=== PATIENT | female | born 1940 | race Caucasian/White ===

== ENCOUNTER 2019-12-14 09:53 | Inpatient (IN) | payer MEDICARE, BC, OTHER ==
[~2019-12-14] VITALS: Ht 162.6 cm; Wt 47.2 kg
[~2019-12-14 09:53] MED LIST: Diovan PO; PANT20TA58 PO; cholesterol med; paxil PO
--- NOTE | 2019-12-14 10:09 | PHYS DOC ---
Past History Past Medical History: Anxiety, Dementia, GERD, High Cholesterol, Hypertension, IBS Past Surgical History: Hysterectomy Smoking: Non-smoker Alcohol Use: None Drug Use: None General Adult EDM: Chief Complaint: MEDICAL CLEARANCE HPI: HPI: Patient is an 79-year-old female with a history of advanced dementia. The patient's states that for the past 2 weeks she has had a decline in her mental status with increasing confusion, she is not responding verbally, in her normal manner, spelling her words, and with limited communications. She has not been violent or aggressive. She did have a CT scan done 2 days ago at [facility] according to the patient's , due to her mental status change. She also recently had an increase of her Paxil to 40 mg, which was discontinued by her PCP. Because of the continued difficulties of the patient's behavior, she was sent by her PCP to the emergency department for medical evaluation and admission to the [facility]. The patient herself has no other complaints at this time. I will request the records of the CT scan from [facility]. The patient's states she recently had a Puentes catheter placed secondary to inability to Fully empty her bladder. Review of Systems: Review of Systems: Unable to obtain review of systems secondary to altered mental status/dementia Heart Score: Risk Factors: Risk Factors: DM, Current or recent (<one month) smoker, HTN, HLP, family history of CAD, obesity. Risk Scores: Score 0 - 3: 2.5% MACE over next 6 weeks - Discharge Home Score 4 - 6: 20.3% MACE over next 6 weeks - Admit for Clinical Observation Score 7 - 10: 72.7% MACE over next 6 weeks - Early Invasive Strategies Allergies: Allergies: Allergies Coded Allergies Type Severity Reaction Last Updated Verified sulfamethoxazole Allergy Unknown 07/18/13 Yes prochlorperazine maleate Adverse Reaction Unknown Makes her twitch 07/18/13 Yes Physical Exam: PE: PHYSICAL EXAM: CONSTITUTIONAL: Well developed, well nourished HEAD: normocephalic, atraumatic EENT: PERRL, EOMI. Conjunctivae normal color, sclerae non-icteric; moist mucous membranes. NECK: Supple, non-tender; no meningismus. LUNGS: Lungs CTA, breathing even and unlabored. Normal air movement. HEART: Regular rate and rhythm, no murmur CHEST: No deformity; non-tender ABDOMEN: The abdomen is soft, and non-tender, no masses or bruits. EXTREM: Normal ROM; no deformity, no calf tenderness. Normal pulses palpable in all extremities. There is no pedal edema. SKIN: No rash; no diaphoresis NEURO: Alert; patient is not speaking, she does exhibit erratic responses to questions and interactions consistent with underlying dementia. CN's grossly intact; strength grossly intact without focal deficit. Patient does exhibit some behavioral agitation but is not combative. BACK: No CVA TTP. EKG: EKG: Sinus tachycardia rate of 118 bpm, normal axis, right bundle branch block with otherwise normal intervals, without acute ischemic ST/T changes. [] Radiology/Procedures: Radiology/Procedures: PROCEDURE: CHEST AP ONLY EXAM: CHEST AP ONLY INDICATION: Reason: AMs, leukocytosis / Spl. Instructions: / History: . TECHNIQUE: Single view COMPARISON: None FINDINGS: The heart size is normal. The great vessels appear unremarkable. There is no hilar or mediastinal mass. The lungs are clear. There is no pleural effusion or pneumothorax. There are no significant osseous abnormalities. IMPRESSION: No active cardiopulmonary disease. [] Course & Med Decision Making: Course & Med Decision Making Pertinent Labs and Imaging studies reviewed. (See chart for details) [] 1:20 PM: The patient's condition remained stable. The patient's apparently called the [facility] unit, and was told to come to the emergency department for the [facility] does not have any beds at this time. The patient has had a worsening of her mental status, particularly with regards to her speech recently, and would benefit from a hospital stay on the medical unit for neurology consult. I spoke with Dr. Soliman, who will admit the patient for further evaluation and treatment. Neurology consultation would be reasonable. the patient did begin having more expressive verbal communication after she was informed she will be admitted to the hospital, however the content of her speech and her behavior still abnormal consistent with her history of dementia. Sherrion Disclaimer: Cristobal Disclaimer: This electronic medical record was generated, in whole or in part, using a voice recognition dictation system. Departure Departure: Impression: Primary Impression: Altered mental status Disposition: ADMITTED INPATIENT Admitting Physician: Silver Soliman Condition: STABLE Referrals: NUNO SMITH MD (PCP) Justification of Admission: Justification of Admission: Justification of Admission Dx: Yes Altered Mental Status: Altered Mental Status TYLER PORRAS MD Dec 14, 2019 10:09
--- NOTE | 2019-12-14 10:35 | EKG ---
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
[2019-12-14 10:53] LABS: BASO # 0.1 x10^3/uL (0.0-0.2); BASO % 1 % (0-3); EOS % 0 % (0-3); HEMATOCRIT 35.7 % (36.0-47.0); LYMPH # 1.2 x10^3/uL (1.0-4.8); LYMPH % 7 % (24-48); MEAN CORPUSCULAR HEMOGLOBIN 31 pg (25-35); MEAN CORPUSCULAR HGB CONC 34 g/dL (31-37); MEAN CORPUSCULAR VOLUME 93 fL (79-100); MONO # 1.3 x10^3/uL (0.0-1.1); MONO % 8 % (0-9); NEUT # 13.9 x10^3uL (1.8-7.7); NEUT % 84 % (31-73); PLATELET COUNT 447 x10^3/uL (140-400); RED BLOOD COUNT 3.84 x10^6/uL (3.50-5.40); WHITE BLOOD COUNT 16.5 x10^3/uL (4.0-11.0)
[2019-12-14 11:01] LABS: CALCIUM 9.4 mg/dL (8.5-10.1); CREATININE 0.9 mg/dL (0.6-1.0); GFR 60.2
[2019-12-14 11:06] LABS: ALBUMIN 3.3 g/dL (3.4-5.0); ALBUMIN/GLOBULIN RATIO 1.1 (1.0-1.7); MAGNESIUM 1.8 mg/dL (1.8-2.4); TOTAL BILIRUBIN 0.7 mg/dL (0.2-1.0); TOTAL PROTEIN 6.4 g/dL (6.4-8.2)
--- NOTE | 2019-12-14 12:03 | RAD ---
EXAM: CHEST AP ONLY INDICATION: Reason: AMs, leukocytosis / Spl. Instructions: / History: . TECHNIQUE: Single view COMPARISON: None FINDINGS: The heart size is normal. The great vessels appear unremarkable. There is no hilar or mediastinal mass. The lungs are clear. There is no pleural effusion or pneumothorax. There are no significant osseous abnormalities. IMPRESSION: No active cardiopulmonary disease. Electronically signed by: John Fish MD (12/14/2019 12:00 PM) [id number]
[2019-12-14 12:36] LABS: BILIRUBIN,URINE NEG (NEG); CLARITY,URINE CLEAR; COLOR,URINE YELLOW; GLUCOSE,URINE NEG (NEG)
[2019-12-14 12:40] LABS: NITRITE,URINE NEG (NEG); RBC,URINE RARE /HPF (0-2)
[2019-12-14 12:41] LABS: BACTERIA,URINE FEW /HPF (0-FEW)
[2019-12-14 13:11] LABS: % LYMPHS 4 % (24-48); % MONOS 9 % (0-10); % SEGS 87 % (35-66); PLT ESTIMATE INCREASED (ADEQUATE)
[2019-12-14 13:13] LABS: BURR CELLS FEW
--- NOTE | 2019-12-14 14:35 | HP ---
ADMIT DATE: 12/14/2019 ATTENDING PHYSICIAN: Dr. Gutierrez. CHIEF COMPLAINT: Confusion. HISTORY OF PRESENT ILLNESS: The patient is an 79-year-old female with profound advanced dementia. She has been cared for diligently by her . For the last 2 weeks, she has been in decline in her mental status with increasing confusion. She has not responded in the usual manner spelling her words, limited communication with expressive aphasia. She had a recent CT scan just 2 days ago at [facility], which is interpreted as nondiagnostic. She has underlying depression. She also had a cystoscopy done [facility] for urinary retention and Puentes catheter has been placed. Her white count is slightly elevated. She does not appear septic at this time, but certainly systemic inflammatory response syndrome is a possibility. Empiric antibiotics will be started. I was asked to admit the patient for Neurology consultation, stabilization and put in a consult for the senior diagnostic unit. Her 's goal is to eventually get her stabilized and get her back home to manage her. He does not have any plans for [place] [facility] placement at this time. PAST MEDICAL HISTORY: Significant for advanced dementia, generalized anxiety, hypertension, irritable bowel syndrome, gastroesophageal reflux disease and hyperlipidemia. ALLERGIES: SHE HAS MULTIPLE ALLERGIES INCLUDING PROCHLORPERAZINE, AND SULFAMETHOXAZOLE. Exact causes and reaction is unclear. SOCIAL HISTORY: She is a nonsmoker and nondrinker. SURGICAL HISTORY: Hysterectomy for what diagnosis is unclear to the hospital. CURRENT MEDICINES: Reviewed. They are limited. She was restarted on her Paxil 40 mg daily along with aspirin 1 daily, Protonix 20 mg daily, Diovan 80 mg daily and a lipid drug. FAMILY HISTORY: Her mom of complications of colon cancer at age of 78. Father of natural causes in his mid 90s. They have 2 children that are grown. One son lives in [place]. A daughter lives in [place]. REVIEW OF SYSTEMS: Significant for her decline over the last 2 weeks. Recent manipulation for placement of indwelling Puentes catheter. She has had poor appetite. She has had some weight loss. All other systems reviewed. Unfortunately, unobtainable due to the patient's confusion. PHYSICAL EXAMINATION: GENERAL: When I saw her, this is a pleasant, but cachectic elderly female. INITIAL VITAL SIGNS: Showed a blood pressure 148/67, pulse was 100 and regular, temperature 98.8 and her room air saturation was 95%. HEENT: Head is without trauma. Pupils are reactive. Sclerae nonicteric. The oropharynx is clear. NECK: Supple, no bruits identified. LUNGS: Shallow respirations. CARDIOVASCULAR: Showed regular heart tones. No gallops. Peripheral pulses are palpable and full. ABDOMEN: Soft, scaphoid, nontender, no organomegaly. Bowel sounds are hypoactive. EXTREMITIES: Show no cyanosis or edema. Indwelling Puentes catheter was in place. SKIN: Warm and dry. PERTINENT LABORATORY STUDIES: The CT of the head was reported as nondiagnostic from [facility] 2 days ago. Hemoglobin is 12.0 g/dL with white count of 16,500. Chemistry panel is fairly unremarkable. Creatinine 0.9, nonfasting blood sugar 96. Liver panel unremarkable. Urinalysis showed rare red blood cells, few bacteria and some leukocyte esterase. The urinary pH is 8.5 suggestive of a Proteus species infection. ASSESSMENT: 1. An 79-year-old female with profound dementia with agitation. 2. Recent bladder manipulation and placement of catheter. I suspect she has a systemic inflammatory response syndrome. 3. Probable Proteus species infection. 4. Mild dehydration. 5. Altered mentation with agitation. PLAN: 1. Admit to the medical floor. 2. Empiric antibiotics. 3. Urine culture. 4. Diet as tolerated. 5. Empiric Rocephin. 6. Urology consult. 7. Psychiatry consult for placement at the senior diagnostic unit. I shall also discuss with to ascertain her code status. She is a FULL CODE at this time. NADJA GUTIERREZ MD DR: JOY/joan JOB#: [id number] / [id number]
[2019-12-14 16:22] VITALS: BP 160/81
[2019-12-14] MEDS ORDERED: PARO40TA61 PO (18:28)
[2019-12-14] MEDS ORDERED: ACET325T21 PO (18:28)
[2019-12-14] MEDS ORDERED: ALPR0.254 PO (18:28)
[2019-12-14] MEDS ORDERED: ATOR10TA60 PO (18:28)
[2019-12-14] MEDS ORDERED: TAMS0.4C97 PO (18:28)
[2019-12-14] MEDS ORDERED: POLY17PO5 PO (18:28)
[2019-12-14] MEDS ORDERED: MECO10005 PO (18:28)
[2019-12-14] MEDS ORDERED: PANT40TA3 PO (18:28)
[2019-12-14] MEDS ORDERED: IBUP400T18 PO (18:28)
[2019-12-14] MEDS ORDERED: LINA290C PO (18:28)
[2019-12-14] MEDS ORDERED: VALS1TAB8 PO (18:28)
[2019-12-14] MEDS ORDERED: PHEN95TA PO (18:28)
[2019-12-14] MEDS ORDERED: SENN8.8S5 PO (18:28)
[2019-12-14] MEDS: QUEtiapine 25 MG TABLET. PO SCH ×2 (19:38→21:00)
[2019-12-14 19:59] VITALS: BP 131/78
--- NOTE | 2019-12-14 21:39 | RAD ---
STUDY: CT head without contrast INDICATION: Altered mental status. COMPARISON: None. TECHNIQUE: Axial CT imaging through the head without the use of intravenous contrast. Sagittal and coronal reformats were obtained. One or more of the following individualized dose reduction techniques were utilized for this examination: 1. Automated exposure control 2. Adjustment of the mA and/or kV according to patient size 3. Use of iterative reconstruction technique. FINDINGS: No acute intracranial hemorrhage. No localized mass effect. No midline shift. The lateral and third ventricles are prominent in size but symmetric. Parenchymal volume loss. Patchy and more confluent bihemispheric subcortical and periventricular white matter low-attenuation. Mild carotid siphon atherosclerotic calcifications. Intact calvarium. Unremarkable mastoid air cells, middle ears and paranasal sinuses. IMPRESSION: 1. No acute intracranial abnormality by CT. 2. Nonspecific white matter findings but most frequently seen in the setting of chronic microvascular ischemic change. 3. Symmetric prominence of the ventricular system on a background of parenchymal volume loss. Electronically signed by: ALYSSA CAMPUZANO MD (12/14/2019 9:36 PM) [id number]
[2019-12-14 23:40] VITALS: BP 152/79
--- NOTE | 2019-12-15 05:41 | NUR ---
Pt spent most of shift confused, agitated, persistent on not wanting to stay and needing to get home to see her and she was so worried about him and their dog. She was alert to self. Pt would talk on her phone which was and be having a conversation with someone but was not there. She kept saying she just wanted to go to the door to let her in and I would reorient her that we were at the hospital and she was getting abx and treatment to get better and that her was worried about her and that is why he had her come here. I probably repeated myself with the same question and answers 100 times. She was trying to get up out and just extremely anxious not getting any sleep but finally after some ativan, she has been sleeping sound ever since. VSS. Pt CT head completed last night. Puentes draining well with good output.
[2019-12-15 10:01] VITALS: BP 105/63
--- NOTE | 2019-12-15 10:48 | PN ---
DATE: 12/15/2019 ATTENDING PHYSICIAN: Dr. Gutierrez. CHIEF COMPLAINT: Confusion. SUBJECTIVE: The patient is calm today. She remains fairly disoriented from her dementia. She is not agitated. We had to give her a couple of doses of Ativan to calm her down. is at the bedside. There is no obvious respiratory distress or discomfort. OBJECTIVE FINDINGS: VITAL SIGNS: Her blood pressure today is 131/78, pulse is 88 and regular, temperature 98.1 degrees Fahrenheit, and her oxygen saturation is 97% on room air. HEENT: Head is without trauma. Pupils are reactive. Sclerae is nonicteric. Oropharynx is clear. NECK: Supple. No bruits identified. CHEST: Good breath sounds. CARDIOVASCULAR: Showed distant heart tones. No gallops. ABDOMEN: Soft, scaphoid, nontender. EXTREMITIES showed no edema. Puentes catheter was in place. NEUROLOGICAL FUNCTION: The patient is confused and disoriented and not aware of anything that is going on. LABORATORY STUDIES: CBC and chemistry panel are pending. Urine cultures and blood cultures have been drawn and pending. ASSESSMENT: 1. An 79-year-old female with altered mentation. 2. Systemic inflammatory response syndrome related to recent cystoscopy 4 days ago. 3. Urinary retention with placement of Puentes catheter. 4. Probable Proteus species infection if cultures are positive. 5. Mild dehydration. 6. Altered mentation with agitation. PLAN: 1. Continue IV antibiotics. 2. Continue IV hydration. 3. Diet as tolerated. 4. Await urine culture. 5. Psychiatric consult for Senior diagnostic unit. 6. Neurology consultation. NADJA GUTIERREZ MD DR: JOY/joan JOB#: [id number] / [id number]
[2019-12-15] MEDS: PARoxetine 20 MG TABLET PO SCH (11:55)
[2019-12-15] MEDS: PANTOPRAZOLE 40 MG TABLET. PO SCH (11:55)
[2019-12-15] MEDS: LOSARTAN 50 MG TABLET. PO SCH (11:56)
[2019-12-15] MEDS: hydroCHLOROthiazide 12.5 MG CAPSULE PO SCH (11:56)
[2019-12-15] MEDS: TAMSULOSIN 0.4 MG CAP.ER.24H. PO SCH (11:56)
[2019-12-15] MEDS: LACTOBACILLUS RHAMNOSUS GG 1 CAPSULE. PO SCH ×2 (11:56→20:17)
[2019-12-15 19:30] VITALS: BP 98/59
[2019-12-15] MEDS: ATORVASTATIN CALCIUM 10 MG TABLET. PO SCH (20:17)
[2019-12-15] MEDS: ALPRAZolam 0.25 MG TABLET PO SCH (20:17)
[2019-12-15 22:35] VITALS: BP 122/69
--- NOTE | 2019-12-16 03:34 | NUR ---
Pt more oriented this evening. Aware she is in the hospital and she has been more confused recently. However pt is fixated on moving her bowels. Pt had a moderate, formed stool at change of shift but continued to request assistance to bathroom to attempt BM. Pt assisted to bathroom hourly until around 2300 when pt settled to sleep. Pt has been resting comfortably since.
[2019-12-16 06:29] VITALS: BP 110/66
[2019-12-16 06:36] LABS: BASO # 0.1 x10^3/uL (0.0-0.2); BASO % 1 % (0-3); EOS # 0.2 x10^3/uL (0.0-0.7); EOS % 2 % (0-3); HEMATOCRIT 31.4 % (36.0-47.0); HEMOGLOBIN 10.6 g/dL (12.0-15.5); LYMPH # 1.4 x10^3/uL (1.0-4.8); LYMPH % 13 % (24-48); MEAN CORPUSCULAR HEMOGLOBIN 32 pg (25-35); MEAN CORPUSCULAR HGB CONC 34 g/dL (31-37); MEAN CORPUSCULAR VOLUME 94 fL (79-100); MONO # 1.2 x10^3/uL (0.0-1.1); MONO % 11 % (0-9); NEUT # 7.6 x10^3uL (1.8-7.7); NEUT % 72 % (31-73); PLATELET COUNT 382 x10^3/uL (140-400); RED BLOOD COUNT 3.36 x10^6/uL (3.50-5.40); RED CELL DISTRIBUTION WIDTH 13.7 % (11.5-14.5); WHITE BLOOD COUNT 10.5 x10^3/uL (4.0-11.0)
[2019-12-16 07:08] LABS: CALCIUM 8.5 mg/dL (8.5-10.1); GFR 53.3
[2019-12-16] MEDS ORDERED: NON FORMULARY ITEM (Valsartan/Hydrochlorothiazide (Diovan Hct 160-12.5 Mg Tab) 1 TAB) PO SCH (09:00)
[2019-12-16] MEDS: PARoxetine 20 MG TABLET PO SCH (09:02)
[2019-12-16] MEDS: TAMSULOSIN 0.4 MG CAP.ER.24H. PO SCH (09:02)
[2019-12-16] MEDS: LACTOBACILLUS RHAMNOSUS GG 1 CAPSULE. PO SCH ×2 (09:02→21:10)
[2019-12-16] MEDS: ALPRAZolam 0.25 MG TABLET PO SCH ×2 (09:03→21:10)
[2019-12-16] MEDS: LOSARTAN 50 MG TABLET. PO SCH (09:03)
[2019-12-16] MEDS: PANTOPRAZOLE 40 MG TABLET. PO SCH (09:03)
[2019-12-16] MEDS: hydroCHLOROthiazide 12.5 MG CAPSULE PO SCH (09:03)
[2019-12-16] MEDS: ACETAMINOPHEN 325 MG TABLET PO PRN ×2 (09:04→21:10)
--- NOTE | 2019-12-16 10:32 | PN ---
DATE: 12/16/2019 ATTENDING PHYSICIAN: Dr. Gutierrez. SUBJECTIVE: The patient is calm. She is still disoriented, but her speech is back to baseline. She is not agitated. She has some minor lower abdominal discomfort from the indwelling Puentes catheter, as needed Pyridium has been ordered. OBJECTIVE FINDINGS: Her urine cultures grew out greater than only 50,000 colonies of sharan. This is not significant. Nevertheless, she is continued on her antibiotics. PHYSICAL EXAMINATION: VITAL SIGNS: Her blood pressure is 110/66 mmHg, pulse rate is 84 and regular, temperature 98.6 degrees Fahrenheit and her room air saturation 94% on room air. HEENT: Head is without trauma. Pupils are reactive. Sclerae nonicteric. Oropharynx is clear. NECK: Supple, no bruits identified. LUNGS: Clear. CARDIOVASCULAR: Showed regular heart tones. No gallops, no murmurs. Peripheral pulses are palpable full. ABDOMEN: Soft. Minimal guarding, lower abdomen. No rebound tenderness. EXTREMITIES: Showed no cyanosis or edema. Puentes catheter is in place and functioning. LABORATORY DATA: Hemoglobin today is 10.6 g/dL with a white count of 10,500. Urine cultures grew 50,000 colonies. Blood cultures are negative growth at 24 hours. ASSESSMENT: 1. An 79-year-old female with transient global amnesia improved, back to baseline. 2. Altered mentation, resolved. 3. Systemic inflammatory response syndrome related to recent cystoscopy. 4. Urinary retention with placement of a Puentes catheter for drainage. 5. Dehydration, rehydrated. 6. Underlying dementia, profound. PLAN: 1. Continue IV antibiotics as ordered. 2. Diet as tolerated. 3. Urology consultation. 4. Tentative plans for discharge home. Family will decide whether she would benefit going to the Senior Diagnostic Unit. NADJA GUTIERREZ MD DR: JOY/joan JOB#: [id number] / [id number]
[2019-12-16 10:35] VITALS: BP 97/61
[2019-12-16 15:39] VITALS: BP 105/59
[2019-12-16 19:30] VITALS: BP 122/70
--- NOTE | 2019-12-16 19:53 | CONS ---
DATE OF CONSULTATION: 12/14/2019 PSYCHIATRIC CONSULTATION This late entry date of service 12/14/2019 covers elements not covered in my initial note. SUBJECTIVE: I met with the patient evening of 12/14/2019 in room 107, [facility], for a psychiatric consult requested by Dr. Soliman on account of the patient's worsening anxiety, altered mental status following a recent procedure of Cystoscopy and anesthesia as part of this. Additionally, the patient has a history of recurrent UTIs and had been on Paxil, which was also stopped a few days back. A consult has been requested for recommendations from a psychiatric standpoint and workup of her altered mental status. The patient was seen individually evening of 12/14/2019. Discussed with nursing staff, reviewed the chart. IDENTIFYING DATA: The patient is an 79-year-old female with progressive shortness short-term memory deficits. She has been cared for at home quite diligently by her . CHIEF COMPLAINT: "Do you know what is happening here. They are doing all these things. I don't know what is happening. There is something wrong." The patient was lying in bed as I met with her evening of 12/14/2019. She had a cell phone in her hand, was pointing to the screen, stating she was getting messages from people and she was suspicious what was going on. She did appear somewhat confused, but was able to tell me the year is 2019 that she was in [place], but felt the president was Jeancarlos Agarwal as noted below. HISTORY OF PRESENT ILLNESS: As noted above, the patient had been living at home with her who had been caring for her within the context of her progressive memory deficits. Recently, she appeared somewhat different spelling her words with limited communication with expressive aphasia. CT head [facility] at [facility] reportedly showed no acute changes. She has been treated for depression for an extended period of time on Paxil and Dr. Ornelas, her primary care physician had recently stopped it following her worsening confusion after the cystoscopy done at [facility] for urinary retention. A Puentes catheter was placed after this. At admission, she had a slight elevation of her white cell count, but was not septic per Dr. Soliman, who felt she had a systemic inflammatory response syndrome as a possibility and treated her on empiric antibiotics. Her plans to have her back home when she is medically and psychiatrically stable and if that includes her stay on the [facility] that will have to be determined post-medical stabilization. PAST PSYCHIATRIC HISTORY: As noted above. PAST MEDICAL HISTORY: In addition to above, she does have a history of hypertension, irritable bowel syndrome, GERD and hyperlipidemia. ALLERGIES: Multiple allergies, PROCHLORPERAZINE, SULFAMETHOXAZOLE. SOCIAL HISTORY: She is a nonsmoker, does not use alcohol. 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 PAST SURGICAL HISTORY: Hysterectomy. CURRENT PSYCHOTROPICS: She was restarted on Paxil [address] Soliman and is on Protonix 20 mg a day, aspirin 1 daily, Diovan 80 mg a day and a drug for her hyperlipidemia. FAMILY HISTORY: Mother of complication of colon cancer at the age of 78. Father of natural causes in his mid 90s. They have two adult children, 1 son lives in [place], daughter lives in [place]. REVIEW OF SYSTEMS: No CV, , pulmonary, eye, ENT system symptoms on review. She is somewhat confused, anxious, distractible, restless, paranoid. MENTAL STATUS EXAM: The patient is noted, knew she was in [place], knew she was at the hospital and knew the year was 2019, but felt the president was Jeancarlos Agarwal. Speech coherent, rapid at times. Abstraction fair, computation impaired, language function intact, attention span short. Mood and affect; anxious, labile. She is quite paranoid as noted. No suicidal or homicidal ideation. LABORATORY DATA: Reviewed. Reportedly, UA has reflux to culture, result is awaited. 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 RECOMMENDATION: From a psychiatric standpoint, she is quite paranoid, anxious with worsening mood lability. We will administer 25 mg Seroquel, the night of 12/14/2019 and see how she does. A CT head has been repeated, it is not clinically significant. If she does have a UTI, this might explain some of her confusion and we should improve post-treatment of the UTI. When she is medically stabilized and if the confusion, agitation persists, we may consider transition to [facility] Unit. Dr. Soliman, thank you for the opportunity to participate in your patient's care. We will follow with you. She also remains on Gabriel martinez. LUCAS CODY MD DR: Kathie JOB#: [id number] / [id number]
--- NOTE | 2019-12-16 20:00 | PN ---
DATE: 12/15/2019 PSYCHIATRIC PROGRESS NOTE This late entry date of service 12/15/2019 covers elements not covered in my initial note. SUBJECTIVE: I met with the patient evening of 12/15/2019. Discussed with RUSLAN Tipton. The patient did receive Seroquel 25 mg at bedtime last night, but still did not sleep despite this and Zyprexa p.r.n. Then, she received Ativan p.r.n. after midnight and then did better and slept rest of the night. She has done better during the day on 12/15/2019, but she remains somewhat obsessed about her bowels, but the paranoia is improved. Her UA has reflux to culture and may explain some of her above confusion. REVIEW OF SYSTEMS: Positive for complaints of constipation. No CV, , pulmonary, eye system symptoms on review. MENTAL STATUS EXAMINATION: The patient is oriented to herself and situation. Speech is coherent, abstraction fair, computation impaired, language function intact, attention span is short. No suicidal or homicidal ideation. Seems less paranoid. LABORATORY DATA: Reviewed. IMPRESSION: Major neurocognitive disorder, Alzheimer, vascular with delusion, depression; behavioral disturbance; anxiety disorder, unspecified; impulse control disorder, unspecified. PLAN: Discontinue the Seroquel if she does not seem paranoid any longer. Continue rest of the psychotropics unchanged. When she is medically stable, we will reassess whether she meets criteria for [facility] Unit. LUCAS CODY MD DR: BARON/joan JOB#: [id number] / [id number]
[2019-12-16] MEDS: PHENAZOPYRIDINE 100 MG TABLET. PO PRN (21:10)
[2019-12-16] MEDS: ATORVASTATIN CALCIUM 10 MG TABLET. PO SCH (21:10)
--- NOTE | 2019-12-16 21:56 | NUR ---
Pt repeatedly asking for fiber to help her have BMs. Pt had 1 small so far this evening and reported by last nurse 2 during the day. Pt reports she has trouble in public places with BM and also due to anxiety she always struggles with. She reports all her problems are "in her head and due to anxiety." Pt states,"I need to go home. My kids are there. I miss my he is so kind. When are you taking out my catheter? I feel like I need to pee all the time." Pyridium administered this evening. Pt also stated,"I'm afraid to go home because I might have to come back. I don't want to be the crazy lady. I need to be normal when I go home for my kids." Pt tearful and crying often because she "forgets things all the time." As requested per pt, urination mL written on whiteboard to remind pt of langford and progressive urination. Pt came out to nurses' station carrying langford bag and asking where she should put it and when she will get her fiber that she normally takes at home every evening. Guided pt back to bed, set bed alarm and discussed use of fiber. Also assured pt we would notify physician of her request and she could have prune juice in the meantime if she desired. Also discussed pt routine at night to help her relax. Pt reported she watched tv with her , he massaged her feet and slept in a dark room. Per request, pulled down shades and rubbed bottom of pt's feet while she cried and watched tv. Pt concerned about "being a bother" and nurses "being mad at her." Assured pt we are available and glad to help and reminded her how to use the call light. Also retrieved some "celebrity trash magazines" per pt request. Will continue to monitor.
--- NOTE | 2019-12-16 22:24 | PDOC ---
Exam Note: Deon Note: This is a late entry for DOS 12/14/2019. Please also refer to the separate dictated note~for this date of service dictated separately.~Patient seen individually. Discussed the patient with Nursing staff reviewed the chart.~Reviewed interim history and current functioning. Reviewed vital signs,~Labs/ Radiology~and current medications noted below. Continue current treatment with the changes noted in the dictated addendum note Assessment: Vital Signs/I&O: Vital Signs Date Time Temp Pulse Resp B/P (MAP) Pulse Ox O2 Delivery O2 Flow Rate FiO2 12/16/19 20:30 Room Air 12/16/19 19:30 97.9 57 22 122/70 (87) 99 I & O 12/15/19 12/15/19 12/16/19 15:00 23:00 07:00 Intake Total 600 ml 410 ml 120 ml Output Total 1 ml 225 ml 350 ml Balance 599 ml 185 ml -230 ml Labs: Laboratory Tests Test 12/16/19 06:18 White Blood Count 10.5 x10^3/uL (4.0-11.0) Red Blood Count 3.36 x10^6/uL (3.50-5.40) L Hemoglobin 10.6 g/dL (12.0-15.5) L Hematocrit 31.4 % (36.0-47.0) L Mean Corpuscular Volume 94 fL (79-100) Mean Corpuscular Hemoglobin 32 pg (25-35) Mean Corpuscular Hemoglobin Concent 34 g/dL (31-37) Red Cell Distribution Width 13.7 % (11.5-14.5) Platelet Count 382 x10^3/uL (140-400) Neutrophils (%) (Auto) 72 % (31-73) Lymphocytes (%) (Auto) 13 % (24-48) L Monocytes (%) (Auto) 11 % (0-9) H Eosinophils (%) (Auto) 2 % (0-3) Basophils (%) (Auto) 1 % (0-3) Neutrophils # (Auto) 7.6 x10^3uL (1.8-7.7) Lymphocytes # (Auto) 1.4 x10^3/uL (1.0-4.8) Monocytes # (Auto) 1.2 x10^3/uL (0.0-1.1) H Eosinophils # (Auto) 0.2 x10^3/uL (0.0-0.7) Basophils # (Auto) 0.1 x10^3/uL (0.0-0.2) Sodium Level 141 mmol/L (136-145) Potassium Level 4.0 mmol/L (3.5-5.1) Chloride Level 105 mmol/L (98-107) Carbon Dioxide Level 30 mmol/L (21-32) Anion Gap 6 (6-14) Blood Urea Nitrogen 29 mg/dL (7-20) H Creatinine 1.0 mg/dL (0.6-1.0) Estimated GFR (Cockcroft-Gault) 53.3 Glucose Level 96 mg/dL (70-99) Calcium Level 8.5 mg/dL (8.5-10.1) Current Medications: Meds: Current Medications Medications (Trade) Dose Ordered Sig/Hector Route PRN Reason Start Time Stop Time Status Last Admin Dose Admin Phenazopyridine HCl (Pyridium) 100 mg PRN TID PRN PO URINARY PAIN 12/16/19 08:45 12/16/19 21:10 I have reviewed the current psychotropics carefully including drug interactions. Risk benefit ratio favors no change other than as noted in my dictated progress note. Diagnosis: Problems: (1) Major neurocognitive disorder (2) Dementia, vascular, with delusions (3) Dementia, vascular, with depression (4) Dementia in Alzheimer's disease with delusions (5) Dementia in Alzheimer's disease with depression (6) Dementia in Alzheimer's disease with early onset with behavioral disturbance (7) Major depressive disorder (8) Anxiety disorder, unspecified (9) Impulse control disorder, unspecified LUCAS CODY MD Dec 16, 2019 22:24
--- NOTE | 2019-12-16 22:25 | PDOC ---
Exam Note: Deon Note: This is late entry for DOS 12/15/2019. Please also refer to the separate dictated note~for this date of service dictated separately.~Patient seen individually. Discussed the patient with Nursing staff reviewed the chart.~Reviewed interim history and current functioning. Reviewed vital signs,~Labs/ Radiology~and current medications noted below. Continue current treatment with the changes noted in the dictated addendum note Assessment: Vital Signs/I&O: Vital Signs Date Time Temp Pulse Resp B/P (MAP) Pulse Ox O2 Delivery O2 Flow Rate FiO2 12/16/19 20:30 Room Air 12/16/19 19:30 97.9 57 22 122/70 (87) 99 I & O 12/15/19 12/15/19 12/16/19 15:00 23:00 07:00 Intake Total 600 ml 410 ml 120 ml Output Total 1 ml 225 ml 350 ml Balance 599 ml 185 ml -230 ml Labs: Laboratory Tests Test 12/16/19 06:18 White Blood Count 10.5 x10^3/uL (4.0-11.0) Red Blood Count 3.36 x10^6/uL (3.50-5.40) L Hemoglobin 10.6 g/dL (12.0-15.5) L Hematocrit 31.4 % (36.0-47.0) L Mean Corpuscular Volume 94 fL (79-100) Mean Corpuscular Hemoglobin 32 pg (25-35) Mean Corpuscular Hemoglobin Concent 34 g/dL (31-37) Red Cell Distribution Width 13.7 % (11.5-14.5) Platelet Count 382 x10^3/uL (140-400) Neutrophils (%) (Auto) 72 % (31-73) Lymphocytes (%) (Auto) 13 % (24-48) L Monocytes (%) (Auto) 11 % (0-9) H Eosinophils (%) (Auto) 2 % (0-3) Basophils (%) (Auto) 1 % (0-3) Neutrophils # (Auto) 7.6 x10^3uL (1.8-7.7) Lymphocytes # (Auto) 1.4 x10^3/uL (1.0-4.8) Monocytes # (Auto) 1.2 x10^3/uL (0.0-1.1) H Eosinophils # (Auto) 0.2 x10^3/uL (0.0-0.7) Basophils # (Auto) 0.1 x10^3/uL (0.0-0.2) Sodium Level 141 mmol/L (136-145) Potassium Level 4.0 mmol/L (3.5-5.1) Chloride Level 105 mmol/L (98-107) Carbon Dioxide Level 30 mmol/L (21-32) Anion Gap 6 (6-14) Blood Urea Nitrogen 29 mg/dL (7-20) H Creatinine 1.0 mg/dL (0.6-1.0) Estimated GFR (Cockcroft-Gault) 53.3 Glucose Level 96 mg/dL (70-99) Calcium Level 8.5 mg/dL (8.5-10.1) Current Medications: Meds: Current Medications Medications (Trade) Dose Ordered Sig/Hector Route PRN Reason Start Time Stop Time Status Last Admin Dose Admin Phenazopyridine HCl (Pyridium) 100 mg PRN TID PRN PO URINARY PAIN 12/16/19 08:45 12/16/19 21:10 I have reviewed the current psychotropics carefully including drug interactions. Risk benefit ratio favors no change other than as noted in my dictated progress note. Diagnosis: Problems: (1) Major depressive disorder (2) Impulse control disorder, unspecified (3) Anxiety disorder, unspecified (4) Dementia, vascular, with depression (5) Dementia, vascular, with delusions (6) Dementia in Alzheimer's disease with depression (7) Dementia in Alzheimer's disease with delusions (8) Major neurocognitive disorder (9) Dementia in Alzheimer's disease with early onset with behavioral disturbance LUCAS CODY MD Dec 16, 2019 22:25
[2019-12-16 23:16] VITALS: BP 97/58
[2019-12-17] MEDS: ACETAMINOPHEN 325 MG TABLET PO PRN (06:22)
[2019-12-17] MEDS: PHENAZOPYRIDINE 100 MG TABLET. PO PRN ×3 (06:22→20:43)
[2019-12-17 06:47] VITALS: BP 114/71
--- NOTE | 2019-12-17 07:00 | NUR ---
Pt requested to go to the toilet for urination and bowel movements through the night. She is worried that people will "not believe" her and think she "is crazy." Pt requested this nurse write,"You are not crazy" on the whiteboard as a reminder. This nurse wrote it for her with a smiley face and hearts along with urination amounts counted in langford catheter. Pt continues to forget about the catheter and pulls on it requesting help in understanding it and to go to the toilet. Pt insisted while sitting on the toilet to have a BM that she needed a suppository and this nurse should "do an act of mercy" by pulling a suppository or laxative for her even though it is not ordered by the physician. Despite efforts to explain the process of medication orders and administration, pt repeatedly insisted that this nurse is "not helping her and does not believe her." Also that if we "won't help her, Dr. Soliman probably won't either." Pt varies back and forth about positive and negative ideas about staff and physicians contradicting herself. After continued encouragement, pt allowed this nurse to help her back to bed. Ativan administered for anxiety and agitation per orders. Will continue to monitor.
[2019-12-17] MEDS: PARoxetine 20 MG TABLET PO SCH (08:13)
[2019-12-17] MEDS: LACTOBACILLUS RHAMNOSUS GG 1 CAPSULE. PO SCH ×2 (08:13→20:43)
[2019-12-17] MEDS: ALPRAZolam 0.25 MG TABLET PO SCH ×2 (08:13→20:43)
[2019-12-17] MEDS: hydroCHLOROthiazide 12.5 MG CAPSULE PO SCH (08:13)
[2019-12-17] MEDS: LOSARTAN 50 MG TABLET. PO SCH (08:14)
[2019-12-17] MEDS: TAMSULOSIN 0.4 MG CAP.ER.24H. PO SCH (08:14)
[2019-12-17] MEDS: PANTOPRAZOLE 40 MG TABLET. PO SCH (08:14)
[2019-12-17 10:24] VITALS: BP 141/83
[2019-12-17 10:25] VITALS: BP 105/64
--- NOTE | 2019-12-17 12:10 | PN ---
DATE: 12/17/2019 ATTENDING PHYSICIAN: Dr. Gutierrez. SUBJECTIVE: The patient is comfortable. She is still forgetful. at the bedside. She says "I don't feel good all over." She cannot be any more specific. The Pyridium is helping. Puentes catheter remains intact. OBJECTIVE: VITAL SIGNS: Her blood pressure today is 114/71, temperature 97.3 degrees Fahrenheit, oxygen saturation 97% on room air, her pulse is 87 per minute and regular. HEENT: Head is without trauma. Pupils are reactive. Sclerae are nonicteric. The oropharynx is clear. NECK: Supple. There are no bruits. LUNGS: Good breath sounds. CARDIOVASCULAR: Showed distant heart tones. No gallops. Peripheral pulses are palpable and full. ABDOMEN: Soft, scaphoid, nontender. Hypoactive bowel sounds. There is no guarding or rebound tenderness. EXTREMITIES: Show no cyanosis or edema. NEUROLOGIC: Pleasantly confused. She is disoriented to time. A Puentes catheter remains in place. LABORATORY DATA: Chemistry panel is unremarkable. Creatinine 1.0 mg percent. CBC showed a normal hemoglobin. White count is down to 10,500. ASSESSMENT: 1. An 79-year-old female with systemic inflammatory response syndrome following a urologic procedure 4 days prior. 2. Altered mentation, resolved. 3. Transient global amnesia, back to baseline. 4. Urinary retention with chronic Puentes catheter for drainage. 5. Dehydration, rehydrated. 6. Profound underlying dementia with multiple issues including delusions and behavioral issues. Please refer to Dr. Buenrostro note. PLAN: 1. Continue IV antibiotics as ordered. 2. Diet as tolerated. 3. Tentative plans for followup tomorrow with oral antibiotics. 4. Family will decide whether they want her on the [facility]. NADJA GUTIERREZ MD DR: JOY/joan JOB#: [id number] / [id number]
--- NOTE | 2019-12-17 14:03 | PN ---
DATE: 12/16/2019 PSYCHIATRIC PROGRESS NOTE This late entry 12/16/2019 covers elements not covered in my initial note. SUBJECTIVE: I met with the patient evening of 12/16/2019. Per nursing report, the patient is doing better. She slept well despite stopping the Seroquel, is less anxious. She does get confused, more so in the evening, but less paranoid as compared to the day before. I met with her in her room. REVIEW OF SYSTEMS: No CV, , pulmonary, eye system symptoms on review. MENTAL STATUS EXAM: Oriented to herself and situation. Speech is coherent, abstraction fair, computation impaired, language function intact, attention span short. Mood and affect somewhat anxious, labile, but improved. LABORATORY DATA: Reviewed. IMPRESSION: Major neurocognitive disorder, Alzheimer, vascular with delusion, depression, behavioral disturbance; history of major depressive disorder. Rest unchanged. UA is negative. PLAN: Continue current psychotropics from initial note including Paxil, which was reinitiated 40 mg a day. The family prefers to have her back home for in-home care for now. We will see how she stabilizes post-medical stabilization. If her psychiatric symptoms persist, we will screen her for [facility]. LUCAS CODY MD DR: BARON/joan JOB#: [id number] / [id number]
[2019-12-17 15:15] VITALS: BP 93/56
--- NOTE | 2019-12-17 18:41 | CONS ---
DATE OF CONSULTATION: ENDOCRINOLOGY CONSULTATION REFERRING PHYSICIAN: Dr. Soliman. REASON FOR CONSULTATION: Acute mental status changes. HISTORY OF PRESENT ILLNESS: This is an 79-year-old right-handed female who was admitted through Emergency Room on 12/14/2019 on account of progressive mental status changes and increased confusion for past 2 weeks after she had a cystoscopy and found to have a neurogenic bladder. According to the patient, she has had intermittent confusion and progressive memory loss and sometimes difficulty finding words. She has had a longstanding history of depressions and she had been on Paxil for anxiety disorder, which was recently discontinued by her primary care physician. According to the patient, she went to [facility] 2 weeks ago and had a cystoscopy because of bladder retention and difficulty to urinate. A Puentes catheter was placed; however, the patient would have intermittent confusion and disorientation. She was seen 2 days prior to the admission in the Emergency Room at [facility] where a head CT scan was performed and revealed no significant abnormalities. The patient denies any recent head injuries or fall. However, she has been using a walker for ambulation. PAST MEDICAL HISTORY: Significant for dementia, generalized anxiety, irritable bowel syndrome, hypertension, gastroesophageal reflux disease and hyperlipidemia. SOCIAL HISTORY: The patient lives with her at home. She denies smoking, alcohol drinking, or illicit drug use. PAST SURGICAL HISTORY: Positive for hysterectomy. CURRENT MEDICATIONS: Include Rocephin antibiotic for systemic infections, lorazepam, Tylenol, pantoprazole, tamsulosin, Paxil, hydrochlorothiazide, losartan, Lipitor and phenazopyridine. ALLERGIES: PROCHLORPERAZINE MALEATE AND SULFAMETHOXAZOLE. FAMILY HISTORY: Mom at age of 75 from colon cancer. Father in late 90s. She has 2 children. REVIEW OF SYSTEMS: A 12-point review of system was performed as mentioned above in history of present illness, otherwise, unremarkable. She described intermittent confusion and memory loss and sometimes difficulty finding words. PHYSICAL EXAMINATION: GENERAL: Well-developed, well-nourished female, not in acute distress. She weighs 47.2 kilos. VITAL SIGNS: Blood pressure is 93/56, respiratory rate 20, pulse is 96, oxygen saturation 99% on room air, and temperature is 97.9. HEENT: Normocephalic, atraumatic, otherwise unremarkable. NECK: Supple. Negative for carotid bruit, lymphadenopathy or thyromegaly. LUNGS: Clear to A and P. CARDIOVASCULAR: Regular rate and rhythm, normal S1, S2. There is no S3, S4 or murmur. ABDOMEN: Soft. Bowel sounds positive. EXTREMITIES: Negative for cyanosis, clubbing or edema. NEUROLOGICAL: Mental Status: The patient is alert and oriented x 3. The speech is fluent. There is no language dysfunction. The patient recalls 2/3 immediately and 1/3 after 1 and 3 minutes. Judgment and abstract thinking are normal. The patient denies hallucination or delusion. Cranial Nerves: Visual bellamy are full. The pupils are reactive to light and accommodation. The extraocular movements are intact. There is no nystagmus. There is no facial motor or sensory deficit. Hearing is intact bilaterally. The palate is elevated symmetrically. Sternocleidomastoid muscles are powerful bilaterally. The patient shrugs her shoulders symmetrically, protrudes her tongue in the midline without fasciculation or atrophy. MOTOR: No focal muscle bulk was seen. The tone is normal. The strength is 4/5 throughout. SENSORY: Revealed normal pinprick, light touch, vibratory and position senses. Deep tendon reflexes were symmetric and active without pathology responses. GAIT: The stance is steady. The patient uses a walker for ambulation as well. LABORATORY DATA: CBC from 12/16/2019 revealed white blood cells of 10.5, hemoglobin 10.6, hematocrit 31.4, platelet count 382,000. Chemistry revealed sodium of 141, potassium 4, chloride 105, CO2 of 30. BUN 29, creatinine 1, glucose 96, calcium 8.5. Urinalysis revealed white blood cells of 5-10 with small urinary leukocyte esterase and few bacteria and negative nitrite. DIAGNOSTIC DATA: Nonenhanced head CT scan revealed no acute intracranial process, but it showed ventriculomegaly along with chronic small vessel ischemic changes. IMPRESSION: 1. Two-week history of intermittent confusion and disorientation resulted from recent cystoscopy and placing an indwelling urinary catheter. 2. History of slowly progressive memory loss and intermittent confusion, rule out dementia. 3. Multiple medical problems include urinary tract infections, dehydration, history of hypertension, hyperlipidemia and dementia. RECOMMENDATIONS: 1. Continue current management initiated by Dr. Soliman to treat the underlying urinary tract infections. 2. Hydration. 3. Treat the underlying anxiety and depressions. 4. The patient may benefit from an inpatient psychiatric care at our [facility]. M Sergey LAM MD DR: GISELLE/joan JOB#: [id number] / [id number]
[2019-12-17 19:34] VITALS: BP 91/56
[2019-12-17] MEDS: ATORVASTATIN CALCIUM 10 MG TABLET. PO SCH (20:43)
--- NOTE | 2019-12-17 22:04 | PDOC ---
Exam Note: Deon Note: Please also refer to the separate dictated note~for this date of service dictated separately.~Patient seen individually. Discussed the patient with Nursing staff reviewed the chart.~Reviewed interim history and current functioning. Reviewed vital signs,~Labs/ Radiology~and current medications noted below. Continue current treatment with the changes noted in the dictated addendum note Assessment: Vital Signs/I&O: Vital Signs Date Time Temp Pulse Resp B/P (MAP) Pulse Ox O2 Delivery O2 Flow Rate FiO2 12/17/19 19:36 Room Air 12/17/19 19:34 98.1 98 18 91/56 (68) 97 I & O 12/16/19 12/16/19 12/17/19 15:00 23:00 07:00 Intake Total 320 ml 250 ml 200 ml Output Total 350 ml 800 ml Balance 320 ml -100 ml -600 ml Current Medications: I have reviewed the current psychotropics carefully including drug interactions. Risk benefit ratio favors no change other than as noted in my dictated progress note. 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
[2019-12-17 23:52] VITALS: BP 111/66
[2019-12-18 07:00] VITALS: BP 116/65
[2019-12-18] MEDS: LACTOBACILLUS RHAMNOSUS GG 1 CAPSULE. PO SCH (08:19)
[2019-12-18] MEDS: ALPRAZolam 0.25 MG TABLET PO SCH (08:19)
[2019-12-18] MEDS: PARoxetine 20 MG TABLET PO SCH (08:19)
[2019-12-18] MEDS: hydroCHLOROthiazide 12.5 MG CAPSULE PO SCH (08:19)
[2019-12-18] MEDS: PANTOPRAZOLE 40 MG TABLET. PO SCH (08:19)
[2019-12-18] MEDS: TAMSULOSIN 0.4 MG CAP.ER.24H. PO SCH (08:19)
[2019-12-18 08:20] VITALS: BP 116/65
[2019-12-18] MEDS: LOSARTAN 50 MG TABLET. PO SCH (08:20)
--- NOTE | 2019-12-18 09:48 | NUR ---
NURSING NOTE DISCHARGE PT DISCHARGED HOME VIA WHEELCHAIR ACCOMPANIED BY . WRITTEN AND VERBAL DISCHARGE INSTRUCTIONS GIVEN TO PT, SCRIPTS GIVEN TO PT . CASE MANAGEMENT SPOKE WITH FAMILY, GOING HOME WITH HOME HEALTH. AN EMPLOYEE SPONSOR OR ADVOCATE AND GOAL IS AN EMPLOYEE SPONSOR OR ADVOCATE AND LIVING PLACEMENT. FAMILY HAS BEEN DISCUSSING. NO COMPLICATIONS RUSLAN HEARD.
--- NOTE | 2019-12-18 09:49 | PN ---
DATE: SUBJECTIVE: The patient denies any new medical or neurological complaints. She continues to have intermittent confusion; however, she denies headaches, visual disturbances, nausea, vomiting, chest pain, shortness of breath or palpitations. OBJECTIVE: GENERAL: Well-developed, well-nourished female, not in acute distress. VITAL SIGNS: Blood pressure 116/65, respiratory rate 18, pulse is 91 and regular, oxygen saturation is 94%, and temperature is 98.1. HEENT: Normocephalic, atraumatic, otherwise unremarkable. NECK: Supple. Negative for carotid bruit, lymphadenopathy or thyromegaly. LUNGS: Clear to A and P. CARDIOVASCULAR: Regular rate and rhythm, normal S1, S2. There is no S3, S4 or murmur. ABDOMEN: Soft. Bowel sounds positive. EXTREMITIES: Negative for cyanosis, clubbing or pitting edema. NEUROLOGICAL EXAM: Mental Status: The patient is alert and oriented x 2. The speech is fluent. There is no language dysfunction. Memory, judgment, and abstracting thinking are fair. The patient denies hallucination or delusion. Cranial nerves are intact. Motor examination: No focal muscle bulk was seen. The tone is normal. The strength is 4/5 throughout. Sensory examination revealed normal pinprick, light touch senses throughout. Deep tendon reflexes were symmetric and active without pathologic responses. Gait: The patient uses a walker for ambulation. The stance is steady. IMPRESSION: 1. Intermittent confusion and disorientation of 2 weeks' duration -- improved followed cystoscopy and anesthesia. 2. Multiple medical problems include dementia, hyperlipidemia, urinary tract infection, hypertension. 3. Depression and anxiety. RECOMMENDATIONS: 1. Continue with current management, initiated by Dr. Soliman. 2. Continue with current recommendation with Dr. Buenrostro, our psychiatrist. 3. The patient is neurologically stable. M Segrey LAM MD DR: GISELLE/joan JOB#: [id number] / [id number]
--- NOTE | 2019-12-18 09:55 | DS ---
DATE OF DISCHARGE: 12/18/2019 ATTENDING PHYSICIAN: Nadja Gutierrez MD FINAL DISCHARGE DIAGNOSES: 1. Systemic inflammatory response syndrome following urologic procedure 4 days prior to admission. 2. Altered mentation, resolved. 3. Transient global amnesia, resolved and back to baseline. 4. Urinary retention with chronic Puentes catheter placement for drainage. 5. Dehydration, rehydrated. 6. Profound underlying dementia associated with delusions and behavioral issues. 7. Protein-calorie malnutrition, moderate. HISTORY AND PHYSICAL: This is an 79-year-old female with underlying dementia, cared for very nicely by her of 59 years. She has urinary retention. Her Urology regulatory affairs consultant placed a permanent Puentes catheter following a cystoscopy 4 days prior to admission. She had issues with troubled speech, slurred speech, stroke symptoms. She was admitted from the Emergency Department. PAST MEDICAL HISTORY: Significant for underlying dementia, chronic indwelling Puentes catheter, urinary retention and generalized debilitation. PERTINENT LABORATORY AND X-RAY STUDIES: The obligatory CT of the head showed no acute intracranial abnormalities, nonspecific white matter changes consistent with microvascular ischemic changes. Chest x-ray showed no active cardiopulmonary disease process. Cultures of blood showed no growth after 72 hours. Urine culture grew out 50,000 genitourinary sharan that was not clinically relevant. Initial hemoglobin was maintained at 12 g/dL with a white count of 16,500. Repeat CBC 2 days later showed white count improved to 10,500. Her electrolytes within normal range. Creatinine was 0.9 mg/dL with a BUN of 18. Lactic acid was normal. Liver function was unremarkable. Albumin was 3.3 with a total protein of 6.4 g/dL. COURSE IN THE HOSPITAL: The patient was admitted with a diagnosis of systemic inflammatory response syndrome and transient global amnesia. Her neurological symptoms improved and she was back to her baseline within 24 hours. We started her empirically on antibiotics. She received 4 full days of intravenous Rocephin. Blood cultures were negative at 72 hours and urine cultures did not grow any significant pathogens. Nevertheless, we continued the antibiotics empirically and she did well clinically. On the fifth hospital day, her vital signs were quite stable. She was afebrile. Blood pressure was 130 mmHg systolic. She still had confusion. and son were at the bedside. She is discharged home with 7 more days of cephalexin. Regarding whether she would benefit going to the [facility], they will take her home first and decide later this week. Other home meds are basically unchanged. She will continue her Xanax as ordered, Lipitor as scheduled, Protonix 40 mg daily, Paxil 40 mg daily, Pyridium 100 mg b.i.d. as needed, MiraLax 17 g daily, Flomax 0.4 mg daily, and valsartan/hydrochlorothiazide 1 daily, 7 more days of cephalexin. She is a DNR status per advanced directives. Her prognosis is guarded. Home health care will also be initiated. The patient was then discharged from our hospital in stable condition with explicit instructions and followup care and instructions given her who is very attentive. She will follow up with their physician on a regular basis in 2 weeks' time. The Puentes catheter remains in place. We had a long discussion regarding long-term antibiotics and she understands that long-term antibiotics will only select out resistant bacteria and was not recommended at this time. TOTAL DISCHARGE TIME SPENT: 41 minutes. NADJA GUTIERREZ MD DR: JOY/joan JOB#: [id number] / [id number] NUNO Richardson MD
--- NOTE | 2019-12-19 15:06 | PN ---
DATE: 12/17/2019 PSYCHIATRIC PROGRESS NOTE This late entry 12/17/2019 covers elements not covered in my initial note. SUBJECTIVE: I met with the patient evening of 12/17/2019. Per nursing report, the patient is doing well. She slept reasonably previous night. Does have short term memory deficits, but less delusional. She is tolerating the restarting of Paxil. REVIEW OF SYSTEMS: Ambulation impaired. No CV, , pulmonary, eye system symptoms on review. MENTAL STATUS EXAM: Oriented to herself and situation. Speech is coherent, abstraction fair, computation impaired, language function intact. Short term memory is impaired, remote is better. No suicidal or homicidal ideation. 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 Again remote memory is better than the more recent one. LABORATORY DATA: Reviewed. IMPRESSION: Unchanged from initial note. PLAN: No change from initial note. When she is medically stable, if she is unable to be managed at home we may consider transitioning her to the [facility]. LUCAS CODY MD DR: BARON/joan JOB#: [id number] / [id number]
== END 2019-12-18 09:50 | disposition home health service (06) | DRG 70 ==
LOC: ER 09:53 → 1 SOUTH 15:19
PROVIDERS: ADMIT Hospitalist; ATTEND Hospitalist
DX: G45.4 Transient global amnesia (principal); G93.41 Metabolic encephalopathy; E44.0 Moderate protein-calorie malnutrition; R65.10 Systemic inflammatory response syndrome (SIRS) of non-infectious origin without acute organ dysfunction; F01.51 Vascular dementia, unspecified severity, with behavioral disturbance; F02.81 Dementia in other diseases classified elsewhere, unspecified severity, with behavioral disturbance; R47.01 Aphasia; Z68.1 Body mass index [BMI] 19.9 or less, adult; E86.0 Dehydration; E78.00 Pure hypercholesterolemia, unspecified; K21.9 Gastro-esophageal reflux disease without esophagitis; E78.5 Hyperlipidemia, unspecified; F32.9 Major depressive disorder, single episode, unspecified; F41.1 Generalized anxiety disorder; F63.9 Impulse disorder, unspecified; G30.9 Alzheimer's disease, unspecified; I10 Essential (primary) hypertension; N31.9 Neuromuscular dysfunction of bladder, unspecified; Z66 Do not resuscitate; Z79.899 Other long term (current) drug therapy; Z80.0 Family history of malignant neoplasm of digestive organs; Z87.440 Personal history of urinary (tract) infections; Z90.710 Acquired absence of both cervix and uterus; Z88.8 Allergy status to other drugs, medicaments and biological substances
CPT/HCPCS: 36415; 70450; 71045; 80048; 80053; 81001; 83605; 83735; 85007; 85025; 87040; 87086; 93005; J0696; J2060; 97116; 99285-25

== ENCOUNTER → 2020-09-09 | Outpatient (CLI) | payer MEDICARE, BC, OTHER ==
[~2020-09-09] MED LIST changes: +ACET325T21 PO; +ALPR0.254 PO; +ATOR10TA60 PO; +IBUP400T18 PO; +LINA290C PO; +MECO10005 PO; +PANT40TA3 PO; +PARO40TA61 PO; +PHEN95TA PO; +POLY17PO5 PO; +SENN8.8S5 PO; +TAMS0.4C97 PO; +VALS1TAB8 PO
--- NOTE | 2020-09-09 10:08 | RAD ---
EXAM: Lumbar spine, 3 views. HISTORY: Pain. COMPARISON: None. FINDINGS: 3 views of the lumbar spine are obtained. There is levoscoliosis centered at L3-L4. There i s grade 1 anterolisthesis of L4 and L5, measuring 7 mm. There is grade 1 anterolisthesis of L5 on S1, measuring 5 mm. There is a severe compression fracture of L2 with a partially two thirds decrease in anterior vertebral body height and 3 unremarkable. The posterior superior cortex into the central ca nal. There is endplate remodeling and disc space narrowing at L4-L5 and L5-S1. There is facet arthrop athy predominantly at the lumbosacral junction. IMPRESSION: 1. Severe compression fracture of L2. This is chronic in appearance. 2. Multilevel degenerative change involving the lumbar spine, primarily at L4-L5 and L5-S1. 3. Scoliosis and grade 1 anterolisthesis at the lower lumbar levels. Electronically signed by: Mehgna Crook MD (09/09/2020 10:05 AM) [id number]
== END ==
LOC: RAD 09:22
PROVIDERS: ATTEND Family Medicine
DX: S32.020A Wedge compression fracture of second lumbar vertebra, initial encounter for closed fracture (principal); M47.816 Spondylosis without myelopathy or radiculopathy, lumbar region; X58.XXXA Exposure to other specified factors, initial encounter; M41.86 Other forms of scoliosis, lumbar region; Y93.89 Activity, other specified; Y92.89 Other specified places as the place of occurrence of the external cause; Y99.8 Other external cause status
CPT/HCPCS: 72100

== ENCOUNTER → 2020-09-16 | Outpatient (CLI) | payer MEDICARE, BC, OTHER ==
--- NOTE | 2020-09-16 17:27 | RAD ---
EXAM: CT Lumbar Spine without IV contrast INDICATION: Reason: BACK PAIN / Spl. Instructions: / History: TECHNIQUE: Multi-detector row CT images were obtained through the lumbar spine without the use of IV contrast. Post-processing sagittal and coronal reconstructed images were obtained for interpretation . All CT scans performed at this facility utilize dose optimization techniques as appropriate to the exam, including the following: Automated exposure control and adjustment of the mA and/or KV accordin g to patient size (this includes techniques or standardized protocols for targeted exams where dose i s indication/reason for exam). COMPARISON: None FINDINGS: The lowest fully formed disc is referred to as the L5-S1 level. ALIGNMENT: There is leftward convexity scoliotic curvature of the lumbar spine apex at L3-L4 with a C obb angle of 31 degrees as measured from the superior endplate of L1 to the superior endplate of L5. Grade 1 anterolisthesis of L4 on L5 of approximately 4 mm is present and there is mild kyphotic defor mity at L1-L2 due to a chronic compression fracture. OSSEOUS: Chronic burst fracture at L2 with 50 percent loss of height and posterior cortical buckling is present. No acute fracture and no aggressive appearing bony lesions. A large Schmorl's node of th e superior endplate of L2 is also evident. A healing fracture in the left sacrum is also apparent. DISC SPACES: Multilevel disc degenerative change with varying degrees of narrowing is present throug hout the lumbar spine. FACET JOINTS: Facet hypertrophic changes are present most conspicuously at L3-L4, L4-L5 and L5-S1. N o perched or jumped facets are apparent. SPINAL CANAL: Mild central canal stenosis at L1-L2 is present due to posterior cortical buckling fro m a chronic L2 burst fracture. At least moderate central canal narrowing is also apparent at L3-L4 an d L4-L5 due to disc and facet degenerative changes. NEUROFORAMINA: Varying degrees of foraminal stenosis and likely moderate to severe right foraminal s tenosis at L3-L4 and severe left L5-S1 foraminal stenosis due to marked disc loss of height, endplate osteophytic spurring and facet hypertrophy. L4-L5 due to combination of levoscoliosis and disc and f acet degenerative changes. SOFT TISSUES: Moderate sized hiatal hernia. Scattered colonic diverticula. Dense arterial calcificat ions in abdominal aorta. IMPRESSION: 1. Healing left sacral fracture. 2. Marked levoscoliosis and lower lumbar spinal anterolisthesis, resulting in varying degrees of fora letitia and central canal stenosis as described. 3. Old burst fracture at L2 with mild residual central canal narrowing due to cortical bulging at thi s level.. Electronically signed by: John Fish MD (09/16/2020 5:24 PM) [id number]
== END ==
LOC: CT 10:50
PROVIDERS: ATTEND Family Medicine
DX: S32.020G Wedge compression fracture of second lumbar vertebra, subsequent encounter for fracture with delayed healing (principal); K44.9 Diaphragmatic hernia without obstruction or gangrene; M43.16 Spondylolisthesis, lumbar region; M41.86 Other forms of scoliosis, lumbar region; M47.816 Spondylosis without myelopathy or radiculopathy, lumbar region; X58.XXXD Exposure to other specified factors, subsequent encounter
CPT/HCPCS: 72131

== ENCOUNTER 2020-10-04 16:40 | Emergency (ER) | payer MEDICARE, BC, OTHER ==
[~2020-10-04] VITALS: Ht 162.6 cm; Wt 47.2 kg
[2020-10-04] MEDS ORDERED: IV NORMAL SALINE 1,000ML 1,000 ML IV SCH (17:30)
--- NOTE | 2020-10-04 17:41 | EKG ---
[address] [address] Test Date: 2020-10-04 Test Time: 17:32:01 Pat Name: PERRY WOLF Department: Room: Gender: F [employer]: SHREYAS : 1940 Requested By: SELVIN ST Order Number: [id number] Reading MD: Measurements Intervals [place] Rate: 82 P: 64 VA: 120 QRS: 51 QRSD: 120 T: 31 QT: 400 QTc: 471 Interpretive Statements SINUS RHYTHM LOW LIMB LEAD VOLTAGE INCOMPLETE RIGHT BUNDLE BRANCH BLOCK NO SPECIFIC ECG ABNORMALITIES RI6.02 No previous ECG available for comparison
--- NOTE | 2020-10-04 17:45 | RAD ---
Single view chest dated 10/04/2020: Comparison made to 12/14/2019. Clinical Indication: Shortness of breath. Findings: Single upright portable exam of the chest was performed. Heart size and mediastinal contours are with in normal limits given technique. The lungs are clear without evidence of focal consolidation. Vascul ar interstitium is within normal limits. Impression:: No acute radiographic abnormality. Electronically signed by: Antony Galeana MD (10/04/2020 5:43 PM) JOSUÉ
--- NOTE | 2020-10-04 17:48 | PHYS DOC ---
Past History Past Medical History: Anxiety, Dementia, GERD, High Cholesterol, Hypertension, IBS (SELVIN ST DO) Past Medical History: Anemia, Anxiety, Arthritis, Constipation, Dementia, Depression, UTI Past Medical History Compression Fx L2 (KIRILL JIMENEZ MD) Past Surgical History: Hysterectomy (SELVIN ST DO) Past Surgical History: Other (KIRILL JIMENEZ MD) Smoking: Non-smoker Alcohol Use: None Drug Use: None (SELVIN ST DO) General Adult EDM: Chief Complaint: SHORTNESS OF BREATH HPI: HPI: 80-year-old female past medical history of Alzheimer's dementia, hypertension, hyperlipidemia and arthritis, presents the ED with , with complaints of lower abdominal pain that started last night, that patient up last night, talking (no hallucinations or bizarre behavior/statements)with no response to Xanax as needed by - History obtained from due to pts' significant dementia. reports he was concerned of her lower abdominal pain when it didn't respond to pain medication and worried it could be related to her suprapubic catheter or UTI. Catheter was changed 1 week ago. Prenotification from pmd ("Dr. Prasad"?) office was concerning for severe epigastric abdominal pain, was given Toradol 30 mg IM. reports no recent fall or head trauma with patient. Last fall was in May 2020 patient sustained a compression fracture and has had chronic back pain. PCP Dr. Guzman sent pt to pain management. Pt states pt reported being short of breath earlier today. reports patient's blood pressure is high, systolic usually 130. reports no known fever, nausea, vomiting or diarrhea. (SELVIN ST DO) Review of Systems: Review of Systems: ROS: Unobtainable from patient due to dementia (SELVIN ST DO) Current Medications: Current Meds: Current Medications Medications (Trade) Dose Ordered Sig/Hector Start Time Stop Time Status Last Admin Dose Admin Sodium Chloride 1,000 ml @ 1,000 mls/hr Q1H 10/04/20 17:30 10/04/20 18:29 (SE[address] DO) Allergies: Allergies: Allergies Coded Allergies Type Severity Reaction Last Updated Verified sulfamethoxazole Allergy Unknown 12/14/19 Yes prochlorperazine maleate Adverse Reaction Unknown Makes her twitch 12/14/19 Yes (SELVIN ST DO) Physical Exam: PE: Constitutional: Well developed, well nourished, no acute distress-no pain out of proportion or appreciable distress, non-toxic appearance. HENT: Normocephalic, atraumatic, no hematoma, Eyes: EOMI, conjunctiva normal, no discharge. Neck: Normal range of motion, supple, no midline ttp, no nuchal rigidity or meningismus Cardiovascular: S1/2 present, regular rhythm Lungs & Thorax: Speaking in full sentences, bilateral equal chest rise, no tachypnea or increased work of breathing Abdomen: soft, no tenderness, grimace with right lower quadrant and left lower quadrant palpation, no rigidity or guarding, yellow urine in left leg bag, when asked to point where abdominal pain pt moves from llq to rlq to suprapubic dorina on Skin: Warm, dry, no erythema, no rash. [] Extremities: No tenderness, no cyanosis, no pedal edema Neurologic: E 3 M 6 V 4 = GCS 13 alert to speech, normal motor function, normal sensory function, no focal deficits noted. [] Psychologic: Affect normal, no agitation, calm mood (SELVIN ST DO) EKG: EKG: Sinus rhythm 82 bpm, no axis deviation, QRS 120, QTc 471, right bundle branch block present with T wave inversions V1 V2 which could indicate strain, no ST lesions or ST depressions, no active chest pain in the ED- patient's chest pain is not typical for cardiac etiology (SELVIN ST DO) EKG: My interpretation EKG shows a sinus rhythm at 82 bpm. Does have an incomplete right bundle branch block. No findings of acute STEMI or contralateral changes. (KIRILL JIMENEZ MD) Radiology/Procedures: Radiology/Procedures: [] (SELVIN ST DO) Radiology/Procedures: [address] [address] IMAGING REPORT Signed PATIENT: PERRY WOLF AACCOUNT: [id number] : 1940 LOCATION: ER AGE: 80 SEX: F EXAM STATUS: REG ER ORD. PHYSICIAN: SELVIN ST DO REASON: SHORTNESS OF BREATH PROCEDURE: PORTABLE CHEST 1V Single view chest dated 10/04/2020: Comparison made to 12/14/2019. Clinical Indication: Shortness of breath. Findings: Single upright portable exam of the chest was performed. Heart size and mediastinal contours are within normal limits given technique. The lungs are clear without evidence of focal consolidation. Vascular interstitium is within normal limits. Impression:: No acute radiographic abnormality. Electronically signed by: Antony Galeana MD (10/04/2020 5:43 PM) [facility] DICTATED AND SIGNED BY: ANTONY GALEANA MD DATE: 10/04/20 1742 CC: NUNO ORNELAS MD; SELVIN ST DO ~MTH0 0 [facility] [address] [place] [id number] IMAGING REPORT Signed PATIENT: PERRY WOLF AACCOUNT: [id number] : 1940 LOCATION: ER AGE: 80 SEX: F EXAM STATUS: REG ER ORD. PHYSICIAN: SELVIN ST DO REASON: OMNI 350,100ML IV.SOA,lower abd pain, back pain, r/o DISSECTION PROCEDURE: CT ANGIO CHEST ABD PELVIS CT angiogram of the chest, abdomen and pelvis with contrast: Reason for examination: Short of breath with low abdominal pain and back pain. Evaluate for dissection. Comparison is made to previous exam of the lumbar spine dated 09/16/2020. Helical images were obtained through the chest, abdomen and pelvis with intra venous administration of 100 cc Omnipaque 350 using angiographic protocol. 3-D MIPS reconstruction was performed in sagittal and coronal planes. Exposure: One or more of the following individualized dose reduction techniques were utilized for this examination: 1. Automated exposure control 2. Adjustment of the mA and/or kV according to patient size 3. Use of iterative reconstruction technique. There appears to be a small hypodense lesion in the left lobe of the thyroid gland measuring approximately 7 mm in size. The trachea and mainstem bronchi show no intraluminal lesions. No abnormality seen at the esophagus. The thoracic aorta shows no aneurysmal dilatation or dissection. The heart size is normal with no pericardial effusion. There is no evidence of pulmonary embolus. The lung bellamy show a focal 1.7 cm bleb in the right lower lobe just lateral to the hilum. No other infiltrates or pleural effusions are seen. No abnormality seen at the liver, spleen, adrenal glands or pancreas. The gallbladder is not distended and no choleliths are identified but there is suggestion of some pericholecystic fluid. Further evaluation with ultrasound should be considered. The kidneys show no renal masses, renal calculi, hydronephrosis or evidence of obstructive uropathy. The abdominal aorta shows arteriosclerotic vascular calcification but no aneurysmal dilatation or dissection. No abnormality seen at the inferior vena cava. There is a large hiatal hernia. Stomach shows no other focal abnormalities. No abnormality seen at the duodenum. The small intestinal tract shows no abnormal dilatation, wall thickening or apparent obstruction. There does appear to be a moderate amount of fecal material in the colon without evidence of diverticulosis or diverticulitis or colitis. The appendix is not definitely identified. Suprapubic catheter is present in the bladder is empty. No abnormality seen at the vaginal cuff. No free fluid or free air is seen in the abdomen or pelvis. There is a thoracolumbar scoliosis with degenerative changes. There also appears to be a moderate anterior wedge compression deformity at the L2 vertebral body which is unchanged when compared to previous examination of the lumbar spine. IMPRESSION: Small 7 mm hypodense lesion in the left lobe of thyroid gland. No evidence of pulmonary embolus. No aneurysm or dissection seen in the thoracic or abdominal aorta. 1.7 cm bleb in the right lower lobe just lateral to the hilum. No other infiltrates or pleural effusions. Large hiatal hernia. Gallbladder is not distended but there is suggestion of some pericholecystic fluid. Further evaluation with ultrasound should be considered. Moderate anterior wedge compression deformity at the L2 vertebral body which is stable. Electronically signed by: Teri Hawkins MD (10/04/2020 8:05 PM) [facility] DI[facility]ATED AND SIGNED BY: TERI HAWKINS MD DATE: 10/04/201947 CC: NUNO ORNELAS MD; KIRILL JIMENEZ MD; SELVIN ST DO ~MTH0 [address] [id number] IMAGING REPORT Signed PATIENT: PERRY WOLF AACCOUNT: [id number] : 1940 LOCATION: ER AGE: 80 SEX: F EXAM STATUS: REG ER ORD. PHYSICIAN: SELVIN ST DO REASON: soa, lower abd pain, back pain, PROCEDURE: CT HEAD WO CONTRAST CT head without contrast: Reason for examination: Short of breath. Comparison is made to previous study dated 12/14/2019. Axial images were obtained through the brain. No contrast was administered. Exposure: One or more of the following individualized dose reduction techniques were utilized for this examination: 1. Automated exposure control 2. Adjustment of the mA and/or kV according to patient size 3. Use of iterative reconstruction technique. Ventricular systems are prominent but symmetric consistent with some central atrophy. No midline shift is seen. There is no evidence of intracranial hemorrhage, acute infarct, mass or edema. There are patchy deep white matter changes in the frontal and parietal lobes consistent with microvascular ischemia which are similar to previous exam. The paranasal sinuses and mastoid air cells visualized show no abnormalities. No acute skull abnormality is seen. IMPRESSION: Cerebral atrophy with microvascular ischemic changes in the frontal and parietal lobes. No acute intracranial abnormality evident. Electronically signed by: Teri Hawkins MD (10/04/2020 7:48 PM) [facility] DICTATED AND SIGNED BY: TERI HAWKINS MD DATE: 10/04/201944 CC: NUNO ORNELAS MD; SELVIN ST DO ~MTH0 0 (KIRILL JIMENEZ MD) Heart Score: C/O Chest Pain: N/A Risk Factors: Risk Factors: DM, Current or recent (<one month) smoker, HTN, HLP, family history of CAD, obesity. Risk Scores: Score 0 - 3: 2.5% MACE over next 6 weeks - Discharge Home Score 4 - 6: 20.3% MACE over next 6 weeks - Admit for Clinical Observation Score 7 - 10: 72.7% MACE over next 6 weeks - Early Invasive Strategies (SELVIN ST DO) HEART Score for Chest Pain: HEART Score for Chest Pain Response (Comments) Value History Moderately Suspicious 1 ECG Nonspecific Repolarizatio 1 Age > 65 2 Risk Factors 1 or 2 Risk Factors 1 Troponin < Normal Limit 0 Total 5 Course & Med Decision Making: Course & Med Decision Making Pertinent Labs and Imaging studies reviewed. (See chart for details) Prenotification call concerning for severe epigastric abdominal pain. reports lower abdominal pain while patient reports to the lower abdomen and shortness of breath. Given elevated blood pressure in the setting of chronic back pain and poor history, CTA ordered to evaluate for dissection. Labs and imaging are pending and due to shift change patient was signed out to Dr. Jimenez for further evaluation and disposition. (SELVIN ST DO) Course & Med Decision Making See chart for details. Patient reexamined at 1830 hrs. No longer has complaints of dyspnea. Patient denies any abdomen pain. Currently patient states she feels much better and wants to be discharged home. Discussed presentation testing and treatment plan with family members... Will be discharged home on Keflex 500 mg 3 times a day for urinary tract infection. Must follow-up with primary care. Review ED record with primary care. Patient to complete follow-up with pain management and GI. Patient return if any concerns. If return of abdomen pain have reevaluation. No acute surgical findings found on CT today exception of some gallbladder fluid, and L2 compression fracture and hiatal hernia, and right lung bleb. Pain completely resolved shortly after shift change. The patient discharged home on a clear fluid diet reexam with return of pain. Keep follow- ups with her pain clinic as well as GI. Review ED work-up with Dr. Ornelas on follow-up. Return if any concerns. Impression:. 1. Complaints of dyspnea 2. Complaints of constipation and abdomen pain-has a pending GI consult 3. Urinary tract infection 4. Mild leukocytosis 14.1 5. Mild anemia hemoglobin 11.6 6. Dementia-Alzheimer's 7. History of anxiety 8. History of compression fracture L2-has pending epidural for pain management (KIRILL JIMENEZ MD) Dragon Disclaimer: Dragon Disclaimer: This electronic medical record was generated, in whole or in part, using a voice recognition dictation system. (SELVIN ST DO) Departure Departure: Impression: Primary Impression: Abdominal pain Referrals: NUNO ORNELAS MD (PCP) Scripts Cephalexin (KEFLEX) 750 Mg Capsule 500 MG PO TID for uti for 10 Days, #30 CAP Prov: KIRILL JIMENEZ MD 10/04/20 Dragon Disclaimer This chart was dictated in whole or in part using Voice Recognition software in a busy, high-work load, and often noisy Emergency Department environment. It may contain unintended and wholly unrecognized errors or omissions. (KIRILL JIMENEZ MD) SELVIN CASTELLON DO Oct 04, 2020 17:48 KIRILL JIMENEZ MD Oct 04, 2020 20:17
[2020-10-04] MEDS ORDERED: IOHEXOL 350 MG/ML 100 ML VIAL. IV ONE (18:30)
[2020-10-04 18:52] LABS: BASO # 0.1 x10^3/uL (0.0-0.2); BASO % 1 % (0-3); EOS # 0.3 x10^3/uL (0.0-0.7); EOS % 2 % (0-3); HEMOGLOBIN 11.6 g/dL (12.0-15.5); LYMPH # 1.5 x10^3/uL (1.0-4.8); LYMPH % 11 % (24-48); MEAN CORPUSCULAR HEMOGLOBIN 30 pg (25-35); MEAN CORPUSCULAR HGB CONC 32 g/dL (31-37); MEAN CORPUSCULAR VOLUME 93 fL (79-100); MONO % 7 % (0-9); NEUT # 11.2 x10^3uL (1.8-7.7); NEUT % 80 % (31-73); PLATELET COUNT 477 x10^3/uL (140-400); RED BLOOD COUNT 3.86 x10^6/uL (3.50-5.40); RED CELL DISTRIBUTION WIDTH 13.7 % (11.5-14.5); WHITE BLOOD COUNT 14.1 x10^3/uL (4.0-11.0)
[2020-10-04 19:02] LABS: CALCIUM 8.6 mg/dL (8.5-10.1); CREATININE 0.9 mg/dL (0.6-1.0); GFR 60.1; POTASSIUM 4.5 mmol/L (3.5-5.1)
[2020-10-04 19:15] LABS: ALBUMIN 3.1 g/dL (3.4-5.0); TOTAL BILIRUBIN 0.3 mg/dL (0.2-1.0); TOTAL PROTEIN 6.3 g/dL (6.4-8.2)
--- NOTE | 2020-10-04 19:50 | RAD ---
CT head without contrast: Reason for examination: Short of breath. Comparison is made to previous study dated 12/14/2019. Axial images were obtained through the brain. No contrast was administered. Exposure: One or more of the following individualized dose reduction techniques were utilized for thi s examination: 1. Automated exposure control 2. Adjustment of the mA and/or kV according to patient size 3. Use of iterative reconstruction technique. Ventricular systems are prominent but symmetric consistent with some central atrophy. No midline shif t is seen. There is no evidence of intracranial hemorrhage, acute infarct, mass or edema. There are p atchy deep white matter changes in the frontal and parietal lobes consistent with microvascular ische denisha which are similar to previous exam. The paranasal sinuses and mastoid air cells visualized show n o abnormalities. No acute skull abnormality is seen. IMPRESSION: Cerebral atrophy with microvascular ischemic changes in the frontal and parietal lobes. No acute intracranial abnormality evident. Electronically signed by: Laura Byrd MD (10/04/2020 7:48 PM) [facility]
[2020-10-04 20:00] VITALS: BP 170/83
--- NOTE | 2020-10-04 20:08 | RAD ---
CT angiogram of the chest, abdomen and pelvis with contrast: Reason for examination: Short of breath with low abdominal pain and back pain. Evaluate for dissectio n. Comparison is made to previous exam of the lumbar spine dated 09/16/2020. Helical images were obtained through the chest, abdomen and pelvis with intravenous administration of 100 cc Omnipaque 350 using angiographic protocol. 3-D MIPS reconstruction was performed in sagittal and coronal planes. Exposure: One or more of the following individualized dose reduction techniques were utilized for thi s examination: 1. Automated exposure control 2. Adjustment of the mA and/or kV according to patient size 3. Use of iterative reconstruction technique. There appears to be a small hypodense lesion in the left lobe of the thyroid gland measuring approxim ately 7 mm in size. The trachea and mainstem bronchi show no intraluminal lesions. No abnormality see n at the esophagus. The thoracic aorta shows no aneurysmal dilatation or dissection. The heart size i s normal with no pericardial effusion. There is no evidence of pulmonary embolus. The lung [place] w a focal 1.7 cm bleb in the right lower lobe just lateral to the hilum. No other infiltrates or pleu ral effusions are seen. No abnormality seen at the liver, spleen, adrenal glands or pancreas. The gallbladder is not distende d and no choleliths are identified but there is suggestion of some pericholecystic fluid. Further enio luation with ultrasound should be considered. The kidneys show no renal masses, renal calculi, hydron ephrosis or evidence of obstructive uropathy. The abdominal aorta shows arteriosclerotic vascular philip cification but no aneurysmal dilatation or dissection. No abnormality seen at the inferior vena cava. There is a large hiatal hernia. Stomach shows no other focal abnormalities. No abnormality seen at t he duodenum. The small intestinal tract shows no abnormal dilatation, wall thickening or apparent obs truction. There does appear to be a moderate amount of fecal material in the colon without evidence o f diverticulosis or diverticulitis or colitis. The appendix is not definitely identified. Suprapubic catheter is present in the bladder is empty. No abnormality seen at the vaginal cuff. No f ree fluid or free air is seen in the abdomen or pelvis. There is a thoracolumbar scoliosis with degen erative changes. There also appears to be a moderate anterior wedge compression deformity at the L2 v ertebral body which is unchanged when compared to previous examination of the lumbar spine. IMPRESSION: Small 7 mm hypodense lesion in the left lobe of thyroid gland. No evidence of pulmonary embolus. No aneurysm or dissection seen in the thoracic or abdominal aorta. 1.7 cm bleb in the right lower lobe just lateral to the hilum. No other infiltrates or pleural effusi ons. Large hiatal hernia. Gallbladder is not distended but there is suggestion of some pericholecystic fluid. Further evaluatio n with ultrasound should be considered. Moderate anterior wedge compression deformity at the L2 vertebral body which is stable. Electronically signed by: Laura Byrd MD (10/04/2020 8:05 PM) [facility]
[2020-10-04 21:31] LABS: BACTERIA,URINE 0 /HPF (0-FEW); BILIRUBIN,URINE NEG (NEG); CLARITY,URINE HAZY; COLOR,URINE STRAW; GLUCOSE,URINE NEG (NEG); NITRITE,URINE POS (NEG); RBC,URINE OCC /HPF (0-2); SQUAMOUS EPITHELIAL CELL,UR OCC /LPF; UROBILINOGEN,URINE 0.2 mg/dL (0.2 mg/dL); WBC,URINE OCC /HPF (0-4)
[2020-10-04] MEDS ORDERED: cefTRIAXone SODIUM 1 GM VIAL ONE (21:46)
[2020-10-04] MEDS ORDERED: IV NORMAL SALINE 50ML 50 ML ONE (21:46)
[2020-10-04] MEDS ORDERED: CEPH750C9 PO (22:16)
== END 2020-10-04 22:25 | disposition home or self-care (01) ==
LOC: ER 16:40
DX: N39.0 Urinary tract infection, site not specified (principal); K59.00 Constipation, unspecified; G30.9 Alzheimer's disease, unspecified; F02.80 Dementia in other diseases classified elsewhere, unspecified severity, without behavioral disturbance, psychotic disturbance, mood disturbance, and anxiety; D72.829 Elevated white blood cell count, unspecified; D64.9 Anemia, unspecified; F41.9 Anxiety disorder, unspecified; Z87.81 Personal history of (healed) traumatic fracture; K21.9 Gastro-esophageal reflux disease without esophagitis; E78.00 Pure hypercholesterolemia, unspecified; I10 Essential (primary) hypertension; K58.9 Irritable bowel syndrome, unspecified; Z87.440 Personal history of urinary (tract) infections; Z88.2 Allergy status to sulfonamides; Z88.8 Allergy status to other drugs, medicaments and biological substances
CPT/HCPCS: 36415; 70450; 71045; 71275; 74174; 80053; 81001; 82550; 83880; 84484; 85025; 85379; 93005; 96361; 96374; 99285; J0696; J7030; Q9967

== ENCOUNTER → 2020-10-23 | Day surgery (SDC) | payer MEDICARE, BC, OTHER ==
[~2020-10-23] MED LIST changes: +0.9 % SODIUM CHLORIDE 50 ML VIAL. IJ ONE; +BUPIVACAINE MPF 0.25% 30 ML VIAL. ONE; +CEPH750C9 PO; +DEXAMETHASONE SOD PHOS 10 MG/ML VIAL. ONE; +IOHEXOL 300 MG/ML 50 ML VIAL. ONE; +LIDOCAINE 1% PF 30 ML VIAL. ONE; +SENN8.8S13 PO; -SENN8.8S5 PO
[2020-10-23 14:57] VITALS: BP 139/68
== END | disposition home or self-care (01) ==
LOC: SURG 14:20
PROVIDERS: ATTEND Anesthesiology
DX: M54.16 Radiculopathy, lumbar region (principal); M48.062 Spinal stenosis, lumbar region with neurogenic claudication; G89.4 Chronic pain syndrome; F03.90 Unspecified dementia, unspecified severity, without behavioral disturbance, psychotic disturbance, mood disturbance, and anxiety; E78.00 Pure hypercholesterolemia, unspecified; K21.9 Gastro-esophageal reflux disease without esophagitis; F32.9 Major depressive disorder, single episode, unspecified; F41.9 Anxiety disorder, unspecified; G93.41 Metabolic encephalopathy; S32.000A Wedge compression fracture of unspecified lumbar vertebra, initial encounter for closed fracture; Z87.440 Personal history of urinary (tract) infections; Z79.899 Other long term (current) drug therapy; Z80.0 Family history of malignant neoplasm of digestive organs; Z87.81 Personal history of (healed) traumatic fracture; Z90.710 Acquired absence of both cervix and uterus; Z88.8 Allergy status to other drugs, medicaments and biological substances; X58.XXXA Exposure to other specified factors, initial encounter; Y93.89 Activity, other specified; Y92.89 Other specified places as the place of occurrence of the external cause; Y99.8 Other external cause status
CPT/HCPCS: 62323; J1100; J3490; Q9967; 72275

== ENCOUNTER → 2020-11-20 | Day surgery (SDC) | payer MEDICARE, BC, OTHER ==
[~2020-11-20] MED LIST changes: -0.9 % SODIUM CHLORIDE 50 ML VIAL. IJ ONE; +ACET-1874 PO; +ACET500T68 PO; +BUDE3CAP15 PO; -BUPIVACAINE MPF 0.25% 30 ML VIAL. ONE; +CALC625T PO; -DEXAMETHASONE SOD PHOS 10 MG/ML VIAL. ONE; +DONE10TA7 PO; +DONE5TAB56 PO; +HYDR25TA PO; -IOHEXOL 300 MG/ML 50 ML VIAL. ONE; +LACT1CAP21 PO; +LACT1CAP37 PO; +LIDO4SOL3 TP; -LIDOCAINE 1% PF 30 ML VIAL. ONE; +LINA72CA PO; +LORA0.5T21 PO; +LOSA100T14 PO; +MELA3TAB4 PO; +MELO15TA23 PO; +MIRA25TA PO; +PHEN-443 PO; +VALS160T3 PO
[2020-11-20 14:00] VITALS: BP 146/68
== END | disposition home or self-care (01) ==
LOC: SURG 13:59
PROVIDERS: ATTEND Anesthesiology
DX: M54.5 Low back pain (principal); K21.9 Gastro-esophageal reflux disease without esophagitis; F03.90 Unspecified dementia, unspecified severity, without behavioral disturbance, psychotic disturbance, mood disturbance, and anxiety; M48.062 Spinal stenosis, lumbar region with neurogenic claudication; M54.16 Radiculopathy, lumbar region; G89.4 Chronic pain syndrome; Z79.899 Other long term (current) drug therapy
CPT/HCPCS: 20600; 20605; 99213

== ENCOUNTER 2020-11-26 13:35 | Inpatient (IN) | payer MEDICARE, BC, OTHER ==
[~2020-11-26] VITALS: Ht 162.6 cm; Wt 51.0 kg
[~2020-11-26 13:35] MED LIST changes: -ACET-1874 PO; -ACET500T68 PO; -BUDE3CAP15 PO; -CALC625T PO; -DONE10TA7 PO; -DONE5TAB56 PO; -HYDR25TA PO; -LACT1CAP21 PO; -LACT1CAP37 PO; -LIDO4SOL3 TP; -LINA72CA PO; -LORA0.5T21 PO; -LOSA100T14 PO; -MELA3TAB4 PO; -MELO15TA23 PO; -MIRA25TA PO; -PHEN-443 PO; -VALS160T3 PO
[2020-11-26 14:11] LABS: BASO # 0.1 x10^3/uL (0.0-0.2); BASO % 1 % (0-3); EOS # 0.2 x10^3/uL (0.0-0.7); EOS % 1 % (0-3); HEMATOCRIT 35.1 % (36.0-47.0); HEMOGLOBIN 11.4 g/dL (12.0-15.5); LYMPH # 1.3 x10^3/uL (1.0-4.8); LYMPH % 7 % (24-48); MEAN CORPUSCULAR HEMOGLOBIN 31 pg (25-35); MEAN CORPUSCULAR HGB CONC 33 g/dL (31-37); MEAN CORPUSCULAR VOLUME 94 fL (79-100); MONO # 0.6 x10^3/uL (0.0-1.1); MONO % 3 % (0-9); NEUT % 88 % (31-73); PLATELET COUNT 469 x10^3/uL (140-400); RED BLOOD COUNT 3.72 x10^6/uL (3.50-5.40); WHITE BLOOD COUNT 17.1 x10^3/uL (4.0-11.0)
[2020-11-26 14:15] LABS: CALCIUM 8.7 mg/dL (8.5-10.1); CREATININE 1.1 mg/dL (0.6-1.0); GFR 47.7; POTASSIUM 4.2 mmol/L (3.5-5.1)
[2020-11-26 14:21] LABS: ACETAMIN < 2 mcg/mL (10-30); ALBUMIN 3.2 g/dL (3.4-5.0); SALIC < 2.8 mg/dL (2.8-20.0); TOTAL PROTEIN 6.8 g/dL (6.4-8.2)
[2020-11-26 14:22] LABS: ALBUMIN/GLOBULIN RATIO 0.9 (1.0-1.7); ETHANOL < 10 mg/dL (0-10); TOTAL BILIRUBIN 0.3 mg/dL (0.2-1.0)
[2020-11-26 14:25] LABS: AMPHETAMINE/METHAMPHETAMINE NEG (NEG); BARBITURATES NEG (NEG); BENZODIAZEPINES NEG (NEG); CANNABINOIDS NEG (NEG); COCAINE NEG (NEG); METHADONE NEG (NEG); OPIATES NEG (NEG); PHENCYCLIDINE NEG (NEG)
--- NOTE | 2020-11-26 14:28 | RAD ---
XR CHEST 1V History: Reason: BENZODIAZIPINE OVERDOSE / Spl. Instructions: / History: Comparison: October 04, 2020 Findings: Low lung volumes. Patchy bibasilar opacities. No pleural effusion. No pneumothorax. Unchanged heart s ize. Glenohumeral DJD with calcified intra-articular loose body in the left. Reverse S-shaped curvatu re of the thoracolumbar spine, unchanged. Impression: 1. Low lung volumes with patchy bibasilar opacities, likely atelectasis. Electronically signed by: Rafat Tolentino DO (11/26/2020 2:26 PM) [facility]
[2020-11-26 14:45] LABS: % BANDS 3 % (0-9); % EOS 3 % (0-5); % LYMPHS 15 % (24-48); % MONOS 3 % (0-10); % SEGS 76 % (35-66)
[2020-11-26 14:47] LABS: PLT ESTIMATE ADEQUATE (ADEQUATE)
--- NOTE | 2020-11-26 15:31 | EKG ---
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
--- NOTE | 2020-11-26 15:36 | PHYS DOC ---
Past History Past Medical History: Anemia, Anxiety, Arthritis, Constipation, Dementia, Depression, UTI (NARINDER LUTZ APRN) Past Surgical History: Other Additional Past Surgical Histo: suprapubic cath palced (NARINDER LUTZ APRN) Smoking: Non-smoker Alcohol Use: Occasionally Drug Use: None (NARINDER LUTZ APRN) Adult General Chief Complaint Chief Complaint: OVERDOSE HPI HPI Patient is a 80-year-old female presents to the emergency department brought by her with chief complaint that she took 120 tablets of 0.5 mg lorazepam just prior to arrival. Patient denies taking these medications, patient has a history of severe dementia, HPI is limited from patient. HPI given by patient's , patient's states that they returned home today from the pharmacy with a new prescription for lorazepam tablets at approximately 1220, states he went outside to mow the lawn at approximately 1250, returning to the home at 1315 and noticed the pill bottle was open and all the pills were gone. Asked the patient if she had taken the pills, she denied this, patient states with her history of dementia he had no other alternative but to assume she had ingested them and brought her straight to the emergency department for evaluation. Patient reports the patient takes lorazepam 0.5 mg 1 to 2 tablets each day and 2 tablets each night for "quite some time now "takes Tylenol 650 mg 4 times a day for chronic arthritis, takes FiberCon medication, 40 mg of Paxil, 72 mcg Linzess, 40 mg pantoprazole, probiotic supplement, 15 mg meloxicam, 3 mg budesonide, 25 mg Myrbetriq, 160 mg valsartan, 10 mg atorvastatin, 10 mg donepezil, 2 melatonin tablets each night, 100 mg Pyridium as needed, hydrocodone tablets as needed for pain. Patient's reports the patient's primary care physician is Dr. Ornelas. Sees a Dr. Moy for urology at [facility], sees Dr. Fierro for neurology. Patient's states the patient is acting normally for her dementia mentation at this time. Patient's states the patient has not made any suicidal or homicidal ideations or attempts and does not believe she ingested these medications for a homicidal or suicidal attempt today, states she has severe confusion with dementia and believes this is the primary reason that she may have taken these medications, however there was no witnessed of medication overdose ingestion. (NARINDER LUTZ APRN) Review of Systems Review of Systems 14 body systems of review of systems have been reviewed. See HPI for pertinent positives and negative responses, otherwise all other systems are negative, nonpertinent or noncontributory. (NARINDER LUTZ APRN) Allergies Allergies Allergies Coded Allergies Type Severity Reaction Last Updated Verified sulfamethoxazole Allergy Unknown 12/14/19 Yes prochlorperazine maleate Adverse Reaction Unknown Makes her twitch 12/14/19 Yes (NARINDER LUTZ APRN) Physical Exam Physical Exam Constitutional: Well developed, well nourished, no acute distress, non-toxic appearance. 80-year-old female, no apparent distress, in no respiratory distress. HENT: Normocephalic, atraumatic, bilateral external ears normal, oropharynx m oist, no oral exudates, nose normal. Eyes: PERRLA, EOMI, conjunctiva normal, no discharge. Pupils 4 mm. Neck: Normal range of motion, no tenderness, supple, no stridor. Cardiovascular:Heart rate regular rhythm, no murmur, heart sounds S1-S2 auscultation. There is no cyanosis appreciated of the body. Lungs & Thorax: Bilateral breath sounds clear to auscultation all lung bellamy. Abdomen: Bowel sounds normal, soft, no tenderness, no masses, no pulsatile masses. Skin: Warm, dry, no erythema, no rash. Back: No tenderness, no CVA tenderness. Extremities: No tenderness, no cyanosis, no clubbing, ROM intact, no edema. Neurologic: Alert and oriented to self only, normal motor function, normal sensory function, no focal deficits noted. Psychologic: Affect normal, judgement abnormal, mood normal. (NARINDER LUTZ APRN) Current Patient Data Vital Signs Vital Signs Date Time Temp Pulse Resp B/P (MAP) Pulse Ox O2 Delivery O2 Flow Rate FiO2 11/26/20 13:35 98.5 103 18 165/86 (112) 96 Room Air Lab Results Laboratory Tests Test 11/26/20 13:49 11/26/20 14:04 White Blood Count 17.1 x10^3/uL (4.0-11.0) H Red Blood Count 3.72 x10^6/uL (3.50-5.40) Hemoglobin 11.4 g/dL (12.0-15.5) L Hematocrit 35.1 % (36.0-47.0) L Mean Corpuscular Volume 94 fL (79-100) Mean Corpuscular Hemoglobin 31 pg (25-35) Mean Corpuscular Hemoglobin Concent 33 g/dL (31-37) Red Cell Distribution Width 15.0 % (11.5-14.5) H Platelet Count 469 x10^3/uL (140-400) H Neutrophils (%) (Auto) 88 % (31-73) H Lymphocytes (%) (Auto) 7 % (24-48) L Monocytes (%) (Auto) 3 % (0-9) Eosinophils (%) (Auto) 1 % (0-3) Basophils (%) (Auto) 1 % (0-3) Neutrophils # (Auto) 15.0 x10^3uL (1.8-7.7) H Lymphocytes # (Auto) 1.3 x10^3/uL (1.0-4.8) Monocytes # (Auto) 0.6 x10^3/uL (0.0-1.1) Eosinophils # (Auto) 0.2 x10^3/uL (0.0-0.7) Basophils # (Auto) 0.1 x10^3/uL (0.0-0.2) Segmented Neutrophils % 76 % (35-66) H Band Neutrophils % 3 % (0-9) Lymphocytes % 15 % (24-48) L Monocytes % 3 % (0-10) Eosinophils % 3 % (0-5) Platelet Estimate Adequate (ADEQUATE) Sodium Level 141 mmol/L (136-145) Potassium Level 4.2 mmol/L (3.5-5.1) Chloride Level 105 mmol/L (98-107) Carbon Dioxide Level 22 mmol/L (21-32) Anion Gap 14 (6-14) Blood Urea Nitrogen 31 mg/dL (7-20) H Creatinine 1.1 mg/dL (0.6-1.0) H Estimated GFR (Cockcroft-Gault) 47.7 BUN/Creatinine Ratio 28 (6-20) H Glucose Level 115 mg/dL (70-99) H Calcium Level 8.7 mg/dL (8.5-10.1) Total Bilirubin 0.3 mg/dL (0.2-1.0) Aspartate Amino Transferase (AST) 20 U/L (15-37) Alanine Aminotransferase (ALT) 30 U/L (14-59) Alkaline Phosphatase 96 U/L (46-116) Total Protein 6.8 g/dL (6.4-8.2) Albumin 3.2 g/dL (3.4-5.0) L Albumin/Globulin Ratio 0.9 (1.0-1.7) L Salicylates Level < 2.8 mg/dL (2.8-20.0) L Salicylate Last Dose Date Unknown Salicylate Last Dose Time Unknown Acetaminophen Level < 2 mcg/mL (10-30) L Acetaminophen Last Dose Date Unknown Acetaminophen Last Dose Time Unknown Ethyl Alcohol Level < 10 mg/dL (0-10) Urine Opiates Screen Neg (NEG) Urine Methadone Screen Neg (NEG) Urine Barbiturates Neg (NEG) Urine Phencyclidine Screen Neg (NEG) Urine Amphetamine/Methamphetamine Neg (NEG) Urine Benzodiazepines Screen Neg (NEG) Urine Cocaine Screen Neg (NEG) Urine Cannabinoids Screen Neg (NEG) Urine Ethyl Alcohol Neg (NEG) (NARINDER LUTZ APRN) EKG EKG EKG performed at 1339 by house respiratory therapy staff shows a sinus tachycardia without other ectopy, heart rate 103, UT interval 0.102, QTc interval 0.487, no acute STEMI, no ACS, no acute ischemia appreciated. EKG interpreted by ED attending physician Dr. Chavez. (NARINDER LUTZ APRN) Radiology/Procedures Radiology/Procedures PATIENT: PERRY WOLF AACCOUNT: [id number] : 1940 LOCATION: ER AGE: 80 SEX: F EXAM STATUS: REG ER ORD. PHYSICIAN: NARINDER LUTZ APRN REASON: BENZODIAZIPINE OVERDOSE PROCEDURE: CHEST AP ONLY XR CHEST 1V History: Reason: BENZODIAZIPINE OVERDOSE / Spl. Instructions: / History: Comparison: October 04, 2020 Findings: Low lung volumes. Patchy bibasilar opacities. No pleural effusion. No pneumothorax. Unchanged heart size. Glenohumeral DJD with calcified intra- articular loose body in the left. Reverse S-shaped curvature of the thoracolumbar spine, unchanged. Impression: 1. Low lung volumes with patchy bibasilar opacities, likely atelectasis. Electronically signed by: Rafat Tolentino DO (11/26/2020 2:26 PM) [facility] DICTATED AND SIGNED BY: RAFAT TOLENTINO DO DATE: 11/26/20 1424 CC: NARINDER LUTZ APRN; NUNO ORNELAS MD ~MTH0 0 (NARINDER LUTZ APRN) Heart Score C/O Chest Pain: No Risk Factors: Risk Factors: DM, Current or recent (<one month) smoker, HTN, HLP, family history of CAD, obesity. Risk Scores: Risk Factors: DM, Current or recent (<one month) smoker, HTN, HLP, family history of CAD, obesity. (NARINDER LUTZ APRN) Course & Med Decision Making Course & Med Decision Making Pertinent Labs and Imaging studies reviewed. (See chart for details) 80-year-old female, vital signs reviewed, presents to the emergency department brought by her who states she took 120 tablets of 0.5 mg lorazepam just prior to arrival. This was an unwitnessed ingestion estimated sometime between 1250 and 1315 today. Patient has a history of severe dementia, patient's husba nd states her mentation is normal for her at this time and is not concerned of any acute mental status changes. ED planning IV saline lock, CBC, BMP, urinalysis assay, urine drug toxicity screen, acetaminophen level, salicylate level, property assessment monitor, noninvasive blood pressure monitoring, continuous pulse ox monitoring, temperature monitoring, will call poison control immediately for recommendation. Spoke to Blank at [facility] poison control to review case, poison control artist representative stated low order of toxicity, let her sleep it off, watch for signs of respiratory depression, treat hypotension with IV fluids only if s evere hypotension recommends norepinephrine infusion, does not recommend activated charcoal, recommends half dosing of Romazicon only if necessary to intubate related to long-term benzodiazepine use. Recommends monitoring for 4 to 6 hours observation, states most likely patient will become somnolent and difficult to arouse which will be normal for this type of ingestion, does not recommend hospitalization however recommended to age states overnight observation to hospital is reasonable. Upon reevaluation of the patient, patient remains hemodynamically stable, patient is somnolent, difficult to arouse with verbal and light touch stimuli, will continue to monitor in ED. Discussed with patient's will monitor in ED for 6 hours and most likely call hospitalist for observation admission overnight, patient's is amenable to this plan. Patient's urine is infected, patient's white blood cell count elevated, will order blood cultures x2, start on Rocephin 1 g IV tonight. Monitored patient for 6 hours, patient remained hemodynamically stable however difficult to arouse, discussed with admission for overnight observation and treatment of urinary tract infection, patient's is amenable to this plan. Patient states she does have a advanced directive however he does not know the exact wording to give a order of DO NOT RESUSCITATE for partial resuscitation versus full resuscitation at this time. Patient will remain a full code. Called and discussed patient case with Dr. Ambriz who was agreeable to accept patient for observation to the [facility] telemetry unit at [facility] for the diagnosis of incidental benzodiazepine overdose, urinary tract infection. Dr. Perales has assumed patient care at this time. (NARINDER LUTZ APRN) Dragon Disclaimer Dragon Disclaimer This electronic medical record was generated, in whole or in part, using a voice recognition dictation system. (NARINDER LUTZ APRN) Departure Departure: Impression: Primary Impression: Benzodiazepine overdose Additional Impressions: Urinary tract infection Elevated white blood cell count Disposition: ADMITTED INPATIENT (Admit to Dr. Ambriz to [facility] telemetry unit) Admitting Physician: Ema Ambriz (NARINDER LUTZ APRN) Condition: GUARDED Referrals: NUNO ORNELAS MD (PCP) Attending Signature Attending Signature I have reviewed the PA/ROAD SUPERVISOR OF ENGINES's note and plan of care. I was available for consultation as needed during the patient's visit in the emergency department. I agree with the clinical impression, plan, and disposition. (NARINDER CHAVEZ DO) Problem Qualifiers Primary Impression: Benzodiazepine overdose Encounter type: initial encounter Injury intent: accidental or unintentional Qualified Codes: T42.4X1A - Poisoning by benzodiazepines, accidental (unintentional), initial encounter Additional Impressions: Urinary tract infection Urinary tract infection type: site unspecified Hematuria presence: with hematuria Qualified Codes: N39.0 - Urinary tract infection, site not specified; R31.9 - Hematuria, unspecified Elevated white blood cell count Leukocytosis type: unspecified Qualified Codes: D72.829 - Elevated white blood cell count, unspecified NARINDER LUTZ APRN November 26, 2020 15:36 NARINDER CHAVEZ DO November 26, 2020 20:10
[2020-11-26 18:45] LABS: BILIRUBIN,URINE NEG (NEG); CLARITY,URINE CLOUDY; COLOR,URINE YELLOW; GLUCOSE,URINE NEG (NEG)
[2020-11-26 18:46] LABS: BACTERIA,URINE MANY /HPF (0-FEW); NITRITE,URINE POS (NEG); UROBILINOGEN,URINE 0.2 mg/dL (0.2 mg/dL)
[2020-11-26] MEDS ORDERED: cefTRIAXone SODIUM 1 GM VIAL ONE (19:07)
[2020-11-26] MEDS ORDERED: IV NORMAL SALINE 50ML 50 ML ONE (19:07)
--- NOTE | 2020-11-26 20:45 | NUR ---
Admission: The patient, PERRY WOLF, 80 y/o, F admitted by OUMOU HANKS MD, was given written information regarding hospital policies, unit procedures and contact persons. Pt arrived to room 109 via gurney, accompanied by [facility] and nursing sup. Pt's Praneeth followed shortly after. Praneeth reports pt has dementia and he normally administers all of her meds. Pt had her Ativan 0.5mg tabs refilled recently and while her was outdoors mowing this afternoon, pt got a hold of the pill bottle and only 6 out of 120 tabs were left on the floor when he found it. Pt not able to say whether she took them all. Pt's took her directly to the ED for treatment. Pt is somnolent. VSS. Pt on 2L via NC with SpO2 in the upper-90's. IVF's started per order. PMH and home meds reviewed with . Pt has suprapubic catheter, leg bag changed to langford bag while in the hospital. POC discussed with , V/U. He went home for the night and will return during visiting hours tomorrow. Bed in lowest position, alarmed for safety; with call light in reach. Valuables were checked and logged.
[2020-11-26 20:51] VITALS: BP 153/79
[2020-11-26] MEDS: IV NORMAL SALINE 1,000ML 1,000 ML IV SCH (21:00)
[2020-11-26 23:18] VITALS: BP 159/88
[2020-11-27] MEDS ORDERED: MELA3TAB4 PO (00:06)
[2020-11-27] MEDS ORDERED: CALC625T PO (00:06)
[2020-11-27] MEDS ORDERED: MIRA25TA PO (00:06)
[2020-11-27] MEDS ORDERED: MELO15TA23 PO (00:06)
[2020-11-27] MEDS ORDERED: VALS160T3 PO (00:06)
[2020-11-27] MEDS ORDERED: BUDE3CAP15 PO (00:06)
[2020-11-27] MEDS ORDERED: LINA72CA PO (00:06)
[2020-11-27] MEDS ORDERED: DONE10TA7 PO (00:06)
[2020-11-27] MEDS ORDERED: LACT1CAP21 PO (00:06)
[2020-11-27] MEDS ORDERED: ACET-1874 PO (00:06)
[2020-11-27] MEDS ORDERED: LORA0.5T21 PO (00:06)
--- NOTE | 2020-11-27 02:43 | NUR ---
Poison control called to check on pt status, update given.
--- NOTE | 2020-11-27 05:55 | NUR ---
Pt awoke this morning at baseline mentation. Pt asking for her and looking for her dogs. Unable to reorient to hospital or situation. Pt had 400ml output from suprapubic catheter. Able to turn self in bed with direction from staff. Pt took several sips of water, tolerated well. Currently sitting up in bed, watching TV. Call light in reach.
[2020-11-27] MEDS: IV NORMAL SALINE 1,000ML 1,000 ML IV SCH (06:32)
[2020-11-27 07:53] VITALS: BP 180/89
[2020-11-27] MEDS ORDERED: FLUMAZENIL 0.5 MG/5 ML VIAL. IV ONE (09:30)
--- NOTE | 2020-11-27 09:32 | HP ---
ADMIT DATE: 11/26/2020 ATTENDING PHYSICIAN: Dr. Terence Wade. CHIEF COMPLAINT: Obtundation. HISTORY OF PRESENT ILLNESS: The patient is an 80-year-old female with profound dementia. brought her in for supposed to be taking an overdose of lorazepam. She just got a new prescription for lorazepam tablet 0.5 mg. He went out to mow the lawn, noticed the pill bottles were open and all the pills were gone. Asked the patient if she had taken the pills and she denied it. With her history of dementia, no other alternative than to assumed that she ingested these medication. She was admitted for further evaluation. She has been on lorazepam 4 times a day for some time now. She has chronic pain syndrome. She is a poor historian. I am in the process of calling her . PAST MEDICAL HISTORY: Significant for profound dementia, depression, UTI, constipation, arthritis, anxiety and anemia. SURGICAL HISTORY: Suprapubic catheter placement. CURRENT MEDICATIONS: Reviewed. Obviously, she was on the lorazepam. In addition, she was taking benazepril, Flomax, Lipitor, valsartan, Meloxicam, Paxil, calcium, Protonix, lactobacillus, Linzess, budesonide, Myrbetriq and melatonin. FAMILY HISTORY: Unobtainable. REVIEW OF SYSTEMS: Unobtainable due to patient's condition. PHYSICAL EXAMINATION: GENERAL: When I saw her, this is a sleepy, elderly female who is poorly arousable. INITIAL VITAL SIGNS: Showed blood pressure 153/79, pulse is 90 and regular, oxygen saturation 98% on 2 liters nasal cannula. She was afebrile. HEENT: Head is without trauma. Pupils are reactive. Sclerae nonicteric. Oropharynx clear. NECK: Supple. No bruits. LUNGS: Shallow respirations. CARDIOVASCULAR: Showed regular heart tones. No gallops. ABDOMEN: Soft. EXTREMITIES: Without edema. NEUROLOGIC: Confused and lethargic. SKIN: Warm and dry. PERTINENT LABORATORY STUDIES: Chest x-ray is clear. Hemoglobin is 11.4 g/dL, white count 17,000. Electrolytes within normal range. Creatinine 1.1. Toxicology fairly unremarkable. Surprisingly, her urine for benzodiazepine was negative. Urinalysis showed a specific gravity of 1.025. ASSESSMENT: 1. An 80-year-old female with obtundation, most likely due to benzodiazepine overdose. 2. Underlying dementia that is profound. 3. Essential hypertension. 4. Frequent urinary tract infections. 5. Generalized debilitation. PLAN: 1. Admit to the inpatient unit. 2. ___ has been ordered. 3. Home medications were held. 4. Neurology consultation. 5. I will discuss with , his expectations in terms of discharge either home or to a higher level of care. ANTHONY DR: Yun TID: [id number]
[2020-11-27 10:36] VITALS: BP 138/69
[2020-11-27 15:25] VITALS: BP 148/73
--- NOTE | 2020-11-27 18:17 | NUR ---
SHIFT SUMMARY. PATIENT SPENT ENTIRE SHIFT IN A BED, MOST OF THE TIME ASLEEP, AROUSABLE TO NAME. PATIENT APPEARS LETHARGIC, CONFUSED, ASKING FOR HER DOG, PATIENT IS ON Q2 TURNS TO PREVENT PRESSURE SORES. PATIENT WAS ASSISTED WITH MEALS, PATIENT IS CURRENTLY IN A BED RESTING COMFORTABLY.
[2020-11-27 18:44] VITALS: BP 151/76
[2020-11-27] MEDS: ATORVASTATIN CALCIUM 10 MG TABLET. PO SCH (20:22)
[2020-11-27] MEDS: LOSARTAN 50 MG TABLET. PO SCH (20:22)
[2020-11-28 00:01] VITALS: BP 145/82
[2020-11-28 06:05] VITALS: BP 162/82
[2020-11-28] MEDS: PARoxetine 20 MG TABLET PO SCH (08:20)
[2020-11-28] MEDS: PANTOPRAZOLE 40 MG TABLET. PO SCH (08:20)
[2020-11-28] MEDS: BUDESONIDE 3 MG CAP.ER.24H. PO SCH (08:20)
[2020-11-28 10:19] VITALS: BP 169/90
--- NOTE | 2020-11-28 10:56 | NUR ---
PATIENT HAS BP ELEVATED 169/90, REPORTED TO DR. GUTIERREZ, NO ORDERS RECEIVED AT THIS TIME. TM.
[2020-11-28 15:50] VITALS: BP 163/91
--- NOTE | 2020-11-28 17:54 | NUR ---
NURSING NOTE THIS NURSE TOOK OVER PT CARE, REPORT FROM MARISSA MERCER. RUSLAN HEARD.
[2020-11-28 19:26] VITALS: BP 159/78
[2020-11-28] MEDS ORDERED: LORazepam 1 MG TABLET PO ONE (21:00)
[2020-11-28] MEDS: LOSARTAN 50 MG TABLET. PO SCH (21:18)
[2020-11-28] MEDS: ATORVASTATIN CALCIUM 10 MG TABLET. PO SCH (21:18)
--- NOTE | 2020-11-28 21:48 | PN ---
DATE: 11/28/2020 ATTENDING PHYSICIAN: Dr. Soliman. SUBJECTIVE: The patient remains quite confused. She is using a peeled banana as a ChapStick rubbing it against her lips. She is not aware of person, place or time. OBJECTIVE FINDINGS: VITAL SIGNS: Blood pressure is 169/90, pulse is 93 and regular. She is afebrile. Oxygen saturation 95% on room air. HEENT: Head is without trauma. Pupils are reactive. Sclerae nonicteric. Oropharynx clear. NECK: Supple. LUNGS: Shallow respirations. HEART: Regular heart tones. No gallops. ABDOMEN: Soft. NEUROLOGIC: Profound confusion. LABORATORY DATA: Urine culture shows mixed sharan. Meds were reviewed. ASSESSMENT: 1. This 80-year-old female has obtundation due to benzodiazepine overdose. 2. Underlying dementia, profound. 3. Essential hypertension. 4. Frequent urinary tract infections. 5. Generalized debilitation. PLAN: 1. Obviously benzodiazepines have been held. 2. Home medications reviewed. 3. We are awaiting placement at a subacute rehabilitation. JANNETH DR: Yun TID: [id number]
--- NOTE | 2020-11-28 21:48 | PN ---
DATE: 11/28/2020 ATTENDING PHYSICIAN: Dr. Soliman. SUBJECTIVE: The patient remains quite confused. She requires total care. OBJECTIVE: VITAL SIGNS: Blood pressure today is 160/82. She is afebrile. Oxygen saturation 95% on room air. HEENT: Pupils are reactive. She has bilateral orbital ecchymosis that is healing. NECK: Supple, no bruits. LUNGS: Shallow respirations. CARDIOVASCULAR: Showed regular heart tones. ABDOMEN: Soft. EXTREMITIES: Without edema. NEUROLOGIC: Profound confusion, bedridden. Suprapubic catheter is in place. ASSESSMENT: 1. An 80-year-old female with obtundation due to benzodiazepine overdose. 2. Dementia, profound. 3. Chronic indwelling suprapubic catheter. 4. Essential hypertension. PLAN: 1. Meds reviewed, benzodiazepine held. 2. Await placement at [facility]. 3. 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 JANNETH DR: Yun TID: [id number]
[2020-11-28] MEDS ORDERED: LORazepam 1 MG TABLET PO PRN (22:15)
--- NOTE | 2020-11-28 23:50 | NUR ---
Accidental removal of IV prior to shift. telephoned and no IV needed to be replaced at this time due to no need and planned discharge in morning. PT restless at start of shift, trying to climb out of bed, pushing water cup, juice and other items off side table at different times. Lorazepam one-time dose given. PT calmed considerably shortly later and then fell asleep. Lorazepam not used to this point.
[2020-11-29 06:41] VITALS: BP 170/84
--- NOTE | 2020-11-29 07:11 | NUR ---
NURSING NOTE FALL DURING REPORT THIS AM, AT 0645 AM PT BED ALARM WENT OFF, RUSLAN FLYNN WENT TO PT ROOM AND UPON ENTERING PT FOUND ON FLOOR WITH SUPRAPUBIC CATHETER STRETCHED ACROSS THE BED. THIS NURSE ALONG WITH ANOTHER NURSE CALLED TO BEDSIDE TO ASSIST. PT VITALS ARE STABLE. PT FOUND TO HAVE BRUISING AND SWELLING ON HER LEFT SIDE OF HER HEAD, ABRASIONS ON BILATERAL KNEES. PT'S SUPRAPUBIC CATHETER FOUND RIPPED AND LEAKING AT INFLATION SITE. LOVELL REMOVED BY GEE MERCER AND LAKISHA MERCER. LAKISHA RN WORKING TO REPLACE SUPRAPUBIC CATHETER AT THIS TIME. DR GUTIERREZ CALLED AND NOTIFIED OF PT FALL, NOTIFIED THAT PT HAS BRUISE AND SWELLING ON HER HEAD, ABRASIONS ON HER KNEES. THIS NURSE ASKED DR GUTIERREZ IF HE WOULD LIKE CT OF HEAD OR ANY ADDITIONAL XRAYS, PER DR GUTIERREZ NO IMAGING NEEDED AT THIS TIME, THIS NURSE EXPLAINED TO DR GUTIERREZ THAT PT HAD AN UNWITNESSED FALL AND HAS SIGNIFICANT BRUISING ON HER HEAD, DR GUTIERREZ STATES SHE DOES NOT NEED ANY ADDITIONAL IMAGING AT THIS TIME. HE WILL BE HERE THIS MORNING TO EVALUATE FURTHER. NURSING TIRE MOUNTER OPAL SHELDON NOTIFIED OF PT FALL AND NOTIFIED THAT NO ORDERS WERE OBTAINED IN REGARD TO PT FALL/INJURY. NECK COLLAR PLACED, ICE PACK PLACED ON HEAD. WILL CONTINUE TO MONITOR. RUSLAN HEARD.
[2020-11-29 07:15] VITALS: BP 166/80
[2020-11-29] MEDS: PANTOPRAZOLE 40 MG TABLET. PO SCH (08:28)
[2020-11-29] MEDS: PARoxetine 20 MG TABLET PO SCH (08:28)
[2020-11-29] MEDS: BUDESONIDE 3 MG CAP.ER.24H. PO SCH (08:29)
[2020-11-29] MEDS ORDERED: IOHEXOL 240 MG/ML 50ML VIAL. PO ONE (08:30)
--- NOTE | 2020-11-29 10:00 | NUR ---
NURSING NOTE PER DR GUTIERREZ, REMOVE PT SUPRAPUBIC CATHETER, ALLOW PT TO VOID NATURALLY, BLADDER SCAN PRN. THIS NURSE REMOVED PT SUPRAPUBIC CATHETER, BLADDER SCAN SHOWS APPROX 70 MLS. PT HAS HAD 3 WE BRIEFS TO DAY. BLADDER SCAN AT SHIFT CHANGE SAYS APPROX 100 MLS. RUSLAN HEARD.
--- NOTE | 2020-11-29 10:46 | RAD ---
EXAM: Pelvis, single view. HISTORY: Suprapubic catheter placement. COMPARISON: None. FINDINGS: A frontal view of the pelvis is obtained. The exam is limited due to radiodense material ov erlying the inferior aspect of the pelvis. There is a catheter overlying the left proximal thigh and left hemipelvis and there are metallic clips within the left hemipelvis. No convincing contrast is se en within the bladder lumen. There is lumbar scoliosis and degenerative change involving the lower haylee mbar spine. IMPRESSION: Limited exam due to rather dense material overlying the inferior pelvis. There is a toñito ter overlying the left hemipelvis which may be the reported suprapubic catheter. However, there is no contrast within the bladder lumen to confirm catheter positioning. Electronically signed by: Meghna Crook MD (11/29/2020 10:44 AM) [id number]
[2020-11-29 11:33] VITALS: BP 157/83
[2020-11-29 15:27] VITALS: BP 142/86
[2020-11-29 19:26] VITALS: BP 133/77
[2020-11-29] MEDS: LOSARTAN 50 MG TABLET. PO SCH (20:01)
[2020-11-29] MEDS: ATORVASTATIN CALCIUM 10 MG TABLET. PO SCH (20:01)
--- NOTE | 2020-11-29 21:52 | PN ---
DATE: 11/29/2020 ATTENDING PHYSICIAN: Dr. Soliman. SUBJECTIVE: Remains very confused. The patient tried to get out of bed this morning. She had a slight bump, no acute head injuries; however, she did pull out her suprapubic catheter. OBJECTIVE FINDINGS: VITAL SIGNS: Blood pressure today is 159/78, pulse is 96 and regular. She is afebrile. Oxygen saturation 96% on room air. HEENT: Head is without open trauma. There is slight ecchymosis over the left orbit. NECK: Supple, no bruits. CHEST: Lungs are clear. CARDIOVASCULAR: Shows regular heart tones. ABDOMEN: Soft. EXTREMITIES: Without edema. Suprapubic catheter has been displaced. She is nonambulatory. She is profoundly confused. ASSESSMENT: 1. An 80-year-old female with profound dementia. 2. Benzodiazepine overdose. 3. Chronic indwelling suprapubic catheter, which has been dislodged. 4. Essential hypertension. PLAN: 1. Placement at [facility] has been turned down. We are looking at [facility]. 2. I have placed a call in for her urologist, Dr. Jiménez at [facility] as to guidance what to do regarding the suprapubic catheter. 3. We have tried replacing the catheter a couple times without success. 4. Discharge has been postponed. 5. We will use adult diapers for now and see if she can manage her urine through the regular orifice. 6. I had a long discussion with Mr. Lema. The patient does have advanced directives and will be made a DNR per her advanced directives. KAILASH DR: Yun TID: [id number]
[2020-11-30 00:57] VITALS: BP 147/90
[2020-11-30 06:39] VITALS: BP 135/81
[2020-11-30] MEDS: PARoxetine 20 MG TABLET PO SCH (08:48)
[2020-11-30] MEDS: PANTOPRAZOLE 40 MG TABLET. PO SCH (08:48)
[2020-11-30] MEDS: BUDESONIDE 3 MG CAP.ER.24H. PO SCH (08:48)
[2020-11-30 10:36] VITALS: BP 143/74
[2020-11-30 14:46] VITALS: BP 132/72
[2020-11-30 19:30] VITALS: BP 146/78
--- NOTE | 2020-11-30 21:25 | PN ---
DATE: 11/30/2020 ATTENDING PHYSICIAN: Dr. Ambriz. SUBJECTIVE: The patient remains profoundly confused, some low dose Ativan was started. This will be administered in a controlled environment. I reassured the family. She was able to get up in a Inez chair to go to the shower. She has also been able to urinate. Bladder scan showed no evidence of urinary retention. Her diapers are wet. OBJECTIVE FINDINGS: VITAL SIGNS: Blood pressure this morning is 143/74. She was afebrile, oxygen saturation 96% on room air. HEENT: Head is without trauma. Pupils are reactive. Sclerae nonicteric. Oropharynx clear. NECK: Supple, no bruits. CHEST: Lungs are clear. HEART: Regular heart tones. ABDOMEN: Soft. EXTREMITIES: Without edema. NEUROLOGIC: Profoundly confused. ASSESSMENT: 1. An 80-year-old female with profound dementia. 2. Benzodiazepine overdose, resolved. 3. Chronic indwelling Puentes catheter, which has been dislodged. This was placed due to urinary retention. Currently, she is making urine ____ through her urethra. 4. Essential hypertension. 5. Urinary incontinence. PLAN: 1. I tried to get a hold of Dr. Marin, I was unsuccessful. I will keep trying to contact him during this holiday weekend. 2. Bladder scanning as scheduled. 3. Adult diapers. 4. Meds reviewed. 5. I discussed the case with her , Mr. Lema. We will try to get her to [facility] this weekend. If not, it will be after the weekend. No new changes on her meds. KAHLIL DR: Yun TID: [id number]
[2020-11-30] MEDS: ATORVASTATIN CALCIUM 10 MG TABLET. PO SCH (21:54)
[2020-11-30] MEDS: LOSARTAN 50 MG TABLET. PO SCH (21:54)
[2020-11-30 23:29] VITALS: BP 144/76
[2020-12-01 06:29] VITALS: BP 163/83
[2020-12-01] MEDS: PARoxetine 20 MG TABLET PO SCH (08:43)
[2020-12-01] MEDS: BUDESONIDE 3 MG CAP.ER.24H. PO SCH (08:43)
[2020-12-01] MEDS: PANTOPRAZOLE 40 MG TABLET. PO SCH (08:43)
--- NOTE | 2020-12-01 11:02 | DS ---
DATE OF DISCHARGE: 12/01/2020 ATTENDING PHYSICIAN: Dr. Soliman. FINAL DISCHARGE DIAGNOSES: 1. Benzodiazepine overdose, accidental, resolved. 2. Underlying agitation with associated profound dementia. 3. Urinary incontinence. 4. History of suprapubic catheter, dislodged by patient. 5. Frequent urinary tract infections. 6. Generalized debilitation. 7. Protein calorie malnutrition. HISTORY OF PRESENT ILLNESS: The patient is an 80-year-old female well cared for by her in the last year. She has reached the point where she cannot manage. He got a prescription for Ativan. He went outside to mow the lawn. When he came back, the entire bottle was gone whether the patient ingested all of it or part of it, we could not find the rest of it. She was treated in the ER, given Romazicon, admitted for further treatment and evaluation. PHYSICAL EXAMINATION: Please see the dictated note. PERTINENT LABORATORY AND X-RAY STUDIES: Admission hemoglobin was 11.4 g/dL, white count 17,000. Sodium 141, potassium 4.2 mEq, creatinine 1.1 mg/dL. Nonfasting blood sugar adequate. Urinalysis showed trace bacteria, which is consistent with a suprapubic catheter. COURSE IN THE HOSPITAL: The patient was admitted. She was given Romazicon several doses with going back to baseline, afterwards because of agitation, she required some intermittent doses of Ativan to calm her down. Prior to discharge, the patient pulled out her suprapubic catheter, we were unable to place a catheter back. We did not want to create any more problems. Therefore, we bladder scanned her and found that the bladder was empty adequately and she was making urine through the vagina or urethra the old fashion way. Adult diapers administered and we weighed her diapers and she had good urine output. The is realizing that he cannot care for her. The family is in agreement. She is a DNR per advanced directives. Arrangements were then made for patient to go to [facility] for continued rehabilitation. Her discharge meds have been simplified. We will order Ativan 0.5 mg p.o. q. 6 h. p.r.n., Tylenol, Lipitor, budesonide, calcium, Aricept, Linzess, Protonix, Paxil, Flomax and valsartan. For now, we held lactobacillus, melatonin, meloxicam, and Myrbetriq. Her prognosis is poor. I do believe she has been declining with a limited lifespan. The patient was then discharged from our hospital in stable condition with explicit written and followup care. Total discharge time spent 43 minutes. JOY/JORGE DR: Yun TID: [id number] CC: NUNO SMITH MD
[2020-12-01 11:44] VITALS: BP 146/84
== END 2020-12-01 13:45 | DRG 918 ==
LOC: ER 13:35 → 1 SOUTH 20:04 → OBSVTOIN 11-27 11:34
PROVIDERS: ADMIT Internal Medicine; ATTEND Internal Medicine
DX: T42.4X1A Poisoning by benzodiazepines, accidental (unintentional), initial encounter (principal); J98.11 Atelectasis; N39.0 Urinary tract infection, site not specified; Z68.1 Body mass index [BMI] 19.9 or less, adult; E44.1 Mild protein-calorie malnutrition; F03.90 Unspecified dementia, unspecified severity, without behavioral disturbance, psychotic disturbance, mood disturbance, and anxiety; G89.4 Chronic pain syndrome; I10 Essential (primary) hypertension; R32 Unspecified urinary incontinence; Z66 Do not resuscitate; Z87.440 Personal history of urinary (tract) infections; Z93.59 Other cystostomy status; F32.9 Major depressive disorder, single episode, unspecified; F41.9 Anxiety disorder, unspecified; M19.90 Unspecified osteoarthritis, unspecified site; Z88.8 Allergy status to other drugs, medicaments and biological substances; Z79.899 Other long term (current) drug therapy; Y92.89 Other specified places as the place of occurrence of the external cause
CPT/HCPCS: 36415; 71045; 72170; 80053; 80307; 80329; 81001; 85007; 85025; 87086; 93005; 96365; G0378; G0379; G0480; J0696; J3490; P9612; 99285-25; J7030

== ENCOUNTER 2021-01-14 18:04 | Inpatient (IN) | payer MEDICARE, BC, OTHER ==
[~2021-01-14] VITALS: Ht 152.4 cm; Wt 55.8 kg
[~2021-01-14 18:04] MED LIST changes: +ACET-1874 PO; +BUDE3CAP15 PO; +CALC625T PO; +DONE10TA7 PO; +LACT1CAP21 PO; +LINA72CA PO; +LORA0.5T21 PO; +MELA3TAB4 PO; +MELO15TA23 PO; +MIRA25TA PO; +VALS160T3 PO
[2021-01-14] MEDS ORDERED: IV NORMAL SALINE 1,000ML 1,000 ML IV ONE (19:00)
--- NOTE | 2021-01-14 19:30 | PHYS DOC ---
Past History Past Medical History: Anemia, Anxiety, Arthritis, Constipation, Dementia, Depression, UTI Additional Past Medical Histor: Bladder problems, chronic pain Past Medical History Limited secondary to dementia. Past Surgical History: No Surgical History Additional Past Surgical Histo: suprapubic cath palced Past Surgical History Limited secondary to dementia. Smoking: Non-smoker Alcohol Use: None Drug Use: None Social History Limited secondary to dementia. General Adult EDM: Chief Complaint: PSYCH EVALUATION HPI: HPI: Patient is a 80 year old female who [facility] for [facility] and medical clearance for admission to [facility]. Patient's states she has had dementia for a year and half but has been more agitated and combative the past few weeks. She also has a urinary bladder catheter, which was changed from a suprapubic to Puentes catheter over 30 days ago. states she also has back problems for which she uses a lidocaine patch. She complains of abdominal pain regularly so she recently had a cystoscopy and a CT scan of her abdomen, which was clear according to the . She has possibly had some falls at the [facility] as well. History of present illness limited secondary to dementia. Review of Systems: Review of Systems: Review of systems limited secondary to dementia. Current Medications: Current Meds: Current Medications Medications (Trade) Dose Ordered Sig/Hector Start Time Stop Time Status Last Admin Dose Admin Sodium Chloride 1,000 ml @ 1,000 mls/hr 1X ONCE 01/14/21 19:00 01/14/21 19:59 Allergies: Allergies: Allergies Coded Allergies Type Severity Reaction Last Updated Verified sulfamethoxazole Allergy Unknown 12/14/19 Yes prochlorperazine maleate Adverse Reaction Unknown Makes her twitch 12/14/19 Yes Physical Exam: PE: Constitutional: Well developed, elderly, no acute distress, non-toxic appearance HENT: Normocephalic, atraumatic Eyes: EOMI, conjunctiva normal, no discharge Neck: Normal range of motion, no tenderness, supple Lungs & Thorax: No respiratory distress, equal chest rise and fall Abdomen: Soft, no tenderness Skin: Warm, dry, no erythema, no rash Back: No CVA tenderness, has back pain Extremities: No tenderness, ROM intact, no edema Neurologic: Alert and awake, confused, normal motor function Psychologic: Affect normal, not agitated or combative Current Patient Data: Vital Signs: Vital Signs Date Time Temp Pulse Resp B/P (MAP) Pulse Ox O2 Delivery O2 Flow Rate FiO2 01/14/21 19:11 98 16 146/81 (102) 97 Room Air EKG: EKG: @2159 NSR at 88bpm, NO ST elevation, QRS 112ms, QT/QTc 408/498ms, incomplete RBBB, t wave inversion III, V2-V3 Radiology/Procedures: Radiology/Procedures: PROCEDURE: CT HEAD AND CERVICAL SPINE WO Examination: CT head and cervical spine without contrast CT HEAD INDICATION: Altered mental status, history of falls COMPARISON: 10/04/2020 Exposure: One or more of the following individualized dose reduction techniques were utilized for this examination: 1. Automated exposure control 2. Adjustment of the mA and/or kV according to patient size 3. Use of iterative reconstruction technique TECHNIQUE: 5 mm contiguous axial images were obtained from the skull base to the vertex in both bone and soft tissue algorithm. FINDINGS: Moderate bilateral periventricular white matter hypodensities likely chronic small vessel ischemic disease. No evidence of acute intracranial hemorrhage. No extra-axial fluid collections. No mass effect or midline shift. Ventricular size is appropriate. Basal cisterns are patent. No fractures identified.Way-white differentiation is preserved.Globes and orbits are within normal limits. Paranasal sinuses and mastoid air cells are clear. CT CERVICAL SPINE INDICATION: Reason: altered mental status, hx of falls / Spl. Instructions: / History: COMPARISON: None Available. Technique: 2.5 mm contiguous axial images were obtained from the skull base through the cervicothoracic junction in both bone and soft tissue algorithm. Additional sagittal and coronal reconstructions were also performed. FINDINGS: Vertebral body height are maintained. Cervical lordosis is preserved. The lateral masses of C1 are aligned upon C2. No fractures identified. 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 Severe intervertebral disc height loss identified in cervical spine most at C6- C7 vertebral level likely degenerative changes. 4 mm anterolisthesis of C7 on T1. The paraspinous soft tissues are unremarkable. Visualized intracranial contents are unremarkable. Lung apices are clear. IMPRESSION: 1. No acute intracranial findings. Moderate bilateral periventricular white matter hypodensities likely chronic small vessel ischemic disease. 2. No acute fracture cervical spine. 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 3. Severe intervertebral disc height loss identified in cervical spine most at C6-C7 vertebral level likely degenerative changes. Electronically signed by: Guzman Salinas MD (01/14/2021 8:20 PM) [id number] PROCEDURE: CHEST AP ONLY XR CHEST 1V 01/14/2021 7:22 PM INDICATION: Altered mental status COMPARISON: 11/26/2020 TECHNIQUE: Portable frontal view of the chest is provided. FINDINGS: The cardiomediastinal silhouette is within normal limits. Lungs are clear. Radiopaque foreign density projects over the right hilar region, likely external to the patient. There are no significant pleural effusions. There is no pulmonary vascular congestion. No pneumothorax. No suspicious osseous abnormality. IMPRESSION: There is no acute cardiopulmonary process. Electronically signed by: Kayla Grullon MD (01/14/2021 9:01 PM) UIC-ALAP Heart Score: C/O Chest Pain: N/A Course & Med Decision Making: Course & Med Decision Making Patient is an 80 year old female with dementia presenting to the ED with [facility] from the [facility]. Patient has recently been more combative and agitated. She currently a Puentes catheter. CT head and cervical spine obtained due to history of "frequent falls" and showed no acute changes, no signs of hemorrhage or herniation, no signs of fractures. Chest X-Ray showed no acute cardiopulmonary process. Labs obtained and posted to chart. Patient is stable and medically cleared for admission to [facility]. Discussed findings and plan with patient and her , who acknowledges understanding and agreement. Cristobal Disclaimer: Cristobal Disclaimer: This electronic medical record was generated, in whole or in part, using a voice recognition dictation system. Departure Departure: Impression: Primary Impression: Medical clearance for psychiatric admission Disposition: ADMITTED INPATIENT (to [facility]) Condition: STABLE Referrals: NUNO SMITH MD (PCP) NARINDER CHAVEZ DO Jan 14, 2021 19:30
[2021-01-14 19:39] LABS: BACTERIA,URINE MANY /HPF (0-FEW); BILIRUBIN,URINE NEG (NEG); CLARITY,URINE TURBID; COLOR,URINE YELLOW; GLUCOSE,URINE NEG (NEG); NITRITE,URINE NEG (NEG); UROBILINOGEN,URINE 0.2 mg/dL (0.2 mg/dL)
[2021-01-14 19:40] LABS: SQUAMOUS EPITHELIAL CELL,UR OCC /LPF
[2021-01-14 20:12] LABS: BASO # 0.1 x10^3/uL (0.0-0.2); BASO % 1 % (0-3); EOS # 0.4 x10^3/uL (0.0-0.7); EOS % 2 % (0-3); HEMOGLOBIN 11.3 g/dL (12.0-15.5); LYMPH # 1.7 x10^3/uL (1.0-4.8); LYMPH % 11 % (24-48); MEAN CORPUSCULAR HEMOGLOBIN 28 pg (25-35); MEAN CORPUSCULAR HGB CONC 32 g/dL (31-37); MEAN CORPUSCULAR VOLUME 88 fL (79-100); MONO # 1.5 x10^3/uL (0.0-1.1); MONO % 10 % (0-9); NEUT % 77 % (31-73); PLATELET COUNT 555 x10^3/uL (140-400); RED BLOOD COUNT 3.99 x10^6/uL (3.50-5.40); RED CELL DISTRIBUTION WIDTH 14.2 % (11.5-14.5); WHITE BLOOD COUNT 15.6 x10^3/uL (4.0-11.0)
--- NOTE | 2021-01-14 20:22 | RAD ---
Examination: CT head and cervical spine without contrast CT HEAD INDICATION: Altered mental status, history of falls COMPARISON: 10/04/2020 Exposure: One or more of the following individualized dose reduction techniques were utilized for thi s examination: 1. Automated exposure control 2. Adjustment of the mA and/or kV according to patient size 3. Use of iterative reconstruction technique TECHNIQUE: 5 mm contiguous axial images were obtained from the skull base to the vertex in both bone and soft tissue algorithm. FINDINGS: Moderate bilateral periventricular white matter hypodensities likely chronic small vessel ischemic di sease. No evidence of acute intracranial hemorrhage. No extra-axial fluid collections. No mass effect or midline shift. Ventricular size is appropriate. Basal cisterns are patent. No fractures identified.Way-white differentiation is preserved.Globes and orbits are within normal l imits. Paranasal sinuses and mastoid air cells are clear. CT CERVICAL SPINE INDICATION: Reason: altered mental status, hx of falls / Spl. Instructions: / History: COMPARISON: None Available. Technique: 2.5 mm contiguous axial images were obtained from the skull base through the cervicothorac ic junction in both bone and soft tissue algorithm. Additional sagittal and coronal reconstructions were also performed. FINDINGS: Vertebral body height are maintained. Cervical lordosis is preserved. The lateral masses of C1 are aligned upon C2. No fractures identified. 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 Severe intervertebral disc height loss identified in cervical spine most at C6-C7 vertebral level lik kaden degenerative changes. 4 mm anterolisthesis of C7 on T1. The paraspinous soft tissues are unremarkable. Visualized intracranial contents are unremarkable. L kristina apices are clear. IMPRESSION: 1. No acute intracranial findings. Moderate bilateral periventricular white matter hypodensities lik kaden chronic small vessel ischemic disease. 2. No acute fracture cervical spine. 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 3. Severe intervertebral disc height loss identified in cervical spine most at C6-C7 vertebral level likely degenerative changes. Electronically signed by: Guzman Salinas MD (01/14/2021 8:20 PM) [id number]
[2021-01-14 20:24] LABS: CALCIUM 8.8 mg/dL (8.5-10.1); CREATININE 0.9 mg/dL (0.6-1.0); GFR 60.1; POTASSIUM 4.8 mmol/L (3.5-5.1)
[2021-01-14 20:29] LABS: ALBUMIN 3.2 g/dL (3.4-5.0); ALBUMIN/GLOBULIN RATIO 1.2 (1.0-1.7); MAGNESIUM 1.9 mg/dL (1.8-2.4); TOTAL BILIRUBIN 0.2 mg/dL (0.2-1.0); TOTAL PROTEIN 5.9 g/dL (6.4-8.2)
--- NOTE | 2021-01-14 21:04 | RAD ---
XR CHEST 1V 01/14/2021 7:22 PM INDICATION: Altered mental status COMPARISON: 11/26/2020 TECHNIQUE: Portable frontal view of the chest is provided. FINDINGS: The cardiomediastinal silhouette is within normal limits. Lungs are clear. Radiopaque foreign density projects over the right hilar region, likely external to the patient. There are no significant pleural effusions. There is no pulmonary vascular congestion. No pneumothora x. No suspicious osseous abnormality. IMPRESSION: There is no acute cardiopulmonary process. Electronically signed by: Kayla Grullon MD (01/14/2021 9:01 PM) [facility]
[2021-01-14 21:10] LABS: % ATYL 2 % (0-0); % BANDS 3 % (0-9); % EOS 4 % (0-5); % LYMPHS 10 % (24-48); % MONOS 6 % (0-10); % SEGS 75 % (35-66); PLT ESTIMATE INCREASED (ADEQUATE)
[2021-01-14 21:11] LABS: TOXIC GRANULATION MOD
--- NOTE | 2021-01-14 22:08 | EKG ---
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
[2021-01-14] MEDS ORDERED: MAG HYDROX/AL HYDROX/SIMETH 30 ML ORAL.SUSP PO PRN (23:15)
[2021-01-14] MEDS ORDERED: METHYL SALICYLATE/MENTHOL TOPICAL OINTMENT 57GM TUBE. TP PRN (23:15)
[2021-01-14] MEDS ORDERED: MAGNESIUM HYDROXIDE 2,400 MG/30 ML ORAL.SUSP. PO PRN (23:15)
[2021-01-14 23:35] VITALS: BP 167/94
[2021-01-14] MEDS ORDERED: ACET325T21 PO (23:47)
[2021-01-14] MEDS ORDERED: LACT1CAP37 PO (23:47)
[2021-01-14] MEDS ORDERED: LOSA100T14 PO (23:47)
[2021-01-14] MEDS ORDERED: DONE5TAB56 PO (23:47)
[2021-01-14] MEDS ORDERED: MIRA25TA PO (23:47)
[2021-01-14] MEDS ORDERED: HYDR25TA PO (23:47)
[2021-01-14] MEDS ORDERED: MELA3TAB4 PO (23:47)
[2021-01-14] MEDS ORDERED: LIDO4SOL3 TP (23:47)
[2021-01-14] MEDS ORDERED: ACET500T68 PO (23:47)
[2021-01-14] MEDS ORDERED: LORA0.5T21 PO (23:47)
[2021-01-14] MEDS ORDERED: PHEN-443 PO (23:47)
[2021-01-15 06:25] VITALS: BP 172/94
[2021-01-15] MEDS: LORazepam 0.5 MG TABLET PO SCH ×3 (09:00→21:14)
[2021-01-15] MEDS: PARoxetine 20 MG TABLET PO SCH (09:00)
[2021-01-15] MEDS: ACETAMINOPHEN 325 MG TABLET PO PRN (15:29)
[2021-01-15 16:03] VITALS: BP 161/89
[2021-01-15] MEDS ORDERED: ACETAMINOPHEN 325 MG TABLET PO PRN (19:00)
[2021-01-15 20:25] LABS: THYROID STIM HORMONE (TSH) 1.297 uIU/mL (0.358-3.740)
[2021-01-15] MEDS: PATCH REMOVAL. MC SCH (21:00)
[2021-01-15] MEDS: LACTOBACILLUS RHAMNOSUS GG 1 CAPSULE. PO SCH (21:13)
[2021-01-15] MEDS: CALCIUM POLYCARBOPHIL 625 MG TABLET PO SCH (21:13)
[2021-01-15] MEDS: ACETAMINOPHEN 500 MG TABLET PO SCH (21:14)
[2021-01-15] MEDS: MELATONIN 3 MG TABLET PO SCH (21:14)
[2021-01-15] MEDS: ATORVASTATIN CALCIUM 10 MG TABLET. PO SCH (21:14)
[2021-01-15] MEDS: LOSARTAN 50 MG TABLET. PO SCH (21:14)
[2021-01-15] MEDS: DONEPEZIL HCL 10 MG TABLET PO SCH (21:14)
--- NOTE | 2021-01-15 22:16 | PDOC ---
Exam Note: Deon Note: Please also refer to the separate dictated note~for this date of service dictated separately.~Patient seen individually. Discussed the patient with Nursing staff reviewed the chart.~Reviewed interim history and current functioning. Reviewed vital signs,~Labs/ Radiology~and current medications noted below. Continue current treatment with the changes noted in the dictated addendum note Assessment: Vital Signs/I&O: Vital Signs Date Time Temp Pulse Resp B/P (MAP) Pulse Ox O2 Delivery O2 Flow Rate FiO2 01/15/21 21:14 98 161/89 01/15/21 16:03 98.1 20 97 01/14/21 19:11 Room Air I & O 01/14/21 01/14/21 01/15/21 15:00 23:00 07:00 Intake Total 1000 ml Balance 1000 ml Labs: Laboratory Tests Test 01/15/21 06:25 D-Dimer (Mirtha) 0.62 mg/L (0.00-0.50) H Iron Level 29 ug/dL (50-170) L Total Iron Binding Capacity 395 ug/dL (250-450) Iron Saturation 7 % (15-34) L Triglycerides Level 52 mg/dL (0-150) Cholesterol Level 170 mg/dL (0-200) LDL Cholesterol, Calculated 60 mg/dL (0-100) VLDL Cholesterol, Calculated 10 mg/dL (0-40) Non-HDL Cholesterol Calculated 70 mg/dL (0-129) HDL Cholesterol 100 mg/dL (40-60) H Cholesterol/HDL Ratio 1.0 Vitamin B12 Level 265 pg/mL (247-911) 25-Hydroxy Vitamin D Total 14.2 ng/mL (30-100) L Thyroid Stimulating Hormone (TSH) 1.297 uIU/mL (0.358-3.740) Thyroxine (T4) 7.0 ug/dL (4.5-12.0) Total Triiodothyronine (TT3) 76 ng/dL (71-180) Treponema pallidum Antibody Nonreactive (Nonreactive) Current Medications: Meds: Current Medications Medications (Trade) Dose Ordered Sig/Hector Route PRN Reason Start Time Stop Time Status Last Admin Dose Admin Acetaminophen (Tylenol) 650 mg PRN Q6HRS PRN PO MILD PAIN / TEMP > 100.3'F 01/14/21 23:15 01/15/21 15:29 Donepezil HCl (Aricept) 10 mg HS PO 01/15/21 21:00 01/15/21 21:14 Lorazepam (Ativan) 0.5 mg TID PO 01/15/21 09:00 01/15/21 21:14 Melatonin (Melatonin) 3 mg HS PO 01/15/21 21:00 01/15/21 21:14 Paroxetine HCl (Paxil) 40 mg DAILY PO 01/15/21 09:00 01/15/21 09:00 Acetaminophen (Tylenol) 500 mg TID PO 01/15/21 21:00 01/15/21 21:14 Atorvastatin Calcium (Lipitor) 10 mg QHS PO 01/15/21 21:00 01/15/21 21:14 Calcium Polycarbophil (Fibercon) 1,250 mg BID PO 01/15/21 21:00 01/15/21 21:13 Lactobacillus Rhamnosus (Culturelle) 1 cap BID PO 01/15/21 09:00 01/15/21 21:13 Losartan Potassium (Cozaar) 100 mg HS PO 01/15/21 21:00 01/15/21 21:14 I have reviewed the current psychotropics carefully including drug interactions. Risk benefit ratio favors no change other than as noted in my dictated progress note. Diagnosis: Problems: (1) Major neurocognitive disorder due to Alzheimer's disease (2) Dementia in Alzheimer's disease with depression (3) Dementia in Alzheimer's disease with delusions (4) Dementia, vascular, with delusions (5) Dementia, vascular, with depression (6) Impulse control disorder, unspecified (7) Anxiety disorder, unspecified LUCAS CODY MD Jan 15, 2021 22:16
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
[2021-01-16 00:07] LABS: HEMOGLOBIN A1C 5.6 % (4.8-5.6)
[2021-01-16] MEDS: ACETAMINOPHEN 325 MG TABLET PO PRN (05:33)
[2021-01-16 06:30] VITALS: BP 159/80
[2021-01-16] MEDS: ACETAMINOPHEN 500 MG TABLET PO SCH ×4 (08:48→21:04)
[2021-01-16] MEDS: CALCIUM POLYCARBOPHIL 625 MG TABLET PO SCH ×2 (08:48→21:04)
[2021-01-16] MEDS: PARoxetine 20 MG TABLET PO SCH (08:48)
[2021-01-16] MEDS: LACTOBACILLUS RHAMNOSUS GG 1 CAPSULE. PO SCH ×2 (08:48→21:04)
[2021-01-16] MEDS: BUDESONIDE 3 MG CAP.ER.24H. PO SCH (08:49)
[2021-01-16] MEDS: PANTOPRAZOLE 40 MG TABLET. PO SCH ×2 (08:49→09:00)
[2021-01-16] MEDS: MIRABEGRON 25 MG TAB.ER.24H PO SCH (08:49)
[2021-01-16] MEDS: LORazepam 0.5 MG TABLET PO SCH ×3 (08:49→21:04)
[2021-01-16] MEDS: LIDOCAINE (700MG/PATCH) PATCH. TD SCH (08:50)
[2021-01-16] MEDS: LORazepam 0.5 MG TABLET PO PRN (10:50)
--- NOTE | 2021-01-16 11:52 | RAD ---
EXAMINATION: CT HEAD/BRAIN WO (CT HEAD WITHOUT IV CONTRAST) CLINICAL HISTORY: Altered mental status, Establish baseline TECHNIQUE: Serial axial images without IV contrast were obtained from the vertex to the foramen magnu m. CT Dose Reduction Employed: One or more of the following individualized dose reduction techniques wer e utilized for this examination: 1. Automated exposure control 2. Adjustment of the mA and/or kV ac cording to patient size 3. Use of iterative reconstruction technique. COMPARISON: 01/14/2021 FINDINGS: Acute Change: No evidence of an acute infarct or other acute parenchymal process. Hemorrhage: No evidence of acute intracranial hemorrhage. Mass Lesion/Mass Effect: No evidence of intracranial mass or extraaxial fluid collection. No signific ant mass effect. Chronic Change: Patchy and confluent areas of hypoattenuation in the supratentorial white matter, non specific but likely represents moderate to severe microvascular ischemia. Atherosclerotic calcificati on of the bilateral carotid siphons. Parenchyma: Mild to moderate generalized volume loss. Ventricles: Ventricular enlargement concordant with degree of parenchymal volume loss. Paranasal Sinuses and Skull Base: Visualized paranasal sinuses clear. Visualized skull base and soft tissues unremarkable. IMPRESSION: No evidence of acute intracranial abnormality or significant interval change. Electronically signed by: Titus Perez DO (01/16/2021 11:50 AM) [id number]
[2021-01-16] MEDS: CHOLECALCIFEROL (VITAMIN D3) 50,000 UNIT CAPSULE PO SCH (19:31)
[2021-01-16 21:00] VITALS: BP 144/88
[2021-01-16] MEDS: PATCH REMOVAL. MC SCH (21:00)
[2021-01-16] MEDS: ATORVASTATIN CALCIUM 10 MG TABLET. PO SCH (21:04)
[2021-01-16] MEDS: DONEPEZIL HCL 10 MG TABLET PO SCH (21:04)
[2021-01-16] MEDS: LOSARTAN 50 MG TABLET. PO SCH (21:05)
[2021-01-16] MEDS: MELATONIN 3 MG TABLET PO SCH (21:05)
[2021-01-16] MEDS: MEMANTINE 5 MG TABLET. PO SCH (21:07)
[2021-01-16 21:45] LABS: BACTERIA,URINE FEW /HPF (0-FEW); BILIRUBIN,URINE NEG (NEG); CLARITY,URINE HAZY; COLOR,URINE YELLOW; GLUCOSE,URINE NEG (NEG); NITRITE,URINE NEG (NEG); SQUAMOUS EPITHELIAL CELL,UR OCC /LPF; UROBILINOGEN,URINE 0.2 mg/dL (0.2 mg/dL)
--- NOTE | 2021-01-16 22:13 | PDOC ---
Exam Note: Deon Note: Please also refer to the separate dictated note~for this date of service dictated separately.~Patient seen individually. Discussed the patient with Nursing staff reviewed the chart.~Reviewed interim history and current functioning. Reviewed vital signs,~Labs/ Radiology~and current medications noted below. Continue current treatment with the changes noted in the dictated addendum note Assessment: Vital Signs/I&O: Vital Signs Date Time Temp Pulse Resp B/P (MAP) Pulse Ox O2 Delivery O2 Flow Rate FiO2 01/16/21 21:05 76 159/80 01/16/21 06:30 97.0 20 97 Room Air I & O 01/15/21 01/15/21 01/16/21 15:00 23:00 07:00 Intake Total 0 ml 240 ml Balance 0 ml 240 ml Labs: Laboratory Tests Test 01/16/21 17:20 01/16/21 21:25 Glucose (Fingerstick) 121 mg/dL (70-99) H Urine Collection Type U cath Urine Color Yellow Urine Clarity Hazy Urine pH 6.5 Urine Specific [place] 1.020 Urine Protein Neg (NEG-TRACE) Urine Glucose (UA) Neg mg/dL (NEG) Urine Ketones (Stick) Neg mg/dL (NEG) Urine Blood Small (NEG) Urine Nitrite Neg (NEG) Urine Bilirubin Neg (NEG) Urine Urobilinogen Dipstick 0.2 mg/dL (0.2 mg/dL) Urine Leukocyte Esterase Small (NEG) Urine RBC 1-2 /HPF (0-2) Urine WBC 11-20 /HPF (0-4) Urine Squamous Epithelial Cells Occ /LPF Urine Bacteria Few /HPF (0-FEW) Current Medications: Meds: Laboratory Tests Test 01/16/21 17:20 01/16/21 21:25 Glucose (Fingerstick) 121 mg/dL Urine Collection Type U cath Urine Color Yellow Urine Clarity Hazy Urine pH 6.5 Urine Specific [place] 1.020 Urine Protein Neg Urine Glucose (UA) Neg mg/dL Urine Ketones (Stick) Neg mg/dL Urine Blood Small Urine Nitrite Neg Urine Bilirubin Neg Urine Urobilinogen Dipstick 0.2 mg/dL Urine Leukocyte Esterase Small Urine RBC 1-2 /HPF Urine WBC 11-20 /HPF Urine Squamous Epithelial Cells Occ /LPF Urine Bacteria Few /HPF Current Medications Medications (Trade) Dose Ordered Sig/Hector Route PRN Reason Start Time Stop Time Status Last Admin Dose Admin Sodium Chloride 1,000 ml @ 1,000 mls/hr 1X ONCE IV 01/14/21 19:00 01/14/21 19:59 DC 01/14/21 20:37 Acetaminophen (Tylenol) 650 mg PRN Q6HRS PRN PO MILD PAIN / TEMP > 100.3'F 01/14/21 23:15 01/16/21 05:33 Multi-Ingredient Ointment (Analgesic [place]) 1 wes PRN QID PRN TP MUSCLE PAIN 01/14/21 23:15 Al Hydroxide/Mg Hydroxide (Mylanta Plus Xs) 15 ml PRN AFTMEALHC PRN PO DYSPEPSIA 01/14/21 23:15 01/16/21 05:33 Magnesium Hydroxide (Milk Of Magnesia) 2,400 mg PRN QHS PRN PO CONSTIPATION 01/14/21 23:15 Donepezil HCl (Aricept) 10 mg HS PO 01/15/21 21:00 01/16/21 21:04 Lorazepam (Ativan) 0.5 mg PRN Q24HRS PRN PO ANXIETY, 1ST CHOICE 01/14/21 23:30 01/16/21 10:50 Lorazepam (Ativan) 0.5 mg TID PO 01/15/21 09:00 01/16/21 21:04 Melatonin (Melatonin) 3 mg HS PO 01/15/21 21:00 01/16/21 21:05 Paroxetine HCl (Paxil) 40 mg DAILY PO 01/15/21 09:00 01/16/21 08:48 Hydroxyzine HCl (Atarax) 25 mg PRN Q6HRS PRN PO ANXIETY, 2ND CHOICE 01/15/21 16:45 Acetaminophen (Tylenol) 650 mg PRN Q6HRS PRN PO PAIN 01/15/21 19:00 UNV Acetaminophen (Tylenol) 500 mg TID PO 01/15/21 21:00 01/16/21 21:04 Atorvastatin Calcium (Lipitor) 10 mg QHS PO 01/15/21 21:00 01/16/21 21:04 Budesonide (Entocort) 6 mg DAILY PO 01/16/21 09:00 01/16/21 08:49 Calcium Polycarbophil (Fibercon) 1,250 mg BID PO 01/15/21 21:00 01/16/21 21:04 Lidocaine (Lidoderm) 1 patch DAILY TD 01/16/21 09:00 01/16/21 08:50 Mirabegron (Myrbetriq) 25 mg DAILY PO 01/16/21 09:00 01/16/21 08:49 Pantoprazole Sodium (Protonix) 40 mg DAILY PO 01/16/21 09:00 Phenazopyridine HCl (Pyridium) 100 mg PRN Q24HRS PRN PO URINARY PAIN 01/15/21 19:00 Lactobacillus Rhamnosus (Culturelle) 1 cap BID PO 01/15/21 09:00 01/16/21 21:04 Losartan Potassium (Cozaar) 100 mg HS PO 01/15/21 21:00 01/16/21 21:05 Miscellaneous (Lidoderm Patch Removal) 1 ea QHS MC 01/15/21 21:00 01/16/21 21:00 Memantine (Namenda) 5 mg BID PO 01/16/21 21:00 01/22/21 22:50 01/16/21 21:07 Memantine (Namenda) 10 mg BID PO 01/23/21 09:00 Vitamin D (Vitamin D3) 50,000 unit WEEKLY PO 01/16/21 17:30 01/16/21 19:31 Current Medications Medications (Trade) Dose Ordered Sig/Hector Route PRN Reason Start Time Stop Time Status Last Admin Dose Admin Budesonide (Entocort) 6 mg DAILY PO 01/16/21 09:00 01/16/21 08:49 Lidocaine (Lidoderm) 1 patch DAILY TD 01/16/21 09:00 01/16/21 08:50 Mirabegron (Myrbetriq) 25 mg DAILY PO 01/16/21 09:00 01/16/21 08:49 Memantine (Namenda) 5 mg BID PO 01/16/21 21:00 01/22/21 22:50 01/16/21 21:07 Vitamin D (Vitamin D3) 50,000 unit WEEKLY PO 01/16/21 17:30 01/16/21 19:31 I have reviewed the current psychotropics carefully including drug interactions. Risk benefit ratio favors no change other than as noted in my dictated progress note. Diagnosis: Problems: (1) Major neurocognitive disorder due to Alzheimer's disease (2) Dementia in Alzheimer's disease with delusions (3) Dementia in Alzheimer's disease with depression (4) Dementia, vascular, with delusions (5) Dementia, vascular, with depression (6) Anxiety disorder, unspecified (7) Impulse control disorder, unspecified LUCAS CODY MD Jan 16, 2021 22:13
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
[2021-01-17 06:26] VITALS: BP 144/81
[2021-01-17 07:20] LABS: BASO # 0.1 x10^3/uL (0.0-0.2); BASO % 1 % (0-3); EOS # 0.2 x10^3/uL (0.0-0.7); EOS % 2 % (0-3); HEMATOCRIT 32.3 % (36.0-47.0); HEMOGLOBIN 10.6 g/dL (12.0-15.5); LYMPH # 1.7 x10^3/uL (1.0-4.8); LYMPH % 15 % (24-48); MEAN CORPUSCULAR HEMOGLOBIN 28 pg (25-35); MEAN CORPUSCULAR HGB CONC 33 g/dL (31-37); MEAN CORPUSCULAR VOLUME 86 fL (79-100); MONO % 9 % (0-9); NEUT # 8.6 x10^3uL (1.8-7.7); NEUT % 75 % (31-73); PLATELET COUNT 529 x10^3/uL (140-400); RED BLOOD COUNT 3.75 x10^6/uL (3.50-5.40); WHITE BLOOD COUNT 11.5 x10^3/uL (4.0-11.0)
[2021-01-17 07:32] LABS: ALBUMIN 2.9 g/dL (3.4-5.0); CALCIUM 8.7 mg/dL (8.5-10.1); CREATININE 0.8 mg/dL (0.6-1.0); GFR 68.8; POTASSIUM 4.3 mmol/L (3.5-5.1); TOTAL BILIRUBIN 0.5 mg/dL (0.2-1.0); TOTAL PROTEIN 5.8 g/dL (6.4-8.2)
[2021-01-17] MEDS: CALCIUM POLYCARBOPHIL 625 MG TABLET PO SCH ×2 (09:00→20:10)
[2021-01-17] MEDS: LIDOCAINE (700MG/PATCH) PATCH. TD SCH (09:00)
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
[2021-01-17] MEDS: BUDESONIDE 3 MG CAP.ER.24H. PO SCH (10:24)
[2021-01-17] MEDS: LORazepam 0.5 MG TABLET PO SCH ×3 (10:25→20:11)
[2021-01-17] MEDS: PANTOPRAZOLE 40 MG TABLET. PO SCH (10:25)
[2021-01-17] MEDS: LACTOBACILLUS RHAMNOSUS GG 1 CAPSULE. PO SCH ×2 (10:26→20:10)
[2021-01-17] MEDS: MIRABEGRON 25 MG TAB.ER.24H PO SCH (10:27)
[2021-01-17] MEDS: MEMANTINE 5 MG TABLET. PO SCH ×2 (10:27→20:11)
[2021-01-17] MEDS: PARoxetine 20 MG TABLET PO SCH (10:28)
[2021-01-17] MEDS: ACETAMINOPHEN 500 MG TABLET PO SCH ×3 (10:30→20:11)
[2021-01-17 16:02] VITALS: BP 155/83
[2021-01-17] MEDS: LOSARTAN 50 MG TABLET. PO SCH (20:10)
[2021-01-17] MEDS: MELATONIN 3 MG TABLET PO SCH (20:11)
[2021-01-17] MEDS: DONEPEZIL HCL 10 MG TABLET PO SCH (20:11)
[2021-01-17] MEDS: ATORVASTATIN CALCIUM 10 MG TABLET. PO SCH (20:11)
[2021-01-17] MEDS: PATCH REMOVAL. MC SCH (20:12)
--- NOTE | 2021-01-17 22:07 | PDOC ---
Exam Note: Deon Note: Please also refer to the separate dictated note~for this date of service dictated separately.~Patient seen individually. Discussed the patient with Nursing staff reviewed the chart.~Reviewed interim history and current functioning. Reviewed vital signs,~Labs/ Radiology~and current medications noted below. Continue current treatment with the changes noted in the dictated addendum note Assessment: Vital Signs/I&O: Vital Signs Date Time Temp Pulse Resp B/P (MAP) Pulse Ox O2 Delivery O2 Flow Rate FiO2 01/17/21 20:10 69 155/83 01/17/21 16:02 97.8 20 95 01/16/21 21:00 Room Air I & O 01/16/21 01/16/21 01/17/21 15:00 23:00 07:00 Intake Total 720 ml 320 ml Output Total 350 ml 400 ml Balance 720 ml -30 ml -400 ml Labs: Laboratory Tests Test 01/17/21 07:05 White Blood Count 11.5 x10^3/uL (4.0-11.0) H Red Blood Count 3.75 x10^6/uL (3.50-5.40) Hemoglobin 10.6 g/dL (12.0-15.5) L Hematocrit 32.3 % (36.0-47.0) L Mean Corpuscular Volume 86 fL (79-100) Mean Corpuscular Hemoglobin 28 pg (25-35) Mean Corpuscular Hemoglobin Concent 33 g/dL (31-37) Red Cell Distribution Width 14.0 % (11.5-14.5) Platelet Count 529 x10^3/uL (140-400) H Neutrophils (%) (Auto) 75 % (31-73) H Lymphocytes (%) (Auto) 15 % (24-48) L Monocytes (%) (Auto) 9 % (0-9) Eosinophils (%) (Auto) 2 % (0-3) Basophils (%) (Auto) 1 % (0-3) Neutrophils # (Auto) 8.6 x10^3uL (1.8-7.7) H Lymphocytes # (Auto) 1.7 x10^3/uL (1.0-4.8) Monocytes # (Auto) 1.0 x10^3/uL (0.0-1.1) Eosinophils # (Auto) 0.2 x10^3/uL (0.0-0.7) Basophils # (Auto) 0.1 x10^3/uL (0.0-0.2) Sodium Level 139 mmol/L (136-145) Potassium Level 4.3 mmol/L (3.5-5.1) Chloride Level 103 mmol/L (98-107) Carbon Dioxide Level 27 mmol/L (21-32) Anion Gap 9 (6-14) Blood Urea Nitrogen 18 mg/dL (7-20) Creatinine 0.8 mg/dL (0.6-1.0) Estimated GFR (Cockcroft-Gault) 68.8 BUN/Creatinine Ratio 23 (6-20) H Glucose Level 86 mg/dL (70-99) Calcium Level 8.7 mg/dL (8.5-10.1) Total Bilirubin 0.5 mg/dL (0.2-1.0) Aspartate Amino Transferase (AST) 21 U/L (15-37) Alanine Aminotransferase (ALT) 16 U/L (14-59) Alkaline Phosphatase 80 U/L (46-116) Total Protein 5.8 g/dL (6.4-8.2) L Albumin 2.9 g/dL (3.4-5.0) L Albumin/Globulin Ratio 1.0 (1.0-1.7) Current Medications: Meds: Laboratory Tests Test 01/17/21 07:05 White Blood Count 11.5 x10^3/uL Red Blood Count 3.75 x10^6/uL Hemoglobin 10.6 g/dL Hematocrit 32.3 % Mean Corpuscular Volume 86 fL Mean Corpuscular Hemoglobin 28 pg Mean Corpuscular Hemoglobin Concent 33 g/dL Red Cell Distribution Width 14.0 % Platelet Count 529 x10^3/uL Neutrophils (%) (Auto) 75 % Lymphocytes (%) (Auto) 15 % Monocytes (%) (Auto) 9 % Eosinophils (%) (Auto) 2 % Basophils (%) (Auto) 1 % Neutrophils # (Auto) 8.6 x10^3uL Lymphocytes # (Auto) 1.7 x10^3/uL Monocytes # (Auto) 1.0 x10^3/uL Eosinophils # (Auto) 0.2 x10^3/uL Basophils # (Auto) 0.1 x10^3/uL Sodium Level 139 mmol/L Potassium Level 4.3 mmol/L Chloride Level 103 mmol/L Carbon Dioxide Level 27 mmol/L Anion Gap 9 Blood Urea Nitrogen 18 mg/dL Creatinine 0.8 mg/dL Estimated GFR (Cockcroft-Gault) 68.8 BUN/Creatinine Ratio 23 Glucose Level 86 mg/dL Calcium Level 8.7 mg/dL Total Bilirubin 0.5 mg/dL Aspartate Amino Transf (AST/SGOT) 21 U/L Alanine Aminotransferase (ALT/SGPT) 16 U/L Alkaline Phosphatase 80 U/L Total Protein 5.8 g/dL Albumin 2.9 g/dL Albumin/Globulin Ratio 1.0 Current Medications Medications (Trade) Dose Ordered Sig/Hector Route PRN Reason Start Time Stop Time Status Last Admin Dose Admin Sodium Chloride 1,000 ml @ 1,000 mls/hr 1X ONCE IV 01/14/21 19:00 01/14/21 19:59 DC 01/14/21 20:37 Acetaminophen (Tylenol) 650 mg PRN Q6HRS PRN PO MILD PAIN / TEMP > 100.3'F 01/14/21 23:15 01/16/21 05:33 Multi-Ingredient Ointment (Analgesic [place]) 1 wes PRN QID PRN TP MUSCLE PAIN 01/14/21 23:15 Al Hydroxide/Mg Hydroxide (Mylanta Plus Xs) 15 ml PRN AFTMEALHC PRN PO DYSPEPSIA 01/14/21 23:15 01/16/21 05:33 Magnesium Hydroxide (Milk Of Magnesia) 2,400 mg PRN QHS PRN PO CONSTIPATION 01/14/21 23:15 Donepezil HCl (Aricept) 10 mg HS PO 01/15/21 21:00 01/17/21 20:11 Lorazepam (Ativan) 0.5 mg PRN Q24HRS PRN PO ANXIETY, 1ST CHOICE 01/14/21 23:30 01/16/21 10:50 Lorazepam (Ativan) 0.5 mg TID PO 01/15/21 09:00 01/17/21 17:30 DC 01/17/21 10:25 Melatonin (Melatonin) 3 mg HS PO 01/15/21 21:00 01/17/21 20:11 Paroxetine HCl (Paxil) 40 mg DAILY PO 01/15/21 09:00 01/17/21 10:28 Hydroxyzine HCl (Atarax) 25 mg PRN Q6HRS PRN PO ANXIETY, 2ND CHOICE 01/15/21 16:45 Acetaminophen (Tylenol) 650 mg PRN Q6HRS PRN PO PAIN 01/15/21 19:00 UNV Acetaminophen (Tylenol) 500 mg TID PO 01/15/21 21:00 01/17/21 20:11 Atorvastatin Calcium (Lipitor) 10 mg QHS PO 01/15/21 21:00 01/17/21 20:11 Budesonide (Entocort) 6 mg DAILY PO 01/16/21 09:00 01/17/21 10:24 Calcium Polycarbophil (Fibercon) 1,250 mg BID PO 01/15/21 21:00 01/17/21 20:10 Lidocaine (Lidoderm) 1 patch DAILY TD 01/16/21 09:00 01/17/21 09:00 Mirabegron (Myrbetriq) 25 mg DAILY PO 01/16/21 09:00 01/17/21 10:27 Pantoprazole Sodium (Protonix) 40 mg DAILY PO 01/16/21 09:00 01/17/21 10:25 Phenazopyridine HCl (Pyridium) 100 mg PRN Q24HRS PRN PO URINARY PAIN 01/15/21 19:00 Lactobacillus Rhamnosus (Culturelle) 1 cap BID PO 01/15/21 09:00 01/17/21 20:10 Losartan Potassium (Cozaar) 100 mg HS PO 01/15/21 21:00 01/17/21 20:10 Miscellaneous (Lidoderm Patch Removal) 1 ea QHS MC 01/15/21 21:00 01/17/21 20:12 Memantine (Namenda) 5 mg BID PO 01/16/21 21:00 01/22/21 22:50 01/17/21 20:11 Memantine (Namenda) 10 mg BID PO 01/23/21 09:00 Vitamin D (Vitamin D3) 50,000 unit WEEKLY PO 01/16/21 17:30 01/16/21 19:31 Lorazepam (Ativan) 0.5 mg BID PO 01/17/21 21:00 01/19/21 23:50 01/17/21 20:11 Lorazepam (Ativan) 0.5 mg DAILY PO 01/20/21 09:00 01/22/21 12:00 Current Medications Medications (Trade) Dose Ordered Sig/Hector Route PRN Reason Start Time Stop Time Status Last Admin Dose Admin Lorazepam (Ativan) 0.5 mg BID PO 01/17/21 21:00 01/19/21 23:50 01/17/21 20:11 I have reviewed the current psychotropics carefully including drug interactions. Risk benefit ratio favors no change other than as noted in my dictated progress note. Diagnosis: Problems: (1) Anxiety disorder, unspecified (2) Impulse control disorder, unspecified (3) Dementia in Alzheimer's disease with early onset with behavioral disturbance (4) Dementia, vascular, with depression (5) Dementia in Alzheimer's disease with depression (6) Dementia in Alzheimer's disease with delusions (7) Dementia, vascular, with delusions (8) Major neurocognitive disorder LUCAS CODY MD Jan 17, 2021 22:07
[2021-01-18 05:41] VITALS: BP 162/80
[2021-01-18] MEDS: ACETAMINOPHEN 500 MG TABLET PO SCH ×3 (08:17→19:55)
[2021-01-18] MEDS: MIRABEGRON 25 MG TAB.ER.24H PO SCH (08:18)
[2021-01-18] MEDS: MEMANTINE 5 MG TABLET. PO SCH ×2 (08:18→19:55)
[2021-01-18] MEDS: PARoxetine 20 MG TABLET PO SCH (08:18)
[2021-01-18] MEDS: LACTOBACILLUS RHAMNOSUS GG 1 CAPSULE. PO SCH ×2 (08:18→19:55)
[2021-01-18] MEDS: BUDESONIDE 3 MG CAP.ER.24H. PO SCH (08:18)
[2021-01-18] MEDS: CALCIUM POLYCARBOPHIL 625 MG TABLET PO SCH ×2 (08:18→19:56)
[2021-01-18] MEDS: PANTOPRAZOLE 40 MG TABLET. PO SCH (08:19)
[2021-01-18] MEDS: LORazepam 0.5 MG TABLET PO SCH ×2 (08:19→19:55)
[2021-01-18] MEDS: LIDOCAINE (700MG/PATCH) PATCH. TD SCH (09:00)
--- NOTE | 2021-01-18 09:03 | PDOC ---
Exam Note: Deon Note: This note is a late entry for 01/16/2021 covers elements not covered in my initial note. Subjective: The patient was seen individually in the morning of 01/16/2021 for a treatment team meeting with Luz Tracy, Pat Bocanegra (director of social work), Silva, activity therapy and Donaldo MERCER, discussed and reviewed the chart. Discussed her progress, current psychotropics, reviewed drug interactions, risk-benefit ratio. The patient slept 8 hours previous night. Appetite, she ate quarter of her breakfast, wandering, confused, and at times tearful. CT head done on the patient on 01/16/21 showed no acute changes or significant interval change. However, there were chronic changes with patchy and confluent areas of hypoattenuation in the supratentorial white matter, nonspecific, but likely represents [id number] microvascular ischemia. Atherosclerotic calcification of the bilateral carotid siphons was noted. We have repeated CT head and no acute or chronic microvascular changes. When questioned she knew she was in the hospital, unsure of where she was living before she came here. She has been wandering, confused, crying, looking for her . We reviewed her history at treatment team meeting. She had progressive worsening memory deficits for about 2 years but the took care of her home for the past 6 months. She has been significantly worse. Apparently 6 months back she could count back from 10s all of which has di sappeared. She does have catheter in place. Review of Systems: No CV, , pulmonary, eye, ENT system symptoms on review. Gait unsteady with walker. Reliability poor. Mental Status Exam: The patient is oriented to herself. Insight and judgment, recent and remote memory, attention and concentration, fund of knowledge is poor consistent with her diagnoses. Laboratory Data: Reviewed. Impression: Major neurocognitive disorder Alzheimer, vascular with delusion, depression, behavioral disturbance. Anxiety disorder unspecified. Impulse control disorder unspecified. Plan: Continue current psychotropics, Aricept, Ativan p.r.n., Paxil 40 mg a day. Start Namenda 5 mg twice a day for one week and then 10 mg twice a day after that. This is rapid but given her history significant decline in the past 6 months, and the fact that she is in the hospital, this is well justified and we will monitor her closely. We may consider changing Paxil to Zoloft considering BuSpar as an anti-anxiety agent. Reviewed risk-benefit ratio, drug interactions at some length. Assessment: Vital Signs/I&O: Vital Signs Date Time Temp Pulse Resp B/P (MAP) Pulse Ox O2 Delivery O2 Flow Rate FiO2 01/18/21 05:41 97.7 77 18 162/80 (107) 98 Room Air I & O 01/17/21 01/17/21 01/18/21 15:00 23:00 07:00 Intake Total 200 ml 360 ml 240 ml Output Total 600 ml 450 ml Balance 200 ml -240 ml -210 ml Current Medications: Meds: Current Medications Medications (Trade) Dose Ordered Sig/Hector Route PRN Reason Start Time Stop Time Status Last Admin Dose Admin Sodium Chloride 1,000 ml @ 1,000 mls/hr 1X ONCE IV 01/14/21 19:00 01/14/21 19:59 DC 01/14/21 20:37 Acetaminophen (Tylenol) 650 mg PRN Q6HRS PRN PO MILD PAIN / TEMP > 100.3'F 01/14/21 23:15 01/16/21 05:33 Multi-Ingredient Ointment (Analgesic [place]) 1 wes PRN QID PRN TP MUSCLE PAIN 01/14/21 23:15 Al Hydroxide/Mg Hydroxide (Mylanta Plus Xs) 15 ml PRN AFTMEALHC PRN PO DYSPEPSIA 01/14/21 23:15 01/16/21 05:33 Magnesium Hydroxide (Milk Of Magnesia) 2,400 mg PRN QHS PRN PO CONSTIPATION 01/14/21 23:15 Donepezil HCl (Aricept) 10 mg HS PO 01/15/21 21:00 01/17/21 20:11 Lorazepam (Ativan) 0.5 mg PRN Q24HRS PRN PO ANXIETY, 1ST CHOICE 01/14/21 23:30 01/16/21 10:50 Lorazepam (Ativan) 0.5 mg TID PO 01/15/21 09:00 01/17/21 17:30 DC 01/17/21 10:25 Melatonin (Melatonin) 3 mg HS PO 01/15/21 21:00 01/17/21 20:11 Paroxetine HCl (Paxil) 40 mg DAILY PO 01/15/21 09:00 01/18/21 08:18 Hydroxyzine HCl (Atarax) 25 mg PRN Q6HRS PRN PO ANXIETY, 2ND CHOICE 01/15/21 16:45 Acetaminophen (Tylenol) 650 mg PRN Q6HRS PRN PO PAIN 01/15/21 19:00 UNV Acetaminophen (Tylenol) 500 mg TID PO 01/15/21 21:00 01/18/21 08:17 Atorvastatin Calcium (Lipitor) 10 mg QHS PO 01/15/21 21:00 01/17/21 20:11 Budesonide (Entocort) 6 mg DAILY PO 01/16/21 09:00 01/18/21 08:18 Calcium Polycarbophil (Fibercon) 1,250 mg BID PO 01/15/21 21:00 01/18/21 08:18 Lidocaine (Lidoderm) 1 patch DAILY TD 01/16/21 09:00 01/17/21 09:00 Mirabegron (Myrbetriq) 25 mg DAILY PO 01/16/21 09:00 01/18/21 08:18 Pantoprazole Sodium (Protonix) 40 mg DAILY PO 01/16/21 09:00 01/18/21 08:19 Phenazopyridine HCl (Pyridium) 100 mg PRN Q24HRS PRN PO URINARY PAIN 01/15/21 19:00 Lactobacillus Rhamnosus (Culturelle) 1 cap BID PO 01/15/21 09:00 01/18/21 08:18 Losartan Potassium (Cozaar) 100 mg HS PO 01/15/21 21:00 01/17/21 20:10 Miscellaneous (Lidoderm Patch Removal) 1 ea QHS MC 01/15/21 21:00 01/17/21 20:12 Memantine (Namenda) 5 mg BID PO 01/16/21 21:00 01/22/21 22:50 01/18/21 08:18 Memantine (Namenda) 10 mg BID PO 01/23/21 09:00 Vitamin D (Vitamin D3) 50,000 unit WEEKLY PO 01/16/21 17:30 01/16/21 19:31 Lorazepam (Ativan) 0.5 mg BID PO 01/17/21 21:00 01/19/21 23:50 01/18/21 08:19 Lorazepam (Ativan) 0.5 mg DAILY PO 01/20/21 09:00 01/22/21 12:00 Current Medications Medications (Trade) Dose Ordered Sig/Hector Route PRN Reason Start Time Stop Time Status Last Admin Dose Admin Lorazepam (Ativan) 0.5 mg BID PO 01/17/21 21:00 01/19/21 23:50 01/18/21 08:19 I have reviewed the current psychotropics carefully including drug interactions. Risk benefit ratio favors no change other than as noted in my dictated progress note. Diagnosis: Problems: (1) Anxiety disorder, unspecified (2) Impulse control disorder, unspecified (3) Dementia, vascular, with depression (4) Dementia, vascular, with delusions (5) Dementia in Alzheimer's disease with depression (6) Dementia in Alzheimer's disease with delusions (7) Major neurocognitive disorder (8) Dementia in Alzheimer's disease with early onset with behavioral disturbance LUCAS CODY MD Jan 18, 2021 09:03
[2021-01-18 16:20] VITALS: BP 133/83
[2021-01-18] MEDS: QUEtiapine 25 MG TABLET. PO SCH (17:00)
[2021-01-18] MEDS: ATORVASTATIN CALCIUM 10 MG TABLET. PO SCH (19:55)
[2021-01-18] MEDS: MELATONIN 3 MG TABLET PO SCH (19:55)
[2021-01-18] MEDS: DONEPEZIL HCL 10 MG TABLET PO SCH (19:55)
[2021-01-18] MEDS: LOSARTAN 50 MG TABLET. PO SCH (19:56)
[2021-01-18] MEDS: PATCH REMOVAL. MC SCH (21:00)
--- NOTE | 2021-01-18 22:06 | PDOC ---
Exam Note: Deon Note: Please also refer to the separate dictated note~for this date of service dictated separately.~Patient seen individually. Discussed the patient with Nursing staff reviewed the chart.~Reviewed interim history and current functioning. Reviewed vital signs,~Labs/ Radiology~and current medications noted below. Continue current treatment with the changes noted in the dictated addendum note Assessment: Vital Signs/I&O: Vital Signs Date Time Temp Pulse Resp B/P (MAP) Pulse Ox O2 Delivery O2 Flow Rate FiO2 01/18/21 19:56 94 133/83 01/18/21 16:20 97.6 16 95 01/18/21 05:41 Room Air I & O 01/17/21 01/17/21 01/18/21 14:59 22:59 06:59 Intake Total 200 ml 360 ml 240 ml Output Total 600 ml 450 ml Balance 200 ml -240 ml -210 ml Current Medications: Meds: Current Medications Medications (Trade) Dose Ordered Sig/Hector Route PRN Reason Start Time Stop Time Status Last Admin Dose Admin Sodium Chloride 1,000 ml @ 1,000 mls/hr 1X ONCE IV 01/14/21 19:00 01/14/21 19:59 DC 01/14/21 20:37 Acetaminophen (Tylenol) 650 mg PRN Q6HRS PRN PO MILD PAIN / TEMP > 100.3'F 01/14/21 23:15 01/16/21 05:33 Multi-Ingredient Ointment (Analgesic [place]) 1 wes PRN QID PRN TP MUSCLE PAIN 01/14/21 23:15 Al Hydroxide/Mg Hydroxide (Mylanta Plus Xs) 15 ml PRN AFTMEALHC PRN PO DYSPEPSIA 01/14/21 23:15 01/16/21 05:33 Magnesium Hydroxide (Milk Of Magnesia) 2,400 mg PRN QHS PRN PO CONSTIPATION 01/14/21 23:15 Donepezil HCl (Aricept) 10 mg HS PO 01/15/21 21:00 01/18/21 19:55 Lorazepam (Ativan) 0.5 mg PRN Q24HRS PRN PO ANXIETY, 1ST CHOICE 01/14/21 23:30 01/16/21 10:50 Lorazepam (Ativan) 0.5 mg TID PO 01/15/21 09:00 01/17/21 17:30 DC 01/17/21 10:25 Melatonin (Melatonin) 3 mg HS PO 01/15/21 21:00 01/18/21 19:55 Paroxetine HCl (Paxil) 40 mg DAILY PO 01/15/21 09:00 01/18/21 08:18 Hydroxyzine HCl (Atarax) 25 mg PRN Q6HRS PRN PO ANXIETY, 2ND CHOICE 01/15/21 16:45 Acetaminophen (Tylenol) 650 mg PRN Q6HRS PRN PO PAIN 01/15/21 19:00 UNV Acetaminophen (Tylenol) 500 mg TID PO 01/15/21 21:00 01/18/21 19:55 Atorvastatin Calcium (Lipitor) 10 mg QHS PO 01/15/21 21:00 01/18/21 19:55 Budesonide (Entocort) 6 mg DAILY PO 01/16/21 09:00 01/18/21 08:18 Calcium Polycarbophil (Fibercon) 1,250 mg BID PO 01/15/21 21:00 01/18/21 19:56 Lidocaine (Lidoderm) 1 patch DAILY TD 01/16/21 09:00 01/18/21 09:00 Mirabegron (Myrbetriq) 25 mg DAILY PO 01/16/21 09:00 01/18/21 08:18 Pantoprazole Sodium (Protonix) 40 mg DAILY PO 01/16/21 09:00 01/18/21 08:19 Phenazopyridine HCl (Pyridium) 100 mg PRN Q24HRS PRN PO URINARY PAIN 01/15/21 19:00 Lactobacillus Rhamnosus (Culturelle) 1 cap BID PO 01/15/21 09:00 01/18/21 19:55 Losartan Potassium (Cozaar) 100 mg HS PO 01/15/21 21:00 01/18/21 19:56 Miscellaneous (Lidoderm Patch Removal) 1 ea QHS MC 01/15/21 21:00 01/18/21 21:00 Memantine (Namenda) 5 mg BID PO 01/16/21 21:00 01/22/21 22:50 01/18/21 19:55 Memantine (Namenda) 10 mg BID PO 01/23/21 09:00 Vitamin D (Vitamin D3) 50,000 unit WEEKLY PO 01/16/21 17:30 01/16/21 19:31 Lorazepam (Ativan) 0.5 mg BID PO 01/17/21 21:00 01/19/21 23:50 01/18/21 19:55 Lorazepam (Ativan) 0.5 mg DAILY PO 01/20/21 09:00 01/22/21 12:00 Quetiapine Fumarate (SEROquel) 12.5 mg 0900,1700 PO 01/18/21 17:00 01/18/21 17:00 Current Medications Medications (Trade) Dose Ordered Sig/Hector Route PRN Reason Start Time Stop Time Status Last Admin Dose Admin Quetiapine Fumarate (SEROquel) 12.5 mg 0900,1700 PO 01/18/21 17:00 01/18/21 17:00 I have reviewed the current psychotropics carefully including drug interactions. Risk benefit ratio favors no change other than as noted in my dictated progress note. Diagnosis: Problems: (1) Dementia, vascular, with depression (2) Anxiety disorder, unspecified (3) Impulse control disorder, unspecified (4) Dementia, vascular, with delusions (5) Dementia in Alzheimer's disease with depression (6) Dementia in Alzheimer's disease with delusions (7) Major neurocognitive disorder (8) Dementia in Alzheimer's disease with early onset with behavioral disturbance LUCAS CODY MD Jan 18, 2021 22:06
[2021-01-19 05:34] VITALS: BP 161/80
[2021-01-19] MEDS: ACETAMINOPHEN 325 MG TABLET PO PRN (06:32)
[2021-01-19] MEDS: MEMANTINE 5 MG TABLET. PO SCH ×2 (08:40→19:55)
[2021-01-19] MEDS: PARoxetine 20 MG TABLET PO SCH (08:40)
[2021-01-19] MEDS: MIRABEGRON 25 MG TAB.ER.24H PO SCH (08:40)
[2021-01-19] MEDS: BUDESONIDE 3 MG CAP.ER.24H. PO SCH (08:40)
[2021-01-19] MEDS: LORazepam 0.5 MG TABLET PO SCH ×2 (08:40→19:56)
[2021-01-19] MEDS: LACTOBACILLUS RHAMNOSUS GG 1 CAPSULE. PO SCH ×2 (08:41→19:56)
[2021-01-19] MEDS: PANTOPRAZOLE 40 MG TABLET. PO SCH (08:41)
[2021-01-19] MEDS: LIDOCAINE (700MG/PATCH) PATCH. TD SCH (08:41)
[2021-01-19] MEDS: ACETAMINOPHEN 500 MG TABLET PO SCH ×3 (08:41→19:55)
[2021-01-19] MEDS: QUEtiapine 25 MG TABLET. PO SCH ×2 (08:41→17:40)
[2021-01-19] MEDS: CALCIUM POLYCARBOPHIL 625 MG TABLET PO SCH ×2 (08:41→19:55)
--- NOTE | 2021-01-19 09:10 | PDOC ---
Exam Note: Deon Note: This note is a late entry for 01/17/2021 covers elements not covered in my initial note. Subjective: The patient was seen individually in the evening of 01/17/2021 with Donaldo MERCER, discussed and reviewed the chart. The patient slept 7 hours previous night. She was drowsy all day and therefore 2 p.m. Ativan was held. We will go ahead taper and stop the Ativan. She is currently on 0.5 mg t.i.d. We will reduce to 0.5 mg b.i.d. for 3 days and once a day for 3 days and stop it. UA has again reflex to culture. Results are awaited. WBC is better from 15.6 to 11.5. Platelets increased to 529. We will defer medical management to Dr. Ambriz. She has been obsessive pulling her catheter out. Review of Systems: No CV, , pulmonary, eye, ENT system symptoms on review. Ambulation impaired. Mental Status Exam: The patient is oriented to herself. Insight and judgment, recent and remote memory, attention and concentration, fund of knowledge is poor consistent with her diagnoses. She was extremely anxious, repeatedly asking me about her where he was and I would tell him he is at home and she is in the hospital and she would accept this and a minute later ask same thing again which happened 8 to 10 times. Laboratory Data: Reviewed. Impression: Major neurocognitive disorder Alzheimer, vascular with delusion, depression, behavioral disturbance. Anxiety disorder unspecified. Impulse control disorder unspecified. Plan: We will taper and stop the Ativan. Rest unchanged for now. Assessment: Vital Signs/I&O: Vital Signs Date Time Temp Pulse Resp B/P (MAP) Pulse Ox O2 Delivery O2 Flow Rate FiO2 01/19/21 05:34 96.7 95 16 161/80 (107) 95 01/18/21 05:41 Room Air I & O 01/18/21 01/18/21 01/19/21 15:00 23:00 07:00 Intake Total 840 ml 240 ml Output Total 500 ml Balance 840 ml 240 ml -500 ml Current Medications: Meds: Current Medications Medications (Trade) Dose Ordered Sig/Hector Route PRN Reason Start Time Stop Time Status Last Admin Dose Admin Sodium Chloride 1,000 ml @ 1,000 mls/hr 1X ONCE IV 01/14/21 19:00 01/14/21 19:59 DC 01/14/21 20:37 Acetaminophen (Tylenol) 650 mg PRN Q6HRS PRN PO MILD PAIN / TEMP > 100.3'F 01/14/21 23:15 01/19/21 06:32 Multi-Ingredient Ointment (Analgesic [place]) 1 wes PRN QID PRN TP MUSCLE PAIN 01/14/21 23:15 Al Hydroxide/Mg Hydroxide (Mylanta Plus Xs) 15 ml PRN AFTMEALHC PRN PO DYSPEPSIA 01/14/21 23:15 01/16/21 05:33 Magnesium Hydroxide (Milk Of Magnesia) 2,400 mg PRN QHS PRN PO CONSTIPATION 01/14/21 23:15 Donepezil HCl (Aricept) 10 mg HS PO 01/15/21 21:00 01/18/21 19:55 Lorazepam (Ativan) 0.5 mg PRN Q24HRS PRN PO ANXIETY, 1ST CHOICE 01/14/21 23:30 01/16/21 10:50 Lorazepam (Ativan) 0.5 mg TID PO 01/15/21 09:00 01/17/21 17:30 DC 01/17/21 10:25 Melatonin (Melatonin) 3 mg HS PO 01/15/21 21:00 01/18/21 19:55 Paroxetine HCl (Paxil) 40 mg DAILY PO 01/15/21 09:00 01/19/21 08:40 Hydroxyzine HCl (Atarax) 25 mg PRN Q6HRS PRN PO ANXIETY, 2ND CHOICE 01/15/21 16:45 Acetaminophen (Tylenol) 650 mg PRN Q6HRS PRN PO PAIN 01/15/21 19:00 UNV Acetaminophen (Tylenol) 500 mg TID PO 01/15/21 21:00 01/19/21 08:41 Atorvastatin Calcium (Lipitor) 10 mg QHS PO 01/15/21 21:00 01/18/21 19:55 Budesonide (Entocort) 6 mg DAILY PO 01/16/21 09:00 01/19/21 08:40 Calcium Polycarbophil (Fibercon) 1,250 mg BID PO 01/15/21 21:00 01/19/21 08:41 Lidocaine (Lidoderm) 1 patch DAILY TD 01/16/21 09:00 01/19/21 08:41 Mirabegron (Myrbetriq) 25 mg DAILY PO 01/16/21 09:00 01/19/21 08:40 Pantoprazole Sodium (Protonix) 40 mg DAILY PO 01/16/21 09:00 01/19/21 08:41 Phenazopyridine HCl (Pyridium) 100 mg PRN Q24HRS PRN PO URINARY PAIN 01/15/21 19:00 Lactobacillus Rhamnosus (Culturelle) 1 cap BID PO 01/15/21 09:00 01/19/21 08:41 Losartan Potassium (Cozaar) 100 mg HS PO 01/15/21 21:00 01/18/21 19:56 Miscellaneous (Lidoderm Patch Removal) 1 ea QHS MC 01/15/21 21:00 01/18/21 21:00 Memantine (Namenda) 5 mg BID PO 01/16/21 21:00 01/22/21 22:50 01/19/21 08:40 Memantine (Namenda) 10 mg BID PO 01/23/21 09:00 Vitamin D (Vitamin D3) 50,000 unit WEEKLY PO 01/16/21 17:30 01/16/21 19:31 Lorazepam (Ativan) 0.5 mg BID PO 01/17/21 21:00 01/19/21 23:50 01/19/21 08:40 Lorazepam (Ativan) 0.5 mg DAILY PO 01/20/21 09:00 01/22/21 12:00 Quetiapine Fumarate (SEROquel) 12.5 mg 0900,1700 PO 01/18/21 17:00 01/19/21 08:41 Current Medications Medications (Trade) Dose Ordered Sig/Hector Route PRN Reason Start Time Stop Time Status Last Admin Dose Admin Quetiapine Fumarate (SEROquel) 12.5 mg 0900,1700 PO 01/18/21 17:00 01/19/21 08:41 I have reviewed the current psychotropics carefully including drug interactions. Risk benefit ratio favors no change other than as noted in my dictated progress note. Diagnosis: Problems: (1) Anxiety disorder, unspecified (2) Impulse control disorder, unspecified (3) Dementia, vascular, with depression (4) Dementia, vascular, with delusions (5) Dementia in Alzheimer's disease with depression (6) Major neurocognitive disorder due to Alzheimer's disease (7) Dementia in Alzheimer's disease with delusions (8) Major neurocognitive disorder (9) Dementia in Alzheimer's disease with early onset with behavioral disturbance LUCAS CODY MD Jan 19, 2021 09:10
[2021-01-19 11:59] LABS: CLARITY,URINE CLEAR; COLOR,URINE YELLOW
[2021-01-19 12:00] LABS: BILIRUBIN,URINE NEG (NEG); GLUCOSE,URINE NEG (NEG); NITRITE,URINE NEG (NEG); UROBILINOGEN,URINE 0.2 mg/dL (0.2 mg/dL)
[2021-01-19 12:02] LABS: BACTERIA,URINE FEW /HPF (0-FEW); RBC,URINE RARE /HPF (0-2); SQUAMOUS EPITHELIAL CELL,UR OCC /LPF; YEAST,URINE PRESENT /HPF
[2021-01-19 16:12] VITALS: BP 130/75
[2021-01-19] MEDS: ATORVASTATIN CALCIUM 10 MG TABLET. PO SCH (19:55)
[2021-01-19] MEDS: DONEPEZIL HCL 10 MG TABLET PO SCH (19:55)
[2021-01-19] MEDS: MELATONIN 3 MG TABLET PO SCH (19:55)
[2021-01-19] MEDS: LOSARTAN 50 MG TABLET. PO SCH (19:56)
[2021-01-19] MEDS: PATCH REMOVAL. MC SCH (20:01)
--- NOTE | 2021-01-19 22:02 | PDOC ---
Exam Note: Deon Note: Please also refer to the separate dictated note~for this date of service dictated separately.~Patient seen individually. Discussed the patient with Nursing staff reviewed the chart.~Reviewed interim history and current functioning. Reviewed vital signs,~Labs/ Radiology~and current medications noted below. Continue current treatment with the changes noted in the dictated addendum note Assessment: Vital Signs/I&O: Vital Signs Date Time Temp Pulse Resp B/P (MAP) Pulse Ox O2 Delivery O2 Flow Rate FiO2 01/19/21 19:56 87 130/75 01/19/21 16:12 97.0 20 97 Room Air I & O 01/18/21 01/18/21 01/19/21 15:00 23:00 07:00 Intake Total 840 ml 240 ml Output Total 500 ml Balance 840 ml 240 ml -500 ml Labs: Laboratory Tests Test 01/19/21 11:39 Urine Collection Type U cath Urine Color Yellow Urine Clarity Clear Urine pH 5.5 Urine Specific [place] 1.025 Urine Protein Neg (NEG-TRACE) Urine Glucose (UA) Neg mg/dL (NEG) Urine Ketones (Stick) Trace mg/dL (NEG) Urine Blood Trace (NEG) Urine Nitrite Neg (NEG) Urine Bilirubin Neg (NEG) Urine Urobilinogen Dipstick 0.2 mg/dL (0.2 mg/dL) Urine Leukocyte Esterase Small (NEG) Urine RBC Rare /HPF (0-2) Urine WBC 1-4 /HPF (0-4) Urine Squamous Epithelial Cells Occ /LPF Urine Bacteria Few /HPF (0-FEW) Urine Yeast Present /HPF Current Medications: Meds: Laboratory Tests Test 01/19/21 11:39 Urine Collection Type U cath Urine Color Yellow Urine Clarity Clear Urine pH 5.5 Urine Specific [place] 1.025 Urine Protein Neg Urine Glucose (UA) Neg mg/dL Urine Ketones (Stick) Trace mg/dL Urine Blood Trace Urine Nitrite Neg Urine Bilirubin Neg Urine Urobilinogen Dipstick 0.2 mg/dL Urine Leukocyte Esterase Small Urine RBC Rare /HPF Urine WBC 1-4 /HPF Urine Squamous Epithelial Cells Occ /LPF Urine Bacteria Few /HPF Urine Yeast Present /HPF Current Medications Medications (Trade) Dose Ordered Sig/Hector Route PRN Reason Start Time Stop Time Status Last Admin Dose Admin Sodium Chloride 1,000 ml @ 1,000 mls/hr 1X ONCE IV 01/14/21 19:00 01/14/21 19:59 DC 01/14/21 20:37 Acetaminophen (Tylenol) 650 mg PRN Q6HRS PRN PO MILD PAIN / TEMP > 100.3'F 01/14/21 23:15 01/19/21 06:32 Multi-Ingredient Ointment (Analgesic [place]) 1 wes PRN QID PRN TP MUSCLE PAIN 01/14/21 23:15 Al Hydroxide/Mg Hydroxide (Mylanta Plus Xs) 15 ml PRN AFTMEALHC PRN PO DYSPEPSIA 01/14/21 23:15 01/16/21 05:33 Magnesium Hydroxide (Milk Of Magnesia) 2,400 mg PRN QHS PRN PO CONSTIPATION 01/14/21 23:15 Donepezil HCl (Aricept) 10 mg HS PO 01/15/21 21:00 01/19/21 19:55 Lorazepam (Ativan) 0.5 mg PRN Q24HRS PRN PO ANXIETY, 1ST CHOICE 01/14/21 23:30 01/16/21 10:50 Lorazepam (Ativan) 0.5 mg TID PO 01/15/21 09:00 01/17/21 17:30 DC 01/17/21 10:25 Melatonin (Melatonin) 3 mg HS PO 01/15/21 21:00 01/19/21 19:55 Paroxetine HCl (Paxil) 40 mg DAILY PO 01/15/21 09:00 01/19/21 17:15 DC 01/19/21 08:40 Hydroxyzine HCl (Atarax) 25 mg PRN Q6HRS PRN PO ANXIETY, 2ND CHOICE 01/15/21 16:45 Acetaminophen (Tylenol) 650 mg PRN Q6HRS PRN PO PAIN 01/15/21 19:00 UNV Acetaminophen (Tylenol) 500 mg TID PO 01/15/21 21:00 01/19/21 19:55 Atorvastatin Calcium (Lipitor) 10 mg QHS PO 01/15/21 21:00 01/19/21 19:55 Budesonide (Entocort) 6 mg DAILY PO 01/16/21 09:00 01/19/21 08:40 Calcium Polycarbophil (Fibercon) 1,250 mg BID PO 01/15/21 21:00 01/19/21 19:55 Lidocaine (Lidoderm) 1 patch DAILY TD 01/16/21 09:00 01/19/21 08:41 Mirabegron (Myrbetriq) 25 mg DAILY PO 01/16/21 09:00 01/19/21 08:40 Pantoprazole Sodium (Protonix) 40 mg DAILY PO 01/16/21 09:00 01/19/21 08:41 Phenazopyridine HCl (Pyridium) 100 mg PRN Q24HRS PRN PO URINARY PAIN 01/15/21 19:00 Lactobacillus Rhamnosus (Culturelle) 1 cap BID PO 01/15/21 09:00 01/19/21 19:56 Losartan Potassium (Cozaar) 100 mg HS PO 01/15/21 21:00 01/19/21 19:56 Miscellaneous (Lidoderm Patch Removal) 1 ea QHS MC 01/15/21 21:00 01/19/21 20:01 Memantine (Namenda) 5 mg BID PO 01/16/21 21:00 01/22/21 22:50 01/19/21 19:55 Memantine (Namenda) 10 mg BID PO 01/23/21 09:00 Vitamin D (Vitamin D3) 50,000 unit WEEKLY PO 01/16/21 17:30 01/16/21 19:31 Lorazepam (Ativan) 0.5 mg BID PO 01/17/21 21:00 01/19/21 23:50 01/19/21 19:56 Lorazepam (Ativan) 0.5 mg DAILY PO 01/20/21 09:00 01/22/21 12:00 Quetiapine Fumarate (SEROquel) 12.5 mg 0900,1700 PO 01/18/21 17:00 01/19/21 17:40 Sertraline HCl (Zoloft) 50 mg DAILY PO 01/20/21 09:00 I have reviewed the current psychotropics carefully including drug interactions. Risk benefit ratio favors no change other than as noted in my dictated progress note. Diagnosis: Problems: (1) Anxiety disorder, unspecified (2) Impulse control disorder, unspecified (3) Dementia, vascular, with depression (4) Dementia, vascular, with delusions (5) Dementia in Alzheimer's disease with depression (6) Dementia in Alzheimer's disease with delusions (7) Major neurocognitive disorder LUCAS CODY MD Jan 19, 2021 22:02
[2021-01-20 05:43] VITALS: BP 124/70
[2021-01-20] MEDS: LACTOBACILLUS RHAMNOSUS GG 1 CAPSULE. PO SCH ×2 (07:46→19:41)
[2021-01-20] MEDS: CALCIUM POLYCARBOPHIL 625 MG TABLET PO SCH ×2 (07:46→19:35)
[2021-01-20] MEDS: SERTRALINE 50 MG TABLET. PO SCH (07:46)
[2021-01-20] MEDS: BUDESONIDE 3 MG CAP.ER.24H. PO SCH (07:46)
[2021-01-20] MEDS: LORazepam 0.5 MG TABLET PO SCH (07:47)
[2021-01-20] MEDS: MEMANTINE 5 MG TABLET. PO SCH ×2 (07:47→19:40)
[2021-01-20] MEDS: PANTOPRAZOLE 40 MG TABLET. PO SCH (07:47)
[2021-01-20] MEDS: MIRABEGRON 25 MG TAB.ER.24H PO SCH (07:47)
[2021-01-20] MEDS: ACETAMINOPHEN 500 MG TABLET PO SCH ×3 (07:47→19:41)
[2021-01-20] MEDS: QUEtiapine 25 MG TABLET. PO SCH ×2 (07:51→17:20)
[2021-01-20] MEDS: LIDOCAINE (700MG/PATCH) PATCH. TD SCH (08:25)
--- NOTE | 2021-01-20 09:15 | PDOC ---
Exam Note: Deon Note: This note is a late entry for 01/18/2021 covers elements not covered in my initial note. Subjective: The patient was seen individually in the evening of 01/18/2021 with Stacia MERCER, discussed and reviewed the chart. The patient slept 6-1/4 hours previous night. She was doing better, less anxious, asking for her and her dog. She gets little delusional at times, confused, but less anxious. Review of Systems: No CV, , pulmonary, eye, ENT system symptoms on review. Ambulation impaired in wheelchair. She has a [place] in place. Mental Status Exam: The patient is oriented to herself. She was quite apprehensive, anxious, confused, restless. Insight and judgment, recent and re mote memory, attention and concentration, fund of knowledge is poor consistent with her diagnoses. Laboratory Data: Reviewed. Impression: Major neurocognitive disorder Alzheimer, vascular with delusion, depression, behavioral disturbance. Anxiety disorder unspecified. Impulse control disorder unspecified. Plan: Given her delusions and anxiety, we will go ahead and start Seroquel 12.5 mg 9.a.m. and 5 p.m. Continue rest unchanged. Assessment: Vital Signs/I&O: Vital Signs Date Time Temp Pulse Resp B/P (MAP) Pulse Ox O2 Delivery O2 Flow Rate FiO2 01/20/21 05:43 97.0 79 16 124/70 (88) 97 01/19/21 16:12 Room Air I & O 01/19/21 01/19/21 01/20/21 15:00 23:00 07:00 Intake Total 360 ml 120 ml Output Total 650 ml 200 ml Balance 360 ml -650 ml -80 ml Labs: Laboratory Tests Test 01/19/21 11:39 Urine Collection Type U cath Urine Color Yellow Urine Clarity Clear Urine pH 5.5 Urine Specific [place] 1.025 Urine Protein Neg (NEG-TRACE) Urine Glucose (UA) Neg mg/dL (NEG) Urine Ketones (Stick) Trace mg/dL (NEG) Urine Blood Trace (NEG) Urine Nitrite Neg (NEG) Urine Bilirubin Neg (NEG) Urine Urobilinogen Dipstick 0.2 mg/dL (0.2 mg/dL) Urine Leukocyte Esterase Small (NEG) Urine RBC Rare /HPF (0-2) Urine WBC 1-4 /HPF (0-4) Urine Squamous Epithelial Cells Occ /LPF Urine Bacteria Few /HPF (0-FEW) Urine Yeast Present /HPF Current Medications: Meds: Laboratory Tests Test 01/19/21 11:39 Urine Collection Type U cath Urine Color Yellow Urine Clarity Clear Urine pH 5.5 Urine Specific [place] 1.025 Urine Protein Neg Urine Glucose (UA) Neg mg/dL Urine Ketones (Stick) Trace mg/dL Urine Blood Trace Urine Nitrite Neg Urine Bilirubin Neg Urine Urobilinogen Dipstick 0.2 mg/dL Urine Leukocyte Esterase Small Urine RBC Rare /HPF Urine WBC 1-4 /HPF Urine Squamous Epithelial Cells Occ /LPF Urine Bacteria Few /HPF Urine Yeast Present /HPF Current Medications Medications (Trade) Dose Ordered Sig/Hector Route PRN Reason Start Time Stop Time Status Last Admin Dose Admin Sodium Chloride 1,000 ml @ 1,000 mls/hr 1X ONCE IV 01/14/21 19:00 01/14/21 19:59 DC 01/14/21 20:37 Acetaminophen (Tylenol) 650 mg PRN Q6HRS PRN PO MILD PAIN / TEMP > 100.3'F 01/14/21 23:15 01/19/21 06:32 Multi-Ingredient Ointment (Analgesic [place]) 1 wes PRN QID PRN TP MUSCLE PAIN 01/14/21 23:15 Al Hydroxide/Mg Hydroxide (Mylanta Plus Xs) 15 ml PRN AFTMEALHC PRN PO DYSPEPSIA 01/14/21 23:15 01/16/21 05:33 Magnesium Hydroxide (Milk Of Magnesia) 2,400 mg PRN QHS PRN PO CONSTIPATION 01/14/21 23:15 Donepezil HCl (Aricept) 10 mg HS PO 01/15/21 21:00 01/19/21 19:55 Lorazepam (Ativan) 0.5 mg PRN Q24HRS PRN PO ANXIETY, 1ST CHOICE 01/14/21 23:30 01/16/21 10:50 Lorazepam (Ativan) 0.5 mg TID PO 01/15/21 09:00 01/17/21 17:30 DC 01/17/21 10:25 Melatonin (Melatonin) 3 mg HS PO 01/15/21 21:00 01/19/21 19:55 Paroxetine HCl (Paxil) 40 mg DAILY PO 01/15/21 09:00 01/19/21 17:15 DC 01/19/21 08:40 Hydroxyzine HCl (Atarax) 25 mg PRN Q6HRS PRN PO ANXIETY, 2ND CHOICE 01/15/21 16:45 Acetaminophen (Tylenol) 650 mg PRN Q6HRS PRN PO PAIN 01/15/21 19:00 UNV Acetaminophen (Tylenol) 500 mg TID PO 01/15/21 21:00 01/20/21 07:47 Atorvastatin Calcium (Lipitor) 10 mg QHS PO 01/15/21 21:00 01/19/21 19:55 Budesonide (Entocort) 6 mg DAILY PO 01/16/21 09:00 01/20/21 07:46 Calcium Polycarbophil (Fibercon) 1,250 mg BID PO 01/15/21 21:00 01/20/21 07:46 Lidocaine (Lidoderm) 1 patch DAILY TD 01/16/21 09:00 01/20/21 08:25 Mirabegron (Myrbetriq) 25 mg DAILY PO 01/16/21 09:00 01/20/21 07:47 Pantoprazole Sodium (Protonix) 40 mg DAILY PO 01/16/21 09:00 01/20/21 07:47 Phenazopyridine HCl (Pyridium) 100 mg PRN Q24HRS PRN PO URINARY PAIN 01/15/21 19:00 Lactobacillus Rhamnosus (Culturelle) 1 cap BID PO 01/15/21 09:00 01/20/21 07:46 Losartan Potassium (Cozaar) 100 mg HS PO 01/15/21 21:00 01/19/21 19:56 Miscellaneous (Lidoderm Patch Removal) 1 ea QHS MC 01/15/21 21:00 01/19/21 20:01 Memantine (Namenda) 5 mg BID PO 01/16/21 21:00 01/22/21 22:50 01/20/21 07:47 Memantine (Namenda) 10 mg BID PO 01/23/21 09:00 Vitamin D (Vitamin D3) 50,000 unit WEEKLY PO 01/16/21 17:30 01/16/21 19:31 Lorazepam (Ativan) 0.5 mg BID PO 01/17/21 21:00 01/19/21 23:50 DC 01/19/21 19:56 Lorazepam (Ativan) 0.5 mg DAILY PO 01/20/21 09:00 01/22/21 12:00 01/20/21 07:47 Quetiapine Fumarate (SEROquel) 12.5 mg 0900,1700 PO 01/18/21 17:00 01/20/21 07:51 Sertraline HCl (Zoloft) 50 mg DAILY PO 01/20/21 09:00 01/20/21 07:46 Current Medications Medications (Trade) Dose Ordered Sig/Hector Route PRN Reason Start Time Stop Time Status Last Admin Dose Admin Lorazepam (Ativan) 0.5 mg DAILY PO 01/20/21 09:00 01/22/21 12:00 01/20/21 07:47 Sertraline HCl (Zoloft) 50 mg DAILY PO 01/20/21 09:00 01/20/21 07:46 I have reviewed the current psychotropics carefully including drug interactions. Risk benefit ratio favors no change other than as noted in my dictated progress note. Diagnosis: Problems: (1) Dementia, vascular, with depression (2) Dementia, vascular, with delusions (3) Dementia in Alzheimer's disease with depression (4) Dementia in Alzheimer's disease with delusions (5) Major neurocognitive disorder (6) Dementia in Alzheimer's disease with early onset with behavioral disturbance (7) Anxiety disorder, unspecified (8) Impulse control disorder, unspecified LUCAS CODY MD Jan 20, 2021 09:15
--- NOTE | 2021-01-20 09:42 | PDOC ---
Exam Note: Deon Note: This note is a late entry for 01/19/2021 covers elements not covered in my initial note. Subjective: The patient was seen individually in the evening of 01/19/2021 with Karlene MERCER, discussed and reviewed the chart. The patient slept 7-1/4 hours previous night. She remains in a wheelchair. Oral intake is poor, somewhat sedated at times. UA is awaited. Review of Systems: No CV, , pulmonary, eye, ENT system symptoms on review. Ambulation impaired. Mental Status Exam: The patient is oriented to herself. Insight and judgment, recent and remote memory, attention and concentration, fund of knowledge is poor consistent with her diagnoses. Laboratory Data: Reviewed. Labs on 01/17 is unremarkable. Impression: Major neurocognitive disorder Alzheimer, vascular with delusion, depression, behavioral disturbance. Anxiety disorder unspecified. Impulse control disorder unspecified. Plan: Change the patients Paxil to Zoloft 50 mg a day. Maintain rest of the psychotropics unchanged. Assessment: Vital Signs/I&O: Vital Signs Date Time Temp Pulse Resp B/P (MAP) Pulse Ox O2 Delivery O2 Flow Rate FiO2 01/20/21 05:43 97.0 79 16 124/70 (88) 97 01/19/21 16:12 Room Air I & O 01/19/21 01/19/21 01/20/21 15:00 23:00 07:00 Intake Total 360 ml 120 ml Output Total 650 ml 200 ml Balance 360 ml -650 ml -80 ml Labs: Laboratory Tests Test 01/19/21 11:39 Urine Collection Type U cath Urine Color Yellow Urine Clarity Clear Urine pH 5.5 Urine Specific [place] 1.025 Urine Protein Neg (NEG-TRACE) Urine Glucose (UA) Neg mg/dL (NEG) Urine Ketones (Stick) Trace mg/dL (NEG) Urine Blood Trace (NEG) Urine Nitrite Neg (NEG) Urine Bilirubin Neg (NEG) Urine Urobilinogen Dipstick 0.2 mg/dL (0.2 mg/dL) Urine Leukocyte Esterase Small (NEG) Urine RBC Rare /HPF (0-2) Urine WBC 1-4 /HPF (0-4) Urine Squamous Epithelial Cells Occ /LPF Urine Bacteria Few /HPF (0-FEW) Urine Yeast Present /HPF Current Medications: Meds: Laboratory Tests Test 01/19/21 11:39 Urine Collection Type U cath Urine Color Yellow Urine Clarity Clear Urine pH 5.5 Urine Specific [place] 1.025 Urine Protein Neg Urine Glucose (UA) Neg mg/dL Urine Ketones (Stick) Trace mg/dL Urine Blood Trace Urine Nitrite Neg Urine Bilirubin Neg Urine Urobilinogen Dipstick 0.2 mg/dL Urine Leukocyte Esterase Small Urine RBC Rare /HPF Urine WBC 1-4 /HPF Urine Squamous Epithelial Cells Occ /LPF Urine Bacteria Few /HPF Urine Yeast Present /HPF Current Medications Medications (Trade) Dose Ordered Sig/Hector Route PRN Reason Start Time Stop Time Status Last Admin Dose Admin Sodium Chloride 1,000 ml @ 1,000 mls/hr 1X ONCE IV 01/14/21 19:00 01/14/21 19:59 DC 01/14/21 20:37 Acetaminophen (Tylenol) 650 mg PRN Q6HRS PRN PO MILD PAIN / TEMP > 100.3'F 01/14/21 23:15 01/19/21 06:32 Multi-Ingredient Ointment (Analgesic [place]) 1 wes PRN QID PRN TP MUSCLE PAIN 01/14/21 23:15 Al Hydroxide/Mg Hydroxide (Mylanta Plus Xs) 15 ml PRN AFTMEALHC PRN PO DYSPEPSIA 01/14/21 23:15 01/16/21 05:33 Magnesium Hydroxide (Milk Of Magnesia) 2,400 mg PRN QHS PRN PO CONSTIPATION 01/14/21 23:15 Donepezil HCl (Aricept) 10 mg HS PO 01/15/21 21:00 01/19/21 19:55 Lorazepam (Ativan) 0.5 mg PRN Q24HRS PRN PO ANXIETY, 1ST CHOICE 01/14/21 23:30 01/16/21 10:50 Lorazepam (Ativan) 0.5 mg TID PO 01/15/21 09:00 01/17/21 17:30 DC 01/17/21 10:25 Melatonin (Melatonin) 3 mg HS PO 01/15/21 21:00 01/19/21 19:55 Paroxetine HCl (Paxil) 40 mg DAILY PO 01/15/21 09:00 01/19/21 17:15 DC 01/19/21 08:40 Hydroxyzine HCl (Atarax) 25 mg PRN Q6HRS PRN PO ANXIETY, 2ND CHOICE 01/15/21 16:45 Acetaminophen (Tylenol) 650 mg PRN Q6HRS PRN PO PAIN 01/15/21 19:00 UNV Acetaminophen (Tylenol) 500 mg TID PO 01/15/21 21:00 01/20/21 07:47 Atorvastatin Calcium (Lipitor) 10 mg QHS PO 01/15/21 21:00 01/19/21 19:55 Budesonide (Entocort) 6 mg DAILY PO 01/16/21 09:00 01/20/21 07:46 Calcium Polycarbophil (Fibercon) 1,250 mg BID PO 01/15/21 21:00 01/20/21 07:46 Lidocaine (Lidoderm) 1 patch DAILY TD 01/16/21 09:00 01/20/21 08:25 Mirabegron (Myrbetriq) 25 mg DAILY PO 01/16/21 09:00 01/20/21 07:47 Pantoprazole Sodium (Protonix) 40 mg DAILY PO 01/16/21 09:00 01/20/21 07:47 Phenazopyridine HCl (Pyridium) 100 mg PRN Q24HRS PRN PO URINARY PAIN 01/15/21 19:00 Lactobacillus Rhamnosus (Culturelle) 1 cap BID PO 01/15/21 09:00 01/20/21 07:46 Losartan Potassium (Cozaar) 100 mg HS PO 01/15/21 21:00 01/19/21 19:56 Miscellaneous (Lidoderm Patch Removal) 1 ea QHS MC 01/15/21 21:00 01/19/21 20:01 Memantine (Namenda) 5 mg BID PO 01/16/21 21:00 01/22/21 22:50 01/20/21 07:47 Memantine (Namenda) 10 mg BID PO 01/23/21 09:00 Vitamin D (Vitamin D3) 50,000 unit WEEKLY PO 01/16/21 17:30 01/16/21 19:31 Lorazepam (Ativan) 0.5 mg BID PO 01/17/21 21:00 01/19/21 23:50 DC 01/19/21 19:56 Lorazepam (Ativan) 0.5 mg DAILY PO 01/20/21 09:00 01/22/21 12:00 01/20/21 07:47 Quetiapine Fumarate (SEROquel) 12.5 mg 0900,1700 PO 01/18/21 17:00 01/20/21 07:51 Sertraline HCl (Zoloft) 50 mg DAILY PO 01/20/21 09:00 01/20/21 07:46 Current Medications Medications (Trade) Dose Ordered Sig/Hector Route PRN Reason Start Time Stop Time Status Last Admin Dose Admin Lorazepam (Ativan) 0.5 mg DAILY PO 01/20/21 09:00 01/22/21 12:00 01/20/21 07:47 Sertraline HCl (Zoloft) 50 mg DAILY PO 01/20/21 09:00 01/20/21 07:46 I have reviewed the current psychotropics carefully including drug interactions. Risk benefit ratio favors no change other than as noted in my dictated progress note. Diagnosis: Problems: (1) Dementia, vascular, with depression (2) Anxiety disorder, unspecified (3) Impulse control disorder, unspecified (4) Dementia, vascular, with delusions (5) Dementia in Alzheimer's disease with depression (6) Dementia in Alzheimer's disease with delusions (7) Major neurocognitive disorder due to Alzheimer's disease (8) Dementia in Alzheimer's disease with early onset with behavioral disturbance LUCAS CODY MD Jan 20, 2021 09:42
[2021-01-20 16:15] VITALS: BP 160/89
[2021-01-20] MEDS: MIRTAZAPINE 7.5 MG TABLET. PO SCH (19:40)
[2021-01-20] MEDS: DONEPEZIL HCL 10 MG TABLET PO SCH (19:41)
[2021-01-20] MEDS: LORazepam 0.5 MG TABLET PO PRN (19:41)
[2021-01-20] MEDS: MELATONIN 3 MG TABLET PO SCH (19:41)
[2021-01-20] MEDS: ATORVASTATIN CALCIUM 10 MG TABLET. PO SCH (19:41)
[2021-01-20] MEDS: LOSARTAN 50 MG TABLET. PO SCH (19:42)
[2021-01-20] MEDS: PATCH REMOVAL. MC SCH (19:44)
--- NOTE | 2021-01-20 22:15 | PDOC ---
Exam Note: Deon Note: Please also refer to the separate dictated note~for this date of service dictated separately.~Patient seen individually. Discussed the patient with Nursing staff reviewed the chart.~Reviewed interim history and current functioning. Reviewed vital signs,~Labs/ Radiology~and current medications noted below. Continue current treatment with the changes noted in the dictated addendum note Assessment: Vital Signs/I&O: Vital Signs Date Time Temp Pulse Resp B/P (MAP) Pulse Ox O2 Delivery O2 Flow Rate FiO2 01/20/21 19:42 67 160/89 01/20/21 16:15 97.7 16 97 01/19/21 16:12 Room Air I & O 01/19/21 01/19/21 01/20/21 14:59 22:59 06:59 Intake Total 360 ml 120 ml Output Total 650 ml 200 ml Balance 360 ml -650 ml -80 ml Current Medications: Meds: Current Medications Medications (Trade) Dose Ordered Sig/Hector Route PRN Reason Start Time Stop Time Status Last Admin Dose Admin Sodium Chloride 1,000 ml @ 1,000 mls/hr 1X ONCE IV 01/14/21 19:00 01/14/21 19:59 DC 01/14/21 20:37 Acetaminophen (Tylenol) 650 mg PRN Q6HRS PRN PO MILD PAIN / TEMP > 100.3'F 01/14/21 23:15 01/19/21 06:32 Multi-Ingredient Ointment (Analgesic [place]) 1 wes PRN QID PRN TP MUSCLE PAIN 01/14/21 23:15 Al Hydroxide/Mg Hydroxide (Mylanta Plus Xs) 15 ml PRN AFTMEALHC PRN PO DYSPEPSIA 01/14/21 23:15 01/16/21 05:33 Magnesium Hydroxide (Milk Of Magnesia) 2,400 mg PRN QHS PRN PO CONSTIPATION 01/14/21 23:15 Donepezil HCl (Aricept) 10 mg HS PO 01/15/21 21:00 01/20/21 19:41 Lorazepam (Ativan) 0.5 mg PRN Q24HRS PRN PO ANXIETY, 1ST CHOICE 01/14/21 23:30 01/20/21 19:41 Lorazepam (Ativan) 0.5 mg TID PO 01/15/21 09:00 01/17/21 17:30 DC 01/17/21 10:25 Melatonin (Melatonin) 3 mg HS PO 01/15/21 21:00 01/20/21 19:41 Paroxetine HCl (Paxil) 40 mg DAILY PO 01/15/21 09:00 01/19/21 17:15 DC 01/19/21 08:40 Hydroxyzine HCl (Atarax) 25 mg PRN Q6HRS PRN PO ANXIETY, 2ND CHOICE 01/15/21 16:45 Acetaminophen (Tylenol) 650 mg PRN Q6HRS PRN PO PAIN 01/15/21 19:00 UNV Acetaminophen (Tylenol) 500 mg TID PO 01/15/21 21:00 01/20/21 19:41 Atorvastatin Calcium (Lipitor) 10 mg QHS PO 01/15/21 21:00 01/20/21 19:41 Budesonide (Entocort) 6 mg DAILY PO 01/16/21 09:00 01/20/21 07:46 Calcium Polycarbophil (Fibercon) 1,250 mg BID PO 01/15/21 21:00 01/20/21 07:46 Lidocaine (Lidoderm) 1 patch DAILY TD 01/16/21 09:00 01/20/21 08:25 Mirabegron (Myrbetriq) 25 mg DAILY PO 01/16/21 09:00 01/20/21 07:47 Pantoprazole Sodium (Protonix) 40 mg DAILY PO 01/16/21 09:00 01/20/21 07:47 Phenazopyridine HCl (Pyridium) 100 mg PRN Q24HRS PRN PO URINARY PAIN 01/15/21 19:00 Lactobacillus Rhamnosus (Culturelle) 1 cap BID PO 01/15/21 09:00 01/20/21 19:41 Losartan Potassium (Cozaar) 100 mg HS PO 01/15/21 21:00 01/20/21 19:42 Miscellaneous (Lidoderm Patch Removal) 1 ea QHS MC 01/15/21 21:00 01/19/21 20:01 Memantine (Namenda) 5 mg BID PO 01/16/21 21:00 01/22/21 22:50 01/20/21 19:40 Memantine (Namenda) 10 mg BID PO 01/23/21 09:00 Vitamin D (Vitamin D3) 50,000 unit WEEKLY PO 01/16/21 17:30 01/16/21 19:31 Lorazepam (Ativan) 0.5 mg BID PO 01/17/21 21:00 01/19/21 23:50 DC 01/19/21 19:56 Lorazepam (Ativan) 0.5 mg DAILY PO 01/20/21 09:00 01/22/21 12:00 01/20/21 07:47 Quetiapine Fumarate (SEROquel) 12.5 mg 0900,1700 PO 01/18/21 17:00 01/20/21 17:20 Sertraline HCl (Zoloft) 50 mg DAILY PO 01/20/21 09:00 01/22/21 13:00 01/20/21 07:46 Sertraline HCl (Zoloft) 75 mg DAILY PO 01/23/21 09:00 Mirtazapine (Remeron) 7.5 mg QHS PO 01/20/21 21:00 01/20/21 19:40 Current Medications Medications (Trade) Dose Ordered Sig/Hector Route PRN Reason Start Time Stop Time Status Last Admin Dose Admin Lorazepam (Ativan) 0.5 mg DAILY PO 01/20/21 09:00 01/22/21 12:00 01/20/21 07:47 Sertraline HCl (Zoloft) 50 mg DAILY PO 01/20/21 09:00 01/22/21 13:00 01/20/21 07:46 Mirtazapine (Remeron) 7.5 mg QHS PO 01/20/21 21:00 01/20/21 19:40 I have reviewed the current psychotropics carefully including drug interactions. Risk benefit ratio favors no change other than as noted in my dictated progress note. Diagnosis: Problems: (1) Impulse control disorder, unspecified (2) Anxiety disorder, unspecified (3) Dementia, vascular, with depression (4) Dementia, vascular, with delusions (5) Dementia in Alzheimer's disease with depression (6) Dementia in Alzheimer's disease with delusions (7) Major neurocognitive disorder (8) Dementia in Alzheimer's disease with early onset with behavioral disturbance LUCAS CODY MD Jan 20, 2021 22:15
[2021-01-21 05:11] VITALS: BP 120/70
[2021-01-21] MEDS: ACETAMINOPHEN 500 MG TABLET PO SCH ×3 (08:36→20:30)
[2021-01-21] MEDS: PANTOPRAZOLE 40 MG TABLET. PO SCH (08:36)
[2021-01-21] MEDS: BUDESONIDE 3 MG CAP.ER.24H. PO SCH (08:36)
[2021-01-21] MEDS: MEMANTINE 5 MG TABLET. PO SCH ×2 (08:36→20:30)
[2021-01-21] MEDS: MIRABEGRON 25 MG TAB.ER.24H PO SCH (08:36)
[2021-01-21] MEDS: LACTOBACILLUS RHAMNOSUS GG 1 CAPSULE. PO SCH ×2 (08:36→20:29)
[2021-01-21] MEDS: QUEtiapine 25 MG TABLET. PO SCH ×2 (08:36→17:33)
[2021-01-21] MEDS: LORazepam 0.5 MG TABLET PO SCH (08:36)
[2021-01-21] MEDS: CALCIUM POLYCARBOPHIL 625 MG TABLET PO SCH ×2 (08:37→20:30)
[2021-01-21] MEDS: LIDOCAINE (700MG/PATCH) PATCH. TD SCH (08:37)
[2021-01-21] MEDS: SERTRALINE 50 MG TABLET. PO SCH (08:37)
[2021-01-21 15:51] VITALS: BP 102/66
[2021-01-21] MEDS: ATORVASTATIN CALCIUM 10 MG TABLET. PO SCH (20:29)
[2021-01-21] MEDS: LORazepam 0.5 MG TABLET PO PRN (20:29)
[2021-01-21] MEDS: DONEPEZIL HCL 10 MG TABLET PO SCH (20:29)
[2021-01-21] MEDS: MELATONIN 3 MG TABLET PO SCH (20:30)
[2021-01-21] MEDS: LOSARTAN 50 MG TABLET. PO SCH (20:30)
[2021-01-21] MEDS: MIRTAZAPINE 7.5 MG TABLET. PO SCH (20:30)
[2021-01-21] MEDS: PATCH REMOVAL. MC SCH (20:31)
--- NOTE | 2021-01-21 21:59 | PDOC ---
Exam Note: Deon Note: Please also refer to the separate dictated note~for this date of service dictated separately.~Patient seen individually. Discussed the patient with Nursing staff reviewed the chart.~Reviewed interim history and current functioning. Reviewed vital signs,~Labs/ Radiology~and current medications noted below. Continue current treatment with the changes noted in the dictated addendum note Assessment: Vital Signs/I&O: Vital Signs Date Time Temp Pulse Resp B/P (MAP) Pulse Ox O2 Delivery O2 Flow Rate FiO2 01/21/21 20:30 92 102/66 01/21/21 15:51 98.2 16 96 01/19/21 16:12 Room Air I & O 01/20/21 01/20/21 01/21/21 15:00 23:00 07:00 Intake Total 600 ml 300 ml Output Total 950 ml Balance 600 ml -650 ml Current Medications: Meds: Current Medications Medications (Trade) Dose Ordered Sig/Hector Route PRN Reason Start Time Stop Time Status Last Admin Dose Admin Sodium Chloride 1,000 ml @ 1,000 mls/hr 1X ONCE IV 01/14/21 19:00 01/14/21 19:59 DC 01/14/21 20:37 Acetaminophen (Tylenol) 650 mg PRN Q6HRS PRN PO MILD PAIN / TEMP > 100.3'F 01/14/21 23:15 01/19/21 06:32 Multi-Ingredient Ointment (Analgesic [place]) 1 wes PRN QID PRN TP MUSCLE PAIN 01/14/21 23:15 Al Hydroxide/Mg Hydroxide (Mylanta Plus Xs) 15 ml PRN AFTMEALHC PRN PO DYSPEPSIA 01/14/21 23:15 01/16/21 05:33 Magnesium Hydroxide (Milk Of Magnesia) 2,400 mg PRN QHS PRN PO CONSTIPATION 01/14/21 23:15 Donepezil HCl (Aricept) 10 mg HS PO 01/15/21 21:00 01/21/21 20:29 Lorazepam (Ativan) 0.5 mg PRN Q24HRS PRN PO ANXIETY, 1ST CHOICE 01/14/21 23:30 01/21/21 20:29 Lorazepam (Ativan) 0.5 mg TID PO 01/15/21 09:00 01/17/21 17:30 DC 01/17/21 10:25 Melatonin (Melatonin) 3 mg HS PO 01/15/21 21:00 01/21/21 20:30 Paroxetine HCl (Paxil) 40 mg DAILY PO 01/15/21 09:00 01/19/21 17:15 DC 01/19/21 08:40 Hydroxyzine HCl (Atarax) 25 mg PRN Q6HRS PRN PO ANXIETY, 2ND CHOICE 01/15/21 16:45 Acetaminophen (Tylenol) 650 mg PRN Q6HRS PRN PO PAIN 01/15/21 19:00 UNV Acetaminophen (Tylenol) 500 mg TID PO 01/15/21 21:00 01/21/21 20:30 Atorvastatin Calcium (Lipitor) 10 mg QHS PO 01/15/21 21:00 01/21/21 20:29 Budesonide (Entocort) 6 mg DAILY PO 01/16/21 09:00 01/21/21 08:36 Calcium Polycarbophil (Fibercon) 1,250 mg BID PO 01/15/21 21:00 01/21/21 08:37 Lidocaine (Lidoderm) 1 patch DAILY TD 01/16/21 09:00 01/21/21 08:37 Mirabegron (Myrbetriq) 25 mg DAILY PO 01/16/21 09:00 01/21/21 08:36 Pantoprazole Sodium (Protonix) 40 mg DAILY PO 01/16/21 09:00 01/21/21 08:36 Phenazopyridine HCl (Pyridium) 100 mg PRN Q24HRS PRN PO URINARY PAIN 01/15/21 19:00 Lactobacillus Rhamnosus (Culturelle) 1 cap BID PO 01/15/21 09:00 01/21/21 20:29 Losartan Potassium (Cozaar) 100 mg HS PO 01/15/21 21:00 01/21/21 20:30 Miscellaneous (Lidoderm Patch Removal) 1 ea QHS MC 01/15/21 21:00 01/19/21 20:01 Memantine (Namenda) 5 mg BID PO 01/16/21 21:00 01/22/21 22:50 01/21/21 20:30 Memantine (Namenda) 10 mg BID PO 01/23/21 09:00 Vitamin D (Vitamin D3) 50,000 unit WEEKLY PO 01/16/21 17:30 01/16/21 19:31 Lorazepam (Ativan) 0.5 mg BID PO 01/17/21 21:00 01/19/21 23:50 DC 01/19/21 19:56 Lorazepam (Ativan) 0.5 mg DAILY PO 01/20/21 09:00 01/22/21 12:00 01/21/21 08:36 Quetiapine Fumarate (SEROquel) 12.5 mg 0900,1700 PO 01/18/21 17:00 01/21/21 17:55 DC 01/21/21 17:33 Sertraline HCl (Zoloft) 50 mg DAILY PO 01/20/21 09:00 01/22/21 13:00 01/21/21 08:37 Sertraline HCl (Zoloft) 75 mg DAILY PO 01/23/21 09:00 Mirtazapine (Remeron) 7.5 mg QHS PO 01/20/21 21:00 01/21/21 20:30 Quetiapine Fumarate (SEROquel) 12.5 mg 0900,1300,1700 PO 01/22/21 09:00 I have reviewed the current psychotropics carefully including drug interactions. Risk benefit ratio favors no change other than as noted in my dictated progress note. 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
[2021-01-22 05:00] VITALS: BP 125/76
[2021-01-22] MEDS: PANTOPRAZOLE 40 MG TABLET. PO SCH (07:50)
[2021-01-22] MEDS: CALCIUM POLYCARBOPHIL 625 MG TABLET PO SCH ×2 (07:50→19:49)
[2021-01-22] MEDS: BUDESONIDE 3 MG CAP.ER.24H. PO SCH (07:50)
[2021-01-22] MEDS: LORazepam 0.5 MG TABLET PO SCH (07:50)
[2021-01-22] MEDS: QUEtiapine 25 MG TABLET. PO SCH ×3 (07:51→17:16)
[2021-01-22] MEDS: ACETAMINOPHEN 500 MG TABLET PO SCH ×3 (07:51→19:49)
[2021-01-22] MEDS: SERTRALINE 50 MG TABLET. PO SCH (07:51)
[2021-01-22] MEDS: MEMANTINE 5 MG TABLET. PO SCH ×2 (07:51→19:49)
[2021-01-22] MEDS: MIRABEGRON 25 MG TAB.ER.24H PO SCH (07:51)
[2021-01-22] MEDS: LACTOBACILLUS RHAMNOSUS GG 1 CAPSULE. PO SCH ×2 (07:51→19:48)
[2021-01-22] MEDS: LIDOCAINE (700MG/PATCH) PATCH. TD SCH (07:52)
--- NOTE | 2021-01-22 08:28 | PDOC ---
Exam Note: Deon Note: This note is a late entry for 01/20/2021 covers elements not covered in my initial note. Subjective: The patient was seen individually in the evening of 01/20/2021 with Karlene MERCER, discussed and reviewed the chart. The patient slept 4 hours previous night. At times she gets agitated, was cursing at staff at lunchtime, somewhat paranoid around dinner time that people were talking about her. I met with her individually at some length. Review of Systems: No CV, , pulmonary, eye, ENT system symptoms on review. Ambulation impaired. Reliability poor. Mental Status Exam: The patient is oriented to herself. Insight and judgment, recent and remote memory, attention and concentration, fund of knowledge is poor consistent with her diagnoses. Nursing staff have posted a message on her wall which states that her and two dogs are well and when I re-read the message to her she seemed much calmer. Laboratory Data: Reviewed. Impression: Major neurocognitive disorder Alzheimer, vascular with delusion, depression, behavioral disturbance. Anxiety disorder unspecified. Impulse control disorder unspecified. Plan: After the patient has been on Zoloft 50 mg a day for 3 days, we will in crease to 75 mg and we will start Remeron 7.5 mg h.s. to help with insomnia and anxiety. Rest of the psychotropics unchanged for now. Assessment: Vital Signs/I&O: Vital Signs Date Time Temp Pulse Resp B/P (MAP) Pulse Ox O2 Delivery O2 Flow Rate FiO2 01/22/21 05:00 97.7 90 16 125/76 (92) 96 01/19/21 16:12 Room Air I & O 01/21/21 01/21/21 01/22/21 15:00 23:00 07:00 Intake Total 720 ml 240 ml Output Total 200 ml Balance 720 ml 40 ml Current Medications: Meds: Current Medications Medications (Trade) Dose Ordered Sig/Hector Route PRN Reason Start Time Stop Time Status Last Admin Dose Admin Sodium Chloride 1,000 ml @ 1,000 mls/hr 1X ONCE IV 01/14/21 19:00 01/14/21 19:59 DC 01/14/21 20:37 Acetaminophen (Tylenol) 650 mg PRN Q6HRS PRN PO MILD PAIN / TEMP > 100.3'F 01/14/21 23:15 01/19/21 06:32 Multi-Ingredient Ointment (Analgesic [place]) 1 wes PRN QID PRN TP MUSCLE PAIN 01/14/21 23:15 Al Hydroxide/Mg Hydroxide (Mylanta Plus Xs) 15 ml PRN AFTMEALHC PRN PO DYSPEPSIA 01/14/21 23:15 01/16/21 05:33 Magnesium Hydroxide (Milk Of Magnesia) 2,400 mg PRN QHS PRN PO CONSTIPATION 01/14/21 23:15 Donepezil HCl (Aricept) 10 mg HS PO 01/15/21 21:00 01/21/21 20:29 Lorazepam (Ativan) 0.5 mg PRN Q24HRS PRN PO ANXIETY, 1ST CHOICE 01/14/21 23:30 01/21/21 20:29 Lorazepam (Ativan) 0.5 mg TID PO 01/15/21 09:00 01/17/21 17:30 DC 01/17/21 10:25 Melatonin (Melatonin) 3 mg HS PO 01/15/21 21:00 01/21/21 20:30 Paroxetine HCl (Paxil) 40 mg DAILY PO 01/15/21 09:00 01/19/21 17:15 DC 01/19/21 08:40 Hydroxyzine HCl (Atarax) 25 mg PRN Q6HRS PRN PO ANXIETY, 2ND CHOICE 01/15/21 16:45 Acetaminophen (Tylenol) 650 mg PRN Q6HRS PRN PO PAIN 01/15/21 19:00 UNV Acetaminophen (Tylenol) 500 mg TID PO 01/15/21 21:00 01/22/21 07:51 Atorvastatin Calcium (Lipitor) 10 mg QHS PO 01/15/21 21:00 01/21/21 20:29 Budesonide (Entocort) 6 mg DAILY PO 01/16/21 09:00 01/22/21 07:50 Calcium Polycarbophil (Fibercon) 1,250 mg BID PO 01/15/21 21:00 01/22/21 07:50 Lidocaine (Lidoderm) 1 patch DAILY TD 01/16/21 09:00 01/22/21 07:52 Mirabegron (Myrbetriq) 25 mg DAILY PO 01/16/21 09:00 01/22/21 07:51 Pantoprazole Sodium (Protonix) 40 mg DAILY PO 01/16/21 09:00 01/22/21 07:50 Phenazopyridine HCl (Pyridium) 100 mg PRN Q24HRS PRN PO URINARY PAIN 01/15/21 19:00 Lactobacillus Rhamnosus (Culturelle) 1 cap BID PO 01/15/21 09:00 01/22/21 07:51 Losartan Potassium (Cozaar) 100 mg HS PO 01/15/21 21:00 01/21/21 20:30 Miscellaneous (Lidoderm Patch Removal) 1 ea QHS MC 01/15/21 21:00 01/19/21 20:01 Memantine (Namenda) 5 mg BID PO 01/16/21 21:00 01/22/21 22:50 01/22/21 07:51 Memantine (Namenda) 10 mg BID PO 01/23/21 09:00 Vitamin D (Vitamin D3) 50,000 unit WEEKLY PO 01/16/21 17:30 01/16/21 19:31 Lorazepam (Ativan) 0.5 mg BID PO 01/17/21 21:00 01/19/21 23:50 DC 01/19/21 19:56 Lorazepam (Ativan) 0.5 mg DAILY PO 01/20/21 09:00 01/22/21 12:00 01/22/21 07:50 Quetiapine Fumarate (SEROquel) 12.5 mg 0900,1700 PO 01/18/21 17:00 01/21/21 17:55 DC 01/21/21 17:33 Sertraline HCl (Zoloft) 50 mg DAILY PO 01/20/21 09:00 01/22/21 13:00 01/22/21 07:51 Sertraline HCl (Zoloft) 75 mg DAILY PO 01/23/21 09:00 Mirtazapine (Remeron) 7.5 mg QHS PO 01/20/21 21:00 01/21/21 20:30 Quetiapine Fumarate (SEROquel) 12.5 mg 0900,1300,1700 PO 01/22/21 09:00 01/22/21 07:51 Current Medications Medications (Trade) Dose Ordered Sig/Hector Route PRN Reason Start Time Stop Time Status Last Admin Dose Admin Quetiapine Fumarate (SEROquel) 12.5 mg 0900,1300,1700 PO 01/22/21 09:00 01/22/21 07:51 I have reviewed the current psychotropics carefully including drug interactions. Risk benefit ratio favors no change other than as noted in my dictated progress note. Diagnosis: Problems: (1) Anxiety disorder, unspecified (2) Impulse control disorder, unspecified (3) Dementia, vascular, with depression (4) Dementia, vascular, with delusions (5) Dementia in Alzheimer's disease with depression (6) Dementia in Alzheimer's disease with delusions (7) Major neurocognitive disorder (8) Dementia in Alzheimer's disease with early onset with behavioral disturbance LUCAS CODY MD Jan 22, 2021 08:28
--- NOTE | 2021-01-22 08:56 | PDOC ---
Exam Note: Deon Note: This note is a late entry for 01/21/2021 covers elements not covered in my initial note. Subjective: The patient was seen individually in the evening of 01/21/2021 with Karlene MERCER, discussed and reviewed the chart. The patient slept 5-1/4 hours previous night. She was irritable in the morning, grabbing at staff with cares. She is anxious, restless but redirects. Review of Systems: No CV, , pulmonary, eye, ENT system symptoms on review. Ambulation impaired. Reliability poor. Gait unsteady in wheelchair. Mental Status Exam: The patient is oriented to herself. Insight and judgment, recent and remote memory, attention and concentration, fund of knowledge is poor consistent with her diagnoses. Laboratory Data: Reviewed. Impression: Major neurocognitive disorder Alzheimer, vascular with delusion, depression, behavioral disturbance. Anxiety disorder unspecified. Impulse control disorder unspecified. Plan: Increase Seroquel from 12.5 mg twice a day to 12.5 mg 9 a.m., 1 p.m. 5 p.m. Rest of the psychotropics unchanged for now. Assessment: Vital Signs/I&O: Vital Signs Date Time Temp Pulse Resp B/P (MAP) Pulse Ox O2 Delivery O2 Flow Rate FiO2 01/22/21 05:00 97.7 90 16 125/76 (92) 96 01/19/21 16:12 Room Air I & O 01/21/21 01/21/21 01/22/21 15:00 23:00 07:00 Intake Total 720 ml 240 ml Output Total 200 ml Balance 720 ml 40 ml Current Medications: Meds: Current Medications Medications (Trade) Dose Ordered Sig/Hector Route PRN Reason Start Time Stop Time Status Last Admin Dose Admin Sodium Chloride 1,000 ml @ 1,000 mls/hr 1X ONCE IV 01/14/21 19:00 01/14/21 19:59 DC 01/14/21 20:37 Acetaminophen (Tylenol) 650 mg PRN Q6HRS PRN PO MILD PAIN / TEMP > 100.3'F 01/14/21 23:15 01/19/21 06:32 Multi-Ingredient Ointment (Analgesic [place]) 1 wes PRN QID PRN TP MUSCLE PAIN 01/14/21 23:15 Al Hydroxide/Mg Hydroxide (Mylanta Plus Xs) 15 ml PRN AFTMEALHC PRN PO DYSPEPSIA 01/14/21 23:15 01/16/21 05:33 Magnesium Hydroxide (Milk Of Magnesia) 2,400 mg PRN QHS PRN PO CONSTIPATION 01/14/21 23:15 Donepezil HCl (Aricept) 10 mg HS PO 01/15/21 21:00 01/21/21 20:29 Lorazepam (Ativan) 0.5 mg PRN Q24HRS PRN PO ANXIETY, 1ST CHOICE 01/14/21 23:30 01/21/21 20:29 Lorazepam (Ativan) 0.5 mg TID PO 01/15/21 09:00 01/17/21 17:30 DC 01/17/21 10:25 Melatonin (Melatonin) 3 mg HS PO 01/15/21 21:00 01/21/21 20:30 Paroxetine HCl (Paxil) 40 mg DAILY PO 01/15/21 09:00 01/19/21 17:15 DC 01/19/21 08:40 Hydroxyzine HCl (Atarax) 25 mg PRN Q6HRS PRN PO ANXIETY, 2ND CHOICE 01/15/21 16:45 Acetaminophen (Tylenol) 650 mg PRN Q6HRS PRN PO PAIN 01/15/21 19:00 UNV Acetaminophen (Tylenol) 500 mg TID PO 01/15/21 21:00 01/22/21 07:51 Atorvastatin Calcium (Lipitor) 10 mg QHS PO 01/15/21 21:00 01/21/21 20:29 Budesonide (Entocort) 6 mg DAILY PO 01/16/21 09:00 01/22/21 07:50 Calcium Polycarbophil (Fibercon) 1,250 mg BID PO 01/15/21 21:00 01/22/21 07:50 Lidocaine (Lidoderm) 1 patch DAILY TD 01/16/21 09:00 01/22/21 07:52 Mirabegron (Myrbetriq) 25 mg DAILY PO 01/16/21 09:00 01/22/21 07:51 Pantoprazole Sodium (Protonix) 40 mg DAILY PO 01/16/21 09:00 01/22/21 07:50 Phenazopyridine HCl (Pyridium) 100 mg PRN Q24HRS PRN PO URINARY PAIN 01/15/21 19:00 Lactobacillus Rhamnosus (Culturelle) 1 cap BID PO 01/15/21 09:00 01/22/21 07:51 Losartan Potassium (Cozaar) 100 mg HS PO 01/15/21 21:00 01/21/21 20:30 Miscellaneous (Lidoderm Patch Removal) 1 ea QHS MC 01/15/21 21:00 01/19/21 20:01 Memantine (Namenda) 5 mg BID PO 01/16/21 21:00 01/22/21 22:50 01/22/21 07:51 Memantine (Namenda) 10 mg BID PO 01/23/21 09:00 Vitamin D (Vitamin D3) 50,000 unit WEEKLY PO 01/16/21 17:30 01/16/21 19:31 Lorazepam (Ativan) 0.5 mg BID PO 01/17/21 21:00 01/19/21 23:50 DC 01/19/21 19:56 Lorazepam (Ativan) 0.5 mg DAILY PO 01/20/21 09:00 01/22/21 12:00 01/22/21 07:50 Quetiapine Fumarate (SEROquel) 12.5 mg 0900,1700 PO 01/18/21 17:00 01/21/21 17:55 DC 01/21/21 17:33 Sertraline HCl (Zoloft) 50 mg DAILY PO 01/20/21 09:00 01/22/21 13:00 01/22/21 07:51 Sertraline HCl (Zoloft) 75 mg DAILY PO 01/23/21 09:00 Mirtazapine (Remeron) 7.5 mg QHS PO 01/20/21 21:00 01/21/21 20:30 Quetiapine Fumarate (SEROquel) 12.5 mg 0900,1300,1700 PO 01/22/21 09:00 01/22/21 07:51 Current Medications Medications (Trade) Dose Ordered Sig/Hector Route PRN Reason Start Time Stop Time Status Last Admin Dose Admin Quetiapine Fumarate (SEROquel) 12.5 mg 0900,1300,1700 PO 01/22/21 09:00 01/22/21 07:51 I have reviewed the current psychotropics carefully including drug interactions. Risk benefit ratio favors no change other than as noted in my dictated progress note. Diagnosis: Problems: (1) Anxiety disorder, unspecified (2) Impulse control disorder, unspecified (3) Dementia, vascular, with depression (4) Dementia in Alzheimer's disease with delusions (5) Major neurocognitive disorder (6) Dementia in Alzheimer's disease with early onset with behavioral disturbance (7) Dementia in Alzheimer's disease with depression (8) Dementia, vascular, with delusions LUCAS CODY MD Jan 22, 2021 08:56
[2021-01-22 10:29] LABS: BASO # 0.1 x10^3/uL (0.0-0.2); BASO % 1 % (0-3); EOS # 0.2 x10^3/uL (0.0-0.7); EOS % 1 % (0-3); HEMATOCRIT 37.4 % (36.0-47.0); LYMPH # 1.7 x10^3/uL (1.0-4.8); LYMPH % 13 % (24-48); MEAN CORPUSCULAR HEMOGLOBIN 28 pg (25-35); MEAN CORPUSCULAR HGB CONC 32 g/dL (31-37); MEAN CORPUSCULAR VOLUME 88 fL (79-100); MONO # 1.2 x10^3/uL (0.0-1.1); MONO % 9 % (0-9); NEUT # 10.2 x10^3uL (1.8-7.7); NEUT % 76 % (31-73); PLATELET COUNT 571 x10^3/uL (140-400); RED BLOOD COUNT 4.27 x10^6/uL (3.50-5.40); RED CELL DISTRIBUTION WIDTH 14.3 % (11.5-14.5); WHITE BLOOD COUNT 13.4 x10^3/uL (4.0-11.0)
[2021-01-22 10:33] LABS: CALCIUM 8.8 mg/dL (8.5-10.1); CREATININE 1.1 mg/dL (0.6-1.0); GFR 47.7; POTASSIUM 3.5 mmol/L (3.5-5.1)
[2021-01-22 10:39] LABS: ALBUMIN 3.4 g/dL (3.4-5.0); TOTAL BILIRUBIN 0.3 mg/dL (0.2-1.0); TOTAL PROTEIN 6.8 g/dL (6.4-8.2)
[2021-01-22 15:48] VITALS: BP 142/85
[2021-01-22] MEDS: ATORVASTATIN CALCIUM 10 MG TABLET. PO SCH (19:48)
[2021-01-22] MEDS: MELATONIN 3 MG TABLET PO SCH (19:48)
[2021-01-22] MEDS: LORazepam 0.5 MG TABLET PO PRN (19:49)
[2021-01-22] MEDS: MIRTAZAPINE 7.5 MG TABLET. PO SCH (19:49)
[2021-01-22] MEDS: DONEPEZIL HCL 10 MG TABLET PO SCH (19:49)
[2021-01-22] MEDS: PATCH REMOVAL. MC SCH (19:50)
[2021-01-22] MEDS: LOSARTAN 50 MG TABLET. PO SCH (19:50)
--- NOTE | 2021-01-22 22:27 | PDOC ---
Exam Note: Deon Note: Please also refer to the separate dictated note~for this date of service dictated separately.~Patient seen individually. Discussed the patient with Nursing staff reviewed the chart.~Reviewed interim history and current functioning. Reviewed vital signs,~Labs/ Radiology~and current medications noted below. Continue current treatment with the changes noted in the dictated addendum note Assessment: Vital Signs/I&O: Vital Signs Date Time Temp Pulse Resp B/P (MAP) Pulse Ox O2 Delivery O2 Flow Rate FiO2 01/22/21 19:50 88 142/85 01/22/21 15:48 97.4 18 99 01/19/21 16:12 Room Air I & O 01/21/21 01/21/21 01/22/21 15:00 23:00 07:00 Intake Total 720 ml 240 ml Output Total 200 ml Balance 720 ml 40 ml Labs: Laboratory Tests Test 01/22/21 10:18 White Blood Count 13.4 x10^3/uL (4.0-11.0) H Red Blood Count 4.27 x10^6/uL (3.50-5.40) Hemoglobin 12.0 g/dL (12.0-15.5) Hematocrit 37.4 % (36.0-47.0) Mean Corpuscular Volume 88 fL (79-100) Mean Corpuscular Hemoglobin 28 pg (25-35) Mean Corpuscular Hemoglobin Concent 32 g/dL (31-37) Red Cell Distribution Width 14.3 % (11.5-14.5) Platelet Count 571 x10^3/uL (140-400) H Neutrophils (%) (Auto) 76 % (31-73) H Lymphocytes (%) (Auto) 13 % (24-48) L Monocytes (%) (Auto) 9 % (0-9) Eosinophils (%) (Auto) 1 % (0-3) Basophils (%) (Auto) 1 % (0-3) Neutrophils # (Auto) 10.2 x10^3uL (1.8-7.7) H Lymphocytes # (Auto) 1.7 x10^3/uL (1.0-4.8) Monocytes # (Auto) 1.2 x10^3/uL (0.0-1.1) H Eosinophils # (Auto) 0.2 x10^3/uL (0.0-0.7) Basophils # (Auto) 0.1 x10^3/uL (0.0-0.2) Sodium Level 144 mmol/L (136-145) Potassium Level 3.5 mmol/L (3.5-5.1) Chloride Level 106 mmol/L (98-107) Carbon Dioxide Level 28 mmol/L (21-32) Anion Gap 10 (6-14) Blood Urea Nitrogen 38 mg/dL (7-20) H Creatinine 1.1 mg/dL (0.6-1.0) H Estimated GFR (Cockcroft-Gault) 47.7 BUN/Creatinine Ratio 35 (6-20) H Glucose Level 83 mg/dL (70-99) Calcium Level 8.8 mg/dL (8.5-10.1) Total Bilirubin 0.3 mg/dL (0.2-1.0) Aspartate Amino Transferase (AST) 14 U/L (15-37) L Alanine Aminotransferase (ALT) 20 U/L (14-59) Alkaline Phosphatase 91 U/L (46-116) Total Protein 6.8 g/dL (6.4-8.2) Albumin 3.4 g/dL (3.4-5.0) Albumin/Globulin Ratio 1.0 (1.0-1.7) Current Medications: Meds: Laboratory Tests Test 01/22/21 10:18 White Blood Count 13.4 x10^3/uL Red Blood Count 4.27 x10^6/uL Hemoglobin 12.0 g/dL Hematocrit 37.4 % Mean Corpuscular Volume 88 fL Mean Corpuscular Hemoglobin 28 pg Mean Corpuscular Hemoglobin Concent 32 g/dL Red Cell Distribution Width 14.3 % Platelet Count 571 x10^3/uL Neutrophils (%) (Auto) 76 % Lymphocytes (%) (Auto) 13 % Monocytes (%) (Auto) 9 % Eosinophils (%) (Auto) 1 % Basophils (%) (Auto) 1 % Neutrophils # (Auto) 10.2 x10^3uL Lymphocytes # (Auto) 1.7 x10^3/uL Monocytes # (Auto) 1.2 x10^3/uL Eosinophils # (Auto) 0.2 x10^3/uL Basophils # (Auto) 0.1 x10^3/uL Sodium Level 144 mmol/L Potassium Level 3.5 mmol/L Chloride Level 106 mmol/L Carbon Dioxide Level 28 mmol/L Anion Gap 10 Blood Urea Nitrogen 38 mg/dL Creatinine 1.1 mg/dL Estimated GFR (Cockcroft-Gault) 47.7 BUN/Creatinine Ratio 35 Glucose Level 83 mg/dL Calcium Level 8.8 mg/dL Total Bilirubin 0.3 mg/dL Aspartate Amino Transf (AST/SGOT) 14 U/L Alanine Aminotransferase (ALT/SGPT) 20 U/L Alkaline Phosphatase 91 U/L Total Protein 6.8 g/dL Albumin 3.4 g/dL Albumin/Globulin Ratio 1.0 Current Medications Medications (Trade) Dose Ordered Sig/Hector Route PRN Reason Start Time Stop Time Status Last Admin Dose Admin Sodium Chloride 1,000 ml @ 1,000 mls/hr 1X ONCE IV 01/14/21 19:00 01/14/21 19:59 DC 01/14/21 20:37 Acetaminophen (Tylenol) 650 mg PRN Q6HRS PRN PO MILD PAIN / TEMP > 100.3'F 01/14/21 23:15 01/19/21 06:32 Multi-Ingredient Ointment (Analgesic [place]) 1 wes PRN QID PRN TP MUSCLE PAIN 01/14/21 23:15 Al Hydroxide/Mg Hydroxide (Mylanta Plus Xs) 15 ml PRN AFTMEALHC PRN PO DYSPEPSIA 01/14/21 23:15 01/16/21 05:33 Magnesium Hydroxide (Milk Of Magnesia) 2,400 mg PRN QHS PRN PO CONSTIPATION 01/14/21 23:15 Donepezil HCl (Aricept) 10 mg HS PO 01/15/21 21:00 01/22/21 19:49 Lorazepam (Ativan) 0.5 mg PRN Q24HRS PRN PO ANXIETY, 1ST CHOICE 01/14/21 23:30 01/22/21 19:49 Lorazepam (Ativan) 0.5 mg TID PO 01/15/21 09:00 01/17/21 17:30 DC 01/17/21 10:25 Melatonin (Melatonin) 3 mg HS PO 01/15/21 21:00 01/22/21 19:48 Paroxetine HCl (Paxil) 40 mg DAILY PO 01/15/21 09:00 01/19/21 17:15 DC 01/19/21 08:40 Hydroxyzine HCl (Atarax) 25 mg PRN Q6HRS PRN PO ANXIETY, 2ND CHOICE 01/15/21 16:45 Acetaminophen (Tylenol) 650 mg PRN Q6HRS PRN PO PAIN 01/15/21 19:00 UNV Acetaminophen (Tylenol) 500 mg TID PO 01/15/21 21:00 01/22/21 19:49 Atorvastatin Calcium (Lipitor) 10 mg QHS PO 01/15/21 21:00 01/22/21 19:48 Budesonide (Entocort) 6 mg DAILY PO 01/16/21 09:00 01/22/21 07:50 Calcium Polycarbophil (Fibercon) 1,250 mg BID PO 01/15/21 21:00 01/22/21 19:49 Lidocaine (Lidoderm) 1 patch DAILY TD 01/16/21 09:00 01/22/21 07:52 Mirabegron (Myrbetriq) 25 mg DAILY PO 01/16/21 09:00 01/22/21 07:51 Pantoprazole Sodium (Protonix) 40 mg DAILY PO 01/16/21 09:00 01/22/21 07:50 Phenazopyridine HCl (Pyridium) 100 mg PRN Q24HRS PRN PO URINARY PAIN 01/15/21 19:00 Lactobacillus Rhamnosus (Culturelle) 1 cap BID PO 01/15/21 09:00 01/22/21 19:48 Losartan Potassium (Cozaar) 100 mg HS PO 01/15/21 21:00 01/22/21 19:50 Miscellaneous (Lidoderm Patch Removal) 1 ea QHS MC 01/15/21 21:00 01/19/21 20:01 Memantine (Namenda) 5 mg BID PO 01/16/21 21:00 01/22/21 22:50 01/22/21 19:49 Memantine (Namenda) 10 mg BID PO 01/23/21 09:00 Vitamin D (Vitamin D3) 50,000 unit WEEKLY PO 01/16/21 17:30 01/16/21 19:31 Lorazepam (Ativan) 0.5 mg BID PO 01/17/21 21:00 01/19/21 23:50 DC 01/19/21 19:56 Lorazepam (Ativan) 0.5 mg DAILY PO 01/20/21 09:00 01/22/21 12:00 DC 01/22/21 07:50 Quetiapine Fumarate (SEROquel) 12.5 mg 0900,1700 PO 01/18/21 17:00 01/21/21 17:55 DC 01/21/21 17:33 Sertraline HCl (Zoloft) 50 mg DAILY PO 01/20/21 09:00 01/22/21 13:00 DC 01/22/21 07:51 Sertraline HCl (Zoloft) 75 mg DAILY PO 01/23/21 09:00 Mirtazapine (Remeron) 7.5 mg QHS PO 01/20/21 21:00 01/22/21 19:49 Quetiapine Fumarate (SEROquel) 12.5 mg 0900,1300,1700 PO 01/22/21 09:00 01/22/21 17:16 Current Medications Medications (Trade) Dose Ordered Sig/Hector Route PRN Reason Start Time Stop Time Status Last Admin Dose Admin Quetiapine Fumarate (SEROquel) 12.5 mg 0900,1300,1700 PO 01/22/21 09:00 01/22/21 17:16 I have reviewed the current psychotropics carefully including drug interactions. Risk benefit ratio favors no change other than as noted in my dictated progress note. Diagnosis: Problems: (1) Impulse control disorder, unspecified (2) Anxiety disorder, unspecified (3) Dementia, vascular, with depression (4) Dementia, vascular, with delusions (5) Dementia in Alzheimer's disease with depression (6) Dementia in Alzheimer's disease with delusions (7) Major neurocognitive disorder due to Alzheimer's disease (8) Major neurocognitive disorder (9) Dementia in Alzheimer's disease with early onset with behavioral disturbance LUCAS CODY MD Jan 22, 2021 22:27
[2021-01-23 05:52] VITALS: BP 138/81
[2021-01-23] MEDS: PANTOPRAZOLE 40 MG TABLET. PO SCH (07:49)
[2021-01-23] MEDS: CALCIUM POLYCARBOPHIL 625 MG TABLET PO SCH ×2 (07:49→20:39)
[2021-01-23] MEDS: MIRABEGRON 25 MG TAB.ER.24H PO SCH (07:49)
[2021-01-23] MEDS: ACETAMINOPHEN 500 MG TABLET PO SCH ×3 (07:49→20:39)
[2021-01-23] MEDS: BUDESONIDE 3 MG CAP.ER.24H. PO SCH (07:49)
[2021-01-23] MEDS: LACTOBACILLUS RHAMNOSUS GG 1 CAPSULE. PO SCH ×2 (07:49→20:39)
[2021-01-23] MEDS: QUEtiapine 25 MG TABLET. PO SCH ×3 (07:50→16:42)
[2021-01-23] MEDS: SERTRALINE 25 MG TABLET. PO SCH (07:53)
[2021-01-23] MEDS: MEMANTINE 10 MG TABLET. PO SCH ×2 (07:53→20:39)
[2021-01-23] MEDS: LIDOCAINE (700MG/PATCH) PATCH. TD SCH (07:54)
[2021-01-23] MEDS: CHOLECALCIFEROL (VITAMIN D3) 50,000 UNIT CAPSULE PO SCH (07:54)
--- NOTE | 2021-01-23 12:36 | TX PLAN ---
Interdisciplinary Tx Plan Admission Information Jan 14, 2021 at 22:35 Legal Status (on Admission): Voluntary DPOA/Guardian Name: Dimitri Lema (Dick) Contact Other Contact Name: ABISAI Lopez Other Contact Verified Code Status: DNR Allergies: Coded Allergies: sulfamethoxazole (Verified Allergy, Unknown, 12/14/19) prochlorperazine maleate (Verified Adverse Reaction, Unknown, Makes her twitch, 12/14/19) Diagnoses Primary Diagnosis: (1) Major neurocognitive disorder due to Alzheimer's disease (2) Dementia in Alzheimer's disease with delusions (3) Dementia in Alzheimer's disease with depression (4) Dementia, vascular, with delusions (5) Dementia, vascular, with depression (6) Anxiety disorder, unspecified (7) Impulse control disorder, unspecified Reasons for Admission: Aggressive, Agitated, Angry, Anxiety/Panic, Combative, Confusion/Disoriented, Poor impulse control Problem in Patient's Words: Per /DPOA, Praneeth, up until about two years ago, pt was fairly healthy and she developed Psoriasis and then had a fall and cracked her leg. This seemed to be the onset of her dementia. She has three main problems: her dementia, stomach pain, and back pain. At her facility, they started her on a lidocaine patch, and this seemed to help her with the pain. She sees Dr. Fierro for neurology, she has seen another doctor for urology, and when she was at home she had home health that set her up with a psychologist, Dr. Beasley. 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 Problems Active Problems: Confused, disoriented, agitated, crying, anxiety Inactive Problems: Aggression, Combative Pt Strengths/Limitations Ability for [place]: Poor Cognitive Functioning/Ability: Poor Communication Skills/Ability: Fair Financial Resources: Good Insight/Judgement: Poor Intellectual Ability: Fair Physical Health: Poor Social Skills: Good Stability in Family: Good Stability in School/Work: Good Verbal Skills: Fair Discharge Criteria Discharge Criteria: Adequate arrangements @DC, Verbal commit med comply, Improved behavior, Improved mood/thought Other Discharge Comments: None noted at this time. Preliminary Discharge Plan Preliminary DC Plan: Current Living Arrange. Special Precautions Special Precautions: Agitation/Assault Fall Risk: High Initial D/C Plan Pt Plan is to return to [facility] once stable. Identified Discharge Needs: None known at this time. Currently Utilized Resources Currently Utilized Resources/P: PCP-Dr. Amato /DPOA-Dimitri Kinsey" [facility], contact-ABISAI Lopez Community Resources: None at this time. Identified Problems/Hx/Goals Objectives/Short-Term Goals Short Term Goals: Control abnormal behavior, Dec. Aggression, Dec. Outbursts, Medication Stabilization, Monitor Med Effects, Promote Coping Skill Short Term Goals in Patient's: To feel less agitated and anxious. Help to control symptoms of anxiety and depression and for behaviors to improved. Interventions/Frequency Staff Interventions/Frequency&: Psychiatry to assess pt three times per week for medication management. Nursing to assess behaviors, monitor medications, and complete 15 minute checks daily. Social work to see pt at least two times weekly to aid in return to placement. Activities to encourage pt to participate in group activities daily. 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 Education: High School and three years college Community Follow-up PCP Community Provider/Family Inpu: /DPOA, Dimitri Kinsey", aware of pt hospitalization and is available for further information as needed. Treatment Plan Explained Patient/Health Education Teacher had this treatment plan explained to him/her as indicated by the signature below and has been given the opportunity to ask questions and make suggestions: Date: Patient/Health Education Teacher Signature: Status Update Update Pt was present for treatment team. Pt is eating about 50% of her food and feeding herself with utensils. She is getting an average of 5.5 hours of sleep per night. She takes her medications whole and is compliant. Pt is highly anxious and repeatedly asks where her dogs and is. She will become rude and sarcastic with staff. She propels herself in a wc but often wants someone to help her. She needs a lot of encouragement to do things for herself and will sometime play possum acting as if she cannot do something. Her behavior seems to be driven by anxiety or fear as if she will be left alone. Pt has a Puentes catheter placed that was recently changed. In the past week, pt has attended seven groups and has mostly been interactive. She has had some argumentative behaviors but is redirectable. Pt will return to [facility] once stable. JAYDEN FORREST Jan 23, 2021 12:35
[2021-01-23 15:56] VITALS: BP 136/80
[2021-01-23] MEDS: LORazepam 0.5 MG TABLET PO PRN (16:39)
[2021-01-23] MEDS: MELATONIN 3 MG TABLET PO SCH (20:39)
[2021-01-23] MEDS: MIRTAZAPINE 7.5 MG TABLET. PO SCH (20:39)
[2021-01-23] MEDS: ATORVASTATIN CALCIUM 10 MG TABLET. PO SCH (20:39)
[2021-01-23] MEDS: DONEPEZIL HCL 10 MG TABLET PO SCH (20:40)
[2021-01-23] MEDS: LOSARTAN 50 MG TABLET. PO SCH (20:40)
[2021-01-23] MEDS: PATCH REMOVAL. MC SCH (20:40)
--- NOTE | 2021-01-23 22:05 | PDOC ---
Exam Note: Deon Note: Please also refer to the separate dictated note~for this date of service dictated separately.~Patient seen individually. Discussed the patient with Nursing staff reviewed the chart.~Reviewed interim history and current functioning. Reviewed vital signs,~Labs/ Radiology~and current medications noted below. Continue current treatment with the changes noted in the dictated addendum note Assessment: Vital Signs/I&O: Vital Signs Date Time Temp Pulse Resp B/P (MAP) Pulse Ox O2 Delivery O2 Flow Rate FiO2 01/23/21 20:40 89 136/80 01/23/21 15:56 98.4 16 98 01/19/21 16:12 Room Air I & O 01/22/21 01/22/21 01/23/21 15:00 23:00 07:00 Intake Total 480 ml 360 ml 360 ml Output Total 500 ml 300 ml Balance 480 ml -140 ml 60 ml Current Medications: Meds: Current Medications Medications (Trade) Dose Ordered Sig/Hector Route PRN Reason Start Time Stop Time Status Last Admin Dose Admin Sodium Chloride 1,000 ml @ 1,000 mls/hr 1X ONCE IV 01/14/21 19:00 01/14/21 19:59 DC 01/14/21 20:37 Acetaminophen (Tylenol) 650 mg PRN Q6HRS PRN PO MILD PAIN / TEMP > 100.3'F 01/14/21 23:15 01/19/21 06:32 Multi-Ingredient Ointment (Analgesic [place]) 1 wes PRN QID PRN TP MUSCLE PAIN 01/14/21 23:15 01/23/21 14:58 DC Al Hydroxide/Mg Hydroxide (Mylanta Plus Xs) 15 ml PRN AFTMEALHC PRN PO DYSPEPSIA 01/14/21 23:15 01/16/21 05:33 Magnesium Hydroxide (Milk Of Magnesia) 2,400 mg PRN QHS PRN PO CONSTIPATION 01/14/21 23:15 Donepezil HCl (Aricept) 10 mg HS PO 01/15/21 21:00 01/23/21 20:40 Lorazepam (Ativan) 0.5 mg PRN Q24HRS PRN PO ANXIETY, 1ST CHOICE 01/14/21 23:30 01/23/21 16:39 Lorazepam (Ativan) 0.5 mg TID PO 01/15/21 09:00 01/17/21 17:30 DC 01/17/21 10:25 Melatonin (Melatonin) 3 mg HS PO 01/15/21 21:00 01/23/21 20:39 Paroxetine HCl (Paxil) 40 mg DAILY PO 01/15/21 09:00 01/19/21 17:15 DC 01/19/21 08:40 Hydroxyzine HCl (Atarax) 25 mg PRN Q6HRS PRN PO ANXIETY, 2ND CHOICE 01/15/21 16:45 Acetaminophen (Tylenol) 650 mg PRN Q6HRS PRN PO PAIN 01/15/21 19:00 UNV Acetaminophen (Tylenol) 500 mg TID PO 01/15/21 21:00 01/23/21 20:39 Atorvastatin Calcium (Lipitor) 10 mg QHS PO 01/15/21 21:00 01/23/21 20:39 Budesonide (Entocort) 6 mg DAILY PO 01/16/21 09:00 01/23/21 07:49 Calcium Polycarbophil (Fibercon) 1,250 mg BID PO 01/15/21 21:00 01/23/21 20:39 Lidocaine (Lidoderm) 1 patch DAILY TD 01/16/21 09:00 01/23/21 07:54 Mirabegron (Myrbetriq) 25 mg DAILY PO 01/16/21 09:00 01/23/21 17:53 DC 01/23/21 07:49 Pantoprazole Sodium (Protonix) 40 mg DAILY PO 01/16/21 09:00 01/23/21 07:49 Phenazopyridine HCl (Pyridium) 100 mg PRN Q24HRS PRN PO URINARY PAIN 01/15/21 19:00 Lactobacillus Rhamnosus (Culturelle) 1 cap BID PO 01/15/21 09:00 01/23/21 20:39 Losartan Potassium (Cozaar) 100 mg HS PO 01/15/21 21:00 01/23/21 20:40 Miscellaneous (Lidoderm Patch Removal) 1 ea QHS MC 01/15/21 21:00 01/23/21 20:40 Memantine (Namenda) 5 mg BID PO 01/16/21 21:00 01/22/21 22:50 DC 01/22/21 19:49 Memantine (Namenda) 10 mg BID PO 01/23/21 09:00 01/23/21 20:39 Vitamin D (Vitamin D3) 50,000 unit WEEKLY PO 01/16/21 17:30 01/23/21 07:54 Lorazepam (Ativan) 0.5 mg BID PO 01/17/21 21:00 01/19/21 23:50 DC 01/19/21 19:56 Lorazepam (Ativan) 0.5 mg DAILY PO 01/20/21 09:00 01/22/21 12:00 DC 01/22/21 07:50 Quetiapine Fumarate (SEROquel) 12.5 mg 0900,1700 PO 01/18/21 17:00 01/21/21 17:55 DC 01/21/21 17:33 Sertraline HCl (Zoloft) 50 mg DAILY PO 01/20/21 09:00 01/22/21 13:00 DC 01/22/21 07:51 Sertraline HCl (Zoloft) 75 mg DAILY PO 01/23/21 09:00 01/23/21 07:53 Mirtazapine (Remeron) 7.5 mg QHS PO 01/20/21 21:00 01/23/21 20:39 Quetiapine Fumarate (SEROquel) 12.5 mg 0900,1300,1700 PO 01/22/21 09:00 01/23/21 16:42 Current Medications Medications (Trade) Dose Ordered Sig/Hector Route PRN Reason Start Time Stop Time Status Last Admin Dose Admin Memantine (Namenda) 10 mg BID PO 01/23/21 09:00 01/23/21 20:39 Sertraline HCl (Zoloft) 75 mg DAILY PO 01/23/21 09:00 01/23/21 07:53 I have reviewed the current psychotropics carefully including drug interactions. Risk benefit ratio favors no change other than as noted in my dictated progress note. Diagnosis: Problems: (1) Anxiety disorder, unspecified (2) Dementia, vascular, with depression (3) Dementia, vascular, with delusions (4) Dementia in Alzheimer's disease with depression (5) Dementia in Alzheimer's disease with delusions (6) Major neurocognitive disorder (7) Dementia in Alzheimer's disease with early onset with behavioral disturbance (8) Impulse control disorder, unspecified LUCAS CODY MD Jan 23, 2021 22:05
[2021-01-24 06:49] VITALS: BP 148/75
[2021-01-24] MEDS: CALCIUM POLYCARBOPHIL 625 MG TABLET PO SCH ×2 (08:47→20:49)
[2021-01-24] MEDS: SERTRALINE 25 MG TABLET. PO SCH (08:48)
[2021-01-24] MEDS: LACTOBACILLUS RHAMNOSUS GG 1 CAPSULE. PO SCH ×2 (08:49→20:49)
[2021-01-24] MEDS: PANTOPRAZOLE 40 MG TABLET. PO SCH (08:49)
[2021-01-24] MEDS: QUEtiapine 25 MG TABLET. PO SCH ×3 (08:49→16:35)
[2021-01-24] MEDS: BUDESONIDE 3 MG CAP.ER.24H. PO SCH (08:49)
[2021-01-24] MEDS: ACETAMINOPHEN 500 MG TABLET PO SCH ×3 (08:49→20:50)
[2021-01-24] MEDS: MEMANTINE 10 MG TABLET. PO SCH ×2 (08:49→20:50)
[2021-01-24] MEDS: LIDOCAINE (700MG/PATCH) PATCH. TD SCH (08:50)
--- NOTE | 2021-01-24 08:50 | PDOC ---
Exam Note: Deon Note: This note is a late entry for 01/22/2021 covers elements not covered in my initial note. Subjective: The patient was seen individually in the evening of 01/22/2021 with Karlene MERCER, discussed and reviewed the chart. The patient slept 6-3/4 hours previous night[place] [address]. We will defer to Dr. Ambriz/Dr. Soliman. The patient has been anxious, restless, tearful, paranoid with significant short- term memory deficits asking if her still loves her and where is he, remains quite confused. Review of Systems: No CV, , pulmonary, eye, ENT system symptoms on review. Ambulation impaired. She complains of some stomach cramps. Reliability poor. Mental Status Exam: The patient is oriented to herself. She is quite tearful, anxious, restless, repetitive asking about her and her 2 dogs Kerri and Sadia and when I would mention that her is taking care of the dogs at home she appeared relieved. Insight and judgment, recent and remote memory, attention and concentration, fund of knowledge is poor consistent with her diagnoses. No suicidal or homicidal ideation. Laboratory Data: Reviewed. Impression: Major neurocognitive disorder Alzheimer, vascular with delusion, depression, behavioral disturbance. Anxiety disorder unspecified. Impulse control disorder unspecified. Plan: Continue current psychotropics mentioned in my initial note. Make further adjustments as clinically indicated. Assessment: Vital Signs/I&O: Vital Signs Date Time Temp Pulse Resp B/P (MAP) Pulse Ox O2 Delivery O2 Flow Rate FiO2 01/24/21 06:49 97.9 82 18 148/75 (99) 97 Room Air I & O 01/23/21 01/23/21 01/24/21 15:00 23:00 07:00 Intake Total 600 ml 720 ml Output Total 500 ml Balance 600 ml 720 ml -500 ml Current Medications: Meds: Current Medications Medications (Trade) Dose Ordered Sig/Hector Route PRN Reason Start Time Stop Time Status Last Admin Dose Admin Sodium Chloride 1,000 ml @ 1,000 mls/hr 1X ONCE IV 01/14/21 19:00 01/14/21 19:59 DC 01/14/21 20:37 Acetaminophen (Tylenol) 650 mg PRN Q6HRS PRN PO MILD PAIN / TEMP > 100.3'F 01/14/21 23:15 7/18/21 06:32 Multi-Ingredient Ointment (Analgesic [place]) 1 wes PRN QID PRN TP MUSCLE PAIN 01/14/21 23:15 01/23/21 14:58 DC Al Hydroxide/Mg Hydroxide (Mylanta Plus Xs) 15 ml PRN AFTMEALHC PRN PO DYSPEPSIA 01/14/21 23:15 01/16/21 05:33 Magnesium Hydroxide (Milk Of Magnesia) 2,400 mg PRN QHS PRN PO CONSTIPATION 01/14/21 23:15 Donepezil HCl (Aricept) 10 mg HS PO 01/15/21 21:00 01/23/21 20:40 Lorazepam (Ativan) 0.5 mg PRN Q24HRS PRN PO ANXIETY, 1ST CHOICE 01/14/21 23:30 01/23/21 16:39 Lorazepam (Ativan) 0.5 mg TID PO 01/15/21 09:00 01/17/21 17:30 DC 01/17/21 10:25 Melatonin (Melatonin) 3 mg HS PO 01/15/21 21:00 01/23/21 20:39 Paroxetine HCl (Paxil) 40 mg DAILY PO 01/15/21 09:00 01/19/21 17:15 DC 01/19/21 08:40 Hydroxyzine HCl (Atarax) 25 mg PRN Q6HRS PRN PO ANXIETY, 2ND CHOICE 01/15/21 16:45 Acetaminophen (Tylenol) 650 mg PRN Q6HRS PRN PO PAIN 01/15/21 19:00 UNV Acetaminophen (Tylenol) 500 mg TID PO 01/15/21 21:00 01/23/21 20:39 Atorvastatin Calcium (Lipitor) 10 mg QHS PO 01/15/21 21:00 01/23/21 20:39 Budesonide (Entocort) 6 mg DAILY PO 01/16/21 09:00 01/23/21 07:49 Calcium Polycarbophil (Fibercon) 1,250 mg BID PO 01/15/21 21:00 01/23/21 20:39 Lidocaine (Lidoderm) 1 patch DAILY TD 01/16/21 09:00 01/23/21 07:54 Mirabegron (Myrbetriq) 25 mg DAILY PO 01/16/21 09:00 7/22/21 17:53 DC 01/23/21 07:49 Pantoprazole Sodium (Protonix) 40 mg DAILY PO 01/16/21 09:00 01/23/21 07:49 Phenazopyridine HCl (Pyridium) 100 mg PRN Q24HRS PRN PO URINARY PAIN 01/15/21 19:00 Lactobacillus Rhamnosus (Culturelle) 1 cap BID PO 01/15/21 09:00 01/23/21 20:39 Losartan Potassium (Cozaar) 100 mg HS PO 01/15/21 21:00 01/23/21 20:40 Miscellaneous (Lidoderm Patch Removal) 1 ea QHS MC 01/15/21 21:00 01/23/21 20:40 Memantine (Namenda) 5 mg BID PO 01/16/21 21:00 01/22/21 22:50 DC 01/22/21 19:49 Memantine (Namenda) 10 mg BID PO 01/23/21 09:00 01/23/21 20:39 Vitamin D (Vitamin D3) 50,000 unit WEEKLY PO 01/16/21 17:30 01/23/21 07:54 Lorazepam (Ativan) 0.5 mg BID PO 01/17/21 21:00 01/19/21 23:50 DC 01/19/21 19:56 Lorazepam (Ativan) 0.5 mg DAILY PO 01/20/21 09:00 01/22/21 12:00 DC 01/22/21 07:50 Quetiapine Fumarate (SEROquel) 12.5 mg 0900,1700 PO 01/18/21 17:00 01/21/21 17:55 DC 01/21/21 17:33 Sertraline HCl (Zoloft) 50 mg DAILY PO 01/20/21 09:00 01/22/21 13:00 DC 01/22/21 07:51 Sertraline HCl (Zoloft) 75 mg DAILY PO 01/23/21 09:00 01/23/21 07:53 Mirtazapine (Remeron) 7.5 mg QHS PO 01/20/21 21:00 01/23/21 20:39 Quetiapine Fumarate (SEROquel) 12.5 mg 0900,1300,1700 PO 01/22/21 09:00 01/23/21 16:42 Current Medications Medications (Trade) Dose Ordered Sig/Hector Route PRN Reason Start Time Stop Time Status Last Admin Dose Admin Memantine (Namenda) 10 mg BID PO 01/23/21 09:00 01/23/21 20:39 Sertraline HCl (Zoloft) 75 mg DAILY PO 01/23/21 09:00 01/23/21 07:53 I have reviewed the current psychotropics carefully including drug interactions. Risk benefit ratio favors no change other than as noted in my dictated progress note. Diagnosis: Problems: (1) Dementia, vascular, with depression (2) Anxiety disorder, unspecified (3) Impulse control disorder, unspecified (4) Dementia, vascular, with delusions (5) Dementia in Alzheimer's disease with depression (6) Dementia in Alzheimer's disease with delusions (7) Major neurocognitive disorder (8) Dementia in Alzheimer's disease with early onset with behavioral disturbance LUCAS CODY MD Jan 24, 2021 08:50
--- NOTE | 2021-01-24 09:23 | PDOC ---
Exam Note: Deon Note: This note is a late entry for 01/23/2021 covers elements not covered in my initial note. Subjective: The patient was seen individually in the morning of 01/23/2021 for a treatment team meeting with Luz Tracy, Pat Bocanegra (public health social worker), Silva, activity therapy and Karlene MERCER, discussed and reviewed the chart. The patient slept 6-1/4 hours previous night. The patients Praneeth attended the meeting. We discussed the patients diagnoses, progress. We will have a physical therapy consult to assist her to walk. She has been trying to stand up in groups as may be a fall risk. She has also had increased bowel movements at home with incontinence which is improved here. She takes medications whole. felt she was sedated but we discussed since she is on Seroquel, it is being adjusted the sedation should stabilize. Review of Systems: No CV, , pulmonary, eye, ENT system symptoms on review. Ambulation impaired in wheelchair. Mental Status Exam: The patient is oriented to herself. She is quite tearful, anxious, labile, confused, repeatedly asking me the same questions multiple times and then calling me after I had finished rounds with her to come back and ask the same questions. Insight and judgment, recent and remote memory, attention and concentration, fund of knowledge is poor consistent with her diagnoses. Laboratory Data: Reviewed. Impression: Major neurocognitive disorder Alzheimer, vascular with delusion, depression, behavioral disturbance. Anxiety disorder unspecified. Impulse control disorder unspecified. Plan: Continue current psychotropics mentioned in my initial note. Make further adjustments as clinically indicated. Assessment: Vital Signs/I&O: Vital Signs Date Time Temp Pulse Resp B/P (MAP) Pulse Ox O2 Delivery O2 Flow Rate FiO2 01/24/21 06:49 97.9 82 18 148/75 (99) 97 Room Air I & O 01/23/21 01/23/21 01/24/21 15:00 23:00 07:00 Intake Total 600 ml 720 ml Output Total 500 ml Balance 600 ml 720 ml -500 ml Current Medications: Meds: Current Medications Medications (Trade) Dose Ordered Sig/Hector Route PRN Reason Start Time Stop Time Status Last Admin Dose Admin Sodium Chloride 1,000 ml @ 1,000 mls/hr 1X ONCE IV 01/14/21 19:00 01/14/21 19:59 DC 01/14/21 20:37 Acetaminophen (Tylenol) 650 mg PRN Q6HRS PRN PO MILD PAIN / TEMP > 100.3'F 01/14/21 23:15 01/19/21 06:32 Multi-Ingredient Ointment (Analgesic [place]) 1 wes PRN QID PRN TP MUSCLE PAIN 01/14/21 23:15 01/23/21 14:58 DC Al Hydroxide/Mg Hydroxide (Mylanta Plus Xs) 15 ml PRN AFTMEALHC PRN PO DYSPEPSIA 01/14/21 23:15 01/16/21 05:33 Magnesium Hydroxide (Milk Of Magnesia) 2,400 mg PRN QHS PRN PO CONSTIPATION 01/14/21 23:15 Donepezil HCl (Aricept) 10 mg HS PO 01/15/21 21:00 01/23/21 20:40 Lorazepam (Ativan) 0.5 mg PRN Q24HRS PRN PO ANXIETY, 1ST CHOICE 01/14/21 23:30 01/23/21 16:39 Lorazepam (Ativan) 0.5 mg TID PO 01/15/21 09:00 01/17/21 17:30 DC 01/17/21 10:25 Melatonin (Melatonin) 3 mg HS PO 01/15/21 21:00 01/23/21 20:39 Paroxetine HCl (Paxil) 40 mg DAILY PO 01/15/21 09:00 01/19/21 17:15 DC 01/19/21 08:40 Hydroxyzine HCl (Atarax) 25 mg PRN Q6HRS PRN PO ANXIETY, 2ND CHOICE 01/15/21 16:45 Acetaminophen (Tylenol) 650 mg PRN Q6HRS PRN PO PAIN 01/15/21 19:00 UNV Acetaminophen (Tylenol) 500 mg TID PO 01/15/21 21:00 01/24/21 08:49 Atorvastatin Calcium (Lipitor) 10 mg QHS PO 01/15/21 21:00 01/23/21 20:39 Budesonide (Entocort) 6 mg DAILY PO 01/16/21 09:00 01/24/21 08:49 Calcium Polycarbophil (Fibercon) 1,250 mg BID PO 01/15/21 21:00 01/24/21 08:47 Lidocaine (Lidoderm) 1 patch DAILY TD 01/16/21 09:00 01/24/21 08:50 Mirabegron (Myrbetriq) 25 mg DAILY PO 01/16/21 09:00 01/23/21 17:53 DC 01/23/21 07:49 Pantoprazole Sodium (Protonix) 40 mg DAILY PO 01/16/21 09:00 01/24/21 08:49 Phenazopyridine HCl (Pyridium) 100 mg PRN Q24HRS PRN PO URINARY PAIN 01/15/21 19:00 Lactobacillus Rhamnosus (Culturelle) 1 cap BID PO 01/15/21 09:00 01/24/21 08:49 Losartan Potassium (Cozaar) 100 mg HS PO 01/15/21 21:00 01/23/21 20:40 Miscellaneous (Lidoderm Patch Removal) 1 ea QHS MC 01/15/21 21:00 01/23/21 20:40 Memantine (Namenda) 5 mg BID PO 01/16/21 21:00 01/22/21 22:50 DC 01/22/21 19:49 Memantine (Namenda) 10 mg BID PO 01/23/21 09:00 01/24/21 08:49 Vitamin D (Vitamin D3) 50,000 unit WEEKLY PO 01/16/21 17:30 01/23/21 07:54 Lorazepam (Ativan) 0.5 mg BID PO 01/17/21 21:00 01/19/21 23:50 DC 01/19/21 19:56 Lorazepam (Ativan) 0.5 mg DAILY PO 01/20/21 09:00 01/22/21 12:00 DC 01/22/21 07:50 Quetiapine Fumarate (SEROquel) 12.5 mg 0900,1700 PO 01/18/21 17:00 01/21/21 17:55 DC 01/21/21 17:33 Sertraline HCl (Zoloft) 50 mg DAILY PO 01/20/21 09:00 01/22/21 13:00 DC 01/22/21 07:51 Sertraline HCl (Zoloft) 75 mg DAILY PO 01/23/21 09:00 01/24/21 08:48 Mirtazapine (Remeron) 7.5 mg QHS PO 01/20/21 21:00 01/23/21 20:39 Quetiapine Fumarate (SEROquel) 12.5 mg 0900,1300,1700 PO 01/22/21 09:00 01/24/21 08:49 I have reviewed the current psychotropics carefully including drug interactions. Risk benefit ratio favors no change other than as noted in my dictated progress note. Diagnosis: Problems: (1) Anxiety disorder, unspecified (2) Impulse control disorder, unspecified (3) Dementia, vascular, with depression (4) Dementia, vascular, with delusions (5) Dementia in Alzheimer's disease with delusions (6) Dementia in Alzheimer's disease with depression (7) Major neurocognitive disorder (8) Dementia in Alzheimer's disease with early onset with behavioral disturbance LUCAS CODY MD Jan 24, 2021 09:23
[2021-01-24 16:06] VITALS: BP 110/73
[2021-01-24] MEDS: MELATONIN 3 MG TABLET PO SCH (20:49)
[2021-01-24] MEDS: ATORVASTATIN CALCIUM 10 MG TABLET. PO SCH (20:49)
[2021-01-24] MEDS: DONEPEZIL HCL 10 MG TABLET PO SCH (20:50)
[2021-01-24] MEDS: PATCH REMOVAL. MC SCH (20:50)
[2021-01-24] MEDS: LOSARTAN 50 MG TABLET. PO SCH (20:50)
[2021-01-24] MEDS: MIRTAZAPINE 7.5 MG TABLET. PO SCH (20:50)
--- NOTE | 2021-01-24 22:11 | PDOC ---
Exam Note: Deon Note: Please also refer to the separate dictated note~for this date of service dictated separately.~Patient seen individually. Discussed the patient with Nursing staff reviewed the chart.~Reviewed interim history and current functioning. Reviewed vital signs,~Labs/ Radiology~and current medications noted below. Continue current treatment with the changes noted in the dictated addendum note Assessment: Vital Signs/I&O: Vital Signs Date Time Temp Pulse Resp B/P (MAP) Pulse Ox O2 Delivery O2 Flow Rate FiO2 01/24/21 20:50 97 110/73 01/24/21 16:06 97.3 18 97 01/24/21 06:49 Room Air I & O 01/23/21 01/23/21 01/24/21 15:00 23:00 07:00 Intake Total 600 ml 720 ml Output Total 500 ml Balance 600 ml 720 ml -500 ml Current Medications: Meds: Current Medications Medications (Trade) Dose Ordered Sig/Hector Route PRN Reason Start Time Stop Time Status Last Admin Dose Admin Sodium Chloride 1,000 ml @ 1,000 mls/hr 1X ONCE IV 01/14/21 19:00 01/14/21 19:59 DC 01/14/21 20:37 Acetaminophen (Tylenol) 650 mg PRN Q6HRS PRN PO MILD PAIN / TEMP > 100.3'F 01/14/21 23:15 01/19/21 06:32 Multi-Ingredient Ointment (Analgesic [place]) 1 wes PRN QID PRN TP MUSCLE PAIN 01/14/21 23:15 01/23/21 14:58 DC Al Hydroxide/Mg Hydroxide (Mylanta Plus Xs) 15 ml PRN AFTMEALHC PRN PO DYSPEPSIA 01/14/21 23:15 01/16/21 05:33 Magnesium Hydroxide (Milk Of Magnesia) 2,400 mg PRN QHS PRN PO CONSTIPATION 01/14/21 23:15 Donepezil HCl (Aricept) 10 mg HS PO 01/15/21 21:00 01/24/21 20:50 Lorazepam (Ativan) 0.5 mg PRN Q24HRS PRN PO ANXIETY, 1ST CHOICE 01/14/21 23:30 01/23/21 16:39 Lorazepam (Ativan) 0.5 mg TID PO 01/15/21 09:00 01/17/21 17:30 DC 01/17/21 10:25 Melatonin (Melatonin) 3 mg HS PO 01/15/21 21:00 01/24/21 20:49 Paroxetine HCl (Paxil) 40 mg DAILY PO 01/15/21 09:00 01/19/21 17:15 DC 01/19/21 08:40 Hydroxyzine HCl (Atarax) 25 mg PRN Q6HRS PRN PO ANXIETY, 2ND CHOICE 01/15/21 16:45 Acetaminophen (Tylenol) 650 mg PRN Q6HRS PRN PO PAIN 01/15/21 19:00 UNV Acetaminophen (Tylenol) 500 mg TID PO 01/15/21 21:00 01/24/21 20:50 Atorvastatin Calcium (Lipitor) 10 mg QHS PO 01/15/21 21:00 01/24/21 20:49 Budesonide (Entocort) 6 mg DAILY PO 01/16/21 09:00 01/24/21 08:49 Calcium Polycarbophil (Fibercon) 1,250 mg BID PO 01/15/21 21:00 01/24/21 20:49 Lidocaine (Lidoderm) 1 patch DAILY TD 01/16/21 09:00 01/24/21 08:50 Mirabegron (Myrbetriq) 25 mg DAILY PO 01/16/21 09:00 01/23/21 17:53 DC 01/23/21 07:49 Pantoprazole Sodium (Protonix) 40 mg DAILY PO 01/16/21 09:00 01/24/21 08:49 Phenazopyridine HCl (Pyridium) 100 mg PRN Q24HRS PRN PO URINARY PAIN 01/15/21 19:00 Lactobacillus Rhamnosus (Culturelle) 1 cap BID PO 01/15/21 09:00 01/24/21 20:49 Losartan Potassium (Cozaar) 100 mg HS PO 01/15/21 21:00 01/24/21 20:50 Miscellaneous (Lidoderm Patch Removal) 1 ea QHS MC 01/15/21 21:00 01/24/21 20:50 Memantine (Namenda) 5 mg BID PO 01/16/21 21:00 01/22/21 22:50 DC 01/22/21 19:49 Memantine (Namenda) 10 mg BID PO 01/23/21 09:00 01/24/21 20:50 Vitamin D (Vitamin D3) 50,000 unit WEEKLY PO 01/16/21 17:30 01/23/21 07:54 Lorazepam (Ativan) 0.5 mg BID PO 01/17/21 21:00 01/19/21 23:50 DC 01/19/21 19:56 Lorazepam (Ativan) 0.5 mg DAILY PO 01/20/21 09:00 01/22/21 12:00 DC 01/22/21 07:50 Quetiapine Fumarate (SEROquel) 12.5 mg 0900,1700 PO 01/18/21 17:00 01/21/21 17:55 DC 01/21/21 17:33 Sertraline HCl (Zoloft) 50 mg DAILY PO 01/20/21 09:00 01/22/21 13:00 DC 01/22/21 07:51 Sertraline HCl (Zoloft) 75 mg DAILY PO 01/23/21 09:00 01/24/21 17:53 DC 01/24/21 08:48 Mirtazapine (Remeron) 7.5 mg QHS PO 01/20/21 21:00 01/24/21 20:50 Quetiapine Fumarate (SEROquel) 12.5 mg 0900,1300,1700 PO 01/22/21 09:00 01/24/21 16:35 Sertraline HCl (Zoloft) 100 mg DAILY PO 01/25/21 09:00 I have reviewed the current psychotropics carefully including drug interactions. Risk benefit ratio favors no change other than as noted in my dictated progress note. Diagnosis: Problems: (1) Anxiety disorder, unspecified (2) Impulse control disorder, unspecified (3) Dementia, vascular, with depression (4) Dementia in Alzheimer's disease with delusions (5) Dementia in Alzheimer's disease with depression (6) Dementia, vascular, with delusions (7) Major neurocognitive disorder (8) Dementia in Alzheimer's disease with early onset with behavioral disturbance LUCAS CODY MD Jan 24, 2021 22:11
[2021-01-25 05:30] VITALS: BP 127/73
[2021-01-25] MEDS: LIDOCAINE (700MG/PATCH) PATCH. TD SCH (08:18)
[2021-01-25] MEDS: ACETAMINOPHEN 500 MG TABLET PO SCH ×3 (08:19→20:11)
[2021-01-25] MEDS: QUEtiapine 25 MG TABLET. PO SCH ×3 (08:19→20:10)
[2021-01-25] MEDS: LORazepam 0.5 MG TABLET PO PRN (08:19)
[2021-01-25] MEDS: SERTRALINE 100 MG TABLET. PO SCH (08:19)
[2021-01-25] MEDS: MEMANTINE 10 MG TABLET. PO SCH ×2 (08:20→20:09)
[2021-01-25] MEDS: CALCIUM POLYCARBOPHIL 625 MG TABLET PO SCH ×2 (08:20→20:09)
[2021-01-25] MEDS: PANTOPRAZOLE 40 MG TABLET. PO SCH (08:20)
[2021-01-25] MEDS: BUDESONIDE 3 MG CAP.ER.24H. PO SCH (08:20)
[2021-01-25] MEDS: LACTOBACILLUS RHAMNOSUS GG 1 CAPSULE. PO SCH ×2 (08:20→20:11)
[2021-01-25 15:54] VITALS: BP 114/73
[2021-01-25] MEDS: LOSARTAN 50 MG TABLET. PO SCH (20:09)
[2021-01-25] MEDS: DONEPEZIL HCL 10 MG TABLET PO SCH (20:10)
[2021-01-25] MEDS: MIRTAZAPINE 7.5 MG TABLET. PO SCH (20:10)
[2021-01-25] MEDS: MELATONIN 3 MG TABLET PO SCH (20:11)
[2021-01-25] MEDS: PATCH REMOVAL. MC SCH (20:11)
[2021-01-25] MEDS: ATORVASTATIN CALCIUM 10 MG TABLET. PO SCH (20:11)
--- NOTE | 2021-01-25 22:05 | PDOC ---
Exam Note: Deon Note: Please also refer to the separate dictated note~for this date of service dictated separately.~Patient seen individually. Discussed the patient with Nursing staff reviewed the chart.~Reviewed interim history and current functioning. Reviewed vital signs,~Labs/ Radiology~and current medications noted below. Continue current treatment with the changes noted in the dictated addendum note Assessment: Vital Signs/I&O: Vital Signs Date Time Temp Pulse Resp B/P (MAP) Pulse Ox O2 Delivery O2 Flow Rate FiO2 01/25/21 20:09 95 114/73 01/25/21 15:54 97.6 16 95 01/24/21 06:49 Room Air I & O 01/24/21 01/24/21 01/25/21 15:00 23:00 07:00 Intake Total 600 ml 360 ml Output Total 550 ml Balance 600 ml -190 ml Current Medications: Meds: Current Medications Medications (Trade) Dose Ordered Sig/Hector Route PRN Reason Start Time Stop Time Status Last Admin Dose Admin Sodium Chloride 1,000 ml @ 1,000 mls/hr 1X ONCE IV 01/14/21 19:00 01/14/21 19:59 DC 01/14/21 20:37 Acetaminophen (Tylenol) 650 mg PRN Q6HRS PRN PO MILD PAIN / TEMP > 100.3'F 01/14/21 23:15 01/19/21 06:32 Multi-Ingredient Ointment (Analgesic [place]) 1 wes PRN QID PRN TP MUSCLE PAIN 01/14/21 23:15 01/23/21 14:58 DC Al Hydroxide/Mg Hydroxide (Mylanta Plus Xs) 15 ml PRN AFTMEALHC PRN PO DYSPEPSIA 01/14/21 23:15 01/16/21 05:33 Magnesium Hydroxide (Milk Of Magnesia) 2,400 mg PRN QHS PRN PO CONSTIPATION 01/14/21 23:15 Donepezil HCl (Aricept) 10 mg HS PO 01/15/21 21:00 01/25/21 20:10 Lorazepam (Ativan) 0.5 mg PRN Q24HRS PRN PO ANXIETY, 1ST CHOICE 01/14/21 23:30 01/25/21 08:19 Lorazepam (Ativan) 0.5 mg TID PO 01/15/21 09:00 01/17/21 17:30 DC 01/17/21 10:25 Melatonin (Melatonin) 3 mg HS PO 01/15/21 21:00 01/25/21 20:11 Paroxetine HCl (Paxil) 40 mg DAILY PO 01/15/21 09:00 01/19/21 17:15 DC 01/19/21 08:40 Hydroxyzine HCl (Atarax) 25 mg PRN Q6HRS PRN PO ANXIETY, 2ND CHOICE 01/15/21 16:45 Acetaminophen (Tylenol) 650 mg PRN Q6HRS PRN PO PAIN 01/15/21 19:00 UNV Acetaminophen (Tylenol) 500 mg TID PO 01/15/21 21:00 01/25/21 20:11 Atorvastatin Calcium (Lipitor) 10 mg QHS PO 01/15/21 21:00 01/25/21 20:11 Budesonide (Entocort) 6 mg DAILY PO 01/16/21 09:00 01/25/21 08:20 Calcium Polycarbophil (Fibercon) 1,250 mg BID PO 01/15/21 21:00 01/25/21 20:09 Lidocaine (Lidoderm) 1 patch DAILY TD 01/16/21 09:00 01/25/21 08:18 Mirabegron (Myrbetriq) 25 mg DAILY PO 01/16/21 09:00 01/23/21 17:53 DC 01/23/21 07:49 Pantoprazole Sodium (Protonix) 40 mg DAILY PO 01/16/21 09:00 01/25/21 08:20 Phenazopyridine HCl (Pyridium) 100 mg PRN Q24HRS PRN PO URINARY PAIN 01/15/21 19:00 Lactobacillus Rhamnosus (Culturelle) 1 cap BID PO 01/15/21 09:00 01/25/21 20:11 Losartan Potassium (Cozaar) 100 mg HS PO 01/15/21 21:00 01/25/21 20:09 Miscellaneous (Lidoderm Patch Removal) 1 ea QHS MC 01/15/21 21:00 01/25/21 20:11 Memantine (Namenda) 5 mg BID PO 01/16/21 21:00 01/22/21 22:50 DC 01/22/21 19:49 Memantine (Namenda) 10 mg BID PO 01/23/21 09:00 01/25/21 20:09 Vitamin D (Vitamin D3) 50,000 unit WEEKLY PO 01/16/21 17:30 01/23/21 07:54 Lorazepam (Ativan) 0.5 mg BID PO 01/17/21 21:00 01/19/21 23:50 DC 01/19/21 19:56 Lorazepam (Ativan) 0.5 mg DAILY PO 01/20/21 09:00 01/22/21 12:00 DC 01/22/21 07:50 Quetiapine Fumarate (SEROquel) 12.5 mg 0900,1700 PO 01/18/21 17:00 01/21/21 17:55 DC 01/21/21 17:33 Sertraline HCl (Zoloft) 50 mg DAILY PO 01/20/21 09:00 01/22/21 13:00 DC 01/22/21 07:51 Sertraline HCl (Zoloft) 75 mg DAILY PO 01/23/21 09:00 01/24/21 17:53 DC 01/24/21 08:48 Mirtazapine (Remeron) 7.5 mg QHS PO 01/20/21 21:00 01/25/21 20:10 Quetiapine Fumarate (SEROquel) 12.5 mg 0900,1300,1700 PO 01/22/21 09:00 01/25/21 16:00 DC 01/25/21 12:54 Sertraline HCl (Zoloft) 100 mg DAILY PO 01/25/21 09:00 01/25/21 08:19 Quetiapine Fumarate (SEROquel) 12.5 mg 0900,1300,1700,2100 PO 01/25/21 21:00 01/25/21 20:10 Current Medications Medications (Trade) Dose Ordered Sig/Hector Route PRN Reason Start Time Stop Time Status Last Admin Dose Admin Sertraline HCl (Zoloft) 100 mg DAILY PO 01/25/21 09:00 01/25/21 08:19 Quetiapine Fumarate (SEROquel) 12.5 mg 0900,1300,1700,2100 PO 01/25/21 21:00 01/25/21 20:10 I have reviewed the current psychotropics carefully including drug interactions. Risk benefit ratio favors no change other than as noted in my dictated progress note. Diagnosis: Problems: (1) Impulse control disorder, unspecified (2) Anxiety disorder, unspecified (3) Dementia, vascular, with depression (4) Dementia, vascular, with delusions (5) Dementia in Alzheimer's disease with depression (6) Dementia in Alzheimer's disease with delusions (7) Major neurocognitive disorder (8) Dementia in Alzheimer's disease with early onset with behavioral disturbance LUCAS CODY MD Jan 25, 2021 22:05
[2021-01-26 00:03] LABS: BILIRUBIN,URINE NEG (NEG); CLARITY,URINE HAZY; COLOR,URINE YELLOW; GLUCOSE,URINE NEG (NEG); NITRITE,URINE NEG (NEG); RBC,URINE OCC /HPF (0-2); UROBILINOGEN,URINE 0.2 mg/dL (0.2 mg/dL)
[2021-01-26 00:04] LABS: BACTERIA,URINE FEW /HPF (0-FEW); SQUAMOUS EPITHELIAL CELL,UR FEW /LPF; YEAST,URINE PRESENT /HPF
[2021-01-26] MEDS: SERTRALINE 100 MG TABLET. PO SCH (05:25)
[2021-01-26] MEDS: LIDOCAINE (700MG/PATCH) PATCH. TD SCH (05:25)
[2021-01-26] MEDS: CALCIUM POLYCARBOPHIL 625 MG TABLET PO SCH ×2 (05:26→19:23)
[2021-01-26] MEDS: PANTOPRAZOLE 40 MG TABLET. PO SCH (05:26)
[2021-01-26] MEDS: QUEtiapine 25 MG TABLET. PO SCH ×4 (05:26→19:25)
[2021-01-26] MEDS: BUDESONIDE 3 MG CAP.ER.24H. PO SCH (05:26)
[2021-01-26] MEDS: MEMANTINE 10 MG TABLET. PO SCH ×2 (05:26→19:24)
[2021-01-26] MEDS: LACTOBACILLUS RHAMNOSUS GG 1 CAPSULE. PO SCH ×2 (05:26→19:23)
[2021-01-26] MEDS: ACETAMINOPHEN 500 MG TABLET PO SCH ×3 (05:27→19:24)
[2021-01-26 06:27] VITALS: BP 143/80
--- NOTE | 2021-01-26 07:47 | PDOC ---
Exam Note: Deon Note: This note is a late entry for 01/24/2021 covers elements not covered in my initial note. Subjective: The patient was reviewed on telehealth rounds on 01/24/2021 due to the COVID-19 pandemic. There have been 3 patients on the unit that have turned up positive today, 01/24 and they are being transitioned to the [facility] floor per Dr. Soliman. There have also been 2 staff members that have turned up positive for COVID-19 and all the patients are going to be tested weekly for the COVID-19 along with every staff member going forward. I had not had the opportunity to be tested myself and will await completing this before considering [id number] rounds on the unit. Discussed with Rubia MERCER and reviewed the chart. The patient slept 7 hours previous night. The patient remains confused, crying. Review of Systems: No CV, , pulmonary, eye, ENT system symptoms on review. Ambulation impaired in wheelchair. Mental Status Exam: The patient is oriented to herself. She is tearful, confused. Insight and judgment, recent and remote memory, attention and co ncentration, fund of knowledge is poor consistent with her diagnoses. Laboratory Data: Reviewed. Impression: Major neurocognitive disorder Alzheimer, vascular with delusion, depression, behavioral disturbance. Anxiety disorder unspecified. Impulse co ntrol disorder unspecified. Plan: We will increase Zoloft to 100 mg a day for her mood and anxiety symptoms. Continue rest unchanged. Assessment: Vital Signs/I&O: Vital Signs Date Time Temp Pulse Resp B/P (MAP) Pulse Ox O2 Delivery O2 Flow Rate FiO2 01/26/21 06:27 98.0 90 18 143/80 (101) 97 01/24/21 06:49 Room Air I & O 01/25/21 01/25/21 01/26/21 15:00 23:00 07:00 Intake Total 600 ml 600 ml Output Total 850 ml Balance 600 ml -250 ml Labs: Laboratory Tests Test 01/25/21 23:00 Urine Collection Type U cath Urine Color Yellow Urine Clarity Hazy Urine pH 5.5 Urine Specific [place] 1.020 Urine Protein Neg (NEG-TRACE) Urine Glucose (UA) Neg mg/dL (NEG) Urine Ketones (Stick) Trace mg/dL (NEG) Urine Blood Neg (NEG) Urine Nitrite Neg (NEG) Urine Bilirubin Neg (NEG) Urine Urobilinogen Dipstick 0.2 mg/dL (0.2 mg/dL) Urine Leukocyte Esterase Small (NEG) Urine RBC Occ /HPF (0-2) Urine WBC 11-20 /HPF (0-4) Urine Squamous Epithelial Cells Few /LPF Urine Bacteria Few /HPF (0-FEW) Urine Mucus Slight /LPF Urine Yeast Present /HPF Current Medications: Meds: Laboratory Tests Test 01/25/21 23:00 Urine Collection Type U cath Urine Color Yellow Urine Clarity Hazy Urine pH 5.5 Urine Specific [place] 1.020 Urine Protein Neg Urine Glucose (UA) Neg mg/dL Urine Ketones (Stick) Trace mg/dL Urine Blood Neg Urine Nitrite Neg Urine Bilirubin Neg Urine Urobilinogen Dipstick 0.2 mg/dL Urine Leukocyte Esterase Small Urine RBC Occ /HPF Urine WBC 11-20 /HPF Urine Squamous Epithelial Cells Few /LPF Urine Bacteria Few /HPF Urine Mucus Slight /LPF Urine Yeast Present /HPF Current Medications Medications (Trade) Dose Ordered Sig/Hector Route PRN Reason Start Time Stop Time Status Last Admin Dose Admin Sodium Chloride 1,000 ml @ 1,000 mls/hr 1X ONCE IV 01/14/21 19:00 01/14/21 19:59 DC 01/14/21 20:37 Acetaminophen (Tylenol) 650 mg PRN Q6HRS PRN PO MILD PAIN / TEMP > 100.3'F 01/14/21 23:15 01/19/21 06:32 Multi-Ingredient Ointment (Analgesic [place]) 1 wes PRN QID PRN TP MUSCLE PAIN 01/14/21 23:15 01/23/21 14:58 DC Al Hydroxide/Mg Hydroxide (Mylanta Plus Xs) 15 ml PRN AFTMEALHC PRN PO DYSPEPSIA 01/14/21 23:15 01/16/21 05:33 Magnesium Hydroxide (Milk Of Magnesia) 2,400 mg PRN QHS PRN PO CONSTIPATION 01/14/21 23:15 Donepezil HCl (Aricept) 10 mg HS PO 01/15/21 21:00 01/25/21 20:10 Lorazepam (Ativan) 0.5 mg PRN Q24HRS PRN PO ANXIETY, 1ST CHOICE 01/14/21 23:30 01/25/21 08:19 Lorazepam (Ativan) 0.5 mg TID PO 01/15/21 09:00 01/17/21 17:30 DC 01/17/21 10:25 Melatonin (Melatonin) 3 mg HS PO 01/15/21 21:00 01/25/21 20:11 Paroxetine HCl (Paxil) 40 mg DAILY PO 01/15/21 09:00 01/19/21 17:15 DC 01/19/21 08:40 Hydroxyzine HCl (Atarax) 25 mg PRN Q6HRS PRN PO ANXIETY, 2ND CHOICE 01/15/21 16:45 Acetaminophen (Tylenol) 650 mg PRN Q6HRS PRN PO PAIN 01/15/21 19:00 UNV Acetaminophen (Tylenol) 500 mg TID PO 01/15/21 21:00 01/26/21 05:27 Atorvastatin Calcium (Lipitor) 10 mg QHS PO 01/15/21 21:00 01/25/21 20:11 Budesonide (Entocort) 6 mg DAILY PO 01/16/21 09:00 01/26/21 05:26 Calcium Polycarbophil (Fibercon) 1,250 mg BID PO 01/15/21 21:00 01/26/21 05:26 Lidocaine (Lidoderm) 1 patch DAILY TD 01/16/21 09:00 01/26/21 05:25 Mirabegron (Myrbetriq) 25 mg DAILY PO 01/16/21 09:00 01/23/21 17:53 DC 01/23/21 07:49 Pantoprazole Sodium (Protonix) 40 mg DAILY PO 01/16/21 09:00 01/26/21 05:26 Phenazopyridine HCl (Pyridium) 100 mg PRN Q24HRS PRN PO URINARY PAIN 01/15/21 19:00 Lactobacillus Rhamnosus (Culturelle) 1 cap BID PO 01/15/21 09:00 01/26/21 05:26 Losartan Potassium (Cozaar) 100 mg HS PO 01/15/21 21:00 01/25/21 20:09 Miscellaneous (Lidoderm Patch Removal) 1 ea QHS MC 01/15/21 21:00 01/25/21 20:11 Memantine (Namenda) 5 mg BID PO 01/16/21 21:00 01/22/21 22:50 DC 01/22/21 19:49 Memantine (Namenda) 10 mg BID PO 01/23/21 09:00 01/26/21 05:26 Vitamin D (Vitamin D3) 50,000 unit WEEKLY PO 01/16/21 17:30 01/23/21 07:54 Lorazepam (Ativan) 0.5 mg BID PO 01/17/21 21:00 01/19/21 23:50 DC 01/19/21 19:56 Lorazepam (Ativan) 0.5 mg DAILY PO 01/20/21 09:00 01/22/21 12:00 DC 01/22/21 07:50 Quetiapine Fumarate (SEROquel) 12.5 mg 0900,1700 PO 01/18/21 17:00 01/21/21 17:55 DC 01/21/21 17:33 Sertraline HCl (Zoloft) 50 mg DAILY PO 01/20/21 09:00 01/22/21 13:00 DC 01/22/21 07:51 Sertraline HCl (Zoloft) 75 mg DAILY PO 01/23/21 09:00 01/24/21 17:53 DC 01/24/21 08:48 Mirtazapine (Remeron) 7.5 mg QHS PO 01/20/21 21:00 01/25/21 20:10 Quetiapine Fumarate (SEROquel) 12.5 mg 0900,1300,1700 PO 01/22/21 09:00 01/25/21 16:00 DC 01/25/21 12:54 Sertraline HCl (Zoloft) 100 mg DAILY PO 01/25/21 09:00 01/26/21 05:25 Quetiapine Fumarate (SEROquel) 12.5 mg 0900,1300,1700,2100 PO 01/25/21 21:00 01/26/21 05:26 Current Medications Medications (Trade) Dose Ordered Sig/Hector Route PRN Reason Start Time Stop Time Status Last Admin Dose Admin Sertraline HCl (Zoloft) 100 mg DAILY PO 01/25/21 09:00 01/26/21 05:25 Quetiapine Fumarate (SEROquel) 12.5 mg 0900,1300,1700,2100 PO 01/25/21 21:00 7/25/21 05:26 I have reviewed the current psychotropics carefully including drug interactions. Risk benefit ratio favors no change other than as noted in my dictated progress note. Diagnosis: Problems: (1) Impulse control disorder, unspecified (2) Anxiety disorder, unspecified (3) Dementia, vascular, with depression (4) Dementia in Alzheimer's disease with depression (5) Dementia in Alzheimer's disease with delusions (6) Dementia, vascular, with delusions (7) Major neurocognitive disorder (8) Dementia in Alzheimer's disease with early onset with behavioral disturbance LUCAS CODY MD Jan 26, 2021 07:47
--- NOTE | 2021-01-26 08:52 | PDOC ---
Exam Note: Deon Note: This note is a late entry for 01/25/2021 covers elements not covered in my initial note. Subjective: The patient was reviewed on telehealth rounds on 01/25/2021 due to the COVID-19 pandemic. Discussed with Greg MERCER and reviewed the chart. The patient slept 6-3/4 hours previous night. She received p.r.n. in the morning for increased irritability and anxiety and then was somewhat paranoid telling nursing staff why do you hate me? and then stating this was her home and people should leave. Review of Systems: No CV, , pulmonary, eye, ENT system symptoms on review. Ambulation impaired in wheelchair. Mental Status Exam: The patient is oriented to herself. Insight and judgment, recent and remote memory, attention and concentration, fund of knowledge is poor consistent with her diagnoses. Laboratory Data: Reviewed. Impression: Major neurocognitive disorder Alzheimer, vascular with delusion, depression, behavioral disturbance. Anxiety disorder unspecified. Impulse control disorder unspecified. Plan: Given some of her mood lability and paranoia, we will increase Seroquel from 12.5 mg 3 times a day to 12.5 mg 4 times a day. Maintain rest of the psychotropics unchanged. Assessment: Vital Signs/I&O: Vital Signs Date Time Temp Pulse Resp B/P (MAP) Pulse Ox O2 Delivery O2 Flow Rate FiO2 01/26/21 06:27 98.0 90 18 143/80 (101) 97 01/24/21 06:49 Room Air I & O 01/25/21 01/25/21 01/26/21 15:00 23:00 07:00 Intake Total 600 ml 600 ml Output Total 850 ml Balance 600 ml -250 ml Labs: Laboratory Tests Test 01/25/21 23:00 Urine Collection Type U cath Urine Color Yellow Urine Clarity Hazy Urine pH 5.5 Urine Specific [place] 1.020 Urine Protein Neg (NEG-TRACE) Urine Glucose (UA) Neg mg/dL (NEG) Urine Ketones (Stick) Trace mg/dL (NEG) Urine Blood Neg (NEG) Urine Nitrite Neg (NEG) Urine Bilirubin Neg (NEG) Urine Urobilinogen Dipstick 0.2 mg/dL (0.2 mg/dL) Urine Leukocyte Esterase Small (NEG) Urine RBC Occ /HPF (0-2) Urine WBC 11-20 /HPF (0-4) Urine Squamous Epithelial Cells Few /LPF Urine Bacteria Few /HPF (0-FEW) Urine Mucus Slight /LPF Urine Yeast Present /HPF Current Medications: Meds: Laboratory Tests Test 01/25/21 23:00 Urine Collection Type U cath Urine Color Yellow Urine Clarity Hazy Urine pH 5.5 Urine Specific [place] 1.020 Urine Protein Neg Urine Glucose (UA) Neg mg/dL Urine Ketones (Stick) Trace mg/dL Urine Blood Neg Urine Nitrite Neg Urine Bilirubin Neg Urine Urobilinogen Dipstick 0.2 mg/dL Urine Leukocyte Esterase Small Urine RBC Occ /HPF Urine WBC 11-20 /HPF Urine Squamous Epithelial Cells Few /LPF Urine Bacteria Few /HPF Urine Mucus Slight /LPF Urine Yeast Present /HPF Current Medications Medications (Trade) Dose Ordered Sig/Hector Route PRN Reason Start Time Stop Time Status Last Admin Dose Admin Sodium Chloride 1,000 ml @ 1,000 mls/hr 1X ONCE IV 01/14/21 19:00 01/14/21 19:59 DC 01/14/21 20:37 Acetaminophen (Tylenol) 650 mg PRN Q6HRS PRN PO MILD PAIN / TEMP > 100.3'F 01/14/21 23:15 01/19/21 06:32 Multi-Ingredient Ointment (Analgesic [place]) 1 wes PRN QID PRN TP MUSCLE PAIN 01/14/21 23:15 01/23/21 14:58 DC Al Hydroxide/Mg Hydroxide (Mylanta Plus Xs) 15 ml PRN AFTMEALHC PRN PO DYSPEPSIA 01/14/21 23:15 01/16/21 05:33 Magnesium Hydroxide (Milk Of Magnesia) 2,400 mg PRN QHS PRN PO CONSTIPATION 01/14/21 23:15 Donepezil HCl (Aricept) 10 mg HS PO 01/15/21 21:00 01/25/21 20:10 Lorazepam (Ativan) 0.5 mg PRN Q24HRS PRN PO ANXIETY, 1ST CHOICE 01/14/21 23:30 01/25/21 08:19 Lorazepam (Ativan) 0.5 mg TID PO 01/15/21 09:00 01/17/21 17:30 DC 01/17/21 10:25 Melatonin (Melatonin) 3 mg HS PO 01/15/21 21:00 01/25/21 20:11 Paroxetine HCl (Paxil) 40 mg DAILY PO 01/15/21 09:00 01/19/21 17:15 DC 01/19/21 08:40 Hydroxyzine HCl (Atarax) 25 mg PRN Q6HRS PRN PO ANXIETY, 2ND CHOICE 01/15/21 16:45 Acetaminophen (Tylenol) 650 mg PRN Q6HRS PRN PO PAIN 01/15/21 19:00 UNV Acetaminophen (Tylenol) 500 mg TID PO 01/15/21 21:00 01/26/21 05:27 Atorvastatin Calcium (Lipitor) 10 mg QHS PO 01/15/21 21:00 01/25/21 20:11 Budesonide (Entocort) 6 mg DAILY PO 01/16/21 09:00 01/26/21 05:26 Calcium Polycarbophil (Fibercon) 1,250 mg BID PO 01/15/21 21:00 01/26/21 05:26 Lidocaine (Lidoderm) 1 patch DAILY TD 01/16/21 09:00 01/26/21 05:25 Mirabegron (Myrbetriq) 25 mg DAILY PO 01/16/21 09:00 01/23/21 17:53 DC 01/23/21 07:49 Pantoprazole Sodium (Protonix) 40 mg DAILY PO 01/16/21 09:00 01/26/21 05:26 Phenazopyridine HCl (Pyridium) 100 mg PRN Q24HRS PRN PO URINARY PAIN 01/15/21 19:00 Lactobacillus Rhamnosus (Culturelle) 1 cap BID PO 01/15/21 09:00 01/26/21 05:26 Losartan Potassium (Cozaar) 100 mg HS PO 01/15/21 21:00 01/25/21 20:09 Miscellaneous (Lidoderm Patch Removal) 1 ea QHS MC 01/15/21 21:00 01/25/21 20:11 Memantine (Namenda) 5 mg BID PO 01/16/21 21:00 01/22/21 22:50 DC 01/22/21 19:49 Memantine (Namenda) 10 mg BID PO 01/23/21 09:00 01/26/21 05:26 Vitamin D (Vitamin D3) 50,000 unit WEEKLY PO 01/16/21 17:30 01/23/21 07:54 Lorazepam (Ativan) 0.5 mg BID PO 01/17/21 21:00 01/19/21 23:50 DC 01/19/21 19:56 Lorazepam (Ativan) 0.5 mg DAILY PO 01/20/21 09:00 01/22/21 12:00 DC 01/22/21 07:50 Quetiapine Fumarate (SEROquel) 12.5 mg 0900,1700 PO 01/18/21 17:00 01/21/21 17:55 DC 01/21/21 17:33 Sertraline HCl (Zoloft) 50 mg DAILY PO 01/20/21 09:00 01/22/21 13:00 DC 01/22/21 07:51 Sertraline HCl (Zoloft) 75 mg DAILY PO 01/23/21 09:00 01/24/21 17:53 DC 01/24/21 08:48 Mirtazapine (Remeron) 7.5 mg QHS PO 01/20/21 21:00 01/25/21 20:10 Quetiapine Fumarate (SEROquel) 12.5 mg 0900,1300,1700 PO 01/22/21 09:00 01/25/21 16:00 DC 01/25/21 12:54 Sertraline HCl (Zoloft) 100 mg DAILY PO 01/25/21 09:00 01/26/21 05:25 Quetiapine Fumarate (SEROquel) 12.5 mg 0900,1300,1700,2100 PO 01/25/21 21:00 01/26/21 05:26 Current Medications Medications (Trade) Dose Ordered Sig/Hector Route PRN Reason Start Time Stop Time Status Last Admin Dose Admin Sertraline HCl (Zoloft) 100 mg DAILY PO 01/25/21 09:00 01/26/21 05:25 Quetiapine Fumarate (SEROquel) 12.5 mg 0900,1300,1700,2100 PO 01/25/21 21:00 01/26/21 05:26 I have reviewed the current psychotropics carefully including drug interactions. Risk benefit ratio favors no change other than as noted in my dictated progress note. Diagnosis: Problems: (1) Impulse control disorder, unspecified (2) Anxiety disorder, unspecified (3) Dementia, vascular, with depression (4) Dementia, vascular, with delusions (5) Dementia in Alzheimer's disease with depression (6) Dementia in Alzheimer's disease with delusions (7) Major neurocognitive disorder (8) Dementia in Alzheimer's disease with early onset with behavioral disturbance LUCAS CODY MD Jan 26, 2021 08:52
[2021-01-26] MEDS: ACETAMINOPHEN 325 MG TABLET PO PRN (09:39)
[2021-01-26] MEDS: hydrOXYzine HCL 25 MG TABLET PO PRN (10:37)
[2021-01-26 16:23] VITALS: BP 149/80
[2021-01-26] MEDS: ATORVASTATIN CALCIUM 10 MG TABLET. PO SCH (19:24)
[2021-01-26] MEDS: MIRTAZAPINE 7.5 MG TABLET. PO SCH (19:24)
[2021-01-26] MEDS: MELATONIN 3 MG TABLET PO SCH (19:24)
[2021-01-26] MEDS: LOSARTAN 50 MG TABLET. PO SCH (19:24)
[2021-01-26] MEDS: DONEPEZIL HCL 10 MG TABLET PO SCH (19:24)
[2021-01-26] MEDS: LORazepam 0.5 MG TABLET PO PRN (19:25)
[2021-01-26] MEDS: PATCH REMOVAL. MC SCH (19:26)
--- NOTE | 2021-01-26 22:00 | PDOC ---
Exam Note: Deon Note: Please also refer to the separate dictated note~for this date of service dictated separately.~Patient seen individually. Discussed the patient with Nursing staff reviewed the chart.~Reviewed interim history and current functioning. Reviewed vital signs,~Labs/ Radiology~and current medications noted below. Continue current treatment with the changes noted in the dictated addendum note Assessment: Vital Signs/I&O: Vital Signs Date Time Temp Pulse Resp B/P (MAP) Pulse Ox O2 Delivery O2 Flow Rate FiO2 01/26/21 19:24 89 145/80 01/26/21 16:23 97.2 20 97 01/24/21 06:49 Room Air I & O 01/25/21 01/25/21 01/26/21 14:59 22:59 06:59 Intake Total 600 ml 600 ml Output Total 850 ml Balance 600 ml -250 ml Labs: Laboratory Tests Test 01/25/21 23:00 Urine Collection Type U cath Urine Color Yellow Urine Clarity Hazy Urine pH 5.5 Urine Specific [place] 1.020 Urine Protein Neg (NEG-TRACE) Urine Glucose (UA) Neg mg/dL (NEG) Urine Ketones (Stick) Trace mg/dL (NEG) Urine Blood Neg (NEG) Urine Nitrite Neg (NEG) Urine Bilirubin Neg (NEG) Urine Urobilinogen Dipstick 0.2 mg/dL (0.2 mg/dL) Urine Leukocyte Esterase Small (NEG) Urine RBC Occ /HPF (0-2) Urine WBC 11-20 /HPF (0-4) Urine Squamous Epithelial Cells Few /LPF Urine Bacteria Few /HPF (0-FEW) Urine Mucus Slight /LPF Urine Yeast Present /HPF Current Medications: Meds: Laboratory Tests Test 01/25/21 23:00 Urine Collection Type U cath Urine Color Yellow Urine Clarity Hazy Urine pH 5.5 Urine Specific [place] 1.020 Urine Protein Neg Urine Glucose (UA) Neg mg/dL Urine Ketones (Stick) Trace mg/dL Urine Blood Neg Urine Nitrite Neg Urine Bilirubin Neg Urine Urobilinogen Dipstick 0.2 mg/dL Urine Leukocyte Esterase Small Urine RBC Occ /HPF Urine WBC 11-20 /HPF Urine Squamous Epithelial Cells Few /LPF Urine Bacteria Few /HPF Urine Mucus Slight /LPF Urine Yeast Present /HPF Current Medications Medications (Trade) Dose Ordered Sig/Hector Route PRN Reason Start Time Stop Time Status Last Admin Dose Admin Sodium Chloride 1,000 ml @ 1,000 mls/hr 1X ONCE IV 01/14/21 19:00 01/14/21 19:59 DC 01/14/21 20:37 Acetaminophen (Tylenol) 650 mg PRN Q6HRS PRN PO MILD PAIN / TEMP > 100.3'F 01/14/21 23:15 01/26/21 09:39 Multi-Ingredient Ointment (Analgesic [place]) 1 wes PRN QID PRN TP MUSCLE PAIN 01/14/21 23:15 01/23/21 14:58 DC Al Hydroxide/Mg Hydroxide (Mylanta Plus Xs) 15 ml PRN AFTMEALHC PRN PO DYSPEPSIA 01/14/21 23:15 01/16/21 05:33 Magnesium Hydroxide (Milk Of Magnesia) 2,400 mg PRN QHS PRN PO CONSTIPATION 01/14/21 23:15 Donepezil HCl (Aricept) 10 mg HS PO 01/15/21 21:00 01/26/21 19:24 Lorazepam (Ativan) 0.5 mg PRN Q24HRS PRN PO ANXIETY, 1ST CHOICE 01/14/21 23:30 01/26/21 19:25 Lorazepam (Ativan) 0.5 mg TID PO 01/15/21 09:00 01/17/21 17:30 DC 01/17/21 10:25 Melatonin (Melatonin) 3 mg HS PO 01/15/21 21:00 01/26/21 19:24 Paroxetine HCl (Paxil) 40 mg DAILY PO 01/15/21 09:00 01/19/21 17:15 DC 01/19/21 08:40 Hydroxyzine HCl (Atarax) 25 mg PRN Q6HRS PRN PO ANXIETY, 2ND CHOICE 01/15/21 16:45 01/26/21 10:37 Acetaminophen (Tylenol) 650 mg PRN Q6HRS PRN PO PAIN 01/15/21 19:00 UNV Acetaminophen (Tylenol) 500 mg TID PO 01/15/21 21:00 01/26/21 19:24 Atorvastatin Calcium (Lipitor) 10 mg QHS PO 01/15/21 21:00 01/26/21 19:24 Budesonide (Entocort) 6 mg DAILY PO 01/16/21 09:00 01/26/21 05:26 Calcium Polycarbophil (Fibercon) 1,250 mg BID PO 01/15/21 21:00 01/26/21 19:23 Lidocaine (Lidoderm) 1 patch DAILY TD 01/16/21 09:00 01/26/21 05:25 Mirabegron (Myrbetriq) 25 mg DAILY PO 01/16/21 09:00 01/23/21 17:53 DC 01/23/21 07:49 Pantoprazole Sodium (Protonix) 40 mg DAILY PO 01/16/21 09:00 01/26/21 05:26 Phenazopyridine HCl (Pyridium) 100 mg PRN Q24HRS PRN PO URINARY PAIN 01/15/21 19:00 Lactobacillus Rhamnosus (Culturelle) 1 cap BID PO 01/15/21 09:00 01/26/21 19:23 Losartan Potassium (Cozaar) 100 mg HS PO 01/15/21 21:00 01/26/21 19:24 Miscellaneous (Lidoderm Patch Removal) 1 ea QHS 01/15/21 21:00 01/26/21 19:26 Memantine (Namenda) 5 mg BID PO 01/16/21 21:00 01/22/21 22:50 DC 01/22/21 19:49 Memantine (Namenda) 10 mg BID PO 01/23/21 09:00 01/26/21 19:24 Vitamin D (Vitamin D3) 50,000 unit WEEKLY PO 01/16/21 17:30 01/23/21 07:54 Lorazepam (Ativan) 0.5 mg BID PO 01/17/21 21:00 01/19/21 23:50 DC 01/19/21 19:56 Lorazepam (Ativan) 0.5 mg DAILY PO 01/20/21 09:00 01/22/21 12:00 DC 01/22/21 07:50 Quetiapine Fumarate (SEROquel) 12.5 mg 0900,1700 PO 01/18/21 17:00 01/21/21 17:55 DC 01/21/21 17:33 Sertraline HCl (Zoloft) 50 mg DAILY PO 01/20/21 09:00 01/22/21 13:00 DC 01/22/21 07:51 Sertraline HCl (Zoloft) 75 mg DAILY PO 01/23/21 09:00 01/24/21 17:53 DC 01/24/21 08:48 Mirtazapine (Remeron) 7.5 mg QHS PO 01/20/21 21:00 01/26/21 19:24 Quetiapine Fumarate (SEROquel) 12.5 mg 0900,1300,1700 PO 01/22/21 09:00 01/25/21 16:00 DC 01/25/21 12:54 Sertraline HCl (Zoloft) 100 mg DAILY PO 01/25/21 09:00 01/26/21 17:53 DC 01/26/21 05:25 Quetiapine Fumarate (SEROquel) 12.5 mg 0900,1300,1700,2100 PO 01/25/21 21:00 01/26/21 19:25 Sertraline HCl (Zoloft) 125 mg DAILY PO 01/27/21 09:00 I have reviewed the current psychotropics carefully including drug interactions. Risk benefit ratio favors no change other than as noted in my dictated progress note. Diagnosis: Problems: (1) Impulse control disorder, unspecified (2) Anxiety disorder, unspecified (3) Dementia, vascular, with depression (4) Dementia, vascular, with delusions (5) Dementia in Alzheimer's disease with depression (6) Dementia in Alzheimer's disease with delusions (7) Major neurocognitive disorder (8) Dementia in Alzheimer's disease with early onset with behavioral disturbance LUCAS CODY MD Jan 26, 2021 22:00
[2021-01-27 05:56] VITALS: BP 142/90
--- NOTE | 2021-01-27 06:41 | PDOC ---
Exam Note: Deon Note: This note is a late entry for 01/26/2021 covers elements not covered in my initial note. Subjective: The patient was seen individually in the evening of 01/26/2021 with Stacia MERCER, discussed and reviewed the chart. The patient slept 7-1/2 hours previous night. Overall she remains depressed, anxious, forgetful, seemed to remember my name, very repetitive asking same questions where is her ? Why does he have to stay at home to take care of the 2 dogs? Review of Systems: No CV, , pulmonary, eye, ENT system symptoms on review. Ambulation impaired in wheelchair. Mental Status Exam: The patient is oriented to herself. She is verbal, animated, tearful, depressed at times. Attention span short. Language function intact. No suicidal or homicidal ideation. Laboratory Data: Reviewed. Impression: Major neurocognitive disorder Alzheimer, vascular with delusion, depression, behavioral disturbance. Anxiety disorder unspecified. Impulse control disorder unspecified. Plan: Increase Zoloft from 100 mg a day to 125 mg a day on 01/27. Maintain rest of the psychotropics unchanged. Assessment: Vital Signs/I&O: Vital Signs Date Time Temp Pulse Resp B/P (MAP) Pulse Ox O2 Delivery O2 Flow Rate FiO2 01/27/21 05:56 97.5 83 16 142/90 (107) 95 01/24/21 06:49 Room Air I & O 01/26/21 01/26/21 01/27/21 15:00 23:00 07:00 Intake Total 600 ml 360 ml Output Total 175 ml 350 ml Balance 425 ml 10 ml Current Medications: Meds: Current Medications Medications (Trade) Dose Ordered Sig/Hector Route PRN Reason Start Time Stop Time Status Last Admin Dose Admin Sodium Chloride 1,000 ml @ 1,000 mls/hr 1X ONCE IV 01/14/21 19:00 01/14/21 19:59 DC 01/14/21 20:37 Acetaminophen (Tylenol) 650 mg PRN Q6HRS PRN PO MILD PAIN / TEMP > 100.3'F 01/14/21 23:15 01/26/21 09:39 Multi-Ingredient Ointment (Analgesic [place]) 1 wes PRN QID PRN TP MUSCLE PAIN 01/14/21 23:15 01/23/21 14:58 DC Al Hydroxide/Mg Hydroxide (Mylanta Plus Xs) 15 ml PRN AFTMEALHC PRN PO DYSPEPSIA 01/14/21 23:15 01/16/21 05:33 Magnesium Hydroxide (Milk Of Magnesia) 2,400 mg PRN QHS PRN PO CONSTIPATION 01/14/21 23:15 Donepezil HCl (Aricept) 10 mg HS PO 01/15/21 21:00 01/26/21 19:24 Lorazepam (Ativan) 0.5 mg PRN Q24HRS PRN PO ANXIETY, 1ST CHOICE 01/14/21 23:30 01/26/21 19:25 Lorazepam (Ativan) 0.5 mg TID PO 01/15/21 09:00 01/17/21 17:30 DC 01/17/21 10:25 Melatonin (Melatonin) 3 mg HS PO 01/15/21 21:00 01/26/21 19:24 Paroxetine HCl (Paxil) 40 mg DAILY PO 01/15/21 09:00 01/19/21 17:15 DC 01/19/21 08:40 Hydroxyzine HCl (Atarax) 25 mg PRN Q6HRS PRN PO ANXIETY, 2ND CHOICE 01/15/21 16:45 01/26/21 10:37 Acetaminophen (Tylenol) 650 mg PRN Q6HRS PRN PO PAIN 01/15/21 19:00 UNV Acetaminophen (Tylenol) 500 mg TID PO 01/15/21 21:00 01/26/21 19:24 Atorvastatin Calcium (Lipitor) 10 mg QHS PO 01/15/21 21:00 01/26/21 19:24 Budesonide (Entocort) 6 mg DAILY PO 01/16/21 09:00 01/26/21 05:26 Calcium Polycarbophil (Fibercon) 1,250 mg BID PO 01/15/21 21:00 01/26/21 19:23 Lidocaine (Lidoderm) 1 patch DAILY TD 01/16/21 09:00 01/26/21 05:25 Mirabegron (Myrbetriq) 25 mg DAILY PO 01/16/21 09:00 01/23/21 17:53 DC 01/23/21 07:49 Pantoprazole Sodium (Protonix) 40 mg DAILY PO 01/16/21 09:00 01/26/21 05:26 Phenazopyridine HCl (Pyridium) 100 mg PRN Q24HRS PRN PO URINARY PAIN 01/15/21 19:00 Lactobacillus Rhamnosus (Culturelle) 1 cap BID PO 01/15/21 09:00 01/26/21 19:23 Losartan Potassium (Cozaar) 100 mg HS PO 01/15/21 21:00 01/26/21 19:24 Miscellaneous (Lidoderm Patch Removal) 1 ea QHS MC 01/15/21 21:00 01/26/21 19:26 Memantine (Namenda) 5 mg BID PO 01/16/21 21:00 01/22/21 22:50 DC 01/22/21 19:49 Memantine (Namenda) 10 mg BID PO 01/23/21 09:00 01/26/21 19:24 Vitamin D (Vitamin D3) 50,000 unit WEEKLY PO 01/16/21 17:30 01/23/21 07:54 Lorazepam (Ativan) 0.5 mg BID PO 01/17/21 21:00 01/19/21 23:50 DC 01/19/21 19:56 Lorazepam (Ativan) 0.5 mg DAILY PO 01/20/21 09:00 01/22/21 12:00 DC 01/22/21 07:50 Quetiapine Fumarate (SEROquel) 12.5 mg 0900,1700 PO 01/18/21 17:00 01/21/21 17:55 DC 01/21/21 17:33 Sertraline HCl (Zoloft) 50 mg DAILY PO 01/20/21 09:00 01/22/21 13:00 DC 01/22/21 07:51 Sertraline HCl (Zoloft) 75 mg DAILY PO 01/23/21 09:00 01/24/21 17:53 DC 01/24/21 08:48 Mirtazapine (Remeron) 7.5 mg QHS PO 01/20/21 21:00 01/26/21 19:24 Quetiapine Fumarate (SEROquel) 12.5 mg 0900,1300,1700 PO 01/22/21 09:00 01/25/21 16:00 DC 01/25/21 12:54 Sertraline HCl (Zoloft) 100 mg DAILY PO 01/25/21 09:00 01/26/21 17:53 DC 01/26/21 05:25 Quetiapine Fumarate (SEROquel) 12.5 mg 0900,1300,1700,2100 PO 01/25/21 21:00 01/26/21 19:25 Sertraline HCl (Zoloft) 125 mg DAILY PO 01/27/21 09:00 I have reviewed the current psychotropics carefully including drug interactions. Risk benefit ratio favors no change other than as noted in my dictated progress note. Diagnosis: Problems: (1) Impulse control disorder, unspecified (2) Anxiety disorder, unspecified (3) Dementia, vascular, with depression (4) Dementia, vascular, with delusions (5) Dementia in Alzheimer's disease with delusions (6) Dementia in Alzheimer's disease with depression (7) Major neurocognitive disorder (8) Dementia in Alzheimer's disease with early onset with behavioral disturbance LUCAS CODY MD Jan 27, 2021 06:41
[2021-01-27] MEDS: QUEtiapine 25 MG TABLET. PO SCH ×4 (07:59→19:49)
[2021-01-27] MEDS: PANTOPRAZOLE 40 MG TABLET. PO SCH (07:59)
[2021-01-27] MEDS: LACTOBACILLUS RHAMNOSUS GG 1 CAPSULE. PO SCH ×2 (07:59→19:48)
[2021-01-27] MEDS: BUDESONIDE 3 MG CAP.ER.24H. PO SCH (07:59)
[2021-01-27] MEDS: hydrOXYzine HCL 25 MG TABLET PO PRN ×2 (07:59→19:48)
[2021-01-27] MEDS: ACETAMINOPHEN 500 MG TABLET PO SCH ×3 (08:00→09:06)
[2021-01-27] MEDS: CALCIUM POLYCARBOPHIL 625 MG TABLET PO SCH ×2 (08:00→19:47)
[2021-01-27] MEDS: MEMANTINE 10 MG TABLET. PO SCH ×2 (08:00→19:47)
[2021-01-27] MEDS: LIDOCAINE (700MG/PATCH) PATCH. TD SCH (08:01)
[2021-01-27] MEDS: SERTRALINE 100 MG TABLET. PO SCH (09:00)
[2021-01-27] MEDS: PHENAZOPYRIDINE 100 MG TABLET. PO PRN (15:38)
[2021-01-27] MEDS: ACETAMINOPHEN 325 MG TABLET PO PRN (15:39)
[2021-01-27 15:47] VITALS: BP 137/76
[2021-01-27] MEDS: LORazepam 0.5 MG TABLET PO PRN (18:15)
[2021-01-27] MEDS: MIRTAZAPINE 7.5 MG TABLET. PO SCH (19:47)
[2021-01-27] MEDS: MELATONIN 3 MG TABLET PO SCH (19:48)
[2021-01-27] MEDS: ATORVASTATIN CALCIUM 10 MG TABLET. PO SCH (19:48)
[2021-01-27] MEDS: DONEPEZIL HCL 10 MG TABLET PO SCH (19:48)
[2021-01-27] MEDS: LOSARTAN 50 MG TABLET. PO SCH (19:48)
[2021-01-27] MEDS: PATCH REMOVAL. MC SCH (19:56)
--- NOTE | 2021-01-27 22:18 | PDOC ---
Exam Note: Deon Note: Please also refer to the separate dictated note~for this date of service dictated separately.~Patient seen individually. Discussed the patient with Nursing staff reviewed the chart.~Reviewed interim history and current functioning. Reviewed vital signs,~Labs/ Radiology~and current medications noted below. Continue current treatment with the changes noted in the dictated addendum note Assessment: Vital Signs/I&O: Vital Signs Date Time Temp Pulse Resp B/P (MAP) Pulse Ox O2 Delivery O2 Flow Rate FiO2 01/27/21 19:48 86 137/76 01/27/21 15:47 98.6 16 97 01/24/21 06:49 Room Air I & O 01/26/21 01/26/21 01/27/21 15:00 23:00 07:00 Intake Total 600 ml 360 ml Output Total 175 ml 350 ml Balance 425 ml 10 ml Current Medications: Meds: Current Medications Medications (Trade) Dose Ordered Sig/Hector Route PRN Reason Start Time Stop Time Status Last Admin Dose Admin Sodium Chloride 1,000 ml @ 1,000 mls/hr 1X ONCE IV 01/14/21 19:00 01/14/21 19:59 DC 01/14/21 20:37 Acetaminophen (Tylenol) 650 mg PRN Q6HRS PRN PO MILD PAIN / TEMP > 100.3'F 01/14/21 23:15 01/27/21 15:39 Multi-Ingredient Ointment (Analgesic [place]) 1 wes PRN QID PRN TP MUSCLE PAIN 01/14/21 23:15 01/23/21 14:58 DC Al Hydroxide/Mg Hydroxide (Mylanta Plus Xs) 15 ml PRN AFTMEALHC PRN PO DYSPEPSIA 01/14/21 23:15 01/16/21 05:33 Magnesium Hydroxide (Milk Of Magnesia) 2,400 mg PRN QHS PRN PO CONSTIPATION 01/14/21 23:15 Donepezil HCl (Aricept) 10 mg HS PO 01/15/21 21:00 01/27/21 19:48 Lorazepam (Ativan) 0.5 mg PRN Q24HRS PRN PO ANXIETY, 1ST CHOICE 01/14/21 23:30 01/27/21 18:15 Lorazepam (Ativan) 0.5 mg TID PO 01/15/21 09:00 01/17/21 17:30 DC 01/17/21 10:25 Melatonin (Melatonin) 3 mg HS PO 01/15/21 21:00 01/27/21 19:48 Paroxetine HCl (Paxil) 40 mg DAILY PO 01/15/21 09:00 01/19/21 17:15 DC 01/19/21 08:40 Hydroxyzine HCl (Atarax) 25 mg PRN Q6HRS PRN PO ANXIETY, 2ND CHOICE 01/15/21 16:45 01/27/21 19:48 Acetaminophen (Tylenol) 650 mg PRN Q6HRS PRN PO PAIN 01/15/21 19:00 UNV Acetaminophen (Tylenol) 500 mg TID PO 01/15/21 21:00 01/27/21 09:06 Atorvastatin Calcium (Lipitor) 10 mg QHS PO 01/15/21 21:00 01/27/21 19:48 Budesonide (Entocort) 6 mg DAILY PO 01/16/21 09:00 01/27/21 07:59 Calcium Polycarbophil (Fibercon) 1,250 mg BID PO 01/15/21 21:00 01/27/21 19:47 Lidocaine (Lidoderm) 1 patch DAILY TD 01/16/21 09:00 01/27/21 08:01 Mirabegron (Myrbetriq) 25 mg DAILY PO 01/16/21 09:00 01/23/21 17:53 DC 01/23/21 07:49 Pantoprazole Sodium (Protonix) 40 mg DAILY PO 01/16/21 09:00 01/27/21 07:59 Phenazopyridine HCl (Pyridium) 100 mg PRN Q24HRS PRN PO URINARY PAIN 01/15/21 19:00 01/27/21 15:38 Lactobacillus Rhamnosus (Culturelle) 1 cap BID PO 01/15/21 09:00 01/27/21 19:48 Losartan Potassium (Cozaar) 100 mg HS PO 01/15/21 21:00 01/27/21 19:48 Miscellaneous (Lidoderm Patch Removal) 1 ea QHS MC 01/15/21 21:00 01/27/21 19:56 Memantine (Namenda) 5 mg BID PO 01/16/21 21:00 01/22/21 22:50 DC 01/22/21 19:49 Memantine (Namenda) 10 mg BID PO 01/23/21 09:00 01/27/21 19:47 Vitamin D (Vitamin D3) 50,000 unit WEEKLY PO 01/16/21 17:30 01/23/21 07:54 Lorazepam (Ativan) 0.5 mg BID PO 01/17/21 21:00 01/19/21 23:50 DC 01/19/21 19:56 Lorazepam (Ativan) 0.5 mg DAILY PO 01/20/21 09:00 01/22/21 12:00 DC 01/22/21 07:50 Quetiapine Fumarate (SEROquel) 12.5 mg 0900,1700 PO 01/18/21 17:00 01/21/21 17:55 DC 01/21/21 17:33 Sertraline HCl (Zoloft) 50 mg DAILY PO 01/20/21 09:00 01/22/21 13:00 DC 01/22/21 07:51 Sertraline HCl (Zoloft) 75 mg DAILY PO 01/23/21 09:00 01/24/21 17:53 DC 01/24/21 08:48 Mirtazapine (Remeron) 7.5 mg QHS PO 01/20/21 21:00 01/27/21 19:47 Quetiapine Fumarate (SEROquel) 12.5 mg 0900,1300,1700 PO 01/22/21 09:00 01/25/21 16:00 DC 01/25/21 12:54 Sertraline HCl (Zoloft) 100 mg DAILY PO 01/25/21 09:00 01/26/21 17:53 DC 01/26/21 05:25 Quetiapine Fumarate (SEROquel) 12.5 mg 0900,1300,1700,2100 PO 01/25/21 21:00 01/27/21 19:49 Sertraline HCl (Zoloft) 125 mg DAILY PO 01/27/21 09:00 01/27/21 09:00 Current Medications Medications (Trade) Dose Ordered Sig/Hector Route PRN Reason Start Time Stop Time Status Last Admin Dose Admin Sertraline HCl (Zoloft) 125 mg DAILY PO 01/27/21 09:00 01/27/21 09:00 I have reviewed the current psychotropics carefully including drug interactions. Risk benefit ratio favors no change other than as noted in my dictated progress note. Diagnosis: Problems: (1) Impulse control disorder, unspecified (2) Anxiety disorder, unspecified (3) Dementia, vascular, with depression (4) Dementia, vascular, with delusions (5) Dementia in Alzheimer's disease with depression (6) Dementia in Alzheimer's disease with delusions (7) Dementia in Alzheimer's disease with early onset with behavioral disturbance (8) Major neurocognitive disorder LUCAS CODY MD Jan 27, 2021 22:18
[2021-01-28 06:00] VITALS: BP 131/72
[2021-01-28] MEDS: LIDOCAINE (700MG/PATCH) PATCH. TD SCH (08:07)
[2021-01-28] MEDS: BUDESONIDE 3 MG CAP.ER.24H. PO SCH (08:08)
[2021-01-28] MEDS: CALCIUM POLYCARBOPHIL 625 MG TABLET PO SCH ×2 (08:08→19:37)
[2021-01-28] MEDS: QUEtiapine 25 MG TABLET. PO SCH ×4 (08:08→19:41)
[2021-01-28] MEDS: LACTOBACILLUS RHAMNOSUS GG 1 CAPSULE. PO SCH ×2 (08:08→19:39)
[2021-01-28] MEDS: MEMANTINE 10 MG TABLET. PO SCH ×2 (08:09→19:38)
[2021-01-28] MEDS: ACETAMINOPHEN 500 MG TABLET PO SCH ×3 (08:09→19:39)
[2021-01-28] MEDS: SERTRALINE 100 MG TABLET. PO SCH (08:09)
[2021-01-28] MEDS: PANTOPRAZOLE 40 MG TABLET. PO SCH (08:09)
[2021-01-28 15:33] VITALS: BP 106/65
[2021-01-28] MEDS: MELATONIN 3 MG TABLET PO SCH (19:37)
[2021-01-28] MEDS: MIRTAZAPINE 7.5 MG TABLET. PO SCH (19:38)
[2021-01-28] MEDS: DONEPEZIL HCL 10 MG TABLET PO SCH (19:39)
[2021-01-28] MEDS: ATORVASTATIN CALCIUM 10 MG TABLET. PO SCH (19:39)
[2021-01-28] MEDS: LOSARTAN 50 MG TABLET. PO SCH (19:41)
[2021-01-28] MEDS: PHENAZOPYRIDINE 100 MG TABLET. PO PRN (19:41)
[2021-01-28] MEDS: PATCH REMOVAL. MC SCH (19:43)
[2021-01-28 19:54] VITALS: BP 135/74
[2021-01-28] MEDS ORDERED: QUEtiapine 25 MG TABLET. PO SCH (21:00)
--- NOTE | 2021-01-28 22:17 | PDOC ---
Exam Note: Deon Note: Please also refer to the separate dictated note~for this date of service dictated separately.~Patient seen individually. Discussed the patient with Nursing staff reviewed the chart.~Reviewed interim history and current functioning. Reviewed vital signs,~Labs/ Radiology~and current medications noted below. Continue current treatment with the changes noted in the dictated addendum note Assessment: Vital Signs/I&O: Vital Signs Date Time Temp Pulse Resp B/P (MAP) Pulse Ox O2 Delivery O2 Flow Rate FiO2 01/28/21 19:54 98.0 96 20 135/74 (94) 99 Room Air I & O 01/27/21 01/27/21 01/28/21 15:00 23:00 07:00 Intake Total 720 ml 480 ml Output Total 400 ml 400 ml Balance 720 ml 80 ml -400 ml Current Medications: Meds: Current Medications Medications (Trade) Dose Ordered Sig/Hector Route PRN Reason Start Time Stop Time Status Last Admin Dose Admin Sodium Chloride 1,000 ml @ 1,000 mls/hr 1X ONCE IV 01/14/21 19:00 01/14/21 19:59 DC 01/14/21 20:37 Acetaminophen (Tylenol) 650 mg PRN Q6HRS PRN PO MILD PAIN / TEMP > 100.3'F 01/14/21 23:15 01/27/21 15:39 Multi-Ingredient Ointment (Analgesic [place]) 1 wes PRN QID PRN TP MUSCLE PAIN 01/14/21 23:15 01/23/21 14:58 DC Al Hydroxide/Mg Hydroxide (Mylanta Plus Xs) 15 ml PRN AFTMEALHC PRN PO DYSPEPSIA 01/14/21 23:15 01/16/21 05:33 Magnesium Hydroxide (Milk Of Magnesia) 2,400 mg PRN QHS PRN PO CONSTIPATION 01/14/21 23:15 Donepezil HCl (Aricept) 10 mg HS PO 01/15/21 21:00 01/28/21 19:39 Lorazepam (Ativan) 0.5 mg PRN Q24HRS PRN PO ANXIETY, 1ST CHOICE 01/14/21 23:30 01/27/21 18:15 Lorazepam (Ativan) 0.5 mg TID PO 01/15/21 09:00 01/17/21 17:30 DC 01/17/21 10:25 Melatonin (Melatonin) 3 mg HS PO 01/15/21 21:00 01/28/21 19:37 Paroxetine HCl (Paxil) 40 mg DAILY PO 01/15/21 09:00 01/19/21 17:15 DC 01/19/21 08:40 Hydroxyzine HCl (Atarax) 25 mg PRN Q6HRS PRN PO ANXIETY, 2ND CHOICE 01/15/21 16:45 01/27/21 19:48 Acetaminophen (Tylenol) 650 mg PRN Q6HRS PRN PO PAIN 01/15/21 19:00 UNV Acetaminophen (Tylenol) 500 mg TID PO 01/15/21 21:00 01/28/21 19:39 Atorvastatin Calcium (Lipitor) 10 mg QHS PO 01/15/21 21:00 01/28/21 19:39 Budesonide (Entocort) 6 mg DAILY PO 01/16/21 09:00 01/28/21 08:08 Calcium Polycarbophil (Fibercon) 1,250 mg BID PO 01/15/21 21:00 01/28/21 19:37 Lidocaine (Lidoderm) 1 patch DAILY TD 01/16/21 09:00 01/28/21 08:07 Mirabegron (Myrbetriq) 25 mg DAILY PO 01/16/21 09:00 01/23/21 17:53 DC 01/23/21 07:49 Pantoprazole Sodium (Protonix) 40 mg DAILY PO 01/16/21 09:00 01/28/21 08:09 Phenazopyridine HCl (Pyridium) 100 mg PRN Q24HRS PRN PO URINARY PAIN 01/15/21 19:00 01/28/21 19:41 Lactobacillus Rhamnosus (Culturelle) 1 cap BID PO 01/15/21 09:00 01/28/21 19:39 Losartan Potassium (Cozaar) 100 mg HS PO 01/15/21 21:00 01/28/21 19:41 Miscellaneous (Lidoderm Patch Removal) 1 ea QHS MC 01/15/21 21:00 01/28/21 19:43 Memantine (Namenda) 5 mg BID PO 01/16/21 21:00 01/22/21 22:50 DC 01/22/21 19:49 Memantine (Namenda) 10 mg BID PO 01/23/21 09:00 01/28/21 19:38 Vitamin D (Vitamin D3) 50,000 unit WEEKLY PO 01/16/21 17:30 01/23/21 07:54 Lorazepam (Ativan) 0.5 mg BID PO 01/17/21 21:00 01/19/21 23:50 DC 01/19/21 19:56 Lorazepam (Ativan) 0.5 mg DAILY PO 01/20/21 09:00 01/22/21 12:00 DC 01/22/21 07:50 Quetiapine Fumarate (SEROquel) 12.5 mg 0900,1700 PO 01/18/21 17:00 01/21/21 17:55 DC 01/21/21 17:33 Sertraline HCl (Zoloft) 50 mg DAILY PO 01/20/21 09:00 01/22/21 13:00 DC 01/22/21 07:51 Sertraline HCl (Zoloft) 75 mg DAILY PO 01/23/21 09:00 01/24/21 17:53 DC 01/24/21 08:48 Mirtazapine (Remeron) 7.5 mg QHS PO 01/20/21 21:00 01/28/21 19:38 Quetiapine Fumarate (SEROquel) 12.5 mg 0900,1300,1700 PO 01/22/21 09:00 01/25/21 16:00 DC 01/25/21 12:54 Sertraline HCl (Zoloft) 100 mg DAILY PO 01/25/21 09:00 01/26/21 17:53 DC 01/26/21 05:25 Quetiapine Fumarate (SEROquel) 12.5 mg 0900,1300,1700,2100 PO 01/25/21 21:00 01/28/21 18:16 DC 01/28/21 17:11 Sertraline HCl (Zoloft) 125 mg DAILY PO 01/27/21 09:00 01/28/21 08:09 Quetiapine Fumarate (SEROquel) 12.5 mg 1300,2100 PO 01/28/21 21:00 01/28/21 19:41 Quetiapine Fumarate (SEROquel) 25 mg 0900,1700 PO 01/29/21 09:00 Quetiapine Fumarate (SEROquel) 12.5 mg 1300,2100 PO 01/28/21 21:00 UNV Current Medications Medications (Trade) Dose Ordered Sig/Hector Route PRN Reason Start Time Stop Time Status Last Admin Dose Admin Quetiapine Fumarate (SEROquel) 12.5 mg 1300,2100 PO 01/28/21 21:00 01/28/21 19:41 I have reviewed the current psychotropics carefully including drug interactions. Risk benefit ratio favors no change other than as noted in my dictated progress note. Diagnosis: Problems: (1) Anxiety disorder, unspecified (2) Impulse control disorder, unspecified (3) Dementia, vascular, with depression (4) Dementia, vascular, with delusions (5) Dementia in Alzheimer's disease with depression (6) Dementia in Alzheimer's disease with delusions (7) Major neurocognitive disorder (8) Dementia in Alzheimer's disease with early onset with behavioral disturbance LUCAS CODY MD Jan 28, 2021 22:16
[2021-01-29 05:49] VITALS: BP 136/76
[2021-01-29 06:23] LABS: BASO # 0.1 x10^3/uL (0.0-0.2); BASO % 1 % (0-3); EOS # 0.3 x10^3/uL (0.0-0.7); EOS % 3 % (0-3); HEMATOCRIT 32.2 % (36.0-47.0); HEMOGLOBIN 10.3 g/dL (12.0-15.5); LYMPH # 2.4 x10^3/uL (1.0-4.8); LYMPH % 24 % (24-48); MEAN CORPUSCULAR HEMOGLOBIN 28 pg (25-35); MEAN CORPUSCULAR HGB CONC 32 g/dL (31-37); MEAN CORPUSCULAR VOLUME 86 fL (79-100); MONO % 10 % (0-9); NEUT # 6.2 x10^3uL (1.8-7.7); NEUT % 62 % (31-73); PLATELET COUNT 440 x10^3/uL (140-400); RED BLOOD COUNT 3.73 x10^6/uL (3.50-5.40); RED CELL DISTRIBUTION WIDTH 14.3 % (11.5-14.5); WHITE BLOOD COUNT 10.1 x10^3/uL (4.0-11.0)
[2021-01-29 06:42] LABS: CALCIUM 8.8 mg/dL (8.5-10.1); CREATININE 1.1 mg/dL (0.6-1.0); GFR 47.7; TOTAL BILIRUBIN 0.3 mg/dL (0.2-1.0)
[2021-01-29] MEDS: PANTOPRAZOLE 40 MG TABLET. PO SCH (08:28)
[2021-01-29] MEDS: LACTOBACILLUS RHAMNOSUS GG 1 CAPSULE. PO SCH ×2 (08:28→20:17)
[2021-01-29] MEDS: ACETAMINOPHEN 500 MG TABLET PO SCH ×3 (08:28→20:17)
[2021-01-29] MEDS: CALCIUM POLYCARBOPHIL 625 MG TABLET PO SCH ×2 (08:28→20:17)
[2021-01-29] MEDS: QUEtiapine 25 MG TABLET. PO SCH ×4 (08:29→20:18)
[2021-01-29] MEDS: MEMANTINE 10 MG TABLET. PO SCH ×2 (08:29→20:56)
[2021-01-29] MEDS: BUDESONIDE 3 MG CAP.ER.24H. PO SCH (08:29)
[2021-01-29] MEDS: SERTRALINE 100 MG TABLET. PO SCH (08:29)
[2021-01-29] MEDS: LIDOCAINE (700MG/PATCH) PATCH. TD SCH (09:00)
--- NOTE | 2021-01-29 09:11 | PDOC ---
Exam Note: Deon Note: This note is a late entry for 01/27/2021 covers elements not covered in my initial note. Subjective: The patient was seen individually in the evening of 01/27/2021 with Stacia MERCER, discussed and reviewed the chart. The patient slept 8-1/4 hours previous night. She was somewhat agitated previous evening. She received Ativan p.r.n. Review of Systems: No CV, , pulmonary, eye, ENT system symptoms on review. Ambulation impaired in wheelchair. She does have a Puentes catheter, complains of frequency of urination. Mental Status Exam: The patient is oriented to herself. Speech coherent. Abstraction fair. Computation impaired. Attention span short. Language function intact. No suicidal or homicidal ideation. Laboratory Data: Reviewed. Impression: Major neurocognitive disorder Alzheimer, vascular with delusion, depression, behavioral disturbance. Anxiety disorder unspecified. Impulse control disorder unspecified. Plan: Maintain rest of the psychotropics unchanged. Assessment: Vital Signs/I&O: Vital Signs Date Time Temp Pulse Resp B/P (MAP) Pulse Ox O2 Delivery O2 Flow Rate FiO2 01/29/21 05:49 97.3 88 17 136/76 (96) 97 Room Air I & O 01/28/21 01/28/21 01/29/21 15:00 23:00 07:00 Intake Total 600 ml 360 ml Output Total 300 ml 350 ml Balance 300 ml 10 ml Labs: Laboratory Tests Test 01/29/21 06:02 White Blood Count 10.1 x10^3/uL (4.0-11.0) Red Blood Count 3.73 x10^6/uL (3.50-5.40) Hemoglobin 10.3 g/dL (12.0-15.5) L Hematocrit 32.2 % (36.0-47.0) L Mean Corpuscular Volume 86 fL (79-100) Mean Corpuscular Hemoglobin 28 pg (25-35) Mean Corpuscular Hemoglobin Concent 32 g/dL (31-37) Red Cell Distribution Width 14.3 % (11.5-14.5) Platelet Count 440 x10^3/uL (140-400) H Neutrophils (%) (Auto) 62 % (31-73) Lymphocytes (%) (Auto) 24 % (24-48) Monocytes (%) (Auto) 10 % (0-9) H Eosinophils (%) (Auto) 3 % (0-3) Basophils (%) (Auto) 1 % (0-3) Neutrophils # (Auto) 6.2 x10^3uL (1.8-7.7) Lymphocytes # (Auto) 2.4 x10^3/uL (1.0-4.8) Monocytes # (Auto) 1.0 x10^3/uL (0.0-1.1) Eosinophils # (Auto) 0.3 x10^3/uL (0.0-0.7) Basophils # (Auto) 0.1 x10^3/uL (0.0-0.2) Sodium Level 146 mmol/L (136-145) H Potassium Level 4.0 mmol/L (3.5-5.1) Chloride Level 110 mmol/L (98-107) H Carbon Dioxide Level 28 mmol/L (21-32) Anion Gap 8 (6-14) Blood Urea Nitrogen 26 mg/dL (7-20) H Creatinine 1.1 mg/dL (0.6-1.0) H Estimated GFR (Cockcroft-Gault) 47.7 BUN/Creatinine Ratio 24 (6-20) H Glucose Level 82 mg/dL (70-99) Calcium Level 8.8 mg/dL (8.5-10.1) Total Bilirubin 0.3 mg/dL (0.2-1.0) Aspartate Amino Transferase (AST) 22 U/L (15-37) Alanine Aminotransferase (ALT) 19 U/L (14-59) Alkaline Phosphatase 81 U/L (46-116) Total Protein 6.0 g/dL (6.4-8.2) L Albumin 3.0 g/dL (3.4-5.0) L Albumin/Globulin Ratio 1.0 (1.0-1.7) Current Medications: Meds: Laboratory Tests Test 01/29/21 06:02 White Blood Count 10.1 x10^3/uL Red Blood Count 3.73 x10^6/uL Hemoglobin 10.3 g/dL Hematocrit 32.2 % Mean Corpuscular Volume 86 fL Mean Corpuscular Hemoglobin 28 pg Mean Corpuscular Hemoglobin Concent 32 g/dL Red Cell Distribution Width 14.3 % Platelet Count 440 x10^3/uL Neutrophils (%) (Auto) 62 % Lymphocytes (%) (Auto) 24 % Monocytes (%) (Auto) 10 % Eosinophils (%) (Auto) 3 % Basophils (%) (Auto) 1 % Neutrophils # (Auto) 6.2 x10^3uL Lymphocytes # (Auto) 2.4 x10^3/uL Monocytes # (Auto) 1.0 x10^3/uL Eosinophils # (Auto) 0.3 x10^3/uL Basophils # (Auto) 0.1 x10^3/uL Sodium Level 146 mmol/L Potassium Level 4.0 mmol/L Chloride Level 110 mmol/L Carbon Dioxide Level 28 mmol/L Anion Gap 8 Blood Urea Nitrogen 26 mg/dL Creatinine 1.1 mg/dL Estimated GFR (Cockcroft-Gault) 47.7 BUN/Creatinine Ratio 24 Glucose Level 82 mg/dL Calcium Level 8.8 mg/dL Total Bilirubin 0.3 mg/dL Aspartate Amino Transf (AST/SGOT) 22 U/L Alanine Aminotransferase (ALT/SGPT) 19 U/L Alkaline Phosphatase 81 U/L Total Protein 6.0 g/dL Albumin 3.0 g/dL Albumin/Globulin Ratio 1.0 Current Medications Medications (Trade) Dose Ordered Sig/Hector Route PRN Reason Start Time Stop Time Status Last Admin Dose Admin Sodium Chloride 1,000 ml @ 1,000 mls/hr 1X ONCE IV 01/14/21 19:00 01/14/21 19:59 DC 01/14/21 20:37 Acetaminophen (Tylenol) 650 mg PRN Q6HRS PRN PO MILD PAIN / TEMP > 100.3'F 01/14/21 23:15 01/27/21 15:39 Multi-Ingredient Ointment (Analgesic [place]) 1 wes PRN QID PRN TP MUSCLE PAIN 01/14/21 23:15 01/23/21 14:58 DC Al Hydroxide/Mg Hydroxide (Mylanta Plus Xs) 15 ml PRN AFTMEALHC PRN PO DYSPEPSIA 01/14/21 23:15 01/16/21 05:33 Magnesium Hydroxide (Milk Of Magnesia) 2,400 mg PRN QHS PRN PO CONSTIPATION 01/14/21 23:15 Donepezil HCl (Aricept) 10 mg HS PO 01/15/21 21:00 01/28/21 19:39 Lorazepam (Ativan) 0.5 mg PRN Q24HRS PRN PO ANXIETY, 1ST CHOICE 01/14/21 23:30 01/27/21 18:15 Lorazepam (Ativan) 0.5 mg TID PO 01/15/21 09:00 01/17/21 17:30 DC 01/17/21 10:25 Melatonin (Melatonin) 3 mg HS PO 01/15/21 21:00 01/28/21 19:37 Paroxetine HCl (Paxil) 40 mg DAILY PO 01/15/21 09:00 01/19/21 17:15 DC 01/19/21 08:40 Hydroxyzine HCl (Atarax) 25 mg PRN Q6HRS PRN PO ANXIETY, 2ND CHOICE 01/15/21 16:45 01/27/21 19:48 Acetaminophen (Tylenol) 650 mg PRN Q6HRS PRN PO PAIN 01/15/21 19:00 UNV Acetaminophen (Tylenol) 500 mg TID PO 01/15/21 21:00 01/29/21 08:28 Atorvastatin Calcium (Lipitor) 10 mg QHS PO 01/15/21 21:00 01/28/21 19:39 Budesonide (Entocort) 6 mg DAILY PO 01/16/21 09:00 01/29/21 08:29 Calcium Polycarbophil (Fibercon) 1,250 mg BID PO 01/15/21 21:00 01/29/21 08:28 Lidocaine (Lidoderm) 1 patch DAILY TD 01/16/21 09:00 01/28/21 08:07 Mirabegron (Myrbetriq) 25 mg DAILY PO 01/16/21 09:00 01/23/21 17:53 DC 01/23/21 07:49 Pantoprazole Sodium (Protonix) 40 mg DAILY PO 01/16/21 09:00 01/29/21 08:28 Phenazopyridine HCl (Pyridium) 100 mg PRN Q24HRS PRN PO URINARY PAIN 01/15/21 19:00 01/28/21 19:41 Lactobacillus Rhamnosus (Culturelle) 1 cap BID PO 01/15/21 09:00 01/29/21 08:28 Losartan Potassium (Cozaar) 100 mg HS PO 01/15/21 21:00 01/28/21 19:41 Miscellaneous (Lidoderm Patch Removal) 1 ea QHS MC 01/15/21 21:00 01/28/21 19:43 Memantine (Namenda) 5 mg BID PO 01/16/21 21:00 01/22/21 22:50 DC 01/22/21 19:49 Memantine (Namenda) 10 mg BID PO 01/23/21 09:00 01/29/21 08:29 Vitamin D (Vitamin D3) 50,000 unit WEEKLY PO 01/16/21 17:30 01/23/21 07:54 Lorazepam (Ativan) 0.5 mg BID PO 01/17/21 21:00 01/19/21 23:50 DC 01/19/21 19:56 Lorazepam (Ativan) 0.5 mg DAILY PO 01/20/21 09:00 01/22/21 12:00 DC 01/22/21 07:50 Quetiapine Fumarate (SEROquel) 12.5 mg 0900,1700 PO 01/18/21 17:00 01/21/21 17:55 DC 01/21/21 17:33 Sertraline HCl (Zoloft) 50 mg DAILY PO 01/20/21 09:00 01/22/21 13:00 DC 01/22/21 07:51 Sertraline HCl (Zoloft) 75 mg DAILY PO 01/23/21 09:00 01/24/21 17:53 DC 01/24/21 08:48 Mirtazapine (Remeron) 7.5 mg QHS PO 01/20/21 21:00 01/28/21 19:38 Quetiapine Fumarate (SEROquel) 12.5 mg 0900,1300,1700 PO 01/22/21 09:00 01/25/21 16:00 DC 01/25/21 12:54 Sertraline HCl (Zoloft) 100 mg DAILY PO 01/25/21 09:00 01/26/21 17:53 DC 01/26/21 05:25 Quetiapine Fumarate (SEROquel) 12.5 mg 0900,1300,1700,2100 PO 01/25/21 21:00 01/28/21 18:16 DC 01/28/21 17:11 Sertraline HCl (Zoloft) 125 mg DAILY PO 01/27/21 09:00 01/29/21 08:29 Quetiapine Fumarate (SEROquel) 12.5 mg 1300,2100 PO 01/28/21 21:00 01/28/21 19:41 Quetiapine Fumarate (SEROquel) 25 mg 0900,1700 PO 01/29/21 09:00 01/29/21 08:29 Quetiapine Fumarate (SEROquel) 12.5 mg 1300,2100 PO 01/28/21 21:00 UNV Current Medications Medications (Trade) Dose Ordered Sig/Hector Route PRN Reason Start Time Stop Time Status Last Admin Dose Admin Quetiapine Fumarate (SEROquel) 12.5 mg 1300,2100 PO 01/28/21 21:00 01/28/21 19:41 Quetiapine Fumarate (SEROquel) 25 mg 0900,1700 PO 01/29/21 09:00 01/29/21 08:29 I have reviewed the current psychotropics carefully including drug interactions. Risk benefit ratio favors no change other than as noted in my dictated progress note. Diagnosis: Problems: (1) Anxiety disorder, unspecified (2) Impulse control disorder, unspecified (3) Dementia, vascular, with depression (4) Dementia, vascular, with delusions (5) Dementia in Alzheimer's disease with depression (6) Dementia in Alzheimer's disease with delusions (7) Major neurocognitive disorder (8) Dementia in Alzheimer's disease with early onset with behavioral disturbance LUCAS CODY MD Jan 29, 2021 09:11
--- NOTE | 2021-01-29 09:33 | PDOC ---
Exam Note: Deon Note: This note is a late entry for 01/28/2021 covers elements not covered in my initial note. Subjective: The patient was seen individually in the evening of 01/28/2021 with Stacia MERCER, discussed and reviewed the chart. The patient slept 7-1/4 hours previous night. She has been anxious, trying to get out of her wheelchair, looking for her . I addressed this with her individually that he is at home taking care of Kerri and Sadia their dogs. She states he doesnt love me thats why he takes care of the dogs. Review of Systems: No CV, , pulmonary, eye, ENT system symptoms on review. Ambulation impaired in wheelchair. Mental Status Exam: The patient is oriented to herself. Speech coherent. Abstraction fair. Computation impaired. Attention span short. Language function intact. No suicidal or homicidal ideation. Laboratory Data: Reviewed. Impression: Major neurocognitive disorder Alzheimer, vascular with delusion, depression, behavioral disturbance. Anxiety disorder unspecified. Impulse control disorder unspecified. Plan: The patient is currently on Seroquel 12.5 mg 4 times a day. We will increase the dose #1 and #3 to 25 mg. Continue rest psychotropics unchanged. Assessment: Vital Signs/I&O: Vital Signs Date Time Temp Pulse Resp B/P (MAP) Pulse Ox O2 Delivery O2 Flow Rate FiO2 01/29/21 05:49 97.3 88 17 136/76 (96) 97 Room Air I & O 01/28/21 01/28/21 01/29/21 15:00 23:00 07:00 Intake Total 600 ml 360 ml Output Total 300 ml 350 ml Balance 300 ml 10 ml Labs: Laboratory Tests Test 01/29/21 06:02 White Blood Count 10.1 x10^3/uL (4.0-11.0) Red Blood Count 3.73 x10^6/uL (3.50-5.40) Hemoglobin 10.3 g/dL (12.0-15.5) L Hematocrit 32.2 % (36.0-47.0) L Mean Corpuscular Volume 86 fL (79-100) Mean Corpuscular Hemoglobin 28 pg (25-35) Mean Corpuscular Hemoglobin Concent 32 g/dL (31-37) Red Cell Distribution Width 14.3 % (11.5-14.5) Platelet Count 440 x10^3/uL (140-400) H Neutrophils (%) (Auto) 62 % (31-73) Lymphocytes (%) (Auto) 24 % (24-48) Monocytes (%) (Auto) 10 % (0-9) H Eosinophils (%) (Auto) 3 % (0-3) Basophils (%) (Auto) 1 % (0-3) Neutrophils # (Auto) 6.2 x10^3uL (1.8-7.7) Lymphocytes # (Auto) 2.4 x10^3/uL (1.0-4.8) Monocytes # (Auto) 1.0 x10^3/uL (0.0-1.1) Eosinophils # (Auto) 0.3 x10^3/uL (0.0-0.7) Basophils # (Auto) 0.1 x10^3/uL (0.0-0.2) Sodium Level 146 mmol/L (136-145) H Potassium Level 4.0 mmol/L (3.5-5.1) Chloride Level 110 mmol/L (98-107) H Carbon Dioxide Level 28 mmol/L (21-32) Anion Gap 8 (6-14) Blood Urea Nitrogen 26 mg/dL (7-20) H Creatinine 1.1 mg/dL (0.6-1.0) H Estimated GFR (Cockcroft-Gault) 47.7 BUN/Creatinine Ratio 24 (6-20) H Glucose Level 82 mg/dL (70-99) Calcium Level 8.8 mg/dL (8.5-10.1) Total Bilirubin 0.3 mg/dL (0.2-1.0) Aspartate Amino Transferase (AST) 22 U/L (15-37) Alanine Aminotransferase (ALT) 19 U/L (14-59) Alkaline Phosphatase 81 U/L (46-116) Total Protein 6.0 g/dL (6.4-8.2) L Albumin 3.0 g/dL (3.4-5.0) L Albumin/Globulin Ratio 1.0 (1.0-1.7) Current Medications: Meds: Laboratory Tests Test 01/29/21 06:02 White Blood Count 10.1 x10^3/uL Red Blood Count 3.73 x10^6/uL Hemoglobin 10.3 g/dL Hematocrit 32.2 % Mean Corpuscular Volume 86 fL Mean Corpuscular Hemoglobin 28 pg Mean Corpuscular Hemoglobin Concent 32 g/dL Red Cell Distribution Width 14.3 % Platelet Count 440 x10^3/uL Neutrophils (%) (Auto) 62 % Lymphocytes (%) (Auto) 24 % Monocytes (%) (Auto) 10 % Eosinophils (%) (Auto) 3 % Basophils (%) (Auto) 1 % Neutrophils # (Auto) 6.2 x10^3uL Lymphocytes # (Auto) 2.4 x10^3/uL Monocytes # (Auto) 1.0 x10^3/uL Eosinophils # (Auto) 0.3 x10^3/uL Basophils # (Auto) 0.1 x10^3/uL Sodium Level 146 mmol/L Potassium Level 4.0 mmol/L Chloride Level 110 mmol/L Carbon Dioxide Level 28 mmol/L Anion Gap 8 Blood Urea Nitrogen 26 mg/dL Creatinine 1.1 mg/dL Estimated GFR (Cockcroft-Gault) 47.7 BUN/Creatinine Ratio 24 Glucose Level 82 mg/dL Calcium Level 8.8 mg/dL Total Bilirubin 0.3 mg/dL Aspartate Amino Transf (AST/SGOT) 22 U/L Alanine Aminotransferase (ALT/SGPT) 19 U/L Alkaline Phosphatase 81 U/L Total Protein 6.0 g/dL Albumin 3.0 g/dL Albumin/Globulin Ratio 1.0 Current Medications Medications (Trade) Dose Ordered Sig/Hector Route PRN Reason Start Time Stop Time Status Last Admin Dose Admin Sodium Chloride 1,000 ml @ 1,000 mls/hr 1X ONCE IV 01/14/21 19:00 01/14/21 19:59 DC 01/14/21 20:37 Acetaminophen (Tylenol) 650 mg PRN Q6HRS PRN PO MILD PAIN / TEMP > 100.3'F 01/14/21 23:15 01/27/21 15:39 Multi-Ingredient Ointment (Analgesic [place]) 1 wes PRN QID PRN TP MUSCLE PAIN 01/14/21 23:15 01/23/21 14:58 DC Al Hydroxide/Mg Hydroxide (Mylanta Plus Xs) 15 ml PRN AFTMEALHC PRN PO DYSPEPSIA 01/14/21 23:15 01/16/21 05:33 Magnesium Hydroxide (Milk Of Magnesia) 2,400 mg PRN QHS PRN PO CONSTIPATION 01/14/21 23:15 Donepezil HCl (Aricept) 10 mg HS PO 01/15/21 21:00 01/28/21 19:39 Lorazepam (Ativan) 0.5 mg PRN Q24HRS PRN PO ANXIETY, 1ST CHOICE 01/14/21 23:30 01/27/21 18:15 Lorazepam (Ativan) 0.5 mg TID PO 01/15/21 09:00 01/17/21 17:30 DC 01/17/21 10:25 Melatonin (Melatonin) 3 mg HS PO 01/15/21 21:00 01/28/21 19:37 Paroxetine HCl (Paxil) 40 mg DAILY PO 01/15/21 09:00 01/19/21 17:15 DC 01/19/21 08:40 Hydroxyzine HCl (Atarax) 25 mg PRN Q6HRS PRN PO ANXIETY, 2ND CHOICE 01/15/21 16:45 01/27/21 19:48 Acetaminophen (Tylenol) 650 mg PRN Q6HRS PRN PO PAIN 01/15/21 19:00 UNV Acetaminophen (Tylenol) 500 mg TID PO 01/15/21 21:00 01/29/21 08:28 Atorvastatin Calcium (Lipitor) 10 mg QHS PO 01/15/21 21:00 01/28/21 19:39 Budesonide (Entocort) 6 mg DAILY PO 01/16/21 09:00 01/29/21 08:29 Calcium Polycarbophil (Fibercon) 1,250 mg BID PO 01/15/21 21:00 01/29/21 08:28 Lidocaine (Lidoderm) 1 patch DAILY TD 01/16/21 09:00 01/28/21 08:07 Mirabegron (Myrbetriq) 25 mg DAILY PO 01/16/21 09:00 01/23/21 17:53 DC 01/23/21 07:49 Pantoprazole Sodium (Protonix) 40 mg DAILY PO 01/16/21 09:00 01/29/21 08:28 Phenazopyridine HCl (Pyridium) 100 mg PRN Q24HRS PRN PO URINARY PAIN 01/15/21 19:00 01/28/21 19:41 Lactobacillus Rhamnosus (Culturelle) 1 cap BID PO 01/15/21 09:00 01/29/21 08:28 Losartan Potassium (Cozaar) 100 mg HS PO 01/15/21 21:00 01/28/21 19:41 Miscellaneous (Lidoderm Patch Removal) 1 ea QHS MC 01/15/21 21:00 01/28/21 19:43 Memantine (Namenda) 5 mg BID PO 01/16/21 21:00 01/22/21 22:50 DC 01/22/21 19:49 Memantine (Namenda) 10 mg BID PO 01/23/21 09:00 01/29/21 08:29 Vitamin D (Vitamin D3) 50,000 unit WEEKLY PO 01/16/21 17:30 01/23/21 07:54 Lorazepam (Ativan) 0.5 mg BID PO 01/17/21 21:00 01/19/21 23:50 DC 01/19/21 19:56 Lorazepam (Ativan) 0.5 mg DAILY PO 01/20/21 09:00 01/22/21 12:00 DC 01/22/21 07:50 Quetiapine Fumarate (SEROquel) 12.5 mg 0900,1700 PO 01/18/21 17:00 01/21/21 17:55 DC 01/21/21 17:33 Sertraline HCl (Zoloft) 50 mg DAILY PO 01/20/21 09:00 01/22/21 13:00 DC 01/22/21 07:51 Sertraline HCl (Zoloft) 75 mg DAILY PO 01/23/21 09:00 01/24/21 17:53 DC 01/24/21 08:48 Mirtazapine (Remeron) 7.5 mg QHS PO 01/20/21 21:00 01/28/21 19:38 Quetiapine Fumarate (SEROquel) 12.5 mg 0900,1300,1700 PO 01/22/21 09:00 01/25/21 16:00 DC 01/25/21 12:54 Sertraline HCl (Zoloft) 100 mg DAILY PO 01/25/21 09:00 01/26/21 17:53 DC 01/26/21 05:25 Quetiapine Fumarate (SEROquel) 12.5 mg 0900,1300,1700,2100 PO 01/25/21 21:00 01/28/21 18:16 DC 01/28/21 17:11 Sertraline HCl (Zoloft) 125 mg DAILY PO 01/27/21 09:00 01/29/21 08:29 Quetiapine Fumarate (SEROquel) 12.5 mg 1300,2100 PO 01/28/21 21:00 01/28/21 19:41 Quetiapine Fumarate (SEROquel) 25 mg 0900,1700 PO 01/29/21 09:00 01/29/21 08:29 Quetiapine Fumarate (SEROquel) 12.5 mg 1300,2100 PO 01/28/21 21:00 UNV Current Medications Medications (Trade) Dose Ordered Sig/Hector Route PRN Reason Start Time Stop Time Status Last Admin Dose Admin Quetiapine Fumarate (SEROquel) 12.5 mg 1300,2100 PO 01/28/21 21:00 01/28/21 19:41 Quetiapine Fumarate (SEROquel) 25 mg 0900,1700 PO 01/29/21 09:00 01/29/21 08:29 I have reviewed the current psychotropics carefully including drug interactions. Risk benefit ratio favors no change other than as noted in my dictated progress note. Diagnosis: Problems: (1) Impulse control disorder, unspecified (2) Anxiety disorder, unspecified (3) Dementia, vascular, with depression (4) Dementia, vascular, with delusions (5) Dementia in Alzheimer's disease with depression (6) Dementia in Alzheimer's disease with delusions (7) Major neurocognitive disorder (8) Dementia in Alzheimer's disease with early onset with behavioral disturbance LUCAS CODY MD Jan 29, 2021 09:33
[2021-01-29 15:43] VITALS: BP 150/81
[2021-01-29] MEDS: MIRTAZAPINE 7.5 MG TABLET. PO SCH (20:16)
[2021-01-29] MEDS: MELATONIN 3 MG TABLET PO SCH (20:16)
[2021-01-29] MEDS: ATORVASTATIN CALCIUM 10 MG TABLET. PO SCH (20:17)
[2021-01-29] MEDS: LOSARTAN 50 MG TABLET. PO SCH (20:18)
[2021-01-29] MEDS: DONEPEZIL HCL 10 MG TABLET PO SCH (20:18)
[2021-01-29] MEDS: PATCH REMOVAL. MC SCH (20:21)
[2021-01-30 06:14] VITALS: BP 166/82
--- NOTE | 2021-01-30 06:47 | PDOC ---
Exam Note: Deon Note: Late entry for 01/29/2021. Please also refer to the separate dictated note~for this date of service dictated separately.~Patient seen individually. Discussed the patient with Nursing staff reviewed the chart.~Reviewed interim history and current functioning. Reviewed vital signs,~Labs/ Radiology~and current medic ations noted below. Continue current treatment with the changes noted in the dictated addendum note Assessment: Vital Signs/I&O: Vital Signs Date Time Temp Pulse Resp B/P (MAP) Pulse Ox O2 Delivery O2 Flow Rate FiO2 01/30/21 06:14 97.0 86 18 166/82 (110) 98 Room Air I & O 01/29/21 01/29/21 01/30/21 15:00 23:00 07:00 Intake Total 120 ml 360 ml Output Total 575 ml 400 ml Balance 120 ml -215 ml -400 ml Current Medications: Meds: Current Medications Medications (Trade) Dose Ordered Sig/Hector Route PRN Reason Start Time Stop Time Status Last Admin Dose Admin Sodium Chloride 1,000 ml @ 1,000 mls/hr 1X ONCE IV 01/14/21 19:00 01/14/21 19:59 DC 01/14/21 20:37 Acetaminophen (Tylenol) 650 mg PRN Q6HRS PRN PO MILD PAIN / TEMP > 100.3'F 01/14/21 23:15 01/27/21 15:39 Multi-Ingredient Ointment (Analgesic [place]) 1 wes PRN QID PRN TP MUSCLE PAIN 01/14/21 23:15 01/23/21 14:58 DC Al Hydroxide/Mg Hydroxide (Mylanta Plus Xs) 15 ml PRN AFTMEALHC PRN PO DYSPEPSIA 01/14/21 23:15 01/16/21 05:33 Magnesium Hydroxide (Milk Of Magnesia) 2,400 mg PRN QHS PRN PO CONSTIPATION 01/14/21 23:15 Donepezil HCl (Aricept) 10 mg HS PO 01/15/21 21:00 01/29/21 20:18 Lorazepam (Ativan) 0.5 mg PRN Q24HRS PRN PO ANXIETY, 1ST CHOICE 01/14/21 23:30 01/27/21 18:15 Lorazepam (Ativan) 0.5 mg TID PO 01/15/21 09:00 01/17/21 17:30 DC 01/17/21 10:25 Melatonin (Melatonin) 3 mg HS PO 01/15/21 21:00 01/29/21 20:16 Paroxetine HCl (Paxil) 40 mg DAILY PO 01/15/21 09:00 01/19/21 17:15 DC 01/19/21 08:40 Hydroxyzine HCl (Atarax) 25 mg PRN Q6HRS PRN PO ANXIETY, 2ND CHOICE 01/15/21 16:45 01/27/21 19:48 Acetaminophen (Tylenol) 650 mg PRN Q6HRS PRN PO PAIN 01/15/21 19:00 UNV Acetaminophen (Tylenol) 500 mg TID PO 01/15/21 21:00 01/29/21 20:17 Atorvastatin Calcium (Lipitor) 10 mg QHS PO 01/15/21 21:00 01/29/21 20:17 Budesonide (Entocort) 6 mg DAILY PO 01/16/21 09:00 01/29/21 08:29 Calcium Polycarbophil (Fibercon) 1,250 mg BID PO 01/15/21 21:00 01/29/21 20:17 Lidocaine (Lidoderm) 1 patch DAILY TD 01/16/21 09:00 01/28/21 08:07 Mirabegron (Myrbetriq) 25 mg DAILY PO 01/16/21 09:00 01/23/21 17:53 DC 01/23/21 07:49 Pantoprazole Sodium (Protonix) 40 mg DAILY PO 01/16/21 09:00 01/29/21 08:28 Phenazopyridine HCl (Pyridium) 100 mg PRN Q24HRS PRN PO URINARY PAIN 01/15/21 19:00 01/28/21 19:41 Lactobacillus Rhamnosus (Culturelle) 1 cap BID PO 01/15/21 09:00 01/29/21 20:17 Losartan Potassium (Cozaar) 100 mg HS PO 01/15/21 21:00 01/29/21 20:18 Miscellaneous (Lidoderm Patch Removal) 1 ea QHS MC 01/15/21 21:00 01/28/21 19:43 Memantine (Namenda) 5 mg BID PO 01/16/21 21:00 01/22/21 22:50 DC 01/22/21 19:49 Memantine (Namenda) 10 mg BID PO 01/23/21 09:00 01/29/21 20:56 Vitamin D (Vitamin D3) 50,000 unit WEEKLY PO 01/16/21 17:30 01/23/21 07:54 Lorazepam (Ativan) 0.5 mg BID PO 01/17/21 21:00 01/19/21 23:50 DC 01/19/21 19:56 Lorazepam (Ativan) 0.5 mg DAILY PO 01/20/21 09:00 01/22/21 12:00 DC 01/22/21 07:50 Quetiapine Fumarate (SEROquel) 12.5 mg 0900,1700 PO 01/18/21 17:00 01/21/21 17:55 DC 01/21/21 17:33 Sertraline HCl (Zoloft) 50 mg DAILY PO 01/20/21 09:00 01/22/21 13:00 DC 01/22/21 07:51 Sertraline HCl (Zoloft) 75 mg DAILY PO 01/23/21 09:00 01/24/21 17:53 DC 01/24/21 08:48 Mirtazapine (Remeron) 7.5 mg QHS PO 01/20/21 21:00 01/29/21 20:16 Quetiapine Fumarate (SEROquel) 12.5 mg 0900,1300,1700 PO 01/22/21 09:00 01/25/21 16:00 DC 01/25/21 12:54 Sertraline HCl (Zoloft) 100 mg DAILY PO 01/25/21 09:00 01/26/21 17:53 DC 01/26/21 05:25 Quetiapine Fumarate (SEROquel) 12.5 mg 0900,1300,1700,2100 PO 01/25/21 21:00 01/28/21 18:16 DC 01/28/21 17:11 Sertraline HCl (Zoloft) 125 mg DAILY PO 01/27/21 09:00 01/29/21 08:29 Quetiapine Fumarate (SEROquel) 12.5 mg 1300,2100 PO 01/28/21 21:00 01/29/21 20:18 Quetiapine Fumarate (SEROquel) 25 mg 0900,1700 PO 01/29/21 09:00 01/29/21 17:00 Quetiapine Fumarate (SEROquel) 12.5 mg 1300,2100 PO 01/28/21 21:00 UNV Current Medications Medications (Trade) Dose Ordered Sig/Hector Route PRN Reason Start Time Stop Time Status Last Admin Dose Admin Quetiapine Fumarate (SEROquel) 25 mg 0900,1700 PO 01/29/21 09:00 01/29/21 17:00 I have reviewed the current psychotropics carefully including drug interactions. Risk benefit ratio favors no change other than as noted in my dictated progress note. Diagnosis: Problems: (1) Impulse control disorder, unspecified (2) Anxiety disorder, unspecified (3) Dementia, vascular, with depression (4) Dementia, vascular, with delusions (5) Dementia in Alzheimer's disease with depression (6) Dementia in Alzheimer's disease with delusions (7) Major neurocognitive disorder (8) Dementia in Alzheimer's disease with early onset with behavioral disturbance LUCAS CODY MD Jan 30, 2021 06:47
[2021-01-30] MEDS: BUDESONIDE 3 MG CAP.ER.24H. PO SCH (08:20)
[2021-01-30] MEDS: ACETAMINOPHEN 500 MG TABLET PO SCH ×3 (08:20→21:11)
[2021-01-30] MEDS: CHOLECALCIFEROL (VITAMIN D3) 50,000 UNIT CAPSULE PO SCH (08:21)
[2021-01-30] MEDS: LACTOBACILLUS RHAMNOSUS GG 1 CAPSULE. PO SCH ×2 (08:21→21:12)
[2021-01-30] MEDS: PANTOPRAZOLE 40 MG TABLET. PO SCH (08:21)
[2021-01-30] MEDS: CALCIUM POLYCARBOPHIL 625 MG TABLET PO SCH ×2 (08:21→21:11)
[2021-01-30] MEDS: MEMANTINE 10 MG TABLET. PO SCH ×2 (08:21→21:12)
[2021-01-30] MEDS: SERTRALINE 100 MG TABLET. PO SCH (08:21)
[2021-01-30] MEDS: QUEtiapine 25 MG TABLET. PO SCH ×4 (08:21→21:12)
[2021-01-30] MEDS: LIDOCAINE (700MG/PATCH) PATCH. TD SCH (08:22)
[2021-01-30] MEDS: SERTRALINE 25 MG TABLET. PO SCH (08:22)
[2021-01-30 15:40] VITALS: BP 116/76
--- NOTE | 2021-01-30 15:46 | TX PLAN ---
Interdisciplinary Tx Plan Admission Information Jan 14, 2021 at 22:35 Legal Status (on Admission): Voluntary DPOA/Guardian Name: Dimitri Lema (Dick) Contact Other Contact Name: ABISAI Lopez Other Contact Verified Code Status: DNR Allergies: Coded Allergies: sulfamethoxazole (Verified Allergy, Unknown, 12/14/19) prochlorperazine maleate (Verified Adverse Reaction, Unknown, Makes her twitch, 12/14/19) Diagnoses Primary Diagnosis: (1) Major neurocognitive disorder due to Alzheimer's disease (2) Dementia in Alzheimer's disease with delusions (3) Dementia in Alzheimer's disease with depression (4) Dementia, vascular, with delusions (5) Dementia, vascular, with depression (6) Anxiety disorder, unspecified (7) Impulse control disorder, unspecified Reasons for Admission: Aggressive, Agitated, Angry, Anxiety/Panic, Combative, Confusion/Disoriented, Poor impulse control Problem in Patient's Words: Per /DPOA, Praneeth, up until about two years ago, pt was fairly healthy and she developed Psoriasis and then had a fall and cracked her leg. This seemed to be the onset of her dementia. She has three main problems: her dementia, stomach pain, and back pain. At her facility, they started her on a lidocaine patch, and this seemed to help her with the pain. She sees Dr. Fierro for neurology, she has seen another doctor for urology, and when she was at home she had home health that set her up with a psychologist, Dr. Beasley. 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 Problems Active Problems: Confused, disoriented, agitated, crying, anxiety Inactive Problems: Aggression, Combative Pt Strengths/Limitations Ability for Sac: Poor Cognitive Functioning/Ability: Poor Communication Skills/Ability: Fair Financial Resources: Good Insight/Judgement: Poor Intellectual Ability: Fair Physical Health: Poor Social Skills: Good Stability in Family: Good Stability in School/Work: Good Verbal Skills: Fair Discharge Criteria Discharge Criteria: Adequate arrangements @DC, Verbal commit med comply, Improved behavior, Improved mood/thought Other Discharge Comments: None noted at this time. Preliminary Discharge Plan Preliminary DC Plan: Current Living Arrange. Special Precautions Special Precautions: Agitation/Assault Fall Risk: High Initial D/C Plan Pt Plan is to return to [facility] once stable. Identified Discharge Needs: None known at this time. Currently Utilized Resources Currently Utilized Resources/P: PCP-Dr. Amato /DPOA-Dimitri Kinsey" [place] [facility], contact-ABISAI Lopez Community Resources: None at this time. Identified Problems/Hx/Goals Objectives/Short-Term Goals Short Term Goals: Control abnormal behavior, Dec. Aggression, Dec. Outbursts, Medication Stabilization, Monitor Med Effects, Promote Coping Skill Short Term Goals in Patient's: To feel less agitated and anxious. Help to control symptoms of anxiety and depression and for behaviors to improved. Interventions/Frequency Staff Interventions/Frequency&: Psychiatry to assess pt three times per week for medication management. Nursing to assess behaviors, monitor medications, and complete 15 minute checks daily. Social work to see pt at least two times weekly to aid in return to placement. Activities to encourage pt to participate in group activities daily. 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 Education: High School and three years college Community Follow-up PCP Community Provider/Family Inpu: /DPOA, Dimitri Kinsey", aware of pt hospitalization and is available for further information as needed. Treatment Plan Explained Patient/Auto Roller had this treatment plan explained to him/her as indicated by the signature below and has been given the opportunity to ask questions and make suggestions: Date: Patient/Auto Roller Signature: Status Update Update Pt was present for treatment team via phone. Pt continues to eat about 50% of her meals and feeds herself with utensils. She is getting approximately 7.5 hours of sleep per night. Pt is taking her medications whole and continues to be compliant. Pt continues to show some anxiety, but it appears to be less than at time of admission. She does continuously ask where her dogs and are. It appears that her continuous asking these things could be a reassurance to herself that her dogs and are still okay and are still in existence. Pt has now been ambulating with her walker and when she is told that she is doing better, she states that she is trying. Pt just needs ongoing encouragement to keep up the good work. Pt has attended some of the groups and will occasionally get irritated, but has been redirectable. Pt plan is to return to [facility] once stable unless pt /DPOA chooses another facility to send her to and if she were even accepted. JAYDEN FORREST Jan 30, 2021 15:45
[2021-01-30] MEDS: PATCH REMOVAL. MC SCH (21:00)
[2021-01-30] MEDS: MIRTAZAPINE 7.5 MG TABLET. PO SCH (21:11)
[2021-01-30] MEDS: MELATONIN 3 MG TABLET PO SCH (21:11)
[2021-01-30] MEDS: LOSARTAN 50 MG TABLET. PO SCH (21:12)
[2021-01-30] MEDS: DONEPEZIL HCL 10 MG TABLET PO SCH (21:12)
[2021-01-30] MEDS: ATORVASTATIN CALCIUM 10 MG TABLET. PO SCH (21:12)
--- NOTE | 2021-01-30 22:06 | PDOC ---
Exam Note: Deon Note: Please also refer to the separate dictated note~for this date of service dictated separately.~Patient seen individually. Discussed the patient with Nursing staff reviewed the chart.~Reviewed interim history and current functioning. Reviewed vital signs,~Labs/ Radiology~and current medications noted below. Continue current treatment with the changes noted in the dictated addendum note Assessment: Vital Signs/I&O: Vital Signs Date Time Temp Pulse Resp B/P (MAP) Pulse Ox O2 Delivery O2 Flow Rate FiO2 01/30/21 21:12 104 116/76 01/30/21 15:40 98.2 18 95 01/30/21 06:14 Room Air I & O 01/29/21 01/29/21 01/30/21 15:00 23:00 07:00 Intake Total 120 ml 360 ml Output Total 575 ml 400 ml Balance 120 ml -215 ml -400 ml Current Medications: Meds: Current Medications Medications (Trade) Dose Ordered Sig/Hector Route PRN Reason Start Time Stop Time Status Last Admin Dose Admin Sodium Chloride 1,000 ml @ 1,000 mls/hr 1X ONCE IV 01/14/21 19:00 01/14/21 19:59 DC 01/14/21 20:37 Acetaminophen (Tylenol) 650 mg PRN Q6HRS PRN PO MILD PAIN / TEMP > 100.3'F 01/14/21 23:15 01/27/21 15:39 Multi-Ingredient Ointment (Analgesic [place]) 1 wes PRN QID PRN TP MUSCLE PAIN 01/14/21 23:15 01/23/21 14:58 DC Al Hydroxide/Mg Hydroxide (Mylanta Plus Xs) 15 ml PRN AFTMEALHC PRN PO DYSPEPSIA 01/14/21 23:15 01/16/21 05:33 Magnesium Hydroxide (Milk Of Magnesia) 2,400 mg PRN QHS PRN PO CONSTIPATION 01/14/21 23:15 Donepezil HCl (Aricept) 10 mg HS PO 01/15/21 21:00 01/30/21 21:12 Lorazepam (Ativan) 0.5 mg PRN Q24HRS PRN PO ANXIETY, 1ST CHOICE 01/14/21 23:30 01/27/21 18:15 Lorazepam (Ativan) 0.5 mg TID PO 01/15/21 09:00 01/17/21 17:30 DC 01/17/21 10:25 Melatonin (Melatonin) 3 mg HS PO 01/15/21 21:00 01/30/21 21:11 Paroxetine HCl (Paxil) 40 mg DAILY PO 01/15/21 09:00 01/19/21 17:15 DC 01/19/21 08:40 Hydroxyzine HCl (Atarax) 25 mg PRN Q6HRS PRN PO ANXIETY, 2ND CHOICE 01/15/21 16:45 01/27/21 19:48 Acetaminophen (Tylenol) 650 mg PRN Q6HRS PRN PO PAIN 01/15/21 19:00 UNV Acetaminophen (Tylenol) 500 mg TID PO 01/15/21 21:00 01/30/21 21:11 Atorvastatin Calcium (Lipitor) 10 mg QHS PO 01/15/21 21:00 01/30/21 21:12 Budesonide (Entocort) 6 mg DAILY PO 01/16/21 09:00 01/30/21 08:20 Calcium Polycarbophil (Fibercon) 1,250 mg BID PO 01/15/21 21:00 01/30/21 21:11 Lidocaine (Lidoderm) 1 patch DAILY TD 01/16/21 09:00 01/30/21 08:22 Mirabegron (Myrbetriq) 25 mg DAILY PO 01/16/21 09:00 01/23/21 17:53 DC 01/23/21 07:49 Pantoprazole Sodium (Protonix) 40 mg DAILY PO 01/16/21 09:00 01/30/21 08:21 Phenazopyridine HCl (Pyridium) 100 mg PRN Q24HRS PRN PO URINARY PAIN 01/15/21 19:00 01/28/21 19:41 Lactobacillus Rhamnosus (Culturelle) 1 cap BID PO 01/15/21 09:00 01/30/21 21:12 Losartan Potassium (Cozaar) 100 mg HS PO 01/15/21 21:00 01/30/21 21:12 Miscellaneous (Lidoderm Patch Removal) 1 ea QHS MC 01/15/21 21:00 01/28/21 19:43 Memantine (Namenda) 5 mg BID PO 01/16/21 21:00 01/22/21 22:50 DC 01/22/21 19:49 Memantine (Namenda) 10 mg BID PO 01/23/21 09:00 01/30/21 21:12 Vitamin D (Vitamin D3) 50,000 unit WEEKLY PO 01/16/21 17:30 01/30/21 08:21 Lorazepam (Ativan) 0.5 mg BID PO 01/17/21 21:00 01/19/21 23:50 DC 01/19/21 19:56 Lorazepam (Ativan) 0.5 mg DAILY PO 01/20/21 09:00 01/22/21 12:00 DC 01/22/21 07:50 Quetiapine Fumarate (SEROquel) 12.5 mg 0900,1700 PO 01/18/21 17:00 01/21/21 17:55 DC 01/21/21 17:33 Sertraline HCl (Zoloft) 50 mg DAILY PO 01/20/21 09:00 01/22/21 13:00 DC 01/22/21 07:51 Sertraline HCl (Zoloft) 75 mg DAILY PO 01/23/21 09:00 01/24/21 17:53 DC 01/24/21 08:48 Mirtazapine (Remeron) 7.5 mg QHS PO 01/20/21 21:00 01/30/21 21:11 Quetiapine Fumarate (SEROquel) 12.5 mg 0900,1300,1700 PO 01/22/21 09:00 01/25/21 16:00 IN 01/25/21 12:54 Sertraline HCl (Zoloft) 100 mg DAILY PO 01/25/21 09:00 01/26/21 17:53 DC 01/26/21 05:25 Quetiapine Fumarate (SEROquel) 12.5 mg 0900,1300,1700,2100 PO 01/25/21 21:00 01/28/21 18:16 DC 01/28/21 17:11 Sertraline HCl (Zoloft) 125 mg DAILY PO 01/27/21 09:00 01/30/21 08:02 DC 01/29/21 08:29 Quetiapine Fumarate (SEROquel) 12.5 mg 1300,2100 PO 01/28/21 21:00 01/30/21 21:12 Quetiapine Fumarate (SEROquel) 25 mg 0900,1700 PO 01/29/21 09:00 01/30/21 17:24 Quetiapine Fumarate (SEROquel) 12.5 mg 1300,2100 PO 01/28/21 21:00 UNV Sertraline HCl (Zoloft) 100 mg DAILY PO 01/30/21 09:00 01/30/21 08:21 Sertraline HCl (Zoloft) 25 mg DAILY PO 01/30/21 09:00 01/30/21 08:22 Current Medications Medications (Trade) Dose Ordered Sig/Hector Route PRN Reason Start Time Stop Time Status Last Admin Dose Admin Sertraline HCl (Zoloft) 100 mg DAILY PO 01/30/21 09:00 01/30/21 08:21 Sertraline HCl (Zoloft) 25 mg DAILY PO 01/30/21 09:00 01/30/21 08:22 I have reviewed the current psychotropics carefully including drug interactions. Risk benefit ratio favors no change other than as noted in my dictated progress note. Diagnosis: Problems: (1) Anxiety disorder, unspecified (2) Impulse control disorder, unspecified (3) Dementia, vascular, with depression (4) Dementia, vascular, with delusions (5) Dementia in Alzheimer's disease with depression (6) Dementia in Alzheimer's disease with delusions (7) Major neurocognitive disorder (8) Dementia in Alzheimer's disease with early onset with behavioral disturbance LUCAS CODY MD Jan 30, 2021 22:06
[2021-01-31 06:18] VITALS: BP 124/72
--- NOTE | 2021-01-31 06:29 | PDOC ---
Exam Note: Deon Note: This note is a late entry for 01/29/2021 covers elements not covered in my initial note. Subjective: The patient was seen individually in the evening of 01/29/2021 with Erin MERCER, discussed and reviewed the chart. The patient slept 6-3/4 hours previous night. She is compliant with medications. Short-term memory is poor. She is somewhat obsessive about asking how her dogs are and why is her not coming to visit her. Overall she is less delusional that the staff is going to hurt her. She is compliant with medications. Review of Systems: No CV, pulmonary, eye, ENT system symptoms on review. Ambulation impaired in wheelchair. discomfort due to [place]. Mental Status Exam: The patient is oriented to herself. Speech coherent. Abstraction fair. Computation impaired. Attention span short. Language function intact. No suicidal or homicidal ideation. Laboratory Data: Reviewed. Impression: Major neurocognitive disorder Alzheimer, vascular with delusion, depression, behavioral disturbance. Anxiety disorder unspecified. Impulse control disorder unspecified. Plan: Continue rest psychotropics unchanged. The patient is responding to the increased Seroquel. We will maintain unchanged. Assessment: Vital Signs/I&O: Vital Signs Date Time Temp Pulse Resp B/P (MAP) Pulse Ox O2 Delivery O2 Flow Rate FiO2 01/31/21 06:18 97.5 82 18 124/72 (89) 92 Room Air I & O 01/30/21 01/30/21 01/31/21 15:00 23:00 07:00 Intake Total 600 ml 360 ml Output Total 300 ml Balance 600 ml 360 ml -300 ml Current Medications: Meds: Current Medications Medications (Trade) Dose Ordered Sig/Hector Route PRN Reason Start Time Stop Time Status Last Admin Dose Admin Sodium Chloride 1,000 ml @ 1,000 mls/hr 1X ONCE IV 01/14/21 19:00 01/14/21 19:59 DC 01/14/21 20:37 Acetaminophen (Tylenol) 650 mg PRN Q6HRS PRN PO MILD PAIN / TEMP > 100.3'F 01/14/21 23:15 01/27/21 15:39 Multi-Ingredient Ointment (Analgesic [place]) 1 wes PRN QID PRN TP MUSCLE PAIN 01/14/21 23:15 01/23/21 14:58 DC Al Hydroxide/Mg Hydroxide (Mylanta Plus Xs) 15 ml PRN AFTMEALHC PRN PO DYSPEPSIA 01/14/21 23:15 01/16/21 05:33 Magnesium Hydroxide (Milk Of Magnesia) 2,400 mg PRN QHS PRN PO CONSTIPATION 01/14/21 23:15 Donepezil HCl (Aricept) 10 mg HS PO 01/15/21 21:00 01/30/21 21:12 Lorazepam (Ativan) 0.5 mg PRN Q24HRS PRN PO ANXIETY, 1ST CHOICE 01/14/21 23:30 01/27/21 18:15 Lorazepam (Ativan) 0.5 mg TID PO 01/15/21 09:00 01/17/21 17:30 DC 01/17/21 10:25 Melatonin (Melatonin) 3 mg HS PO 01/15/21 21:00 01/30/21 21:11 Paroxetine HCl (Paxil) 40 mg DAILY PO 01/15/21 09:00 01/19/21 17:15 DC 01/19/21 08:40 Hydroxyzine HCl (Atarax) 25 mg PRN Q6HRS PRN PO ANXIETY, 2ND CHOICE 01/15/21 16:45 01/27/21 19:48 Acetaminophen (Tylenol) 650 mg PRN Q6HRS PRN PO PAIN 01/15/21 19:00 UNV Acetaminophen (Tylenol) 500 mg TID PO 01/15/21 21:00 01/30/21 21:11 Atorvastatin Calcium (Lipitor) 10 mg QHS PO 01/15/21 21:00 01/30/21 21:12 Budesonide (Entocort) 6 mg DAILY PO 01/16/21 09:00 01/30/21 08:20 Calcium Polycarbophil (Fibercon) 1,250 mg BID PO 01/15/21 21:00 01/30/21 21:11 Lidocaine (Lidoderm) 1 patch DAILY TD 01/16/21 09:00 01/30/21 08:22 Mirabegron (Myrbetriq) 25 mg DAILY PO 01/16/21 09:00 01/23/21 17:53 DC 01/23/21 07:49 Pantoprazole Sodium (Protonix) 40 mg DAILY PO 01/16/21 09:00 01/30/21 08:21 Phenazopyridine HCl (Pyridium) 100 mg PRN Q24HRS PRN PO URINARY PAIN 01/15/21 19:00 01/28/21 19:41 Lactobacillus Rhamnosus (Culturelle) 1 cap BID PO 01/15/21 09:00 01/30/21 21:12 Losartan Potassium (Cozaar) 100 mg HS PO 01/15/21 21:00 01/30/21 21:12 Miscellaneous (Lidoderm Patch Removal) 1 ea QHS MC 01/15/21 21:00 01/30/21 21:00 Memantine (Namenda) 5 mg BID PO 01/16/21 21:00 01/22/21 22:50 DC 01/22/21 19:49 Memantine (Namenda) 10 mg BID PO 01/23/21 09:00 01/30/21 21:12 Vitamin D (Vitamin D3) 50,000 unit WEEKLY PO 01/16/21 17:30 01/30/21 08:21 Lorazepam (Ativan) 0.5 mg BID PO 01/17/21 21:00 01/19/21 23:50 DC 01/19/21 19:56 Lorazepam (Ativan) 0.5 mg DAILY PO 01/20/21 09:00 01/22/21 12:00 DC 01/22/21 07:50 Quetiapine Fumarate (SEROquel) 12.5 mg 0900,1700 PO 01/18/21 17:00 01/21/21 17:55 DC 01/21/21 17:33 Sertraline HCl (Zoloft) 50 mg DAILY PO 01/20/21 09:00 01/22/21 13:00 DC 01/22/21 07:51 Sertraline HCl (Zoloft) 75 mg DAILY PO 01/23/21 09:00 01/24/21 17:53 DC 01/24/21 08:48 Mirtazapine (Remeron) 7.5 mg QHS PO 01/20/21 21:00 01/30/21 21:11 Quetiapine Fumarate (SEROquel) 12.5 mg 0900,1300,1700 PO 01/22/21 09:00 01/25/21 16:00 DC 01/25/21 12:54 Sertraline HCl (Zoloft) 100 mg DAILY PO 01/25/21 09:00 01/26/21 17:53 DC 01/26/21 05:25 Quetiapine Fumarate (SEROquel) 12.5 mg 0900,1300,1700,2100 PO 01/25/21 21:00 01/28/21 18:16 DC 01/28/21 17:11 Sertraline HCl (Zoloft) 125 mg DAILY PO 01/27/21 09:00 01/30/21 08:02 DC 01/29/21 08:29 Quetiapine Fumarate (SEROquel) 12.5 mg 1300,2100 PO 01/28/21 21:00 01/30/21 21:12 Quetiapine Fumarate (SEROquel) 25 mg 0900,1700 PO 01/29/21 09:00 01/30/21 17:24 Quetiapine Fumarate (SEROquel) 12.5 mg 1300,2100 PO 01/28/21 21:00 UNV Sertraline HCl (Zoloft) 100 mg DAILY PO 01/30/21 09:00 01/30/21 08:21 Sertraline HCl (Zoloft) 25 mg DAILY PO 01/30/21 09:00 01/30/21 08:22 Current Medications Medications (Trade) Dose Ordered Sig/Hector Route PRN Reason Start Time Stop Time Status Last Admin Dose Admin Sertraline HCl (Zoloft) 100 mg DAILY PO 01/30/21 09:00 01/30/21 08:21 Sertraline HCl (Zoloft) 25 mg DAILY PO 01/30/21 09:00 01/30/21 08:22 I have reviewed the current psychotropics carefully including drug interactions. Risk benefit ratio favors no change other than as noted in my dictated progress note. Diagnosis: Problems: (1) Anxiety disorder, unspecified (2) Impulse control disorder, unspecified (3) Dementia, vascular, with depression (4) Dementia in Alzheimer's disease with delusions (5) Dementia in Alzheimer's disease with depression (6) Dementia, vascular, with delusions (7) Major neurocognitive disorder (8) Dementia in Alzheimer's disease with early onset with behavioral disturbance LUCAS CODY MD Jan 31, 2021 06:29
--- NOTE | 2021-01-31 06:53 | PDOC ---
Exam Note: Deon Note: This note is a late entry for 01/30/2021overs elements not covered in my initial note. Subjective: The patient was seen individually in the morning of 01/30/2021 for a treatment team meeting with Luz Tracy, Pat Bocanegra (social media marketing analyst), Silva, activity therapy and Danuta MERCER, discussed and reviewed the chart. The patient slept 6-3/4 hours previous night. The patients Praneeth attended the conference. She remains confused, anxious, restless, obsessive about discharge. is now visiting her. I processed this with her. Review of Systems: No CV, pulmonary, eye, ENT system symptoms on review. Ambulation impaired in wheelchair. Mental Status Exam: The patient is oriented to herself. Speech coherent. Abstraction fair. Computation impaired. Attention span short. Language function intact. No suicidal or homicidal ideation. Laboratory Data: Reviewed. Impression: Major neurocognitive disorder Alzheimer, vascular with delusion, depression, behavioral disturbance. Anxiety disorder unspecified. Impulse control disorder unspecified. Plan: Continue rest psychotropics unchanged. would like an alternate placement but if one is not found she will return back to [facility]. Assessment: Vital Signs/I&O: Vital Signs Date Time Temp Pulse Resp B/P (MAP) Pulse Ox O2 Delivery O2 Flow Rate FiO2 01/31/21 06:18 97.5 82 18 124/72 (89) 92 Room Air I & O 01/30/21 01/30/21 01/31/21 15:00 23:00 07:00 Intake Total 600 ml 360 ml Output Total 300 ml Balance 600 ml 360 ml -300 ml Current Medications: Meds: Current Medications Medications (Trade) Dose Ordered Sig/Hector Route PRN Reason Start Time Stop Time Status Last Admin Dose Admin Sodium Chloride 1,000 ml @ 1,000 mls/hr 1X ONCE IV 01/14/21 19:00 01/14/21 19:59 DC 01/14/21 20:37 Acetaminophen (Tylenol) 650 mg PRN Q6HRS PRN PO MILD PAIN / TEMP > 100.3'F 01/14/21 23:15 01/27/21 15:39 Multi-Ingredient Ointment (Analgesic [place]) 1 wes PRN QID PRN TP MUSCLE PAIN 01/14/21 23:15 01/23/21 14:58 DC Al Hydroxide/Mg Hydroxide (Mylanta Plus Xs) 15 ml PRN AFTMEALHC PRN PO DYSPEPSIA 01/14/21 23:15 01/16/21 05:33 Magnesium Hydroxide (Milk Of Magnesia) 2,400 mg PRN QHS PRN PO CONSTIPATION 01/14/21 23:15 Donepezil HCl (Aricept) 10 mg HS PO 01/15/21 21:00 01/30/21 21:12 Lorazepam (Ativan) 0.5 mg PRN Q24HRS PRN PO ANXIETY, 1ST CHOICE 01/14/21 23:30 01/27/21 18:15 Lorazepam (Ativan) 0.5 mg TID PO 01/15/21 09:00 01/17/21 17:30 DC 01/17/21 10:25 Melatonin (Melatonin) 3 mg HS PO 01/15/21 21:00 01/30/21 21:11 Paroxetine HCl (Paxil) 40 mg DAILY PO 01/15/21 09:00 01/19/21 17:15 DC 01/19/21 08:40 Hydroxyzine HCl (Atarax) 25 mg PRN Q6HRS PRN PO ANXIETY, 2ND CHOICE 01/15/21 16:45 01/27/21 19:48 Acetaminophen (Tylenol) 650 mg PRN Q6HRS PRN PO PAIN 01/15/21 19:00 UNV Acetaminophen (Tylenol) 500 mg TID PO 01/15/21 21:00 01/30/21 21:11 Atorvastatin Calcium (Lipitor) 10 mg QHS PO 01/15/21 21:00 01/30/21 21:12 Budesonide (Entocort) 6 mg DAILY PO 01/16/21 09:00 01/30/21 08:20 Calcium Polycarbophil (Fibercon) 1,250 mg BID PO 01/15/21 21:00 01/30/21 21:11 Lidocaine (Lidoderm) 1 patch DAILY TD 01/16/21 09:00 01/30/21 08:22 Mirabegron (Myrbetriq) 25 mg DAILY PO 01/16/21 09:00 01/23/21 17:53 DC 01/23/21 07:49 Pantoprazole Sodium (Protonix) 40 mg DAILY PO 01/16/21 09:00 01/30/21 08:21 Phenazopyridine HCl (Pyridium) 100 mg PRN Q24HRS PRN PO URINARY PAIN 01/15/21 19:00 01/28/21 19:41 Lactobacillus Rhamnosus (Culturelle) 1 cap BID PO 01/15/21 09:00 01/30/21 21:12 Losartan Potassium (Cozaar) 100 mg HS PO 01/15/21 21:00 01/30/21 21:12 Miscellaneous (Lidoderm Patch Removal) 1 ea QHS MC 01/15/21 21:00 01/30/21 21:00 Memantine (Namenda) 5 mg BID PO 01/16/21 21:00 01/22/21 22:50 DC 01/22/21 19:49 Memantine (Namenda) 10 mg BID PO 01/23/21 09:00 01/30/21 21:12 Vitamin D (Vitamin D3) 50,000 unit WEEKLY PO 01/16/21 17:30 01/30/21 08:21 Lorazepam (Ativan) 0.5 mg BID PO 01/17/21 21:00 01/19/21 23:50 DC 01/19/21 19:56 Lorazepam (Ativan) 0.5 mg DAILY PO 01/20/21 09:00 01/22/21 12:00 DC 01/22/21 07:50 Quetiapine Fumarate (SEROquel) 12.5 mg 0900,1700 PO 01/18/21 17:00 01/21/21 17:55 DC 01/21/21 17:33 Sertraline HCl (Zoloft) 50 mg DAILY PO 01/20/21 09:00 01/22/21 13:00 DC 01/22/21 07:51 Sertraline HCl (Zoloft) 75 mg DAILY PO 01/23/21 09:00 01/24/21 17:53 DC 01/24/21 08:48 Mirtazapine (Remeron) 7.5 mg QHS PO 01/20/21 21:00 01/30/21 21:11 Quetiapine Fumarate (SEROquel) 12.5 mg 0900,1300,1700 PO 01/22/21 09:00 01/25/21 16:00 DC 01/25/21 12:54 Sertraline HCl (Zoloft) 100 mg DAILY PO 01/25/21 09:00 01/26/21 17:53 DC 01/26/21 05:25 Quetiapine Fumarate (SEROquel) 12.5 mg 0900,1300,1700,2100 PO 01/25/21 21:00 01/28/21 18:16 DC 01/28/21 17:11 Sertraline HCl (Zoloft) 125 mg DAILY PO 01/27/21 09:00 01/30/21 08:02 DC 01/29/21 08:29 Quetiapine Fumarate (SEROquel) 12.5 mg 1300,2100 PO 01/28/21 21:00 01/30/21 21:12 Quetiapine Fumarate (SEROquel) 25 mg 0900,1700 PO 01/29/21 09:00 01/30/21 17:24 Quetiapine Fumarate (SEROquel) 12.5 mg 1300,2100 PO 01/28/21 21:00 UNV Sertraline HCl (Zoloft) 100 mg DAILY PO 01/30/21 09:00 01/30/21 08:21 Sertraline HCl (Zoloft) 25 mg DAILY PO 01/30/21 09:00 01/30/21 08:22 Current Medications Medications (Trade) Dose Ordered Sig/Hector Route PRN Reason Start Time Stop Time Status Last Admin Dose Admin Sertraline HCl (Zoloft) 100 mg DAILY PO 01/30/21 09:00 01/30/21 08:21 Sertraline HCl (Zoloft) 25 mg DAILY PO 01/30/21 09:00 01/30/21 08:22 I have reviewed the current psychotropics carefully including drug interactions. Risk benefit ratio favors no change other than as noted in my dictated progress note. Diagnosis: Problems: (1) Impulse control disorder, unspecified (2) Anxiety disorder, unspecified (3) Dementia, vascular, with depression (4) Dementia, vascular, with delusions (5) Dementia in Alzheimer's disease with depression (6) Dementia in Alzheimer's disease with delusions (7) Major neurocognitive disorder (8) Dementia in Alzheimer's disease with early onset with behavioral disturbance LUCAS CODY MD Jan 31, 2021 06:52
[2021-01-31] MEDS: CALCIUM POLYCARBOPHIL 625 MG TABLET PO SCH ×2 (08:31→21:54)
[2021-01-31] MEDS: ACETAMINOPHEN 500 MG TABLET PO SCH ×3 (08:32→21:53)
[2021-01-31] MEDS: SERTRALINE 25 MG TABLET. PO SCH (08:32)
[2021-01-31] MEDS: PANTOPRAZOLE 40 MG TABLET. PO SCH (08:32)
[2021-01-31] MEDS: MEMANTINE 10 MG TABLET. PO SCH ×2 (08:32→21:54)
[2021-01-31] MEDS: LACTOBACILLUS RHAMNOSUS GG 1 CAPSULE. PO SCH ×2 (08:32→21:55)
[2021-01-31] MEDS: SERTRALINE 100 MG TABLET. PO SCH (08:32)
[2021-01-31] MEDS: QUEtiapine 25 MG TABLET. PO SCH ×4 (08:32→21:54)
[2021-01-31] MEDS: LIDOCAINE (700MG/PATCH) PATCH. TD SCH (08:33)
[2021-01-31] MEDS: BUDESONIDE 3 MG CAP.ER.24H. PO SCH (09:00)
[2021-01-31 15:51] VITALS: BP 103/66
[2021-01-31] MEDS: PATCH REMOVAL. MC SCH (21:00)
[2021-01-31] MEDS: MELATONIN 3 MG TABLET PO SCH (21:53)
[2021-01-31] MEDS: MIRTAZAPINE 7.5 MG TABLET. PO SCH (21:53)
[2021-01-31] MEDS: ATORVASTATIN CALCIUM 10 MG TABLET. PO SCH (21:54)
[2021-01-31] MEDS: DONEPEZIL HCL 10 MG TABLET PO SCH (21:57)
[2021-01-31] MEDS: LOSARTAN 50 MG TABLET. PO SCH (22:04)
--- NOTE | 2021-01-31 22:09 | PDOC ---
Exam Note: Deon Note: Please also refer to the separate dictated note~for this date of service dictated separately.~Patient seen individually. Discussed the patient with Nursing staff reviewed the chart.~Reviewed interim history and current functioning. Reviewed vital signs,~Labs/ Radiology~and current medications noted below. Continue current treatment with the changes noted in the dictated addendum note Assessment: Vital Signs/I&O: Vital Signs Date Time Temp Pulse Resp B/P (MAP) Pulse Ox O2 Delivery O2 Flow Rate FiO2 01/31/21 22:04 116 186/84 01/31/21 15:51 97.2 20 99 01/31/21 06:18 Room Air I & O 01/30/21 01/30/21 01/31/21 14:59 22:59 06:59 Intake Total 600 ml 360 ml Output Total 300 ml Balance 600 ml 360 ml -300 ml Current Medications: Meds: Current Medications Medications (Trade) Dose Ordered Sig/Hector Route PRN Reason Start Time Stop Time Status Last Admin Dose Admin Sodium Chloride 1,000 ml @ 1,000 mls/hr 1X ONCE IV 01/14/21 19:00 01/14/21 19:59 DC 01/14/21 20:37 Acetaminophen (Tylenol) 650 mg PRN Q6HRS PRN PO MILD PAIN / TEMP > 100.3'F 01/14/21 23:15 01/27/21 15:39 Multi-Ingredient Ointment (Analgesic [place]) 1 wes PRN QID PRN TP MUSCLE PAIN 01/14/21 23:15 01/23/21 14:58 DC Al Hydroxide/Mg Hydroxide (Mylanta Plus Xs) 15 ml PRN AFTMEALHC PRN PO DYSPEPSIA 01/14/21 23:15 01/16/21 05:33 Magnesium Hydroxide (Milk Of Magnesia) 2,400 mg PRN QHS PRN PO CONSTIPATION 01/14/21 23:15 Donepezil HCl (Aricept) 10 mg HS PO 01/15/21 21:00 01/31/21 21:57 Lorazepam (Ativan) 0.5 mg PRN Q24HRS PRN PO ANXIETY, 1ST CHOICE 01/14/21 23:30 01/27/21 18:15 Lorazepam (Ativan) 0.5 mg TID PO 01/15/21 09:00 01/17/21 17:30 DC 01/17/21 10:25 Melatonin (Melatonin) 3 mg HS PO 01/15/21 21:00 01/31/21 21:53 Paroxetine HCl (Paxil) 40 mg DAILY PO 01/15/21 09:00 01/19/21 17:15 DC 01/19/21 08:40 Hydroxyzine HCl (Atarax) 25 mg PRN Q6HRS PRN PO ANXIETY, 2ND CHOICE 01/15/21 16:45 01/27/21 19:48 Acetaminophen (Tylenol) 650 mg PRN Q6HRS PRN PO PAIN 01/15/21 19:00 UNV Acetaminophen (Tylenol) 500 mg TID PO 01/15/21 21:00 01/31/21 21:53 Atorvastatin Calcium (Lipitor) 10 mg QHS PO 01/15/21 21:00 01/31/21 21:54 Budesonide (Entocort) 6 mg DAILY PO 01/16/21 09:00 01/30/21 08:20 Calcium Polycarbophil (Fibercon) 1,250 mg BID PO 01/15/21 21:00 01/31/21 21:54 Lidocaine (Lidoderm) 1 patch DAILY TD 01/16/21 09:00 01/31/21 08:33 Mirabegron (Myrbetriq) 25 mg DAILY PO 01/16/21 09:00 01/23/21 17:53 DC 01/23/21 07:49 Pantoprazole Sodium (Protonix) 40 mg DAILY PO 01/16/21 09:00 01/31/21 08:32 Phenazopyridine HCl (Pyridium) 100 mg PRN Q24HRS PRN PO URINARY PAIN 01/15/21 19:00 01/28/21 19:41 Lactobacillus Rhamnosus (Culturelle) 1 cap BID PO 01/15/21 09:00 01/31/21 21:55 Losartan Potassium (Cozaar) 100 mg HS PO 01/15/21 21:00 01/31/21 22:04 Miscellaneous (Lidoderm Patch Removal) 1 ea QHS MC 01/15/21 21:00 01/30/21 21:00 Memantine (Namenda) 5 mg BID PO 01/16/21 21:00 01/22/21 22:50 DC 01/22/21 19:49 Memantine (Namenda) 10 mg BID PO 01/23/21 09:00 01/31/21 21:54 Vitamin D (Vitamin D3) 50,000 unit WEEKLY PO 01/16/21 17:30 01/30/21 08:21 Lorazepam (Ativan) 0.5 mg BID PO 01/17/21 21:00 01/19/21 23:50 DC 01/19/21 19:56 Lorazepam (Ativan) 0.5 mg DAILY PO 01/20/21 09:00 01/22/21 12:00 DC 01/22/21 07:50 Quetiapine Fumarate (SEROquel) 12.5 mg 0900,1700 PO 01/18/21 17:00 01/21/21 17:55 DC 01/21/21 17:33 Sertraline HCl (Zoloft) 50 mg DAILY PO 01/20/21 09:00 01/22/21 13:00 DC 01/22/21 07:51 Sertraline HCl (Zoloft) 75 mg DAILY PO 01/23/21 09:00 01/24/21 17:53 DC 01/24/21 08:48 Mirtazapine (Remeron) 7.5 mg QHS PO 01/20/21 21:00 01/31/21 21:53 Quetiapine Fumarate (SEROquel) 12.5 mg 0900,1300,1700 PO 01/22/21 09:00 01/25/21 16:00 DC 01/25/21 12:54 Sertraline HCl (Zoloft) 100 mg DAILY PO 01/25/21 09:00 01/26/21 17:53 DC 01/26/21 05:25 Quetiapine Fumarate (SEROquel) 12.5 mg 0900,1300,1700,2100 PO 01/25/21 21:00 01/28/21 18:16 DC 01/28/21 17:11 Sertraline HCl (Zoloft) 125 mg DAILY PO 01/27/21 09:00 01/30/21 08:02 DC 01/29/21 08:29 Quetiapine Fumarate (SEROquel) 12.5 mg 1300,2100 PO 01/28/21 21:00 01/31/21 21:54 Quetiapine Fumarate (SEROquel) 25 mg 0900,1700 PO 01/29/21 09:00 01/31/21 16:49 Quetiapine Fumarate (SEROquel) 12.5 mg 1300,2100 PO 01/28/21 21:00 UNV Sertraline HCl (Zoloft) 100 mg DAILY PO 01/30/21 09:00 01/31/21 08:32 Sertraline HCl (Zoloft) 25 mg DAILY PO 01/30/21 09:00 01/31/21 08:32 I have reviewed the current psychotropics carefully including drug interactions. Risk benefit ratio favors no change other than as noted in my dictated progress note. Diagnosis: Problems: (1) Anxiety disorder, unspecified (2) Impulse control disorder, unspecified (3) Dementia, vascular, with depression (4) Dementia, vascular, with delusions (5) Dementia in Alzheimer's disease with depression (6) Dementia in Alzheimer's disease with delusions (7) Major neurocognitive disorder (8) Dementia in Alzheimer's disease with early onset with behavioral disturbance LUCAS CODY MD Jan 31, 2021 22:09
[2021-01-31] MEDS: hydrOXYzine HCL 25 MG TABLET PO PRN (22:20)
[2021-01-31] MEDS: PHENAZOPYRIDINE 100 MG TABLET. PO PRN (22:20)
[2021-02-01 05:21] VITALS: BP 115/71
--- NOTE | 2021-02-01 07:05 | PDOC ---
Exam Note: Deon Note: This note is a late entry for 01/31/2021overs elements not covered in my initial note. Subjective: The patient was seen on telehealth rounds in the evening of 01/31/2021 due to COVID-19 exposure on the unit with Irma MERCER, discussed and reviewed the chart. The patient slept 7-1/4 hours previous night. The patient is less anxious, always seems to remember my name correctly even though it is a difficult name to remember. Review of Systems: No CV, pulmonary, eye, ENT system symptoms on review. Ambulation impaired in wheelchair. Mental Status Exam: The patient is oriented to herself. She is verbal interactive, somewhat anxious, less confused. Speech coherent. Abstraction fair. Computation impaired. Attention span short. Language function intact. No suicidal or homicidal ideation. Laboratory Data: Reviewed. Impression: Major neurocognitive disorder Alzheimer, vascular with delusion, depression, behavioral disturbance. Anxiety disorder unspecified. Impulse control disorder unspecified. Plan: Continue rest psychotropics unchanged. Assessment: Vital Signs/I&O: Vital Signs Date Time Temp Pulse Resp B/P (MAP) Pulse Ox O2 Delivery O2 Flow Rate FiO2 02/01/21 05:21 96.5 83 18 115/71 (86) 95 01/31/21 06:18 Room Air I & O 01/31/21 01/31/21 02/01/21 15:00 23:00 07:00 Intake Total 840 ml 720 ml Output Total 600 ml Balance 840 ml 120 ml Current Medications: Meds: Current Medications Medications (Trade) Dose Ordered Sig/Hector Route PRN Reason Start Time Stop Time Status Last Admin Dose Admin Sodium Chloride 1,000 ml @ 1,000 mls/hr 1X ONCE IV 01/14/21 19:00 01/14/21 19:59 DC 01/14/21 20:37 Acetaminophen (Tylenol) 650 mg PRN Q6HRS PRN PO MILD PAIN / TEMP > 100.3'F 01/14/21 23:15 01/27/21 15:39 Multi-Ingredient Ointment (Analgesic [place]) 1 wes PRN QID PRN TP MUSCLE PAIN 01/14/21 23:15 01/23/21 14:58 DC Al Hydroxide/Mg Hydroxide (Mylanta Plus Xs) 15 ml PRN AFTMEALHC PRN PO DYSPEPSIA 01/14/21 23:15 01/16/21 05:33 Magnesium Hydroxide (Milk Of Magnesia) 2,400 mg PRN QHS PRN PO CONSTIPATION 01/14/21 23:15 Donepezil HCl (Aricept) 10 mg HS PO 01/15/21 21:00 01/31/21 21:57 Lorazepam (Ativan) 0.5 mg PRN Q24HRS PRN PO ANXIETY, 1ST CHOICE 01/14/21 23:30 01/27/21 18:15 Lorazepam (Ativan) 0.5 mg TID PO 01/15/21 09:00 01/17/21 17:30 DC 01/17/21 10:25 Melatonin (Melatonin) 3 mg HS PO 01/15/21 21:00 01/31/21 21:53 Paroxetine HCl (Paxil) 40 mg DAILY PO 01/15/21 09:00 01/19/21 17:15 DC 01/19/21 08:40 Hydroxyzine HCl (Atarax) 25 mg PRN Q6HRS PRN PO ANXIETY, 2ND CHOICE 01/15/21 16:45 01/31/21 22:20 Acetaminophen (Tylenol) 650 mg PRN Q6HRS PRN PO PAIN 01/15/21 19:00 UNV Acetaminophen (Tylenol) 500 mg TID PO 01/15/21 21:00 01/31/21 21:53 Atorvastatin Calcium (Lipitor) 10 mg QHS PO 01/15/21 21:00 01/31/21 21:54 Budesonide (Entocort) 6 mg DAILY PO 01/16/21 09:00 01/30/21 08:20 Calcium Polycarbophil (Fibercon) 1,250 mg BID PO 01/15/21 21:00 01/31/21 21:54 Lidocaine (Lidoderm) 1 patch DAILY TD 01/16/21 09:00 01/31/21 08:33 Mirabegron (Myrbetriq) 25 mg DAILY PO 01/16/21 09:00 01/23/21 17:53 DC 01/23/21 07:49 Pantoprazole Sodium (Protonix) 40 mg DAILY PO 01/16/21 09:00 01/31/21 08:32 Phenazopyridine HCl (Pyridium) 100 mg PRN Q24HRS PRN PO URINARY PAIN 01/15/21 19:00 01/31/21 22:20 Lactobacillus Rhamnosus (Culturelle) 1 cap BID PO 01/15/21 09:00 01/31/21 21:55 Losartan Potassium (Cozaar) 100 mg HS PO 01/15/21 21:00 01/31/21 22:04 Miscellaneous (Lidoderm Patch Removal) 1 ea QHS MC 01/15/21 21:00 01/31/21 21:00 Memantine (Namenda) 5 mg BID PO 01/16/21 21:00 01/22/21 22:50 DC 01/22/21 19:49 Memantine (Namenda) 10 mg BID PO 01/23/21 09:00 01/31/21 21:54 Vitamin D (Vitamin D3) 50,000 unit WEEKLY PO 01/16/21 17:30 01/30/21 08:21 Lorazepam (Ativan) 0.5 mg BID PO 01/17/21 21:00 01/19/21 23:50 DC 01/19/21 19:56 Lorazepam (Ativan) 0.5 mg DAILY PO 01/20/21 09:00 01/22/21 12:00 DC 01/22/21 07:50 Quetiapine Fumarate (SEROquel) 12.5 mg 0900,1700 PO 01/18/21 17:00 01/21/21 17:55 DC 01/21/21 17:33 Sertraline HCl (Zoloft) 50 mg DAILY PO 01/20/21 09:00 01/22/21 13:00 DC 01/22/21 07:51 Sertraline HCl (Zoloft) 75 mg DAILY PO 01/23/21 09:00 01/24/21 17:53 DC 01/24/21 08:48 Mirtazapine (Remeron) 7.5 mg QHS PO 01/20/21 21:00 01/31/21 21:53 Quetiapine Fumarate (SEROquel) 12.5 mg 0900,1300,1700 PO 01/22/21 09:00 01/25/21 16:00 DC 01/25/21 12:54 Sertraline HCl (Zoloft) 100 mg DAILY PO 01/25/21 09:00 01/26/21 17:53 DC 01/26/21 05:25 Quetiapine Fumarate (SEROquel) 12.5 mg 0900,1300,1700,2100 PO 01/25/21 21:00 01/28/21 18:16 DC 01/28/21 17:11 Sertraline HCl (Zoloft) 125 mg DAILY PO 01/27/21 09:00 01/30/21 08:02 DC 01/29/21 08:29 Quetiapine Fumarate (SEROquel) 12.5 mg 1300,2100 PO 01/28/21 21:00 01/31/21 21:54 Quetiapine Fumarate (SEROquel) 25 mg 0900,1700 PO 01/29/21 09:00 01/31/21 16:49 Quetiapine Fumarate (SEROquel) 12.5 mg 1300,2100 PO 01/28/21 21:00 UNV Sertraline HCl (Zoloft) 100 mg DAILY PO 01/30/21 09:00 01/31/21 08:32 Sertraline HCl (Zoloft) 25 mg DAILY PO 01/30/21 09:00 01/31/21 08:32 I have reviewed the current psychotropics carefully including drug interactions. Risk benefit ratio favors no change other than as noted in my dictated progress note. Diagnosis: Problems: (1) Anxiety disorder, unspecified (2) Impulse control disorder, unspecified (3) Dementia, vascular, with depression (4) Dementia, vascular, with delusions (5) Dementia in Alzheimer's disease with depression (6) Dementia in Alzheimer's disease with delusions (7) Major neurocognitive disorder (8) Dementia in Alzheimer's disease with early onset with behavioral disturbance LUCAS CODY MD Feb 01, 2021 07:05
[2021-02-01] MEDS: QUEtiapine 25 MG TABLET. PO SCH ×4 (08:01→19:56)
[2021-02-01] MEDS: BUDESONIDE 3 MG CAP.ER.24H. PO SCH (08:01)
[2021-02-01] MEDS: SERTRALINE 25 MG TABLET. PO SCH (08:01)
[2021-02-01] MEDS: PANTOPRAZOLE 40 MG TABLET. PO SCH (08:01)
[2021-02-01] MEDS: MEMANTINE 10 MG TABLET. PO SCH ×2 (08:01→19:57)
[2021-02-01] MEDS: SERTRALINE 100 MG TABLET. PO SCH (08:01)
[2021-02-01] MEDS: CALCIUM POLYCARBOPHIL 625 MG TABLET PO SCH ×2 (08:01→19:57)
[2021-02-01] MEDS: LACTOBACILLUS RHAMNOSUS GG 1 CAPSULE. PO SCH ×2 (08:01→19:57)
[2021-02-01] MEDS: ACETAMINOPHEN 500 MG TABLET PO SCH ×3 (08:02→19:57)
[2021-02-01] MEDS: LIDOCAINE (700MG/PATCH) PATCH. TD SCH (08:05)
[2021-02-01 16:02] VITALS: BP 155/85
[2021-02-01] MEDS: LORazepam 0.5 MG TABLET PO PRN (19:06)
[2021-02-01] MEDS: MELATONIN 3 MG TABLET PO SCH (19:57)
[2021-02-01] MEDS: ATORVASTATIN CALCIUM 10 MG TABLET. PO SCH (19:57)
[2021-02-01] MEDS: MIRTAZAPINE 7.5 MG TABLET. PO SCH (19:57)
[2021-02-01] MEDS: DONEPEZIL HCL 10 MG TABLET PO SCH (19:57)
[2021-02-01] MEDS: LOSARTAN 50 MG TABLET. PO SCH (19:58)
[2021-02-01] MEDS: PATCH REMOVAL. MC SCH (21:00)
[2021-02-02] MEDS: LACTOBACILLUS RHAMNOSUS GG 1 CAPSULE. PO SCH ×2 (08:08→20:11)
[2021-02-02] MEDS: CALCIUM POLYCARBOPHIL 625 MG TABLET PO SCH ×2 (08:08→20:12)
[2021-02-02] MEDS: BUDESONIDE 3 MG CAP.ER.24H. PO SCH (08:08)
[2021-02-02] MEDS: LIDOCAINE (700MG/PATCH) PATCH. TD SCH (08:08)
[2021-02-02] MEDS: QUEtiapine 25 MG TABLET. PO SCH ×4 (08:09→20:13)
[2021-02-02] MEDS: ACETAMINOPHEN 500 MG TABLET PO SCH ×3 (08:09→20:12)
[2021-02-02] MEDS: SERTRALINE 25 MG TABLET. PO SCH (08:09)
[2021-02-02] MEDS: SERTRALINE 100 MG TABLET. PO SCH (08:09)
[2021-02-02] MEDS: PANTOPRAZOLE 40 MG TABLET. PO SCH (08:09)
[2021-02-02] MEDS: MEMANTINE 10 MG TABLET. PO SCH ×2 (08:09→20:11)
[2021-02-02 12:42] VITALS: BP 155/85
[2021-02-02 15:46] VITALS: BP 158/78
[2021-02-02] MEDS: LORazepam 0.5 MG TABLET PO PRN (15:47)
[2021-02-02] MEDS: LOSARTAN 50 MG TABLET. PO SCH (20:11)
[2021-02-02] MEDS: MIRTAZAPINE 7.5 MG TABLET. PO SCH (20:12)
[2021-02-02] MEDS: MELATONIN 3 MG TABLET PO SCH (20:12)
[2021-02-02] MEDS: ATORVASTATIN CALCIUM 10 MG TABLET. PO SCH (20:13)
[2021-02-02] MEDS: DONEPEZIL HCL 10 MG TABLET PO SCH (20:13)
[2021-02-02] MEDS: PATCH REMOVAL. MC SCH (21:00)
--- NOTE | 2021-02-02 22:02 | PDOC ---
Exam Note: Deon Note: Please also refer to the separate dictated note~for this date of service dictated separately.~Patient seen individually. Discussed the patient with Nursing staff reviewed the chart.~Reviewed interim history and current functioning. Reviewed vital signs,~Labs/ Radiology~and current medications noted below. Continue current treatment with the changes noted in the dictated addendum note Assessment: Vital Signs/I&O: Vital Signs Date Time Temp Pulse Resp B/P (MAP) Pulse Ox O2 Delivery O2 Flow Rate FiO2 02/02/21 20:11 109 158/78 02/02/21 15:46 98.3 18 95 01/31/21 06:18 Room Air I & O 02/01/21 02/01/21 02/02/21 15:00 23:00 07:00 Intake Total 600 ml 480 ml Output Total 500 ml Balance 600 ml -20 ml Current Medications: Meds: Current Medications Medications (Trade) Dose Ordered Sig/Hector Route PRN Reason Start Time Stop Time Status Last Admin Dose Admin Sodium Chloride 1,000 ml @ 1,000 mls/hr 1X ONCE IV 01/14/21 19:00 01/14/21 19:59 DC 01/14/21 20:37 Acetaminophen (Tylenol) 650 mg PRN Q6HRS PRN PO MILD PAIN / TEMP > 100.3'F 01/14/21 23:15 01/27/21 15:39 Multi-Ingredient Ointment (Analgesic [place]) 1 wes PRN QID PRN TP MUSCLE PAIN 01/14/21 23:15 01/23/21 14:58 DC Al Hydroxide/Mg Hydroxide (Mylanta Plus Xs) 15 ml PRN AFTMEALHC PRN PO DYSPEPSIA 01/14/21 23:15 01/16/21 05:33 Magnesium Hydroxide (Milk Of Magnesia) 2,400 mg PRN QHS PRN PO CONSTIPATION 01/14/21 23:15 Donepezil HCl (Aricept) 10 mg HS PO 01/15/21 21:00 02/02/21 20:13 Lorazepam (Ativan) 0.5 mg PRN Q24HRS PRN PO ANXIETY, 1ST CHOICE 01/14/21 23:30 02/02/21 15:47 Lorazepam (Ativan) 0.5 mg TID PO 01/15/21 09:00 01/17/21 17:30 DC 01/17/21 10:25 Melatonin (Melatonin) 3 mg HS PO 01/15/21 21:00 02/02/21 20:12 Paroxetine HCl (Paxil) 40 mg DAILY PO 01/15/21 09:00 01/19/21 17:15 DC 01/19/21 08:40 Hydroxyzine HCl (Atarax) 25 mg PRN Q6HRS PRN PO ANXIETY, 2ND CHOICE 01/15/21 16:45 01/31/21 22:20 Acetaminophen (Tylenol) 650 mg PRN Q6HRS PRN PO PAIN 01/15/21 19:00 UNV Acetaminophen (Tylenol) 500 mg TID PO 01/15/21 21:00 02/02/21 20:12 Atorvastatin Calcium (Lipitor) 10 mg QHS PO 01/15/21 21:00 02/02/21 20:13 Budesonide (Entocort) 6 mg DAILY PO 01/16/21 09:00 02/02/21 08:08 Calcium Polycarbophil (Fibercon) 1,250 mg BID PO 01/15/21 21:00 02/02/21 20:12 Lidocaine (Lidoderm) 1 patch DAILY TD 01/16/21 09:00 02/02/21 08:08 Mirabegron (Myrbetriq) 25 mg DAILY PO 01/16/21 09:00 01/23/21 17:53 DC 01/23/21 07:49 Pantoprazole Sodium (Protonix) 40 mg DAILY PO 01/16/21 09:00 02/02/21 08:09 Phenazopyridine HCl (Pyridium) 100 mg PRN Q24HRS PRN PO URINARY PAIN 01/15/21 19:00 01/31/21 22:20 Lactobacillus Rhamnosus (Culturelle) 1 cap BID PO 01/15/21 09:00 02/02/21 20:11 Losartan Potassium (Cozaar) 100 mg HS PO 01/15/21 21:00 02/02/21 20:11 Miscellaneous (Lidoderm Patch Removal) 1 ea QHS MC 01/15/21 21:00 02/01/21 21:00 Memantine (Namenda) 5 mg BID PO 01/16/21 21:00 01/22/21 22:50 DC 01/22/21 19:49 Memantine (Namenda) 10 mg BID PO 01/23/21 09:00 02/02/21 20:11 Vitamin D (Vitamin D3) 50,000 unit WEEKLY PO 01/16/21 17:30 01/30/21 08:21 Lorazepam (Ativan) 0.5 mg BID PO 01/17/21 21:00 01/19/21 23:50 DC 01/19/21 19:56 Lorazepam (Ativan) 0.5 mg DAILY PO 01/20/21 09:00 01/22/21 12:00 DC 01/22/21 07:50 Quetiapine Fumarate (SEROquel) 12.5 mg 0900,1700 PO 01/18/21 17:00 01/21/21 17:55 DC 01/21/21 17:33 Sertraline HCl (Zoloft) 50 mg DAILY PO 01/20/21 09:00 01/22/21 13:00 DC 01/22/21 07:51 Sertraline HCl (Zoloft) 75 mg DAILY PO 01/23/21 09:00 01/24/21 17:53 DC 01/24/21 08:48 Mirtazapine (Remeron) 7.5 mg QHS PO 01/20/21 21:00 02/02/21 20:12 Quetiapine Fumarate (SEROquel) 12.5 mg 0900,1300,1700 PO 01/22/21 09:00 01/25/21 16:00 DC 01/25/21 12:54 Sertraline HCl (Zoloft) 100 mg DAILY PO 01/25/21 09:00 01/26/21 17:53 DC 01/26/21 05:25 Quetiapine Fumarate (SEROquel) 12.5 mg 0900,1300,1700,2100 PO 01/25/21 21:00 01/28/21 18:16 DC 01/28/21 17:11 Sertraline HCl (Zoloft) 125 mg DAILY PO 01/27/21 09:00 01/30/21 08:02 DC 01/29/21 08:29 Quetiapine Fumarate (SEROquel) 12.5 mg 1300,2100 PO 01/28/21 21:00 02/02/21 20:13 Quetiapine Fumarate (SEROquel) 25 mg 0900,1700 PO 01/29/21 09:00 02/02/21 17:18 Quetiapine Fumarate (SEROquel) 12.5 mg 1300,2100 PO 01/28/21 21:00 UNV Sertraline HCl (Zoloft) 100 mg DAILY PO 01/30/21 09:00 02/02/21 08:09 Sertraline HCl (Zoloft) 25 mg DAILY PO 01/30/21 09:00 02/02/21 17:10 DC 02/02/21 08:09 Sertraline HCl (Zoloft) 50 mg DAILY PO 02/03/21 09:00 I have reviewed the current psychotropics carefully including drug interactions. Risk benefit ratio favors no change other than as noted in my dictated progress note. Diagnosis: Problems: (1) Impulse control disorder, unspecified (2) Anxiety disorder, unspecified (3) Dementia, vascular, with depression (4) Dementia, vascular, with delusions (5) Dementia in Alzheimer's disease with depression (6) Dementia in Alzheimer's disease with delusions (7) Major neurocognitive disorder (8) Dementia in Alzheimer's disease with early onset with behavioral disturbance LUCAS CODY MD Feb 02, 2021 22:02
[2021-02-03 06:19] VITALS: BP 158/89
[2021-02-03] MEDS: LIDOCAINE (700MG/PATCH) PATCH. TD SCH (08:22)
[2021-02-03] MEDS: SERTRALINE 100 MG TABLET. PO SCH (08:22)
[2021-02-03] MEDS: LACTOBACILLUS RHAMNOSUS GG 1 CAPSULE. PO SCH ×2 (08:23→20:44)
[2021-02-03] MEDS: ACETAMINOPHEN 500 MG TABLET PO SCH ×3 (08:23→20:43)
[2021-02-03] MEDS: BUDESONIDE 3 MG CAP.ER.24H. PO SCH (08:23)
[2021-02-03] MEDS: QUEtiapine 25 MG TABLET. PO SCH ×4 (08:23→20:44)
[2021-02-03] MEDS: MEMANTINE 10 MG TABLET. PO SCH ×2 (08:23→20:44)
[2021-02-03] MEDS: SERTRALINE 50 MG TABLET. PO SCH (08:23)
[2021-02-03] MEDS: PANTOPRAZOLE 40 MG TABLET. PO SCH (08:24)
[2021-02-03] MEDS: CALCIUM POLYCARBOPHIL 625 MG TABLET PO SCH ×2 (08:24→20:43)
[2021-02-03 15:58] VITALS: BP 130/74
[2021-02-03] MEDS: ATORVASTATIN CALCIUM 10 MG TABLET. PO SCH (20:43)
[2021-02-03] MEDS: LOSARTAN 50 MG TABLET. PO SCH (20:44)
[2021-02-03] MEDS: DONEPEZIL HCL 10 MG TABLET PO SCH (20:44)
[2021-02-03] MEDS: MELATONIN 3 MG TABLET PO SCH (20:44)
[2021-02-03] MEDS: MIRTAZAPINE 7.5 MG TABLET. PO SCH (20:44)
[2021-02-03] MEDS: PATCH REMOVAL. MC SCH (21:00)
--- NOTE | 2021-02-03 21:51 | PDOC ---
Exam Note: Deon Note: Please also refer to the separate dictated note~for this date of service dictated separately.~Patient seen individually. Discussed the patient with Nursing staff reviewed the chart.~Reviewed interim history and current functioning. Reviewed vital signs,~Labs/ Radiology~and current medications noted below. Continue current treatment with the changes noted in the dictated addendum note Assessment: Vital Signs/I&O: Vital Signs Date Time Temp Pulse Resp B/P (MAP) Pulse Ox O2 Delivery O2 Flow Rate FiO2 02/03/21 20:44 91 130/74 02/03/21 15:58 96.9 18 97 01/31/21 06:18 Room Air I & O 02/02/21 02/02/21 02/03/21 15:00 23:00 07:00 Intake Total 360 ml 720 ml Output Total 300 ml 450 ml Balance 360 ml 420 ml -450 ml Current Medications: Meds: Current Medications Medications (Trade) Dose Ordered Sig/Hector Route PRN Reason Start Time Stop Time Status Last Admin Dose Admin Sodium Chloride 1,000 ml @ 1,000 mls/hr 1X ONCE IV 01/14/21 19:00 01/14/21 19:59 DC 01/14/21 20:37 Acetaminophen (Tylenol) 650 mg PRN Q6HRS PRN PO MILD PAIN / TEMP > 100.3'F 01/14/21 23:15 01/27/21 15:39 Multi-Ingredient Ointment (Analgesic [place]) 1 wes PRN QID PRN TP MUSCLE PAIN 01/14/21 23:15 01/23/21 14:58 DC Al Hydroxide/Mg Hydroxide (Mylanta Plus Xs) 15 ml PRN AFTMEALHC PRN PO DYSPEPSIA 01/14/21 23:15 01/16/21 05:33 Magnesium Hydroxide (Milk Of Magnesia) 2,400 mg PRN QHS PRN PO CONSTIPATION 01/14/21 23:15 Donepezil HCl (Aricept) 10 mg HS PO 01/15/21 21:00 02/03/21 20:44 Lorazepam (Ativan) 0.5 mg PRN Q24HRS PRN PO ANXIETY, 1ST CHOICE 01/14/21 23:30 02/02/21 15:47 Lorazepam (Ativan) 0.5 mg TID PO 01/15/21 09:00 01/17/21 17:30 DC 01/17/21 10:25 Melatonin (Melatonin) 3 mg HS PO 01/15/21 21:00 02/03/21 20:44 Paroxetine HCl (Paxil) 40 mg DAILY PO 01/15/21 09:00 01/19/21 17:15 DC 01/19/21 08:40 Hydroxyzine HCl (Atarax) 25 mg PRN Q6HRS PRN PO ANXIETY, 2ND CHOICE 01/15/21 16:45 01/31/21 22:20 Acetaminophen (Tylenol) 650 mg PRN Q6HRS PRN PO PAIN 01/15/21 19:00 UNV Acetaminophen (Tylenol) 500 mg TID PO 01/15/21 21:00 02/03/21 20:43 Atorvastatin Calcium (Lipitor) 10 mg QHS PO 01/15/21 21:00 02/03/21 20:43 Budesonide (Entocort) 6 mg DAILY PO 01/16/21 09:00 02/03/21 08:23 Calcium Polycarbophil (Fibercon) 1,250 mg BID PO 01/15/21 21:00 02/03/21 20:43 Lidocaine (Lidoderm) 1 patch DAILY TD 01/16/21 09:00 02/03/21 08:22 Mirabegron (Myrbetriq) 25 mg DAILY PO 01/16/21 09:00 01/23/21 17:53 DC 01/23/21 07:49 Pantoprazole Sodium (Protonix) 40 mg DAILY PO 01/16/21 09:00 02/03/21 08:24 Phenazopyridine HCl (Pyridium) 100 mg PRN Q24HRS PRN PO URINARY PAIN 01/15/21 19:00 01/31/21 22:20 Lactobacillus Rhamnosus (Culturelle) 1 cap BID PO 01/15/21 09:00 02/03/21 20:44 Losartan Potassium (Cozaar) 100 mg HS PO 01/15/21 21:00 02/03/21 20:44 Miscellaneous (Lidoderm Patch Removal) 1 ea QHS MC 01/15/21 21:00 02/03/21 21:00 Memantine (Namenda) 5 mg BID PO 01/16/21 21:00 01/22/21 22:50 DC 01/22/21 19:49 Memantine (Namenda) 10 mg BID PO 01/23/21 09:00 02/03/21 20:44 Vitamin D (Vitamin D3) 50,000 unit WEEKLY PO 01/16/21 17:30 01/30/21 08:21 Lorazepam (Ativan) 0.5 mg BID PO 01/17/21 21:00 01/19/21 23:50 DC 01/19/21 19:56 Lorazepam (Ativan) 0.5 mg DAILY PO 01/20/21 09:00 01/22/21 12:00 DC 01/22/21 07:50 Quetiapine Fumarate (SEROquel) 12.5 mg 0900,1700 PO 01/18/21 17:00 01/21/21 17:55 DC 01/21/21 17:33 Sertraline HCl (Zoloft) 50 mg DAILY PO 01/20/21 09:00 01/22/21 13:00 DC 01/22/21 07:51 Sertraline HCl (Zoloft) 75 mg DAILY PO 01/23/21 09:00 01/24/21 17:53 DC 01/24/21 08:48 Mirtazapine (Remeron) 7.5 mg QHS PO 01/20/21 21:00 02/03/21 20:44 Quetiapine Fumarate (SEROquel) 12.5 mg 0900,1300,1700 PO 01/22/21 09:00 01/25/21 16:00 DC 01/25/21 12:54 Sertraline HCl (Zoloft) 100 mg DAILY PO 01/25/21 09:00 01/26/21 17:53 DC 01/26/21 05:25 Quetiapine Fumarate (SEROquel) 12.5 mg 0900,1300,1700,2100 PO 01/25/21 21:00 01/28/21 18:16 DC 01/28/21 17:11 Sertraline HCl (Zoloft) 125 mg DAILY PO 01/27/21 09:00 01/30/21 08:02 DC 01/29/21 08:29 Quetiapine Fumarate (SEROquel) 12.5 mg 1300,2100 PO 01/28/21 21:00 02/03/21 20:44 Quetiapine Fumarate (SEROquel) 25 mg 0900,1700 PO 01/29/21 09:00 02/03/21 17:13 Quetiapine Fumarate (SEROquel) 12.5 mg 1300,2100 PO 01/28/21 21:00 UNV Sertraline HCl (Zoloft) 100 mg DAILY PO 01/30/21 09:00 02/03/21 08:22 Sertraline HCl (Zoloft) 25 mg DAILY PO 01/30/21 09:00 02/02/21 17:10 DC 02/02/21 08:09 Sertraline HCl (Zoloft) 50 mg DAILY PO 02/03/21 09:00 02/03/21 08:23 Current Medications Medications (Trade) Dose Ordered Sig/Hector Route PRN Reason Start Time Stop Time Status Last Admin Dose Admin Sertraline HCl (Zoloft) 50 mg DAILY PO 02/03/21 09:00 02/03/21 08:23 I have reviewed the current psychotropics carefully including drug interactions. Risk benefit ratio favors no change other than as noted in my dictated progress note. Diagnosis: Problems: (1) Impulse control disorder, unspecified (2) Anxiety disorder, unspecified (3) Dementia, vascular, with depression (4) Dementia, vascular, with delusions (5) Dementia in Alzheimer's disease with depression (6) Dementia in Alzheimer's disease with delusions (7) Major neurocognitive disorder (8) Dementia in Alzheimer's disease with early onset with behavioral disturbance LUCAS CODY MD Feb 03, 2021 21:51
[2021-02-04 05:48] VITALS: BP 165/87
--- NOTE | 2021-02-04 07:30 | PDOC ---
Exam Note: Deon Note: This note is a late entry for 02/02/2021overs elements not covered in my initial note. Subjective: The patient was seen on telehealth rounds in the evening of 02/02/2021 due to COVID-19 exposure on the unit with Irma MERCER, discussed and reviewed the chart. The patient slept 6 hours previous night. The patient remains confused, somewhat repetitive about where her is and why is he not in the hospital and supposed he was staying at home and taking care of the dogs. She became agitated. At one point received Ativan p.r.n. When nursing staff are assisting her with [facility]. Review of Systems: No CV, pulmonary, eye, ENT system symptoms on review. Ambulation impaired in wheelchair. Mental Status Exam: The patient is oriented to herself. She is again referred to me by my name but then gets confused about this, otherwise, verbal, interactive, still somewhat obsessive and anxious as above. Speech coherent. Abstraction fair. Computation impaired. Attention span somewhat distractible. Language function intact. Mood remains anxious but less labile since we have increased the Seroquel. No suicidal or homicidal ideation. Laboratory Data: Reviewed. Impression: Major neurocognitive disorder Alzheimer, vascular with delusion, depression, behavioral disturbance. Anxiety disorder unspecified. Impulse c ontrol disorder unspecified. Plan: Continue rest psychotropics unchanged. Increase Zoloft from 125 mg a day to 150 mg a day. We may consider Luvox in place of the Zoloft depending on how she does with her obsessive-ruminative thought patterns. Assessment: Vital Signs/I&O: Vital Signs Date Time Temp Pulse Resp B/P (MAP) Pulse Ox O2 Delivery O2 Flow Rate FiO2 02/04/21 05:48 98.0 79 16 165/87 (113) 96 Room Air I & O 02/03/21 02/03/21 02/04/21 15:00 23:00 07:00 Intake Total 360 ml 600 ml Output Total 600 ml 600 ml Balance 360 ml 0 ml -600 ml Current Medications: Meds: Current Medications Medications (Trade) Dose Ordered Sig/Hector Route PRN Reason Start Time Stop Time Status Last Admin Dose Admin Sodium Chloride 1,000 ml @ 1,000 mls/hr 1X ONCE IV 01/14/21 19:00 01/14/21 19:59 DC 01/14/21 20:37 Acetaminophen (Tylenol) 650 mg PRN Q6HRS PRN PO MILD PAIN / TEMP > 100.3'F 01/14/21 23:15 01/27/21 15:39 Multi-Ingredient Ointment (Analgesic [place]) 1 wes PRN QID PRN TP MUSCLE PAIN 01/14/21 23:15 01/23/21 14:58 DC Al Hydroxide/Mg Hydroxide (Mylanta Plus Xs) 15 ml PRN AFTMEALHC PRN PO DYSPEPSIA 01/14/21 23:15 01/16/21 05:33 Magnesium Hydroxide (Milk Of Magnesia) 2,400 mg PRN QHS PRN PO CONSTIPATION 01/14/21 23:15 Donepezil HCl (Aricept) 10 mg HS PO 01/15/21 21:00 02/03/21 20:44 Lorazepam (Ativan) 0.5 mg PRN Q24HRS PRN PO ANXIETY, 1ST CHOICE 01/14/21 23:30 02/02/21 15:47 Lorazepam (Ativan) 0.5 mg TID PO 01/15/21 09:00 01/17/21 17:30 DC 01/17/21 10:25 Melatonin (Melatonin) 3 mg HS PO 01/15/21 21:00 02/03/21 20:44 Paroxetine HCl (Paxil) 40 mg DAILY PO 01/15/21 09:00 01/19/21 17:15 DC 01/19/21 08:40 Hydroxyzine HCl (Atarax) 25 mg PRN Q6HRS PRN PO ANXIETY, 2ND CHOICE 01/15/21 16:45 01/31/21 22:20 Acetaminophen (Tylenol) 650 mg PRN Q6HRS PRN PO PAIN 01/15/21 19:00 UNV Acetaminophen (Tylenol) 500 mg TID PO 01/15/21 21:00 02/03/21 20:43 Atorvastatin Calcium (Lipitor) 10 mg QHS PO 01/15/21 21:00 02/03/21 20:43 Budesonide (Entocort) 6 mg DAILY PO 01/16/21 09:00 02/03/21 08:23 Calcium Polycarbophil (Fibercon) 1,250 mg BID PO 01/15/21 21:00 02/03/21 20:43 Lidocaine (Lidoderm) 1 patch DAILY TD 01/16/21 09:00 02/03/21 08:22 Mirabegron (Myrbetriq) 25 mg DAILY PO 01/16/21 09:00 01/23/21 17:53 DC 01/23/21 07:49 Pantoprazole Sodium (Protonix) 40 mg DAILY PO 01/16/21 09:00 02/03/21 08:24 Phenazopyridine HCl (Pyridium) 100 mg PRN Q24HRS PRN PO URINARY PAIN 01/15/21 19:00 01/31/21 22:20 Lactobacillus Rhamnosus (Culturelle) 1 cap BID PO 01/15/21 09:00 02/03/21 20:44 Losartan Potassium (Cozaar) 100 mg HS PO 01/15/21 21:00 02/03/21 20:44 Miscellaneous (Lidoderm Patch Removal) 1 ea QHS MC 01/15/21 21:00 02/03/21 21:00 Memantine (Namenda) 5 mg BID PO 01/16/21 21:00 01/22/21 22:50 DC 01/22/21 19:49 Memantine (Namenda) 10 mg BID PO 01/23/21 09:00 02/03/21 20:44 Vitamin D (Vitamin D3) 50,000 unit WEEKLY PO 01/16/21 17:30 01/30/21 08:21 Lorazepam (Ativan) 0.5 mg BID PO 01/17/21 21:00 01/19/21 23:50 DC 01/19/21 19:56 Lorazepam (Ativan) 0.5 mg DAILY PO 01/20/21 09:00 01/22/21 12:00 DC 01/22/21 07:50 Quetiapine Fumarate (SEROquel) 12.5 mg 0900,1700 PO 01/18/21 17:00 01/21/21 17:55 DC 01/21/21 17:33 Sertraline HCl (Zoloft) 50 mg DAILY PO 01/20/21 09:00 01/22/21 13:00 DC 01/22/21 07:51 Sertraline HCl (Zoloft) 75 mg DAILY PO 01/23/21 09:00 01/24/21 17:53 DC 01/24/21 08:48 Mirtazapine (Remeron) 7.5 mg QHS PO 01/20/21 21:00 02/03/21 20:44 Quetiapine Fumarate (SEROquel) 12.5 mg 0900,1300,1700 PO 01/22/21 09:00 01/25/21 16:00 DC 01/25/21 12:54 Sertraline HCl (Zoloft) 100 mg DAILY PO 01/25/21 09:00 01/26/21 17:53 DC 01/26/21 05:25 Quetiapine Fumarate (SEROquel) 12.5 mg 0900,1300,1700,2100 PO 01/25/21 21:00 01/28/21 18:16 DC 01/28/21 17:11 Sertraline HCl (Zoloft) 125 mg DAILY PO 01/27/21 09:00 01/30/21 08:02 DC 01/29/21 08:29 Quetiapine Fumarate (SEROquel) 12.5 mg 1300,2100 PO 01/28/21 21:00 02/03/21 20:44 Quetiapine Fumarate (SEROquel) 25 mg 0900,1700 PO 01/29/21 09:00 02/03/21 17:13 Quetiapine Fumarate (SEROquel) 12.5 mg 1300,2100 PO 01/28/21 21:00 UNV Sertraline HCl (Zoloft) 100 mg DAILY PO 01/30/21 09:00 02/03/21 08:22 Sertraline HCl (Zoloft) 25 mg DAILY PO 01/30/21 09:00 02/02/21 17:10 DC 02/02/21 08:09 Sertraline HCl (Zoloft) 50 mg DAILY PO 02/03/21 09:00 02/03/21 08:23 Current Medications Medications (Trade) Dose Ordered Sig/Hector Route PRN Reason Start Time Stop Time Status Last Admin Dose Admin Sertraline HCl (Zoloft) 50 mg DAILY PO 02/03/21 09:00 02/03/21 08:23 I have reviewed the current psychotropics carefully including drug interactions. Risk benefit ratio favors no change other than as noted in my dictated progress note. Diagnosis: Problems: (1) Impulse control disorder, unspecified (2) Anxiety disorder, unspecified (3) Dementia, vascular, with depression (4) Dementia, vascular, with delusions (5) Dementia in Alzheimer's disease with depression (6) Dementia in Alzheimer's disease with delusions (7) Major neurocognitive disorder (8) Dementia in Alzheimer's disease with early onset with behavioral disturbance LUCAS CODY MD Feb 04, 2021 07:29
--- NOTE | 2021-02-04 07:44 | PDOC ---
Exam Note: Deon Note: This note is a late entry for 02/03/2021overs elements not covered in my initial note. Subjective: The patient was seen on telehealth rounds in the evening of 02/03/2021 due to COVID-19 exposure on the unit with Karlene MERCER, discussed and reviewed the chart. The patient slept 7 hours previous night. The patient has been somewhat repetitive, rude with staff. She does complain of some lower abdominal pain, questionable bladder spasms. We will defer to Dr. Ambriz for any bladder antispasmodic. Review of Systems: Impaired ambulation in wheelchair. She complains of bladder spasms. No CV, pulmonary, eye, ENT system symptoms on review. Mental Status Exam: The patient is oriented to herself. She recognised me and appropriately addressed me by my name. Speech coherent, less obsessive, repetitive regarding her . I addressed this with her. Abstraction fair. Computation impaired. Attention span short. Language function intact. Mood and affect labile. No suicidal or homicidal ideation. Laboratory Data: Reviewed. Impression: Major neurocognitive disorder Alzheimer, vascular with delusion, depression, behavioral disturbance. Anxiety disorder unspecified. Impulse control disorder unspecified. Plan: Continue rest psychotropics unchanged. Assessment: Vital Signs/I&O: Vital Signs Date Time Temp Pulse Resp B/P (MAP) Pulse Ox O2 Delivery O2 Flow Rate FiO2 02/04/21 05:48 98.0 79 16 165/87 (113) 96 Room Air I & O 02/03/21 02/03/21 02/04/21 15:00 23:00 07:00 Intake Total 360 ml 600 ml Output Total 600 ml 600 ml Balance 360 ml 0 ml -600 ml Current Medications: Meds: Current Medications Medications (Trade) Dose Ordered Sig/Hector Route PRN Reason Start Time Stop Time Status Last Admin Dose Admin Sodium Chloride 1,000 ml @ 1,000 mls/hr 1X ONCE IV 01/14/21 19:00 01/14/21 19:59 DC 01/14/21 20:37 Acetaminophen (Tylenol) 650 mg PRN Q6HRS PRN PO MILD PAIN / TEMP > 100.3'F 01/14/21 23:15 01/27/21 15:39 Multi-Ingredient Ointment (Analgesic [place]) 1 wes PRN QID PRN TP MUSCLE PAIN 01/14/21 23:15 01/23/21 14:58 DC Al Hydroxide/Mg Hydroxide (Mylanta Plus Xs) 15 ml PRN AFTMEALHC PRN PO DYSPEPSIA 01/14/21 23:15 01/16/21 05:33 Magnesium Hydroxide (Milk Of Magnesia) 2,400 mg PRN QHS PRN PO CONSTIPATION 01/14/21 23:15 Donepezil HCl (Aricept) 10 mg HS PO 01/15/21 21:00 02/03/21 20:44 Lorazepam (Ativan) 0.5 mg PRN Q24HRS PRN PO ANXIETY, 1ST CHOICE 01/14/21 23:30 02/02/21 15:47 Lorazepam (Ativan) 0.5 mg TID PO 01/15/21 09:00 01/17/21 17:30 DC 01/17/21 10:25 Melatonin (Melatonin) 3 mg HS PO 01/15/21 21:00 02/03/21 20:44 Paroxetine HCl (Paxil) 40 mg DAILY PO 01/15/21 09:00 01/19/21 17:15 DC 01/19/21 08:40 Hydroxyzine HCl (Atarax) 25 mg PRN Q6HRS PRN PO ANXIETY, 2ND CHOICE 01/15/21 16:45 01/31/21 22:20 Acetaminophen (Tylenol) 650 mg PRN Q6HRS PRN PO PAIN 01/15/21 19:00 UNV Acetaminophen (Tylenol) 500 mg TID PO 01/15/21 21:00 02/03/21 20:43 Atorvastatin Calcium (Lipitor) 10 mg QHS PO 01/15/21 21:00 02/03/21 20:43 Budesonide (Entocort) 6 mg DAILY PO 01/16/21 09:00 02/03/21 08:23 Calcium Polycarbophil (Fibercon) 1,250 mg BID PO 01/15/21 21:00 02/03/21 20:43 Lidocaine (Lidoderm) 1 patch DAILY TD 01/16/21 09:00 02/03/21 08:22 Mirabegron (Myrbetriq) 25 mg DAILY PO 01/16/21 09:00 01/23/21 17:53 DC 01/23/21 07:49 Pantoprazole Sodium (Protonix) 40 mg DAILY PO 01/16/21 09:00 02/03/21 08:24 Phenazopyridine HCl (Pyridium) 100 mg PRN Q24HRS PRN PO URINARY PAIN 01/15/21 19:00 01/31/21 22:20 Lactobacillus Rhamnosus (Culturelle) 1 cap BID PO 01/15/21 09:00 02/03/21 20:44 Losartan Potassium (Cozaar) 100 mg HS PO 01/15/21 21:00 02/03/21 20:44 Miscellaneous (Lidoderm Patch Removal) 1 ea QHS MC 01/15/21 21:00 02/03/21 21:00 Memantine (Namenda) 5 mg BID PO 01/16/21 21:00 01/22/21 22:50 DC 01/22/21 19:49 Memantine (Namenda) 10 mg BID PO 01/23/21 09:00 02/03/21 20:44 Vitamin D (Vitamin D3) 50,000 unit WEEKLY PO 01/16/21 17:30 01/30/21 08:21 Lorazepam (Ativan) 0.5 mg BID PO 01/17/21 21:00 01/19/21 23:50 DC 01/19/21 19:56 Lorazepam (Ativan) 0.5 mg DAILY PO 01/20/21 09:00 01/22/21 12:00 DC 01/22/21 07:50 Quetiapine Fumarate (SEROquel) 12.5 mg 0900,1700 PO 01/18/21 17:00 01/21/21 17:55 DC 01/21/21 17:33 Sertraline HCl (Zoloft) 50 mg DAILY PO 01/20/21 09:00 01/22/21 13:00 DC 01/22/21 07:51 Sertraline HCl (Zoloft) 75 mg DAILY PO 01/23/21 09:00 01/24/21 17:53 DC 01/24/21 08:48 Mirtazapine (Remeron) 7.5 mg QHS PO 01/20/21 21:00 02/03/21 20:44 Quetiapine Fumarate (SEROquel) 12.5 mg 0900,1300,1700 PO 01/22/21 09:00 01/25/21 16:00 DC 01/25/21 12:54 Sertraline HCl (Zoloft) 100 mg DAILY PO 01/25/21 09:00 01/26/21 17:53 DC 01/26/21 05:25 Quetiapine Fumarate (SEROquel) 12.5 mg 0900,1300,1700,2100 PO 01/25/21 21:00 01/28/21 18:16 DC 01/28/21 17:11 Sertraline HCl (Zoloft) 125 mg DAILY PO 01/27/21 09:00 01/30/21 08:02 DC 01/29/21 08:29 Quetiapine Fumarate (SEROquel) 12.5 mg 1300,2100 PO 01/28/21 21:00 02/03/21 20:44 Quetiapine Fumarate (SEROquel) 25 mg 0900,1700 PO 01/29/21 09:00 02/03/21 17:13 Quetiapine Fumarate (SEROquel) 12.5 mg 1300,2100 PO 01/28/21 21:00 UNV Sertraline HCl (Zoloft) 100 mg DAILY PO 01/30/21 09:00 02/03/21 08:22 Sertraline HCl (Zoloft) 25 mg DAILY PO 01/30/21 09:00 02/02/21 17:10 GA 02/02/21 08:09 Sertraline HCl (Zoloft) 50 mg DAILY PO 02/03/21 09:00 02/03/21 08:23 Current Medications Medications (Trade) Dose Ordered Sig/Hector Route PRN Reason Start Time Stop Time Status Last Admin Dose Admin Sertraline HCl (Zoloft) 50 mg DAILY PO 02/03/21 09:00 02/03/21 08:23 I have reviewed the current psychotropics carefully including drug interactions. Risk benefit ratio favors no change other than as noted in my dictated progress note. Diagnosis: Problems: (1) Impulse control disorder, unspecified (2) Anxiety disorder, unspecified (3) Dementia, vascular, with depression (4) Dementia, vascular, with delusions (5) Dementia in Alzheimer's disease with depression (6) Dementia in Alzheimer's disease with delusions (7) Major neurocognitive disorder (8) Dementia in Alzheimer's disease with early onset with behavioral disturbance LUCAS CODY MD Feb 04, 2021 07:44
[2021-02-04] MEDS: BUDESONIDE 3 MG CAP.ER.24H. PO SCH (08:10)
[2021-02-04] MEDS: CALCIUM POLYCARBOPHIL 625 MG TABLET PO SCH ×2 (08:10→19:39)
[2021-02-04] MEDS: SERTRALINE 50 MG TABLET. PO SCH (08:11)
[2021-02-04] MEDS: QUEtiapine 25 MG TABLET. PO SCH ×4 (08:11→19:40)
[2021-02-04] MEDS: PANTOPRAZOLE 40 MG TABLET. PO SCH (08:11)
[2021-02-04] MEDS: LACTOBACILLUS RHAMNOSUS GG 1 CAPSULE. PO SCH ×2 (08:11→19:40)
[2021-02-04] MEDS: ACETAMINOPHEN 500 MG TABLET PO SCH ×3 (08:11→19:40)
[2021-02-04] MEDS: MEMANTINE 10 MG TABLET. PO SCH ×2 (08:11→19:40)
[2021-02-04] MEDS: SERTRALINE 100 MG TABLET. PO SCH (08:11)
[2021-02-04] MEDS: LIDOCAINE (700MG/PATCH) PATCH. TD SCH (08:12)
[2021-02-04] MEDS: PHENAZOPYRIDINE 100 MG TABLET. PO PRN (10:25)
[2021-02-04] MEDS: LORazepam 0.5 MG TABLET PO PRN (10:25)
[2021-02-04 16:06] VITALS: BP 120/76
[2021-02-04] MEDS: MIRTAZAPINE 7.5 MG TABLET. PO SCH (19:39)
[2021-02-04] MEDS: MELATONIN 3 MG TABLET PO SCH (19:41)
[2021-02-04] MEDS: LOSARTAN 50 MG TABLET. PO SCH (19:41)
[2021-02-04] MEDS: DONEPEZIL HCL 10 MG TABLET PO SCH (19:41)
[2021-02-04] MEDS: ATORVASTATIN CALCIUM 10 MG TABLET. PO SCH (19:41)
[2021-02-04] MEDS: PATCH REMOVAL. MC SCH (20:36)
--- NOTE | 2021-02-04 21:54 | PDOC ---
Exam Note: Deon Note: Please also refer to the separate dictated note~for this date of service dictated separately.~Patient seen individually. Discussed the patient with Nursing staff reviewed the chart.~Reviewed interim history and current functioning. Reviewed vital signs,~Labs/ Radiology~and current medications noted below. Continue current treatment with the changes noted in the dictated addendum note Assessment: Vital Signs/I&O: Vital Signs Date Time Temp Pulse Resp B/P (MAP) Pulse Ox O2 Delivery O2 Flow Rate FiO2 02/04/21 19:41 105 120/76 02/04/21 16:06 98.5 16 96 02/04/21 05:48 Room Air I & O 02/03/21 02/03/21 02/04/21 15:00 23:00 07:00 Intake Total 360 ml 600 ml Output Total 600 ml 600 ml Balance 360 ml 0 ml -600 ml Current Medications: Meds: Current Medications Medications (Trade) Dose Ordered Sig/Hector Route PRN Reason Start Time Stop Time Status Last Admin Dose Admin Sodium Chloride 1,000 ml @ 1,000 mls/hr 1X ONCE IV 01/14/21 19:00 01/14/21 19:59 DC 01/14/21 20:37 Acetaminophen (Tylenol) 650 mg PRN Q6HRS PRN PO MILD PAIN / TEMP > 100.3'F 01/14/21 23:15 01/27/21 15:39 Multi-Ingredient Ointment (Analgesic [place]) 1 wes PRN QID PRN TP MUSCLE PAIN 01/14/21 23:15 01/23/21 14:58 DC Al Hydroxide/Mg Hydroxide (Mylanta Plus Xs) 15 ml PRN AFTMEALHC PRN PO DYSPEPSIA 01/14/21 23:15 01/16/21 05:33 Magnesium Hydroxide (Milk Of Magnesia) 2,400 mg PRN QHS PRN PO CONSTIPATION 01/14/21 23:15 Donepezil HCl (Aricept) 10 mg HS PO 01/15/21 21:00 02/04/21 19:41 Lorazepam (Ativan) 0.5 mg PRN Q24HRS PRN PO ANXIETY, 1ST CHOICE 01/14/21 23:30 02/04/21 10:25 Lorazepam (Ativan) 0.5 mg TID PO 01/15/21 09:00 01/17/21 17:30 DC 01/17/21 10:25 Melatonin (Melatonin) 3 mg HS PO 01/15/21 21:00 02/04/21 19:41 Paroxetine HCl (Paxil) 40 mg DAILY PO 01/15/21 09:00 01/19/21 17:15 DC 01/19/21 08:40 Hydroxyzine HCl (Atarax) 25 mg PRN Q6HRS PRN PO ANXIETY, 2ND CHOICE 01/15/21 16:45 01/31/21 22:20 Acetaminophen (Tylenol) 650 mg PRN Q6HRS PRN PO PAIN 01/15/21 19:00 UNV Acetaminophen (Tylenol) 500 mg TID PO 01/15/21 21:00 02/04/21 19:40 Atorvastatin Calcium (Lipitor) 10 mg QHS PO 01/15/21 21:00 02/04/21 19:41 Budesonide (Entocort) 6 mg DAILY PO 01/16/21 09:00 02/04/21 08:10 Calcium Polycarbophil (Fibercon) 1,250 mg BID PO 01/15/21 21:00 02/04/21 19:39 Lidocaine (Lidoderm) 1 patch DAILY TD 01/16/21 09:00 02/04/21 08:12 Mirabegron (Myrbetriq) 25 mg DAILY PO 01/16/21 09:00 01/23/21 17:53 DC 01/23/21 07:49 Pantoprazole Sodium (Protonix) 40 mg DAILY PO 01/16/21 09:00 02/04/21 08:11 Phenazopyridine HCl (Pyridium) 100 mg PRN Q24HRS PRN PO URINARY PAIN 01/15/21 19:00 02/04/21 10:25 Lactobacillus Rhamnosus (Culturelle) 1 cap BID PO 01/15/21 09:00 02/04/21 19:40 Losartan Potassium (Cozaar) 100 mg HS PO 01/15/21 21:00 02/04/21 19:41 Miscellaneous (Lidoderm Patch Removal) 1 ea QHS MC 01/15/21 21:00 02/03/21 21:00 Memantine (Namenda) 5 mg BID PO 01/16/21 21:00 01/22/21 22:50 DC 01/22/21 19:49 Memantine (Namenda) 10 mg BID PO 01/23/21 09:00 02/04/21 19:40 Vitamin D (Vitamin D3) 50,000 unit WEEKLY PO 01/16/21 17:30 01/30/21 08:21 Lorazepam (Ativan) 0.5 mg BID PO 01/17/21 21:00 01/19/21 23:50 DC 01/19/21 19:56 Lorazepam (Ativan) 0.5 mg DAILY PO 01/20/21 09:00 01/22/21 12:00 DC 01/22/21 07:50 Quetiapine Fumarate (SEROquel) 12.5 mg 0900,1700 PO 01/18/21 17:00 01/21/21 17:55 DC 01/21/21 17:33 Sertraline HCl (Zoloft) 50 mg DAILY PO 01/20/21 09:00 01/22/21 13:00 DC 01/22/21 07:51 Sertraline HCl (Zoloft) 75 mg DAILY PO 01/23/21 09:00 01/24/21 17:53 DC 01/24/21 08:48 Mirtazapine (Remeron) 7.5 mg QHS PO 01/20/21 21:00 02/04/21 19:39 Quetiapine Fumarate (SEROquel) 12.5 mg 0900,1300,1700 PO 01/22/21 09:00 01/25/21 16:00 DC 01/25/21 12:54 Sertraline HCl (Zoloft) 100 mg DAILY PO 01/25/21 09:00 01/26/21 17:53 DC 01/26/21 05:25 Quetiapine Fumarate (SEROquel) 12.5 mg 0900,1300,1700,2100 PO 01/25/21 21:00 01/28/21 18:16 DC 01/28/21 17:11 Sertraline HCl (Zoloft) 125 mg DAILY PO 01/27/21 09:00 01/30/21 08:02 DC 01/29/21 08:29 Quetiapine Fumarate (SEROquel) 12.5 mg 1300,2100 PO 01/28/21 21:00 02/04/21 17:16 DC 02/04/21 12:31 Quetiapine Fumarate (SEROquel) 25 mg 0900,1700 PO 01/29/21 09:00 02/04/21 17:16 DC 02/04/21 08:11 Quetiapine Fumarate (SEROquel) 12.5 mg 1300,2100 PO 01/28/21 21:00 UNV Sertraline HCl (Zoloft) 100 mg DAILY PO 01/30/21 09:00 02/04/21 08:11 Sertraline HCl (Zoloft) 25 mg DAILY PO 01/30/21 09:00 02/02/21 17:10 DC 02/02/21 08:09 Sertraline HCl (Zoloft) 50 mg DAILY PO 02/03/21 09:00 02/04/21 08:11 Quetiapine Fumarate (SEROquel) 25 mg 0900,1300,1700,2100 PO 02/04/21 17:15 02/04/21 19:40 Current Medications Medications (Trade) Dose Ordered Sig/Hector Route PRN Reason Start Time Stop Time Status Last Admin Dose Admin Quetiapine Fumarate (SEROquel) 25 mg 0900,1300,1700,2100 PO 02/04/21 17:15 02/04/21 19:40 I have reviewed the current psychotropics carefully including drug interactions. Risk benefit ratio favors no change other than as noted in my dictated progress note. Diagnosis: Problems: (1) Anxiety disorder, unspecified (2) Impulse control disorder, unspecified (3) Dementia, vascular, with depression (4) Dementia in Alzheimer's disease with delusions (5) Dementia in Alzheimer's disease with depression (6) Dementia, vascular, with delusions (7) Major neurocognitive disorder (8) Dementia in Alzheimer's disease with early onset with behavioral disturbance LUCAS CODY MD Feb 04, 2021 21:54
[2021-02-05 05:37] VITALS: BP 158/92
--- NOTE | 2021-02-05 06:45 | PDOC ---
Exam Note: Deon Note: This note is a late entry for 02/04/2021overs elements not covered in my initial note. Subjective: The patient was seen face to face in the evening of 02/04/2021 with Karlene MERCER, discussed and reviewed the chart. The patient slept 7-1/4 hours previous night. The patient was quite agitated during showers and she was scratching at staff. She does complain of some dysuria, abdominal discomfort but has indwelling catheter. She did receive Pyridium to help with discomfort per Dr. Ambriz. At one point she was threatening to the nursing staff you would better do it or I will knock you down. I processed this with the patient but she professed ignorance. Review of Systems: Impaired ambulation in wheelchair. No CV, pulmonary, eye, ENT system symptoms on review. Mental Status Exam: The patient is awake, alert, oriented to herself. She knew she was at [facility]. Speech coherent, rapid at times. Abstraction fair. Computation impaired, quite anxious, distractible. Attention span short. Language function intact. Mood and affect labile. No suicidal or homicidal ideation. She was obsessed about where her was and that he should be here in the hospital taking care of her rather than being at home. I addressed this with her at some length. Laboratory Data: Reviewed. Impression: Major neurocognitive disorder Alzheimer, vascular with delusion, depression, behavioral disturbance. Anxiety disorder unspecified. Impulse con trol disorder unspecified. Plan: Continue rest psychotropics unchanged. The patient is currently on Seroquel 25 mg twice a day and 12.5 mg twice a day. We will make this total of 25 mg 4 times a day. Maintain rest of the psychotropics unchanged. Seroquel is being used as a mood stabilizer and for agitation, aggression and paranoia. Assessment: Vital Signs/I&O: Vital Signs Date Time Temp Pulse Resp B/P (MAP) Pulse Ox O2 Delivery O2 Flow Rate FiO2 02/05/21 05:37 97.0 87 22 158/92 (114) 96 Room Air I & O 02/04/21 02/04/21 02/05/21 15:00 23:00 07:00 Intake Total 720 ml 360 ml Output Total 550 ml 1200 ml Balance 720 ml -190 ml -1200 ml Current Medications: Meds: Current Medications Medications (Trade) Dose Ordered Sig/Hector Route PRN Reason Start Time Stop Time Status Last Admin Dose Admin Sodium Chloride 1,000 ml @ 1,000 mls/hr 1X ONCE IV 01/14/21 19:00 01/14/21 19:59 DC 01/14/21 20:37 Acetaminophen (Tylenol) 650 mg PRN Q6HRS PRN PO MILD PAIN / TEMP > 100.3'F 01/14/21 23:15 01/27/21 15:39 Multi-Ingredient Ointment (Analgesic [place]) 1 wes PRN QID PRN TP MUSCLE PAIN 01/14/21 23:15 01/23/21 14:58 DC Al Hydroxide/Mg Hydroxide (Mylanta Plus Xs) 15 ml PRN AFTMEALHC PRN PO DYSPEPSIA 01/14/21 23:15 01/16/21 05:33 Magnesium Hydroxide (Milk Of Magnesia) 2,400 mg PRN QHS PRN PO CONSTIPATION 01/14/21 23:15 Donepezil HCl (Aricept) 10 mg HS PO 01/15/21 21:00 02/04/21 19:41 Lorazepam (Ativan) 0.5 mg PRN Q24HRS PRN PO ANXIETY, 1ST CHOICE 01/14/21 23:30 02/04/21 10:25 Lorazepam (Ativan) 0.5 mg TID PO 01/15/21 09:00 01/17/21 17:30 DC 01/17/21 10:25 Melatonin (Melatonin) 3 mg HS PO 01/15/21 21:00 02/04/21 19:41 Paroxetine HCl (Paxil) 40 mg DAILY PO 01/15/21 09:00 01/19/21 17:15 DC 01/19/21 08:40 Hydroxyzine HCl (Atarax) 25 mg PRN Q6HRS PRN PO ANXIETY, 2ND CHOICE 01/15/21 16:45 01/31/21 22:20 Acetaminophen (Tylenol) 650 mg PRN Q6HRS PRN PO PAIN 01/15/21 19:00 UNV Acetaminophen (Tylenol) 500 mg TID PO 01/15/21 21:00 02/04/21 19:40 Atorvastatin Calcium (Lipitor) 10 mg QHS PO 01/15/21 21:00 02/04/21 19:41 Budesonide (Entocort) 6 mg DAILY PO 01/16/21 09:00 02/04/21 08:10 Calcium Polycarbophil (Fibercon) 1,250 mg BID PO 01/15/21 21:00 02/04/21 19:39 Lidocaine (Lidoderm) 1 patch DAILY TD 01/16/21 09:00 02/04/21 08:12 Mirabegron (Myrbetriq) 25 mg DAILY PO 01/16/21 09:00 01/23/21 17:53 DC 01/23/21 07:49 Pantoprazole Sodium (Protonix) 40 mg DAILY PO 01/16/21 09:00 02/04/21 08:11 Phenazopyridine HCl (Pyridium) 100 mg PRN Q24HRS PRN PO URINARY PAIN 01/15/21 19:00 02/04/21 10:25 Lactobacillus Rhamnosus (Culturelle) 1 cap BID PO 01/15/21 09:00 02/04/21 19:40 Losartan Potassium (Cozaar) 100 mg HS PO 01/15/21 21:00 02/04/21 19:41 Miscellaneous (Lidoderm Patch Removal) 1 ea QHS MC 01/15/21 21:00 02/03/21 21:00 Memantine (Namenda) 5 mg BID PO 01/16/21 21:00 01/22/21 22:50 DC 01/22/21 19:49 Memantine (Namenda) 10 mg BID PO 01/23/21 09:00 02/04/21 19:40 Vitamin D (Vitamin D3) 50,000 unit WEEKLY PO 01/16/21 17:30 01/30/21 08:21 Lorazepam (Ativan) 0.5 mg BID PO 01/17/21 21:00 01/19/21 23:50 DC 01/19/21 19:56 Lorazepam (Ativan) 0.5 mg DAILY PO 01/20/21 09:00 01/22/21 12:00 DC 01/22/21 07:50 Quetiapine Fumarate (SEROquel) 12.5 mg 0900,1700 PO 01/18/21 17:00 01/21/21 17:55 DC 01/21/21 17:33 Sertraline HCl (Zoloft) 50 mg DAILY PO 01/20/21 09:00 01/22/21 13:00 DC 01/22/21 07:51 Sertraline HCl (Zoloft) 75 mg DAILY PO 01/23/21 09:00 01/24/21 17:53 DC 01/24/21 08:48 Mirtazapine (Remeron) 7.5 mg QHS PO 01/20/21 21:00 02/04/21 19:39 Quetiapine Fumarate (SEROquel) 12.5 mg 0900,1300,1700 PO 01/22/21 09:00 01/25/21 16:00 DC 01/25/21 12:54 Sertraline HCl (Zoloft) 100 mg DAILY PO 01/25/21 09:00 01/26/21 17:53 DC 01/26/21 05:25 Quetiapine Fumarate (SEROquel) 12.5 mg 0900,1300,1700,2100 PO 01/25/21 21:00 01/28/21 18:16 DC 01/28/21 17:11 Sertraline HCl (Zoloft) 125 mg DAILY PO 01/27/21 09:00 01/30/21 08:02 DC 01/29/21 08:29 Quetiapine Fumarate (SEROquel) 12.5 mg 1300,2100 PO 01/28/21 21:00 02/04/21 17:16 VT 02/04/21 12:31 Quetiapine Fumarate (SEROquel) 25 mg 0900,1700 PO 01/29/21 09:00 02/04/21 17:16 DC 02/04/21 08:11 Quetiapine Fumarate (SEROquel) 12.5 mg 1300,2100 PO 01/28/21 21:00 UNV Sertraline HCl (Zoloft) 100 mg DAILY PO 01/30/21 09:00 02/04/21 08:11 Sertraline HCl (Zoloft) 25 mg DAILY PO 01/30/21 09:00 02/02/21 17:10 DC 02/02/21 08:09 Sertraline HCl (Zoloft) 50 mg DAILY PO 02/03/21 09:00 02/04/21 08:11 Quetiapine Fumarate (SEROquel) 25 mg 0900,1300,1700,2100 PO 02/04/21 17:15 8/3/21 19:40 Current Medications Medications (Trade) Dose Ordered Sig/Hector Route PRN Reason Start Time Stop Time Status Last Admin Dose Admin Quetiapine Fumarate (SEROquel) 25 mg 0900,1300,1700,2100 PO 02/04/21 17:15 02/04/21 19:40 I have reviewed the current psychotropics carefully including drug interactions. Risk benefit ratio favors no change other than as noted in my dictated progress note. Diagnosis: Problems: (1) Impulse control disorder, unspecified (2) Anxiety disorder, unspecified (3) Dementia, vascular, with depression (4) Dementia, vascular, with delusions (5) Dementia in Alzheimer's disease with depression (6) Dementia in Alzheimer's disease with delusions (7) Major neurocognitive disorder (8) Dementia in Alzheimer's disease with early onset with behavioral disturbance LUCAS CODY MD Feb 05, 2021 06:45
[2021-02-05] MEDS: SERTRALINE 100 MG TABLET. PO SCH (08:16)
[2021-02-05] MEDS: MEMANTINE 10 MG TABLET. PO SCH ×2 (08:16→21:00)
[2021-02-05] MEDS: SERTRALINE 50 MG TABLET. PO SCH (08:16)
[2021-02-05] MEDS: PANTOPRAZOLE 40 MG TABLET. PO SCH (08:16)
[2021-02-05] MEDS: QUEtiapine 25 MG TABLET. PO SCH ×4 (08:16→19:59)
[2021-02-05] MEDS: ACETAMINOPHEN 500 MG TABLET PO SCH ×4 (08:17→21:37)
[2021-02-05] MEDS: BUDESONIDE 3 MG CAP.ER.24H. PO SCH (08:17)
[2021-02-05] MEDS: LIDOCAINE (700MG/PATCH) PATCH. TD SCH (08:17)
[2021-02-05] MEDS: CALCIUM POLYCARBOPHIL 625 MG TABLET PO SCH ×2 (08:17→19:58)
[2021-02-05] MEDS: LACTOBACILLUS RHAMNOSUS GG 1 CAPSULE. PO SCH ×2 (08:17→19:58)
[2021-02-05 16:02] VITALS: BP 102/65
[2021-02-05] MEDS: PHENAZOPYRIDINE 100 MG TABLET. PO PRN (18:31)
[2021-02-05] MEDS: MELATONIN 3 MG TABLET PO SCH (19:58)
[2021-02-05] MEDS: ATORVASTATIN CALCIUM 10 MG TABLET. PO SCH (19:58)
[2021-02-05] MEDS: LOSARTAN 50 MG TABLET. PO SCH (19:58)
[2021-02-05] MEDS: MIRTAZAPINE 7.5 MG TABLET. PO SCH (19:58)
[2021-02-05] MEDS: DONEPEZIL HCL 10 MG TABLET PO SCH (19:59)
[2021-02-05] MEDS: PATCH REMOVAL. MC SCH (19:59)
--- NOTE | 2021-02-05 22:00 | PDOC ---
Exam Note: Deon Note: Please also refer to the separate dictated note~for this date of service dictated separately.~Patient seen individually. Discussed the patient with Nursing staff reviewed the chart.~Reviewed interim history and current functioning. Reviewed vital signs,~Labs/ Radiology~and current medications noted below. Continue current treatment with the changes noted in the dictated addendum note Assessment: Vital Signs/I&O: Vital Signs Date Time Temp Pulse Resp B/P (MAP) Pulse Ox O2 Delivery O2 Flow Rate FiO2 02/05/21 19:58 104 102/65 02/05/21 16:02 97.5 16 96 02/05/21 05:37 Room Air I & O 02/04/21 02/04/21 02/05/21 15:00 23:00 07:00 Intake Total 720 ml 360 ml Output Total 550 ml 1200 ml Balance 720 ml -190 ml -1200 ml Labs: Laboratory Tests Test 02/05/21 10:51 SARS-CoV-2 (PCR) Negative (NEGATIVE) Current Medications: Meds: Laboratory Tests Test 02/05/21 10:51 Coronavirus (COVID-19)(PCR) Negative Current Medications Medications (Trade) Dose Ordered Sig/Hector Route PRN Reason Start Time Stop Time Status Last Admin Dose Admin Sodium Chloride 1,000 ml @ 1,000 mls/hr 1X ONCE IV 01/14/21 19:00 01/14/21 19:59 DC 01/14/21 20:37 Acetaminophen (Tylenol) 650 mg PRN Q6HRS PRN PO MILD PAIN / TEMP > 100.3'F 01/14/21 23:15 01/27/21 15:39 Multi-Ingredient Ointment (Analgesic [place]) 1 wes PRN QID PRN TP MUSCLE PAIN 01/14/21 23:15 01/23/21 14:58 DC Al Hydroxide/Mg Hydroxide (Mylanta Plus Xs) 15 ml PRN AFTMEALHC PRN PO DYSPEPSIA 01/14/21 23:15 01/16/21 05:33 Magnesium Hydroxide (Milk Of Magnesia) 2,400 mg PRN QHS PRN PO CONSTIPATION 01/14/21 23:15 Donepezil HCl (Aricept) 10 mg HS PO 01/15/21 21:00 02/05/21 19:59 Lorazepam (Ativan) 0.5 mg PRN Q24HRS PRN PO ANXIETY, 1ST CHOICE 01/14/21 23:30 02/04/21 10:25 Lorazepam (Ativan) 0.5 mg TID PO 01/15/21 09:00 01/17/21 17:30 DC 01/17/21 10:25 Melatonin (Melatonin) 3 mg HS PO 01/15/21 21:00 02/05/21 19:58 Paroxetine HCl (Paxil) 40 mg DAILY PO 01/15/21 09:00 01/19/21 17:15 DC 01/19/21 08:40 Hydroxyzine HCl (Atarax) 25 mg PRN Q6HRS PRN PO ANXIETY, 2ND CHOICE 01/15/21 16:45 01/31/21 22:20 Acetaminophen (Tylenol) 650 mg PRN Q6HRS PRN PO PAIN 01/15/21 19:00 UNV Acetaminophen (Tylenol) 500 mg TID PO 01/15/21 21:00 02/05/21 21:37 Atorvastatin Calcium (Lipitor) 10 mg QHS PO 01/15/21 21:00 02/05/21 19:58 Budesonide (Entocort) 6 mg DAILY PO 01/16/21 09:00 02/05/21 08:17 Calcium Polycarbophil (Fibercon) 1,250 mg BID PO 01/15/21 21:00 02/05/21 19:58 Lidocaine (Lidoderm) 1 patch DAILY TD 01/16/21 09:00 02/05/21 08:17 Mirabegron (Myrbetriq) 25 mg DAILY PO 01/16/21 09:00 01/23/21 17:53 DC 01/23/21 07:49 Pantoprazole Sodium (Protonix) 40 mg DAILY PO 01/16/21 09:00 02/05/21 08:16 Phenazopyridine HCl (Pyridium) 100 mg PRN Q24HRS PRN PO URINARY PAIN 01/15/21 19:00 02/05/21 18:31 Lactobacillus Rhamnosus (Culturelle) 1 cap BID PO 01/15/21 09:00 02/05/21 19:58 Losartan Potassium (Cozaar) 100 mg HS PO 01/15/21 21:00 02/05/21 19:58 Miscellaneous (Lidoderm Patch Removal) 1 ea QHS 01/15/21 21:00 02/05/21 19:59 Memantine (Namenda) 5 mg BID PO 01/16/21 21:00 01/22/21 22:50 DC 01/22/21 19:49 Memantine (Namenda) 10 mg BID PO 01/23/21 09:00 02/05/21 21:00 Vitamin D (Vitamin D3) 50,000 unit WEEKLY PO 01/16/21 17:30 01/30/21 08:21 Lorazepam (Ativan) 0.5 mg BID PO 01/17/21 21:00 01/19/21 23:50 DC 01/19/21 19:56 Lorazepam (Ativan) 0.5 mg DAILY PO 01/20/21 09:00 01/22/21 12:00 AL 01/22/21 07:50 Quetiapine Fumarate (SEROquel) 12.5 mg 0900,1700 PO 01/18/21 17:00 01/21/21 17:55 DC 01/21/21 17:33 Sertraline HCl (Zoloft) 50 mg DAILY PO 01/20/21 09:00 01/22/21 13:00 AL 01/22/21 07:51 Sertraline HCl (Zoloft) 75 mg DAILY PO 01/23/21 09:00 01/24/21 17:53 AL 01/24/21 08:48 Mirtazapine (Remeron) 7.5 mg QHS PO 01/20/21 21:00 02/05/21 19:58 Quetiapine Fumarate (SEROquel) 12.5 mg 0900,1300,1700 PO 01/22/21 09:00 01/25/21 16:00 AL 01/25/21 12:54 Sertraline HCl (Zoloft) 100 mg DAILY PO 01/25/21 09:00 01/26/21 17:53 AL 01/26/21 05:25 Quetiapine Fumarate (SEROquel) 12.5 mg 0900,1300,1700,2100 PO 01/25/21 21:00 01/28/21 18:16 DC 01/28/21 17:11 Sertraline HCl (Zoloft) 125 mg DAILY PO 01/27/21 09:00 01/30/21 08:02 DC 01/29/21 08:29 Quetiapine Fumarate (SEROquel) 12.5 mg 1300,2100 PO 01/28/21 21:00 02/04/21 17:16 DC 02/04/21 12:31 Quetiapine Fumarate (SEROquel) 25 mg 0900,1700 PO 01/29/21 09:00 02/04/21 17:16 DC 02/04/21 08:11 Quetiapine Fumarate (SEROquel) 12.5 mg 1300,2100 PO 01/28/21 21:00 UNV Sertraline HCl (Zoloft) 100 mg DAILY PO 01/30/21 09:00 02/05/21 08:16 Sertraline HCl (Zoloft) 25 mg DAILY PO 01/30/21 09:00 02/02/21 17:10 DC 02/02/21 08:09 Sertraline HCl (Zoloft) 50 mg DAILY PO 02/03/21 09:00 02/05/21 08:16 Quetiapine Fumarate (SEROquel) 25 mg 0900,1300,1700,2100 PO 02/04/21 17:15 02/05/21 19:59 I have reviewed the current psychotropics carefully including drug interactions. Risk benefit ratio favors no change other than as noted in my dictated progress note. 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
[2021-02-05] MEDS: LORazepam 0.5 MG TABLET PO PRN (23:54)
[2021-02-06 06:57] VITALS: BP 167/80
[2021-02-06] MEDS: LIDOCAINE (700MG/PATCH) PATCH. TD SCH (09:00)
[2021-02-06] MEDS: PANTOPRAZOLE 40 MG TABLET. PO SCH (09:20)
[2021-02-06] MEDS: QUEtiapine 25 MG TABLET. PO SCH ×4 (09:20→20:46)
[2021-02-06] MEDS: SERTRALINE 100 MG TABLET. PO SCH (09:20)
[2021-02-06] MEDS: CALCIUM POLYCARBOPHIL 625 MG TABLET PO SCH ×2 (09:20→20:45)
[2021-02-06] MEDS: LACTOBACILLUS RHAMNOSUS GG 1 CAPSULE. PO SCH ×2 (09:20→20:45)
[2021-02-06] MEDS: SERTRALINE 50 MG TABLET. PO SCH (09:21)
[2021-02-06] MEDS: CHOLECALCIFEROL (VITAMIN D3) 50,000 UNIT CAPSULE PO SCH (09:21)
[2021-02-06] MEDS: MEMANTINE 10 MG TABLET. PO SCH ×2 (09:21→20:45)
[2021-02-06] MEDS: BUDESONIDE 3 MG CAP.ER.24H. PO SCH (09:21)
--- NOTE | 2021-02-06 14:47 | TX PLAN ---
Interdisciplinary Tx Plan Admission Information Jan 14, 2021 at 22:35 Legal Status (on Admission): Voluntary DPOA/Guardian Name: Dimitri Lema (Dick) Contact Other Contact Name: ABISAI Lopez Other Contact Verified Code Status: DNR Allergies: Coded Allergies: sulfamethoxazole (Verified Allergy, Unknown, 12/14/19) prochlorperazine maleate (Verified Adverse Reaction, Unknown, Makes her twitch, 12/14/19) Diagnoses Primary Diagnosis: (1) Major neurocognitive disorder due to Alzheimer's disease (2) Dementia in Alzheimer's disease with delusions (3) Dementia in Alzheimer's disease with depression (4) Dementia, vascular, with delusions (5) Dementia, vascular, with depression (6) Anxiety disorder, unspecified (7) Impulse control disorder, unspecified Reasons for Admission: Aggressive, Agitated, Angry, Anxiety/Panic, Combative, Confusion/Disoriented, Poor impulse control Problem in Patient's Words: Per /DPOA, Praneeth, up until about two years ago, pt was fairly healthy and she developed Psoriasis and then had a fall and cracked her leg. This seemed to be the onset of her dementia. She has three main problems: her dementia, stomach pain, and back pain. At her facility, they started her on a lidocaine patch, and this seemed to help her with the pain. She sees Dr. Fierro for neurology, she has seen another doctor for urology, and when she was at home she had home health that set her up with a psychologist, Dr. Beasley. 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 Problems Active Problems: Confused, disoriented, agitated, crying, anxiety Inactive Problems: Aggression, Combative Pt Strengths/Limitations Ability for Lostant: Poor Cognitive Functioning/Ability: Poor Communication Skills/Ability: Fair Financial Resources: Good Insight/Judgement: Poor Intellectual Ability: Fair Physical Health: Poor Social Skills: Good Stability in Family: Good Stability in School/Work: Good Verbal Skills: Fair Discharge Criteria Discharge Criteria: Adequate arrangements @DC, Verbal commit med comply, Improved behavior, Improved mood/thought Other Discharge Comments: None noted at this time. Preliminary Discharge Plan Preliminary DC Plan: Current Living Arrange. Special Precautions Special Precautions: Agitation/Assault Fall Risk: High Initial D/C Plan Pt Plan is to return to [facility] once stable. Identified Discharge Needs: None known at this time. Currently Utilized Resources Currently Utilized Resources/P: PCP-Dr. Amato /DPOA-Dimitri Kinsey" [place] [facility], contact-ABISAI Lopez Referrals Community Resources: None at this time. Identified Problems/Hx/Goals Objectives/Short-Term Goals Short Term Goals: Control abnormal behavior, Dec. Aggression, Dec. Outbursts, Medication Stabilization, Monitor Med Effects, Promote Coping Skill Short Term Goals in Patient's: To feel less agitated and anxious. Help to control symptoms of anxiety and depression and for behaviors to improved. Interventions/Frequency Staff Interventions/Frequency&: Psychiatry to assess pt three times per week for medication management. Nursing to assess behaviors, monitor medications, and complete 15 minute checks daily. Social work to see pt at least two times weekly to aid in return to placement. Activities to encourage pt to participate in group activities daily. 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 Education: High School and three years college Community Follow-up PCP Community Provider/Family Inpu: /DPOA, Dimitri Kinsey", aware of pt hospitalization and is available for further information as needed. 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 Pt continues to eat about 50% of her meals. She feeds herself. Pt gets an average of 7.5 hours of sleep each night. Pt is med compliant and continues to take her medication whole. Pt still shows some anxiety and will apologize for getting agitated with staff. Pt states that she doesn't know why she gets like that and that she has dealt with anxiety for a long time. Pt struggles with short term memory loss, but will engage in a conversation with staff that she feels is trying to help her. She does continue to ask about her and dogs. It seems that helping her to understand what is happening around her or what is getting ready to happen helps ease some of her anxiety along with gently talking with her throughout the event/situation. Pt /DPOA has requested a referral be sent to [facility]. This placement is currently considering pt for admission. If pt is denied the plan is for pt to return to [facility] at time of discharge. JAYDEN FORREST Feb 06, 2021 14:47
[2021-02-06] MEDS: ACETAMINOPHEN 500 MG TABLET PO SCH ×2 (14:53→20:46)
[2021-02-06 15:45] VITALS: BP 106/68
[2021-02-06] MEDS: LOSARTAN 50 MG TABLET. PO SCH (20:45)
[2021-02-06] MEDS: DONEPEZIL HCL 10 MG TABLET PO SCH (20:46)
[2021-02-06] MEDS: MELATONIN 3 MG TABLET PO SCH (20:46)
[2021-02-06] MEDS: MIRTAZAPINE 7.5 MG TABLET. PO SCH (20:46)
[2021-02-06] MEDS: ATORVASTATIN CALCIUM 10 MG TABLET. PO SCH (20:46)
[2021-02-06] MEDS: PATCH REMOVAL. MC SCH (20:46)
--- NOTE | 2021-02-06 22:12 | PDOC ---
Exam Note: Deon Note: Please also refer to the separate dictated note~for this date of service dictated separately.~Patient seen individually. Discussed the patient with Nursing staff reviewed the chart.~Reviewed interim history and current functioning. Reviewed vital signs,~Labs/ Radiology~and current medications noted below. Continue current treatment with the changes noted in the dictated addendum note Assessment: Vital Signs/I&O: Vital Signs Date Time Temp Pulse Resp B/P (MAP) Pulse Ox O2 Delivery O2 Flow Rate FiO2 02/06/21 20:45 106 106/68 02/06/21 15:45 97.7 20 96 02/06/21 06:57 Room Air I & O 02/05/21 02/05/21 02/06/21 15:00 23:00 07:00 Intake Total 600 ml 480 ml Output Total 300 ml Balance 600 ml 180 ml Current Medications: Meds: Current Medications Medications (Trade) Dose Ordered Sig/Hector Route PRN Reason Start Time Stop Time Status Last Admin Dose Admin Sodium Chloride 1,000 ml @ 1,000 mls/hr 1X ONCE IV 01/14/21 19:00 01/14/21 19:59 DC 01/14/21 20:37 Acetaminophen (Tylenol) 650 mg PRN Q6HRS PRN PO MILD PAIN / TEMP > 100.3'F 01/14/21 23:15 01/27/21 15:39 Multi-Ingredient Ointment (Analgesic [place]) 1 wes PRN QID PRN TP MUSCLE PAIN 01/14/21 23:15 01/23/21 14:58 DC Al Hydroxide/Mg Hydroxide (Mylanta Plus Xs) 15 ml PRN AFTMEALHC PRN PO DYSPEPSIA 01/14/21 23:15 01/16/21 05:33 Magnesium Hydroxide (Milk Of Magnesia) 2,400 mg PRN QHS PRN PO CONSTIPATION 01/14/21 23:15 Donepezil HCl (Aricept) 10 mg HS PO 01/15/21 21:00 02/06/21 20:46 Lorazepam (Ativan) 0.5 mg PRN Q24HRS PRN PO ANXIETY, 1ST CHOICE 01/14/21 23:30 02/05/21 23:54 Lorazepam (Ativan) 0.5 mg TID PO 01/15/21 09:00 01/17/21 17:30 DC 01/17/21 10:25 Melatonin (Melatonin) 3 mg HS PO 01/15/21 21:00 02/06/21 20:46 Paroxetine HCl (Paxil) 40 mg DAILY PO 01/15/21 09:00 01/19/21 17:15 DC 01/19/21 08:40 Hydroxyzine HCl (Atarax) 25 mg PRN Q6HRS PRN PO ANXIETY, 2ND CHOICE 01/15/21 16:45 01/31/21 22:20 Acetaminophen (Tylenol) 650 mg PRN Q6HRS PRN PO PAIN 01/15/21 19:00 UNV Acetaminophen (Tylenol) 500 mg TID PO 01/15/21 21:00 02/06/21 20:46 Atorvastatin Calcium (Lipitor) 10 mg QHS PO 01/15/21 21:00 02/06/21 20:46 Budesonide (Entocort) 6 mg DAILY PO 01/16/21 09:00 02/06/21 09:21 Calcium Polycarbophil (Fibercon) 1,250 mg BID PO 01/15/21 21:00 02/06/21 20:45 Lidocaine (Lidoderm) 1 patch DAILY TD 01/16/21 09:00 02/06/21 09:00 Mirabegron (Myrbetriq) 25 mg DAILY PO 01/16/21 09:00 01/23/21 17:53 DC 01/23/21 07:49 Pantoprazole Sodium (Protonix) 40 mg DAILY PO 01/16/21 09:00 02/06/21 09:20 Phenazopyridine HCl (Pyridium) 100 mg PRN Q24HRS PRN PO URINARY PAIN 01/15/21 19:00 02/05/21 18:31 Lactobacillus Rhamnosus (Culturelle) 1 cap BID PO 01/15/21 09:00 02/06/21 20:45 Losartan Potassium (Cozaar) 100 mg HS PO 01/15/21 21:00 02/06/21 20:45 Miscellaneous (Lidoderm Patch Removal) 1 ea QHS MC 01/15/21 21:00 02/06/21 20:46 Memantine (Namenda) 5 mg BID PO 01/16/21 21:00 01/22/21 22:50 DC 01/22/21 19:49 Memantine (Namenda) 10 mg BID PO 01/23/21 09:00 02/06/21 20:45 Vitamin D (Vitamin D3) 50,000 unit WEEKLY PO 01/16/21 17:30 02/06/21 09:21 Lorazepam (Ativan) 0.5 mg BID PO 01/17/21 21:00 01/19/21 23:50 DC 01/19/21 19:56 Lorazepam (Ativan) 0.5 mg DAILY PO 01/20/21 09:00 01/22/21 12:00 DC 01/22/21 07:50 Quetiapine Fumarate (SEROquel) 12.5 mg 0900,1700 PO 01/18/21 17:00 01/21/21 17:55 DC 01/21/21 17:33 Sertraline HCl (Zoloft) 50 mg DAILY PO 01/20/21 09:00 01/22/21 13:00 DC 01/22/21 07:51 Sertraline HCl (Zoloft) 75 mg DAILY PO 01/23/21 09:00 01/24/21 17:53 DC 01/24/21 08:48 Mirtazapine (Remeron) 7.5 mg QHS PO 01/20/21 21:00 02/06/21 20:46 Quetiapine Fumarate (SEROquel) 12.5 mg 0900,1300,1700 PO 01/22/21 09:00 01/25/21 16:00 HI 01/25/21 12:54 Sertraline HCl (Zoloft) 100 mg DAILY PO 01/25/21 09:00 01/26/21 17:53 DC 01/26/21 05:25 Quetiapine Fumarate (SEROquel) 12.5 mg 0900,1300,1700,2100 PO 01/25/21 21:00 01/28/21 18:16 DC 01/28/21 17:11 Sertraline HCl (Zoloft) 125 mg DAILY PO 01/27/21 09:00 01/30/21 08:02 DC 01/29/21 08:29 Quetiapine Fumarate (SEROquel) 12.5 mg 1300,2100 PO 01/28/21 21:00 02/04/21 17:16 DC 02/04/21 12:31 Quetiapine Fumarate (SEROquel) 25 mg 0900,1700 PO 01/29/21 09:00 02/04/21 17:16 DC 02/04/21 08:11 Quetiapine Fumarate (SEROquel) 12.5 mg 1300,2100 PO 01/28/21 21:00 UNV Sertraline HCl (Zoloft) 100 mg DAILY PO 01/30/21 09:00 02/06/21 09:20 Sertraline HCl (Zoloft) 25 mg DAILY PO 01/30/21 09:00 02/02/21 17:10 DC 02/02/21 08:09 Sertraline HCl (Zoloft) 50 mg DAILY PO 02/03/21 09:00 02/06/21 09:21 Quetiapine Fumarate (SEROquel) 25 mg 0900,1300,1700,2100 PO 02/04/21 17:15 02/06/21 20:46 I have reviewed the current psychotropics carefully including drug interactions. Risk benefit ratio favors no change other than as noted in my dictated progress note. Diagnosis: Problems: (1) Impulse control disorder, unspecified (2) Anxiety disorder, unspecified (3) Dementia, vascular, with depression (4) Dementia, vascular, with delusions (5) Dementia in Alzheimer's disease with depression (6) Dementia in Alzheimer's disease with delusions (7) Major neurocognitive disorder (8) Dementia in Alzheimer's disease with early onset with behavioral disturbance LUCAS CODY MD Feb 06, 2021 22:12
[2021-02-07 06:21] VITALS: BP 170/83
--- NOTE | 2021-02-07 06:42 | PDOC ---
Exam Note: Deon Note: This note is a late entry for 02/05/2021overs elements not covered in my initial note. Subjective: The patient was seen face to face in the evening of 02/05/2021 with Danilo MERCER, discussed and reviewed the chart. The patient slept 5-1/2 hours previous night. The patient remains forgetful with short-term memory deficits, quite anxious, repetitive asking about her Praneeth and her dogs Kerri and Sadia and her set of questions is about the same every day repeated several times both to myself and nursing staff, specifically why her Praneeth not here in the hospital taking care of her. Why is he at home? and then she is able to answer it herself. Review of Systems: Impaired ambulation in wheelchair. No CV, GI, eye, ENT system symptoms on review. Positive for some bladder spasms and lower abdominal discomfort. She has other vague somatic symptoms. Mental Status Exam: The patient is oriented to herself. Speech coherent. Abs traction fair. Computation impaired. Attention span short. Language function intact. Mood and affect labile. No suicidal or homicidal ideation. Laboratory Data: Reviewed. Impression: Major neurocognitive disorder Alzheimer, vascular with delusion, depression, behavioral disturbance. Anxiety disorder unspecified. Impulse control disorder unspecified. Plan: Continue rest psychotropics unchanged. Assessment: Vital Signs/I&O: Vital Signs Date Time Temp Pulse Resp B/P (MAP) Pulse Ox O2 Delivery O2 Flow Rate FiO2 02/07/21 06:21 97.2 83 18 170/83 (112) 96 Room Air I & O 02/06/21 02/06/21 02/07/21 15:00 23:00 07:00 Intake Total 840 ml 620 ml Output Total 200 ml 300 ml 1050 ml Balance 640 ml 320 ml -1050 ml Current Medications: Meds: Current Medications Medications (Trade) Dose Ordered Sig/Hector Route PRN Reason Start Time Stop Time Status Last Admin Dose Admin Sodium Chloride 1,000 ml @ 1,000 mls/hr 1X ONCE IV 01/14/21 19:00 01/14/21 19:59 DC 01/14/21 20:37 Acetaminophen (Tylenol) 650 mg PRN Q6HRS PRN PO MILD PAIN / TEMP > 100.3'F 01/14/21 23:15 01/27/21 15:39 Multi-Ingredient Ointment (Analgesic [place]) 1 wes PRN QID PRN TP MUSCLE PAIN 01/14/21 23:15 01/23/21 14:58 DC Al Hydroxide/Mg Hydroxide (Mylanta Plus Xs) 15 ml PRN AFTMEALHC PRN PO DYSPEPSIA 01/14/21 23:15 01/16/21 05:33 Magnesium Hydroxide (Milk Of Magnesia) 2,400 mg PRN QHS PRN PO CONSTIPATION 01/14/21 23:15 Donepezil HCl (Aricept) 10 mg HS PO 01/15/21 21:00 02/06/21 20:46 Lorazepam (Ativan) 0.5 mg PRN Q24HRS PRN PO ANXIETY, 1ST CHOICE 01/14/21 23:30 02/05/21 23:54 Lorazepam (Ativan) 0.5 mg TID PO 01/15/21 09:00 01/17/21 17:30 DC 01/17/21 10:25 Melatonin (Melatonin) 3 mg HS PO 01/15/21 21:00 02/06/21 20:46 Paroxetine HCl (Paxil) 40 mg DAILY PO 01/15/21 09:00 01/19/21 17:15 DC 01/19/21 08:40 Hydroxyzine HCl (Atarax) 25 mg PRN Q6HRS PRN PO ANXIETY, 2ND CHOICE 01/15/21 16:45 01/31/21 22:20 Acetaminophen (Tylenol) 650 mg PRN Q6HRS PRN PO PAIN 01/15/21 19:00 UNV Acetaminophen (Tylenol) 500 mg TID PO 01/15/21 21:00 02/06/21 20:46 Atorvastatin Calcium (Lipitor) 10 mg QHS PO 01/15/21 21:00 02/06/21 20:46 Budesonide (Entocort) 6 mg DAILY PO 01/16/21 09:00 02/06/21 09:21 Calcium Polycarbophil (Fibercon) 1,250 mg BID PO 01/15/21 21:00 02/06/21 20:45 Lidocaine (Lidoderm) 1 patch DAILY TD 01/16/21 09:00 02/06/21 09:00 Mirabegron (Myrbetriq) 25 mg DAILY PO 01/16/21 09:00 01/23/21 17:53 DC 01/23/21 07:49 Pantoprazole Sodium (Protonix) 40 mg DAILY PO 01/16/21 09:00 02/06/21 09:20 Phenazopyridine HCl (Pyridium) 100 mg PRN Q24HRS PRN PO URINARY PAIN 01/15/21 19:00 02/05/21 18:31 Lactobacillus Rhamnosus (Culturelle) 1 cap BID PO 01/15/21 09:00 02/06/21 20:45 Losartan Potassium (Cozaar) 100 mg HS PO 01/15/21 21:00 02/06/21 20:45 Miscellaneous (Lidoderm Patch Removal) 1 ea QHS MC 01/15/21 21:00 02/06/21 20:46 Memantine (Namenda) 5 mg BID PO 01/16/21 21:00 01/22/21 22:50 DC 01/22/21 19:49 Memantine (Namenda) 10 mg BID PO 01/23/21 09:00 02/06/21 20:45 Vitamin D (Vitamin D3) 50,000 unit WEEKLY PO 01/16/21 17:30 02/06/21 09:21 Lorazepam (Ativan) 0.5 mg BID PO 01/17/21 21:00 01/19/21 23:50 DC 01/19/21 19:56 Lorazepam (Ativan) 0.5 mg DAILY PO 01/20/21 09:00 01/22/21 12:00 DC 01/22/21 07:50 Quetiapine Fumarate (SEROquel) 12.5 mg 0900,1700 PO 01/18/21 17:00 01/21/21 17:55 DC 01/21/21 17:33 Sertraline HCl (Zoloft) 50 mg DAILY PO 01/20/21 09:00 01/22/21 13:00 DC 01/22/21 07:51 Sertraline HCl (Zoloft) 75 mg DAILY PO 01/23/21 09:00 01/24/21 17:53 DC 01/24/21 08:48 Mirtazapine (Remeron) 7.5 mg QHS PO 01/20/21 21:00 02/06/21 20:46 Quetiapine Fumarate (SEROquel) 12.5 mg 0900,1300,1700 PO 01/22/21 09:00 01/25/21 16:00 DC 01/25/21 12:54 Sertraline HCl (Zoloft) 100 mg DAILY PO 01/25/21 09:00 01/26/21 17:53 DC 01/26/21 05:25 Quetiapine Fumarate (SEROquel) 12.5 mg 0900,1300,1700,2100 PO 01/25/21 21:00 01/28/21 18:16 DC 01/28/21 17:11 Sertraline HCl (Zoloft) 125 mg DAILY PO 01/27/21 09:00 01/30/21 08:02 DC 01/29/21 08:29 Quetiapine Fumarate (SEROquel) 12.5 mg 1300,2100 PO 01/28/21 21:00 02/04/21 17:16 DC 02/04/21 12:31 Quetiapine Fumarate (SEROquel) 25 mg 0900,1700 PO 01/29/21 09:00 02/04/21 17:16 DC 02/04/21 08:11 Quetiapine Fumarate (SEROquel) 12.5 mg 1300,2100 PO 01/28/21 21:00 UNV Sertraline HCl (Zoloft) 100 mg DAILY PO 01/30/21 09:00 02/06/21 09:20 Sertraline HCl (Zoloft) 25 mg DAILY PO 01/30/21 09:00 02/02/21 17:10 DC 02/02/21 08:09 Sertraline HCl (Zoloft) 50 mg DAILY PO 02/03/21 09:00 02/06/21 09:21 Quetiapine Fumarate (SEROquel) 25 mg 0900,1300,1700,2100 PO 02/04/21 17:15 02/06/21 20:46 I have reviewed the current psychotropics carefully including drug interactions. Risk benefit ratio favors no change other than as noted in my dictated progress note. 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
--- NOTE | 2021-02-07 07:03 | PDOC ---
Exam Note: Deon Note: This note is a late entry for 02/06/2021 covers elements not covered in my initial note. Subjective: The patient was reviewed at treatment team meeting individually in the morning on 02/06/2021 with Luz Tracy, Pat Bocanegra (nursing home social worker), Silva, activity therapy and Erin MERCER, discussed and reviewed the chart. The patient slept 6-1/2 hours previous night. The patients Praneeth attended the conference. Discussed the patients diagnoses, progress. She remains anxious, somewhat repetitive but better and anxiety is worse in the evening. Review of Systems: Impaired ambulation in wheelchair. No CV, pulmonary, eye, ENT system symptoms on review. Mental Status Exam: The patient is awake, alert, oriented to herself. Speech coherent, rapid at times. Abstraction fair. Computation impaired, quite anxious, distractible. Attention span short. Language function intact. Mood and affect labile. No suicidal or homicidal ideation. Laboratory Data: Reviewed. Impression: Major neurocognitive disorder Alzheimer, vascular with delusion, depression, behavioral disturbance. Anxiety disorder unspecified. Impulse control disorder unspecified. Plan: Continue rest psychotropics unchanged. Assessment: Vital Signs/I&O: Vital Signs Date Time Temp Pulse Resp B/P (MAP) Pulse Ox O2 Delivery O2 Flow Rate FiO2 02/07/21 06:21 97.2 83 18 170/83 (112) 96 Room Air I & O 02/06/21 02/06/21 02/07/21 15:00 23:00 07:00 Intake Total 840 ml 620 ml Output Total 200 ml 300 ml 1050 ml Balance 640 ml 320 ml -1050 ml Current Medications: Meds: Current Medications Medications (Trade) Dose Ordered Sig/Hector Route PRN Reason Start Time Stop Time Status Last Admin Dose Admin Sodium Chloride 1,000 ml @ 1,000 mls/hr 1X ONCE IV 01/14/21 19:00 01/14/21 19:59 DC 01/14/21 20:37 Acetaminophen (Tylenol) 650 mg PRN Q6HRS PRN PO MILD PAIN / TEMP > 100.3'F 01/14/21 23:15 01/27/21 15:39 Multi-Ingredient Ointment (Analgesic [place]) 1 wes PRN QID PRN TP MUSCLE PAIN 01/14/21 23:15 01/23/21 14:58 DC Al Hydroxide/Mg Hydroxide (Mylanta Plus Xs) 15 ml PRN AFTMEALHC PRN PO DYSPEPSIA 01/14/21 23:15 01/16/21 05:33 Magnesium Hydroxide (Milk Of Magnesia) 2,400 mg PRN QHS PRN PO CONSTIPATION 01/14/21 23:15 Donepezil HCl (Aricept) 10 mg HS PO 01/15/21 21:00 02/06/21 20:46 Lorazepam (Ativan) 0.5 mg PRN Q24HRS PRN PO ANXIETY, 1ST CHOICE 01/14/21 23:30 02/05/21 23:54 Lorazepam (Ativan) 0.5 mg TID PO 01/15/21 09:00 01/17/21 17:30 DC 01/17/21 10:25 Melatonin (Melatonin) 3 mg HS PO 01/15/21 21:00 02/06/21 20:46 Paroxetine HCl (Paxil) 40 mg DAILY PO 01/15/21 09:00 01/19/21 17:15 DC 01/19/21 08:40 Hydroxyzine HCl (Atarax) 25 mg PRN Q6HRS PRN PO ANXIETY, 2ND CHOICE 01/15/21 16:45 01/31/21 22:20 Acetaminophen (Tylenol) 650 mg PRN Q6HRS PRN PO PAIN 01/15/21 19:00 UNV Acetaminophen (Tylenol) 500 mg TID PO 01/15/21 21:00 02/06/21 20:46 Atorvastatin Calcium (Lipitor) 10 mg QHS PO 01/15/21 21:00 02/06/21 20:46 Budesonide (Entocort) 6 mg DAILY PO 01/16/21 09:00 02/06/21 09:21 Calcium Polycarbophil (Fibercon) 1,250 mg BID PO 01/15/21 21:00 02/06/21 20:45 Lidocaine (Lidoderm) 1 patch DAILY TD 01/16/21 09:00 02/06/21 09:00 Mirabegron (Myrbetriq) 25 mg DAILY PO 01/16/21 09:00 01/23/21 17:53 DC 01/23/21 07:49 Pantoprazole Sodium (Protonix) 40 mg DAILY PO 01/16/21 09:00 02/06/21 09:20 Phenazopyridine HCl (Pyridium) 100 mg PRN Q24HRS PRN PO URINARY PAIN 01/15/21 19:00 02/05/21 18:31 Lactobacillus Rhamnosus (Culturelle) 1 cap BID PO 01/15/21 09:00 02/06/21 20:45 Losartan Potassium (Cozaar) 100 mg HS PO 01/15/21 21:00 02/06/21 20:45 Miscellaneous (Lidoderm Patch Removal) 1 ea QHS MC 01/15/21 21:00 02/06/21 20:46 Memantine (Namenda) 5 mg BID PO 01/16/21 21:00 01/22/21 22:50 DC 01/22/21 19:49 Memantine (Namenda) 10 mg BID PO 01/23/21 09:00 02/06/21 20:45 Vitamin D (Vitamin D3) 50,000 unit WEEKLY PO 01/16/21 17:30 02/06/21 09:21 Lorazepam (Ativan) 0.5 mg BID PO 01/17/21 21:00 01/19/21 23:50 DC 01/19/21 19:56 Lorazepam (Ativan) 0.5 mg DAILY PO 01/20/21 09:00 01/22/21 12:00 DC 01/22/21 07:50 Quetiapine Fumarate (SEROquel) 12.5 mg 0900,1700 PO 01/18/21 17:00 01/21/21 17:55 DC 01/21/21 17:33 Sertraline HCl (Zoloft) 50 mg DAILY PO 01/20/21 09:00 01/22/21 13:00 DC 01/22/21 07:51 Sertraline HCl (Zoloft) 75 mg DAILY PO 01/23/21 09:00 01/24/21 17:53 DC 01/24/21 08:48 Mirtazapine (Remeron) 7.5 mg QHS PO 01/20/21 21:00 02/06/21 20:46 Quetiapine Fumarate (SEROquel) 12.5 mg 0900,1300,1700 PO 01/22/21 09:00 01/25/21 16:00 DC 01/25/21 12:54 Sertraline HCl (Zoloft) 100 mg DAILY PO 01/25/21 09:00 01/26/21 17:53 DC 01/26/21 05:25 Quetiapine Fumarate (SEROquel) 12.5 mg 0900,1300,1700,2100 PO 01/25/21 21:00 01/28/21 18:16 DC 01/28/21 17:11 Sertraline HCl (Zoloft) 125 mg DAILY PO 01/27/21 09:00 01/30/21 08:02 DC 01/29/21 08:29 Quetiapine Fumarate (SEROquel) 12.5 mg 1300,2100 PO 01/28/21 21:00 02/04/21 17:16 DC 02/04/21 12:31 Quetiapine Fumarate (SEROquel) 25 mg 0900,1700 PO 01/29/21 09:00 02/04/21 17:16 DC 02/04/21 08:11 Quetiapine Fumarate (SEROquel) 12.5 mg 1300,2100 PO 01/28/21 21:00 UNV Sertraline HCl (Zoloft) 100 mg DAILY PO 01/30/21 09:00 02/06/21 09:20 Sertraline HCl (Zoloft) 25 mg DAILY PO 01/30/21 09:00 02/02/21 17:10 DC 02/02/21 08:09 Sertraline HCl (Zoloft) 50 mg DAILY PO 02/03/21 09:00 02/06/21 09:21 Quetiapine Fumarate (SEROquel) 25 mg 0900,1300,1700,2100 PO 02/04/21 17:15 02/06/21 20:46 I have reviewed the current psychotropics carefully including drug interactions. Risk benefit ratio favors no change other than as noted in my dictated progress note. Diagnosis: Problems: (1) Anxiety disorder, unspecified (2) Impulse control disorder, unspecified (3) Dementia, vascular, with depression (4) Dementia, vascular, with delusions (5) Dementia in Alzheimer's disease with depression (6) Dementia in Alzheimer's disease with delusions (7) Major neurocognitive disorder (8) Dementia in Alzheimer's disease with early onset with behavioral disturbance LUCAS CODY MD Feb 07, 2021 07:03
[2021-02-07 07:42] LABS: BASO # 0.1 x10^3/uL (0.0-0.2); BASO % 1 % (0-3); EOS # 0.5 x10^3/uL (0.0-0.7); EOS % 4 % (0-3); HEMATOCRIT 34.4 % (36.0-47.0); HEMOGLOBIN 10.9 g/dL (12.0-15.5); LYMPH # 2.1 x10^3/uL (1.0-4.8); LYMPH % 19 % (24-48); MEAN CORPUSCULAR HEMOGLOBIN 27 pg (25-35); MEAN CORPUSCULAR HGB CONC 32 g/dL (31-37); MEAN CORPUSCULAR VOLUME 86 fL (79-100); MONO # 0.9 x10^3/uL (0.0-1.1); MONO % 8 % (0-9); NEUT # 7.6 x10^3uL (1.8-7.7); NEUT % 68 % (31-73); PLATELET COUNT 476 x10^3/uL (140-400); RED CELL DISTRIBUTION WIDTH 14.7 % (11.5-14.5); WHITE BLOOD COUNT 11.2 x10^3/uL (4.0-11.0)
[2021-02-07 07:54] LABS: ALBUMIN 3.3 g/dL (3.4-5.0); ALBUMIN/GLOBULIN RATIO 1.1 (1.0-1.7); CALCIUM 9.2 mg/dL (8.5-10.1); CREATININE 0.9 mg/dL (0.6-1.0); GFR 60.1; POTASSIUM 3.8 mmol/L (3.5-5.1); TOTAL BILIRUBIN 0.2 mg/dL (0.2-1.0); TOTAL PROTEIN 6.3 g/dL (6.4-8.2)
[2021-02-07] MEDS: SERTRALINE 50 MG TABLET. PO SCH (08:31)
[2021-02-07] MEDS: SERTRALINE 100 MG TABLET. PO SCH (08:31)
[2021-02-07] MEDS: CALCIUM POLYCARBOPHIL 625 MG TABLET PO SCH ×2 (08:31→20:12)
[2021-02-07] MEDS: QUEtiapine 25 MG TABLET. PO SCH ×4 (08:32→20:12)
[2021-02-07] MEDS: MEMANTINE 10 MG TABLET. PO SCH ×2 (08:32→20:12)
[2021-02-07] MEDS: LACTOBACILLUS RHAMNOSUS GG 1 CAPSULE. PO SCH ×2 (08:32→20:12)
[2021-02-07] MEDS: ACETAMINOPHEN 500 MG TABLET PO SCH ×3 (08:32→20:11)
[2021-02-07] MEDS: PANTOPRAZOLE 40 MG TABLET. PO SCH (08:32)
[2021-02-07] MEDS: BUDESONIDE 3 MG CAP.ER.24H. PO SCH (08:32)
[2021-02-07] MEDS: LIDOCAINE (700MG/PATCH) PATCH. TD SCH (09:00)
[2021-02-07] MEDS: ACETAMINOPHEN 325 MG TABLET PO PRN (13:14)
[2021-02-07 15:42] VITALS: BP 147/82
[2021-02-07] MEDS: MELATONIN 3 MG TABLET PO SCH (20:11)
[2021-02-07] MEDS: MIRTAZAPINE 7.5 MG TABLET. PO SCH (20:12)
[2021-02-07] MEDS: ATORVASTATIN CALCIUM 10 MG TABLET. PO SCH (20:12)
[2021-02-07] MEDS: DONEPEZIL HCL 10 MG TABLET PO SCH (20:13)
[2021-02-07] MEDS: LOSARTAN 50 MG TABLET. PO SCH (20:13)
[2021-02-07] MEDS: PATCH REMOVAL. MC SCH (21:00)
--- NOTE | 2021-02-07 21:34 | PDOC ---
Exam Note: Deon Note: Please also refer to the separate dictated note~for this date of service dictated separately.~Patient seen individually. Discussed the patient with Nursing staff reviewed the chart.~Reviewed interim history and current functioning. Reviewed vital signs,~Labs/ Radiology~and current medications noted below. Continue current treatment with the changes noted in the dictated addendum note Assessment: Vital Signs/I&O: Vital Signs Date Time Temp Pulse Resp B/P (MAP) Pulse Ox O2 Delivery O2 Flow Rate FiO2 02/07/21 20:13 90 147/82 02/07/21 15:42 97.9 18 97 Room Air I & O 02/06/21 02/06/21 02/07/21 15:00 23:00 07:00 Intake Total 840 ml 620 ml Output Total 200 ml 300 ml 1050 ml Balance 640 ml 320 ml -1050 ml Labs: Laboratory Tests Test 02/07/21 07:15 White Blood Count 11.2 x10^3/uL (4.0-11.0) H Red Blood Count 4.00 x10^6/uL (3.50-5.40) Hemoglobin 10.9 g/dL (12.0-15.5) L Hematocrit 34.4 % (36.0-47.0) L Mean Corpuscular Volume 86 fL (79-100) Mean Corpuscular Hemoglobin 27 pg (25-35) Mean Corpuscular Hemoglobin Concent 32 g/dL (31-37) Red Cell Distribution Width 14.7 % (11.5-14.5) H Platelet Count 476 x10^3/uL (140-400) H Neutrophils (%) (Auto) 68 % (31-73) Lymphocytes (%) (Auto) 19 % (24-48) L Monocytes (%) (Auto) 8 % (0-9) Eosinophils (%) (Auto) 4 % (0-3) H Basophils (%) (Auto) 1 % (0-3) Neutrophils # (Auto) 7.6 x10^3uL (1.8-7.7) Lymphocytes # (Auto) 2.1 x10^3/uL (1.0-4.8) Monocytes # (Auto) 0.9 x10^3/uL (0.0-1.1) Eosinophils # (Auto) 0.5 x10^3/uL (0.0-0.7) Basophils # (Auto) 0.1 x10^3/uL (0.0-0.2) Sodium Level 144 mmol/L (136-145) Potassium Level 3.8 mmol/L (3.5-5.1) Chloride Level 107 mmol/L (98-107) Carbon Dioxide Level 30 mmol/L (21-32) Anion Gap 7 (6-14) Blood Urea Nitrogen 28 mg/dL (7-20) H Creatinine 0.9 mg/dL (0.6-1.0) Estimated GFR (Cockcroft-Gault) 60.1 BUN/Creatinine Ratio 31 (6-20) H Glucose Level 88 mg/dL (70-99) Calcium Level 9.2 mg/dL (8.5-10.1) Total Bilirubin 0.2 mg/dL (0.2-1.0) Aspartate Amino Transferase (AST) 15 U/L (15-37) Alanine Aminotransferase (ALT) 20 U/L (14-59) Alkaline Phosphatase 72 U/L (46-116) Total Protein 6.3 g/dL (6.4-8.2) L Albumin 3.3 g/dL (3.4-5.0) L Albumin/Globulin Ratio 1.1 (1.0-1.7) Current Medications: Meds: Laboratory Tests Test 02/07/21 07:15 White Blood Count 11.2 x10^3/uL Red Blood Count 4.00 x10^6/uL Hemoglobin 10.9 g/dL Hematocrit 34.4 % Mean Corpuscular Volume 86 fL Mean Corpuscular Hemoglobin 27 pg Mean Corpuscular Hemoglobin Concent 32 g/dL Red Cell Distribution Width 14.7 % Platelet Count 476 x10^3/uL Neutrophils (%) (Auto) 68 % Lymphocytes (%) (Auto) 19 % Monocytes (%) (Auto) 8 % Eosinophils (%) (Auto) 4 % Basophils (%) (Auto) 1 % Neutrophils # (Auto) 7.6 x10^3uL Lymphocytes # (Auto) 2.1 x10^3/uL Monocytes # (Auto) 0.9 x10^3/uL Eosinophils # (Auto) 0.5 x10^3/uL Basophils # (Auto) 0.1 x10^3/uL Sodium Level 144 mmol/L Potassium Level 3.8 mmol/L Chloride Level 107 mmol/L Carbon Dioxide Level 30 mmol/L Anion Gap 7 Blood Urea Nitrogen 28 mg/dL Creatinine 0.9 mg/dL Estimated GFR (Cockcroft-Gault) 60.1 BUN/Creatinine Ratio 31 Glucose Level 88 mg/dL Calcium Level 9.2 mg/dL Total Bilirubin 0.2 mg/dL Aspartate Amino Transf (AST/SGOT) 15 U/L Alanine Aminotransferase (ALT/SGPT) 20 U/L Alkaline Phosphatase 72 U/L Total Protein 6.3 g/dL Albumin 3.3 g/dL Albumin/Globulin Ratio 1.1 Current Medications Medications (Trade) Dose Ordered Sig/Hector Route PRN Reason Start Time Stop Time Status Last Admin Dose Admin Sodium Chloride 1,000 ml @ 1,000 mls/hr 1X ONCE IV 01/14/21 19:00 01/14/21 19:59 DC 01/14/21 20:37 Acetaminophen (Tylenol) 650 mg PRN Q6HRS PRN PO MILD PAIN / TEMP > 100.3'F 01/14/21 23:15 02/07/21 13:14 Multi-Ingredient Ointment (Analgesic [place]) 1 wes PRN QID PRN TP MUSCLE PAIN 01/14/21 23:15 01/23/21 14:58 DC Al Hydroxide/Mg Hydroxide (Mylanta Plus Xs) 15 ml PRN AFTMEALHC PRN PO DYSPEPSIA 01/14/21 23:15 01/16/21 05:33 Magnesium Hydroxide (Milk Of Magnesia) 2,400 mg PRN QHS PRN PO CONSTIPATION 01/14/21 23:15 Donepezil HCl (Aricept) 10 mg HS PO 01/15/21 21:00 02/07/21 20:13 Lorazepam (Ativan) 0.5 mg PRN Q24HRS PRN PO ANXIETY, 1ST CHOICE 01/14/21 23:30 02/05/21 23:54 Lorazepam (Ativan) 0.5 mg TID PO 01/15/21 09:00 01/17/21 17:30 DC 01/17/21 10:25 Melatonin (Melatonin) 3 mg HS PO 01/15/21 21:00 02/07/21 20:11 Paroxetine HCl (Paxil) 40 mg DAILY PO 01/15/21 09:00 01/19/21 17:15 DC 01/19/21 08:40 Hydroxyzine HCl (Atarax) 25 mg PRN Q6HRS PRN PO ANXIETY, 2ND CHOICE 01/15/21 16:45 01/31/21 22:20 Acetaminophen (Tylenol) 650 mg PRN Q6HRS PRN PO PAIN 01/15/21 19:00 UNV Acetaminophen (Tylenol) 500 mg TID PO 01/15/21 21:00 02/07/21 20:11 Atorvastatin Calcium (Lipitor) 10 mg QHS PO 01/15/21 21:00 02/07/21 20:12 Budesonide (Entocort) 6 mg DAILY PO 01/16/21 09:00 02/07/21 08:32 Calcium Polycarbophil (Fibercon) 1,250 mg BID PO 01/15/21 21:00 02/07/21 20:12 Lidocaine (Lidoderm) 1 patch DAILY TD 01/16/21 09:00 02/07/21 09:00 Mirabegron (Myrbetriq) 25 mg DAILY PO 01/16/21 09:00 01/23/21 17:53 DC 01/23/21 07:49 Pantoprazole Sodium (Protonix) 40 mg DAILY PO 01/16/21 09:00 02/07/21 08:32 Phenazopyridine HCl (Pyridium) 100 mg PRN Q24HRS PRN PO URINARY PAIN 01/15/21 19:00 02/05/21 18:31 Lactobacillus Rhamnosus (Culturelle) 1 cap BID PO 01/15/21 09:00 02/07/21 20:12 Losartan Potassium (Cozaar) 100 mg HS PO 01/15/21 21:00 02/07/21 20:13 Miscellaneous (Lidoderm Patch Removal) 1 ea QHS MC 01/15/21 21:00 02/06/21 20:46 Memantine (Namenda) 5 mg BID PO 01/16/21 21:00 01/22/21 22:50 DC 01/22/21 19:49 Memantine (Namenda) 10 mg BID PO 01/23/21 09:00 02/07/21 20:12 Vitamin D (Vitamin D3) 50,000 unit WEEKLY PO 01/16/21 17:30 02/06/21 09:21 Lorazepam (Ativan) 0.5 mg BID PO 01/17/21 21:00 01/19/21 23:50 DC 01/19/21 19:56 Lorazepam (Ativan) 0.5 mg DAILY PO 01/20/21 09:00 01/22/21 12:00 DC 01/22/21 07:50 Quetiapine Fumarate (SEROquel) 12.5 mg 0900,1700 PO 01/18/21 17:00 01/21/21 17:55 DC 01/21/21 17:33 Sertraline HCl (Zoloft) 50 mg DAILY PO 01/20/21 09:00 01/22/21 13:00 DC 01/22/21 07:51 Sertraline HCl (Zoloft) 75 mg DAILY PO 01/23/21 09:00 01/24/21 17:53 DC 01/24/21 08:48 Mirtazapine (Remeron) 7.5 mg QHS PO 01/20/21 21:00 02/07/21 20:12 Quetiapine Fumarate (SEROquel) 12.5 mg 0900,1300,1700 PO 01/22/21 09:00 01/25/21 16:00 RI 01/25/21 12:54 Sertraline HCl (Zoloft) 100 mg DAILY PO 01/25/21 09:00 01/26/21 17:53 DC 01/26/21 05:25 Quetiapine Fumarate (SEROquel) 12.5 mg 0900,1300,1700,2100 PO 01/25/21 21:00 01/28/21 18:16 DC 01/28/21 17:11 Sertraline HCl (Zoloft) 125 mg DAILY PO 01/27/21 09:00 01/30/21 08:02 DC 01/29/21 08:29 Quetiapine Fumarate (SEROquel) 12.5 mg 1300,2100 PO 01/28/21 21:00 02/04/21 17:16 DC 02/04/21 12:31 Quetiapine Fumarate (SEROquel) 25 mg 0900,1700 PO 01/29/21 09:00 02/04/21 17:16 DC 02/04/21 08:11 Quetiapine Fumarate (SEROquel) 12.5 mg 1300,2100 PO 01/28/21 21:00 UNV Sertraline HCl (Zoloft) 100 mg DAILY PO 01/30/21 09:00 02/07/21 08:31 Sertraline HCl (Zoloft) 25 mg DAILY PO 01/30/21 09:00 02/02/21 17:10 DC 02/02/21 08:09 Sertraline HCl (Zoloft) 50 mg DAILY PO 02/03/21 09:00 02/07/21 08:31 Quetiapine Fumarate (SEROquel) 25 mg 0900,1300,1700,2100 PO 02/04/21 17:15 02/07/21 20:12 I have reviewed the current psychotropics carefully including drug interactions. Risk benefit ratio favors no change other than as noted in my dictated progress note. Diagnosis: Problems: (1) Anxiety disorder, unspecified (2) Impulse control disorder, unspecified (3) Dementia, vascular, with depression (4) Dementia, vascular, with delusions (5) Dementia in Alzheimer's disease with depression (6) Dementia in Alzheimer's disease with delusions (7) Major neurocognitive disorder (8) Dementia in Alzheimer's disease with early onset with behavioral disturbance LUCAS CODY MD Feb 07, 2021 21:34
[2021-02-08 05:58] VITALS: BP 177/74
[2021-02-08] MEDS: hydrOXYzine HCL 25 MG TABLET PO PRN (06:28)
[2021-02-08] MEDS: ACETAMINOPHEN 325 MG TABLET PO PRN (06:28)
[2021-02-08] MEDS: BUDESONIDE 3 MG CAP.ER.24H. PO SCH (08:10)
[2021-02-08] MEDS: QUEtiapine 25 MG TABLET. PO SCH ×4 (08:10→19:49)
[2021-02-08] MEDS: MEMANTINE 10 MG TABLET. PO SCH ×2 (08:10→19:49)
[2021-02-08] MEDS: PANTOPRAZOLE 40 MG TABLET. PO SCH (08:11)
[2021-02-08] MEDS: CALCIUM POLYCARBOPHIL 625 MG TABLET PO SCH ×2 (08:11→19:50)
[2021-02-08] MEDS: LACTOBACILLUS RHAMNOSUS GG 1 CAPSULE. PO SCH ×2 (08:11→19:48)
[2021-02-08] MEDS: SERTRALINE 50 MG TABLET. PO SCH (08:11)
[2021-02-08] MEDS: ACETAMINOPHEN 500 MG TABLET PO SCH ×3 (08:11→19:49)
[2021-02-08] MEDS: SERTRALINE 100 MG TABLET. PO SCH (08:11)
[2021-02-08] MEDS: LIDOCAINE (700MG/PATCH) PATCH. TD SCH (09:00)
[2021-02-08 15:26] VITALS: BP 126/75
[2021-02-08] MEDS: LORazepam 0.5 MG TABLET PO PRN (16:09)
[2021-02-08] MEDS: DONEPEZIL HCL 10 MG TABLET PO SCH (19:48)
[2021-02-08] MEDS: MIRTAZAPINE 7.5 MG TABLET. PO SCH (19:49)
[2021-02-08] MEDS: LOSARTAN 50 MG TABLET. PO SCH (19:49)
[2021-02-08] MEDS: ATORVASTATIN CALCIUM 10 MG TABLET. PO SCH (19:50)
[2021-02-08] MEDS: MELATONIN 3 MG TABLET PO SCH (19:50)
[2021-02-08] MEDS: PATCH REMOVAL. MC SCH (21:00)
--- NOTE | 2021-02-08 22:35 | PDOC ---
Exam Note: Deon Note: Please also refer to the separate dictated note~for this date of service dictated separately.~Patient seen individually. Discussed the patient with Nursing staff reviewed the chart.~Reviewed interim history and current functioning. Reviewed vital signs,~Labs/ Radiology~and current medications noted below. Continue current treatment with the changes noted in the dictated addendum note Assessment: Vital Signs/I&O: Vital Signs Date Time Temp Pulse Resp B/P (MAP) Pulse Ox O2 Delivery O2 Flow Rate FiO2 02/08/21 19:49 101 126/75 02/08/21 15:26 97.2 18 97 Room Air I & O 02/07/21 02/07/21 02/08/21 15:00 23:00 07:00 Intake Total 600 ml 360 ml 120 ml Output Total 950 ml 500 ml Balance 600 ml -590 ml -380 ml Current Medications: Meds: Current Medications Medications (Trade) Dose Ordered Sig/Hector Route PRN Reason Start Time Stop Time Status Last Admin Dose Admin Sodium Chloride 1,000 ml @ 1,000 mls/hr 1X ONCE IV 01/14/21 19:00 01/14/21 19:59 DC 01/14/21 20:37 Acetaminophen (Tylenol) 650 mg PRN Q6HRS PRN PO MILD PAIN / TEMP > 100.3'F 01/14/21 23:15 02/08/21 06:28 Multi-Ingredient Ointment (Analgesic [place]) 1 wes PRN QID PRN TP MUSCLE PAIN 01/14/21 23:15 01/23/21 14:58 DC Al Hydroxide/Mg Hydroxide (Mylanta Plus Xs) 15 ml PRN AFTMEALHC PRN PO DYSPEPSIA 01/14/21 23:15 01/16/21 05:33 Magnesium Hydroxide (Milk Of Magnesia) 2,400 mg PRN QHS PRN PO CONSTIPATION 01/14/21 23:15 Donepezil HCl (Aricept) 10 mg HS PO 01/15/21 21:00 02/08/21 19:48 Lorazepam (Ativan) 0.5 mg PRN Q24HRS PRN PO ANXIETY, 1ST CHOICE 01/14/21 23:30 02/08/21 16:09 Lorazepam (Ativan) 0.5 mg TID PO 01/15/21 09:00 01/17/21 17:30 DC 01/17/21 10:25 Melatonin (Melatonin) 3 mg HS PO 01/15/21 21:00 02/08/21 19:50 Paroxetine HCl (Paxil) 40 mg DAILY PO 01/15/21 09:00 01/19/21 17:15 DC 01/19/21 08:40 Hydroxyzine HCl (Atarax) 25 mg PRN Q6HRS PRN PO ANXIETY, 2ND CHOICE 01/15/21 16:45 02/08/21 06:28 Acetaminophen (Tylenol) 650 mg PRN Q6HRS PRN PO PAIN 01/15/21 19:00 UNV Acetaminophen (Tylenol) 500 mg TID PO 01/15/21 21:00 02/08/21 19:49 Atorvastatin Calcium (Lipitor) 10 mg QHS PO 01/15/21 21:00 02/08/21 19:50 Budesonide (Entocort) 6 mg DAILY PO 01/16/21 09:00 02/08/21 08:10 Calcium Polycarbophil (Fibercon) 1,250 mg BID PO 01/15/21 21:00 02/08/21 19:50 Lidocaine (Lidoderm) 1 patch DAILY TD 01/16/21 09:00 02/08/21 09:00 Mirabegron (Myrbetriq) 25 mg DAILY PO 01/16/21 09:00 01/23/21 17:53 DC 01/23/21 07:49 Pantoprazole Sodium (Protonix) 40 mg DAILY PO 01/16/21 09:00 02/08/21 08:11 Phenazopyridine HCl (Pyridium) 100 mg PRN Q24HRS PRN PO URINARY PAIN 01/15/21 19:00 02/05/21 18:31 Lactobacillus Rhamnosus (Culturelle) 1 cap BID PO 01/15/21 09:00 02/08/21 19:48 Losartan Potassium (Cozaar) 100 mg HS PO 01/15/21 21:00 02/08/21 19:49 Miscellaneous (Lidoderm Patch Removal) 1 ea QHS MC 01/15/21 21:00 02/07/21 21:00 Memantine (Namenda) 5 mg BID PO 01/16/21 21:00 01/22/21 22:50 DC 01/22/21 19:49 Memantine (Namenda) 10 mg BID PO 01/23/21 09:00 02/08/21 19:49 Vitamin D (Vitamin D3) 50,000 unit WEEKLY PO 01/16/21 17:30 02/06/21 09:21 Lorazepam (Ativan) 0.5 mg BID PO 01/17/21 21:00 01/19/21 23:50 DC 01/19/21 19:56 Lorazepam (Ativan) 0.5 mg DAILY PO 01/20/21 09:00 01/22/21 12:00 DC 01/22/21 07:50 Quetiapine Fumarate (SEROquel) 12.5 mg 0900,1700 PO 01/18/21 17:00 01/21/21 17:55 DC 01/21/21 17:33 Sertraline HCl (Zoloft) 50 mg DAILY PO 01/20/21 09:00 01/22/21 13:00 DC 01/22/21 07:51 Sertraline HCl (Zoloft) 75 mg DAILY PO 01/23/21 09:00 01/24/21 17:53 DC 01/24/21 08:48 Mirtazapine (Remeron) 7.5 mg QHS PO 01/20/21 21:00 02/08/21 19:49 Quetiapine Fumarate (SEROquel) 12.5 mg 0900,1300,1700 PO 01/22/21 09:00 01/25/21 16:00 NE 01/25/21 12:54 Sertraline HCl (Zoloft) 100 mg DAILY PO 01/25/21 09:00 01/26/21 17:53 DC 01/26/21 05:25 Quetiapine Fumarate (SEROquel) 12.5 mg 0900,1300,1700,2100 PO 01/25/21 21:00 01/28/21 18:16 DC 01/28/21 17:11 Sertraline HCl (Zoloft) 125 mg DAILY PO 01/27/21 09:00 01/30/21 08:02 DC 01/29/21 08:29 Quetiapine Fumarate (SEROquel) 12.5 mg 1300,2100 PO 01/28/21 21:00 02/04/21 17:16 DC 02/04/21 12:31 Quetiapine Fumarate (SEROquel) 25 mg 0900,1700 PO 01/29/21 09:00 02/04/21 17:16 DC 02/04/21 08:11 Quetiapine Fumarate (SEROquel) 12.5 mg 1300,2100 PO 01/28/21 21:00 UNV Sertraline HCl (Zoloft) 100 mg DAILY PO 01/30/21 09:00 02/08/21 08:11 Sertraline HCl (Zoloft) 25 mg DAILY PO 01/30/21 09:00 02/02/21 17:10 DC 02/02/21 08:09 Sertraline HCl (Zoloft) 50 mg DAILY PO 02/03/21 09:00 02/08/21 08:11 Quetiapine Fumarate (SEROquel) 25 mg 0900,1300,1700,2100 PO 02/04/21 17:15 02/08/21 18:36 DC 02/08/21 16:10 Quetiapine Fumarate (SEROquel) 25 mg 0900,1700 PO 02/09/21 09:00 02/08/21 18:39 DC Quetiapine Fumarate (SEROquel) 37.5 mg 0900,1700 PO 02/09/21 09:00 Quetiapine Fumarate (SEROquel) 25 mg 1300,2100 PO 02/08/21 21:00 02/08/21 19:49 Current Medications Medications (Trade) Dose Ordered Sig/Hector Route PRN Reason Start Time Stop Time Status Last Admin Dose Admin Quetiapine Fumarate (SEROquel) 25 mg 1300,2100 PO 02/08/21 21:00 02/08/21 19:49 I have reviewed the current psychotropics carefully including drug interactions. Risk benefit ratio favors no change other than as noted in my dictated progress note. Diagnosis: Problems: (1) Dementia, vascular, with depression (2) Anxiety disorder, unspecified (3) Impulse control disorder, unspecified (4) Dementia, vascular, with delusions (5) Dementia in Alzheimer's disease with depression (6) Dementia in Alzheimer's disease with delusions (7) Major neurocognitive disorder (8) Dementia in Alzheimer's disease with early onset with behavioral disturbance LUCAS CODY MD Feb 08, 2021 22:34
[2021-02-09 06:25] VITALS: BP 151/89
[2021-02-09] MEDS: QUEtiapine 25 MG TABLET. PO SCH ×4 (08:30→20:05)
[2021-02-09] MEDS: LIDOCAINE (700MG/PATCH) PATCH. TD SCH (08:30)
[2021-02-09] MEDS: LACTOBACILLUS RHAMNOSUS GG 1 CAPSULE. PO SCH ×2 (08:31→20:05)
[2021-02-09] MEDS: CALCIUM POLYCARBOPHIL 625 MG TABLET PO SCH ×2 (08:31→20:05)
[2021-02-09] MEDS: ACETAMINOPHEN 500 MG TABLET PO SCH ×3 (08:31→17:27)
[2021-02-09] MEDS: SERTRALINE 100 MG TABLET. PO SCH (08:31)
[2021-02-09] MEDS: MEMANTINE 10 MG TABLET. PO SCH ×2 (08:31→20:05)
[2021-02-09] MEDS: PANTOPRAZOLE 40 MG TABLET. PO SCH (08:31)
[2021-02-09] MEDS: SERTRALINE 50 MG TABLET. PO SCH (08:32)
[2021-02-09] MEDS: BUDESONIDE 3 MG CAP.ER.24H. PO SCH (08:34)
[2021-02-09] MEDS ORDERED: QUEtiapine 25 MG TABLET. PO SCH (09:00)
[2021-02-09] MEDS: PHENAZOPYRIDINE 100 MG TABLET. PO PRN (09:25)
[2021-02-09] MEDS: LORazepam 0.5 MG TABLET PO PRN (14:06)
[2021-02-09 16:19] VITALS: BP 146/87
[2021-02-09] MEDS: PATCH REMOVAL. MC SCH (20:04)
[2021-02-09] MEDS: ATORVASTATIN CALCIUM 10 MG TABLET. PO SCH (20:05)
[2021-02-09] MEDS: LOSARTAN 50 MG TABLET. PO SCH (20:05)
[2021-02-09] MEDS: DONEPEZIL HCL 10 MG TABLET PO SCH (20:05)
[2021-02-09] MEDS: MIRTAZAPINE 7.5 MG TABLET. PO SCH (20:05)
[2021-02-09] MEDS: MELATONIN 3 MG TABLET PO SCH (20:06)
--- NOTE | 2021-02-09 21:43 | PDOC ---
Exam Note: Deon Note: Please also refer to the separate dictated note~for this date of service dictated separately.~Patient seen individually. Discussed the patient with Nursing staff reviewed the chart.~Reviewed interim history and current functioning. Reviewed vital signs,~Labs/ Radiology~and current medications noted below. Continue current treatment with the changes noted in the dictated addendum note Assessment: Vital Signs/I&O: Vital Signs Date Time Temp Pulse Resp B/P (MAP) Pulse Ox O2 Delivery O2 Flow Rate FiO2 02/09/21 20:05 105 146/87 02/09/21 16:19 98.3 18 97 02/08/21 15:26 Room Air I & O 02/08/21 02/08/21 02/09/21 14:59 22:59 06:59 Intake Total 430 ml 560 ml Output Total 750 ml 400 ml Balance 430 ml -190 ml -400 ml Current Medications: Meds: Current Medications Medications (Trade) Dose Ordered Sig/Hector Route PRN Reason Start Time Stop Time Status Last Admin Dose Admin Sodium Chloride 1,000 ml @ 1,000 mls/hr 1X ONCE IV 01/14/21 19:00 01/14/21 19:59 DC 01/14/21 20:37 Acetaminophen (Tylenol) 650 mg PRN Q6HRS PRN PO MILD PAIN / TEMP > 100.3'F 01/14/21 23:15 02/08/21 06:28 Multi-Ingredient Ointment (Analgesic [place]) 1 wes PRN QID PRN TP MUSCLE PAIN 01/14/21 23:15 01/23/21 14:58 DC Al Hydroxide/Mg Hydroxide (Mylanta Plus Xs) 15 ml PRN AFTMEALHC PRN PO DYSPEPSIA 01/14/21 23:15 01/16/21 05:33 Magnesium Hydroxide (Milk Of Magnesia) 2,400 mg PRN QHS PRN PO CONSTIPATION 01/14/21 23:15 Donepezil HCl (Aricept) 10 mg HS PO 01/15/21 21:00 02/09/21 20:05 Lorazepam (Ativan) 0.5 mg PRN Q24HRS PRN PO ANXIETY, 1ST CHOICE 01/14/21 23:30 02/09/21 14:06 Lorazepam (Ativan) 0.5 mg TID PO 01/15/21 09:00 01/17/21 17:30 DC 01/17/21 10:25 Melatonin (Melatonin) 3 mg HS PO 01/15/21 21:00 02/09/21 20:06 Paroxetine HCl (Paxil) 40 mg DAILY PO 01/15/21 09:00 01/19/21 17:15 DC 01/19/21 08:40 Hydroxyzine HCl (Atarax) 25 mg PRN Q6HRS PRN PO ANXIETY, 2ND CHOICE 01/15/21 16:45 02/08/21 06:28 Acetaminophen (Tylenol) 650 mg PRN Q6HRS PRN PO PAIN 01/15/21 19:00 UNV Acetaminophen (Tylenol) 500 mg TID PO 01/15/21 21:00 02/09/21 17:27 Atorvastatin Calcium (Lipitor) 10 mg QHS PO 01/15/21 21:00 02/09/21 20:05 Budesonide (Entocort) 6 mg DAILY PO 01/16/21 09:00 02/09/21 08:34 Calcium Polycarbophil (Fibercon) 1,250 mg BID PO 01/15/21 21:00 02/09/21 20:05 Lidocaine (Lidoderm) 1 patch DAILY TD 01/16/21 09:00 02/09/21 08:30 Mirabegron (Myrbetriq) 25 mg DAILY PO 01/16/21 09:00 01/23/21 17:53 DC 01/23/21 07:49 Pantoprazole Sodium (Protonix) 40 mg DAILY PO 01/16/21 09:00 02/09/21 08:31 Phenazopyridine HCl (Pyridium) 100 mg PRN Q24HRS PRN PO URINARY PAIN 01/15/21 19:00 02/09/21 09:25 Lactobacillus Rhamnosus (Culturelle) 1 cap BID PO 01/15/21 09:00 02/09/21 20:05 Losartan Potassium (Cozaar) 100 mg HS PO 01/15/21 21:00 02/09/21 20:05 Miscellaneous (Lidoderm Patch Removal) 1 ea QHS MC 01/15/21 21:00 02/09/21 20:04 Memantine (Namenda) 5 mg BID PO 01/16/21 21:00 01/22/21 22:50 DC 01/22/21 19:49 Memantine (Namenda) 10 mg BID PO 01/23/21 09:00 02/09/21 20:05 Vitamin D (Vitamin D3) 50,000 unit WEEKLY PO 01/16/21 17:30 02/06/21 09:21 Lorazepam (Ativan) 0.5 mg BID PO 01/17/21 21:00 01/19/21 23:50 DC 01/19/21 19:56 Lorazepam (Ativan) 0.5 mg DAILY PO 01/20/21 09:00 01/22/21 12:00 DC 01/22/21 07:50 Quetiapine Fumarate (SEROquel) 12.5 mg 0900,1700 PO 01/18/21 17:00 01/21/21 17:55 DC 01/21/21 17:33 Sertraline HCl (Zoloft) 50 mg DAILY PO 01/20/21 09:00 01/22/21 13:00 DC 01/22/21 07:51 Sertraline HCl (Zoloft) 75 mg DAILY PO 01/23/21 09:00 01/24/21 17:53 DC 01/24/21 08:48 Mirtazapine (Remeron) 7.5 mg QHS PO 01/20/21 21:00 02/09/21 20:05 Quetiapine Fumarate (SEROquel) 12.5 mg 0900,1300,1700 PO 01/22/21 09:00 01/25/21 16:00 DC 01/25/21 12:54 Sertraline HCl (Zoloft) 100 mg DAILY PO 01/25/21 09:00 01/26/21 17:53 DC 01/26/21 05:25 Quetiapine Fumarate (SEROquel) 12.5 mg 0900,1300,1700,2100 PO 01/25/21 21:00 01/28/21 18:16 DC 01/28/21 17:11 Sertraline HCl (Zoloft) 125 mg DAILY PO 01/27/21 09:00 01/30/21 08:02 DC 01/29/21 08:29 Quetiapine Fumarate (SEROquel) 12.5 mg 1300,2100 PO 01/28/21 21:00 02/04/21 17:16 DC 02/04/21 12:31 Quetiapine Fumarate (SEROquel) 25 mg 0900,1700 PO 01/29/21 09:00 02/04/21 17:16 DC 02/04/21 08:11 Quetiapine Fumarate (SEROquel) 12.5 mg 1300,2100 PO 01/28/21 21:00 UNV Sertraline HCl (Zoloft) 100 mg DAILY PO 01/30/21 09:00 02/09/21 08:31 Sertraline HCl (Zoloft) 25 mg DAILY PO 01/30/21 09:00 02/02/21 17:10 DC 02/02/21 08:09 Sertraline HCl (Zoloft) 50 mg DAILY PO 02/03/21 09:00 02/09/21 08:32 Quetiapine Fumarate (SEROquel) 25 mg 0900,1300,1700,2100 PO 02/04/21 17:15 02/08/21 18:36 DC 02/08/21 16:10 Quetiapine Fumarate (SEROquel) 25 mg 0900,1700 PO 02/09/21 09:00 02/08/21 18:39 DC Quetiapine Fumarate (SEROquel) 37.5 mg 0900,1700 PO 02/09/21 09:00 02/09/21 17:28 Quetiapine Fumarate (SEROquel) 25 mg 1300,2100 PO 02/08/21 21:00 02/09/21 20:05 Current Medications Medications (Trade) Dose Ordered Sig/Hector Route PRN Reason Start Time Stop Time Status Last Admin Dose Admin Quetiapine Fumarate (SEROquel) 37.5 mg 0900,1700 PO 02/09/21 09:00 02/09/21 17:28 I have reviewed the current psychotropics carefully including drug interactions. Risk benefit ratio favors no change other than as noted in my dictated progress note. Diagnosis: Problems: (1) Anxiety disorder, unspecified (2) Impulse control disorder, unspecified (3) Dementia, vascular, with depression (4) Dementia, vascular, with delusions (5) Dementia in Alzheimer's disease with depression (6) Dementia in Alzheimer's disease with delusions (7) Major neurocognitive disorder (8) Dementia in Alzheimer's disease with early onset with behavioral disturbance LUCAS CODY MD Feb 09, 2021 21:43
[2021-02-10 06:02] VITALS: BP 155/89
--- NOTE | 2021-02-10 06:49 | PDOC ---
Exam Note: Deon Note: This note is a late entry for 02/07/2021overs elements not covered in my initial note. Subjective: The patient was seen face to face in the evening of 02/07/2021 with Erin MERCER, discussed and reviewed the chart. The patient slept 7 hours previous night. The patient has short-term memory deficits, somewhat paranoid that people are talking about her. She does take her medications. She is obsessively having repetitive questions why her is not here, where her dogs are and often knows the answers if she has asked for them. She is impulsive out of the bed at night. Received Ativan. No p.r.n.s., during the day on 02/07. Review of Systems: Impaired ambulation in wheelchair. No CV, pulmonary, eye, ENT system symptoms on review. She has lower abdominal discomfort consequent to the catheter presumably. Mental Status Exam: The patient is oriented to herself and situation. Speech coherent, little repetitive. Abstraction fair. Computation impaired. Language function intact. Short-term memory impaired. No suicidal or homicidal ideation. Laboratory Data: Reviewed. Impression: Major neurocognitive disorder Alzheimer, vascular with delusion, depression, behavioral disturbance. Anxiety disorder unspecified. Impulse control disorder unspecified. Plan: No change from initial note. Assessment: Vital Signs/I&O: Vital Signs Date Time Temp Pulse Resp B/P (MAP) Pulse Ox O2 Delivery O2 Flow Rate FiO2 02/10/21 06:02 97.1 84 18 155/89 (111) 96 02/08/21 15:26 Room Air I & O 02/09/21 02/09/21 02/10/21 15:00 23:00 07:00 Intake Total 600 ml 360 ml Output Total 300 ml 1400 ml Balance 300 ml -1040 ml Current Medications: Meds: Current Medications Medications (Trade) Dose Ordered Sig/Hector Route PRN Reason Start Time Stop Time Status Last Admin Dose Admin Sodium Chloride 1,000 ml @ 1,000 mls/hr 1X ONCE IV 01/14/21 19:00 01/14/21 19:59 DC 01/14/21 20:37 Acetaminophen (Tylenol) 650 mg PRN Q6HRS PRN PO MILD PAIN / TEMP > 100.3'F 01/14/21 23:15 02/08/21 06:28 Multi-Ingredient Ointment (Analgesic [place]) 1 wes PRN QID PRN TP MUSCLE PAIN 01/14/21 23:15 01/23/21 14:58 DC Al Hydroxide/Mg Hydroxide (Mylanta Plus Xs) 15 ml PRN AFTMEALHC PRN PO DYSPEPSIA 01/14/21 23:15 01/16/21 05:33 Magnesium Hydroxide (Milk Of Magnesia) 2,400 mg PRN QHS PRN PO CONSTIPATION 01/14/21 23:15 Donepezil HCl (Aricept) 10 mg HS PO 01/15/21 21:00 02/09/21 20:05 Lorazepam (Ativan) 0.5 mg PRN Q24HRS PRN PO ANXIETY, 1ST CHOICE 01/14/21 23:30 02/09/21 14:06 Lorazepam (Ativan) 0.5 mg TID PO 01/15/21 09:00 01/17/21 17:30 DC 01/17/21 10:25 Melatonin (Melatonin) 3 mg HS PO 01/15/21 21:00 02/09/21 20:06 Paroxetine HCl (Paxil) 40 mg DAILY PO 01/15/21 09:00 01/19/21 17:15 DC 01/19/21 08:40 Hydroxyzine HCl (Atarax) 25 mg PRN Q6HRS PRN PO ANXIETY, 2ND CHOICE 01/15/21 16:45 02/08/21 06:28 Acetaminophen (Tylenol) 650 mg PRN Q6HRS PRN PO PAIN 01/15/21 19:00 UNV Acetaminophen (Tylenol) 500 mg TID PO 01/15/21 21:00 02/09/21 17:27 Atorvastatin Calcium (Lipitor) 10 mg QHS PO 01/15/21 21:00 02/09/21 20:05 Budesonide (Entocort) 6 mg DAILY PO 01/16/21 09:00 02/09/21 08:34 Calcium Polycarbophil (Fibercon) 1,250 mg BID PO 01/15/21 21:00 02/09/21 20:05 Lidocaine (Lidoderm) 1 patch DAILY TD 01/16/21 09:00 02/09/21 08:30 Mirabegron (Myrbetriq) 25 mg DAILY PO 01/16/21 09:00 01/23/21 17:53 DC 01/23/21 07:49 Pantoprazole Sodium (Protonix) 40 mg DAILY PO 01/16/21 09:00 02/09/21 08:31 Phenazopyridine HCl (Pyridium) 100 mg PRN Q24HRS PRN PO URINARY PAIN 01/15/21 19:00 02/09/21 09:25 Lactobacillus Rhamnosus (Culturelle) 1 cap BID PO 01/15/21 09:00 02/09/21 20:05 Losartan Potassium (Cozaar) 100 mg HS PO 01/15/21 21:00 02/09/21 20:05 Miscellaneous (Lidoderm Patch Removal) 1 ea QHS MC 01/15/21 21:00 02/09/21 20:04 Memantine (Namenda) 5 mg BID PO 01/16/21 21:00 01/22/21 22:50 DC 01/22/21 19:49 Memantine (Namenda) 10 mg BID PO 01/23/21 09:00 02/09/21 20:05 Vitamin D (Vitamin D3) 50,000 unit WEEKLY PO 01/16/21 17:30 02/06/21 09:21 Lorazepam (Ativan) 0.5 mg BID PO 01/17/21 21:00 01/19/21 23:50 DC 01/19/21 19:56 Lorazepam (Ativan) 0.5 mg DAILY PO 01/20/21 09:00 01/22/21 12:00 DC 01/22/21 07:50 Quetiapine Fumarate (SEROquel) 12.5 mg 0900,1700 PO 01/18/21 17:00 01/21/21 17:55 DC 01/21/21 17:33 Sertraline HCl (Zoloft) 50 mg DAILY PO 01/20/21 09:00 01/22/21 13:00 DC 01/22/21 07:51 Sertraline HCl (Zoloft) 75 mg DAILY PO 01/23/21 09:00 01/24/21 17:53 DC 01/24/21 08:48 Mirtazapine (Remeron) 7.5 mg QHS PO 01/20/21 21:00 02/09/21 20:05 Quetiapine Fumarate (SEROquel) 12.5 mg 0900,1300,1700 PO 01/22/21 09:00 01/25/21 16:00 DC 01/25/21 12:54 Sertraline HCl (Zoloft) 100 mg DAILY PO 01/25/21 09:00 01/26/21 17:53 DC 01/26/21 05:25 Quetiapine Fumarate (SEROquel) 12.5 mg 0900,1300,1700,2100 PO 01/25/21 21:00 01/28/21 18:16 DC 01/28/21 17:11 Sertraline HCl (Zoloft) 125 mg DAILY PO 01/27/21 09:00 01/30/21 08:02 DC 01/29/21 08:29 Quetiapine Fumarate (SEROquel) 12.5 mg 1300,2100 PO 01/28/21 21:00 02/04/21 17:16 DC 02/04/21 12:31 Quetiapine Fumarate (SEROquel) 25 mg 0900,1700 PO 01/29/21 09:00 02/04/21 17:16 DC 02/04/21 08:11 Quetiapine Fumarate (SEROquel) 12.5 mg 1300,2100 PO 01/28/21 21:00 UNV Sertraline HCl (Zoloft) 100 mg DAILY PO 01/30/21 09:00 02/09/21 08:31 Sertraline HCl (Zoloft) 25 mg DAILY PO 01/30/21 09:00 02/02/21 17:10 DC 02/02/21 08:09 Sertraline HCl (Zoloft) 50 mg DAILY PO 02/03/21 09:00 02/09/21 08:32 Quetiapine Fumarate (SEROquel) 25 mg 0900,1300,1700,2100 PO 02/04/21 17:15 02/08/21 18:36 DC 02/08/21 16:10 Quetiapine Fumarate (SEROquel) 25 mg 0900,1700 PO 02/09/21 09:00 02/08/21 18:39 DC Quetiapine Fumarate (SEROquel) 37.5 mg 0900,1700 PO 02/09/21 09:00 02/09/21 17:28 Quetiapine Fumarate (SEROquel) 25 mg 1300,2100 PO 02/08/21 21:00 02/09/21 20:05 Current Medications Medications (Trade) Dose Ordered Sig/Hector Route PRN Reason Start Time Stop Time Status Last Admin Dose Admin Quetiapine Fumarate (SEROquel) 37.5 mg 0900,1700 PO 02/09/21 09:00 02/09/21 17:28 I have reviewed the current psychotropics carefully including drug interactions. Risk benefit ratio favors no change other than as noted in my dictated progress note. Diagnosis: Problems: (1) Anxiety disorder, unspecified (2) Impulse control disorder, unspecified (3) Dementia, vascular, with depression (4) Dementia, vascular, with delusions (5) Dementia in Alzheimer's disease with depression (6) Dementia in Alzheimer's disease with delusions (7) Major neurocognitive disorder (8) Dementia in Alzheimer's disease with early onset with behavioral disturbance LUCAS CODY MD Feb 10, 2021 06:48
--- NOTE | 2021-02-10 06:59 | PDOC ---
Exam Note: Deon Note: This note is a late entry for 02/08/2021overs elements not covered in my initial note. Subjective: The patient was seen face to face in the evening of 02/08/2021 with Erin MERCER, discussed and reviewed the chart. The patient slept 5-3/4 hours previous night. The patient has been anxious. Received Ativan x1. She has had very difficult day, using profanities towards nursing staff with B. She has been sarcastic, rude, combative during ADLs, trying to walk on wet tile could be a fall risk, then staff intervened she was extremely abusive to the staff. Review of Systems: Impaired ambulation in wheelchair. No CV, pulmonary, eye, ENT system symptoms on review. Lower abdominal discomfort due to the catheter. Mental Status Exam: The patient is oriented to herself and situation. Speech coherent, rapid, repetitive. Abstraction fair. Computation impaired. Language function intact. Mood and affect remains anxious, labile. No suicidal or homicidal ideation. Laboratory Data: Reviewed. Impression: Major neurocognitive disorder Alzheimer, vascular with delusion, depression, behavioral disturbance. Anxiety disorder unspecified. Impulse control disorder unspecified. Plan: No change from initial note but given her marked agitation, mood lability, aggression as noted we will increase the 9 oclock and 5 p.m. Seroquel from 25 mg to 37.5 mg to help with mood stabilization. Continue rest of the psychotropics unchanged. Assessment: Vital Signs/I&O: Vital Signs Date Time Temp Pulse Resp B/P (MAP) Pulse Ox O2 Delivery O2 Flow Rate FiO2 02/10/21 06:02 97.1 84 18 155/89 (111) 96 02/08/21 15:26 Room Air I & O 02/09/21 02/09/21 02/10/21 15:00 23:00 07:00 Intake Total 600 ml 360 ml Output Total 300 ml 1400 ml Balance 300 ml -1040 ml Current Medications: Meds: Current Medications Medications (Trade) Dose Ordered Sig/Hector Route PRN Reason Start Time Stop Time Status Last Admin Dose Admin Sodium Chloride 1,000 ml @ 1,000 mls/hr 1X ONCE IV 01/14/21 19:00 01/14/21 19:59 DC 01/14/21 20:37 Acetaminophen (Tylenol) 650 mg PRN Q6HRS PRN PO MILD PAIN / TEMP > 100.3'F 01/14/21 23:15 02/08/21 06:28 Multi-Ingredient Ointment (Analgesic [place]) 1 wes PRN QID PRN TP MUSCLE PAIN 01/14/21 23:15 01/23/21 14:58 DC Al Hydroxide/Mg Hydroxide (Mylanta Plus Xs) 15 ml PRN AFTMEALHC PRN PO DYSPEPSIA 01/14/21 23:15 01/16/21 05:33 Magnesium Hydroxide (Milk Of Magnesia) 2,400 mg PRN QHS PRN PO CONSTIPATION 01/14/21 23:15 Donepezil HCl (Aricept) 10 mg HS PO 01/15/21 21:00 02/09/21 20:05 Lorazepam (Ativan) 0.5 mg PRN Q24HRS PRN PO ANXIETY, 1ST CHOICE 01/14/21 23:30 02/09/21 14:06 Lorazepam (Ativan) 0.5 mg TID PO 01/15/21 09:00 01/17/21 17:30 DC 01/17/21 10:25 Melatonin (Melatonin) 3 mg HS PO 01/15/21 21:00 02/09/21 20:06 Paroxetine HCl (Paxil) 40 mg DAILY PO 01/15/21 09:00 01/19/21 17:15 DC 01/19/21 08:40 Hydroxyzine HCl (Atarax) 25 mg PRN Q6HRS PRN PO ANXIETY, 2ND CHOICE 01/15/21 16:45 02/08/21 06:28 Acetaminophen (Tylenol) 650 mg PRN Q6HRS PRN PO PAIN 01/15/21 19:00 UNV Acetaminophen (Tylenol) 500 mg TID PO 01/15/21 21:00 02/09/21 17:27 Atorvastatin Calcium (Lipitor) 10 mg QHS PO 01/15/21 21:00 02/09/21 20:05 Budesonide (Entocort) 6 mg DAILY PO 01/16/21 09:00 02/09/21 08:34 Calcium Polycarbophil (Fibercon) 1,250 mg BID PO 01/15/21 21:00 02/09/21 20:05 Lidocaine (Lidoderm) 1 patch DAILY TD 01/16/21 09:00 02/09/21 08:30 Mirabegron (Myrbetriq) 25 mg DAILY PO 01/16/21 09:00 01/23/21 17:53 DC 01/23/21 07:49 Pantoprazole Sodium (Protonix) 40 mg DAILY PO 01/16/21 09:00 02/09/21 08:31 Phenazopyridine HCl (Pyridium) 100 mg PRN Q24HRS PRN PO URINARY PAIN 01/15/21 19:00 02/09/21 09:25 Lactobacillus Rhamnosus (Culturelle) 1 cap BID PO 01/15/21 09:00 02/09/21 20:05 Losartan Potassium (Cozaar) 100 mg HS PO 01/15/21 21:00 02/09/21 20:05 Miscellaneous (Lidoderm Patch Removal) 1 ea QHS MC 01/15/21 21:00 02/09/21 20:04 Memantine (Namenda) 5 mg BID PO 01/16/21 21:00 01/22/21 22:50 DC 01/22/21 19:49 Memantine (Namenda) 10 mg BID PO 01/23/21 09:00 02/09/21 20:05 Vitamin D (Vitamin D3) 50,000 unit WEEKLY PO 01/16/21 17:30 02/06/21 09:21 Lorazepam (Ativan) 0.5 mg BID PO 01/17/21 21:00 01/19/21 23:50 DC 01/19/21 19:56 Lorazepam (Ativan) 0.5 mg DAILY PO 01/20/21 09:00 01/22/21 12:00 DC 01/22/21 07:50 Quetiapine Fumarate (SEROquel) 12.5 mg 0900,1700 PO 01/18/21 17:00 01/21/21 17:55 DC 01/21/21 17:33 Sertraline HCl (Zoloft) 50 mg DAILY PO 01/20/21 09:00 01/22/21 13:00 DC 01/22/21 07:51 Sertraline HCl (Zoloft) 75 mg DAILY PO 01/23/21 09:00 01/24/21 17:53 DC 01/24/21 08:48 Mirtazapine (Remeron) 7.5 mg QHS PO 01/20/21 21:00 02/09/21 20:05 Quetiapine Fumarate (SEROquel) 12.5 mg 0900,1300,1700 PO 01/22/21 09:00 01/25/21 16:00 DC 01/25/21 12:54 Sertraline HCl (Zoloft) 100 mg DAILY PO 01/25/21 09:00 01/26/21 17:53 DC 01/26/21 05:25 Quetiapine Fumarate (SEROquel) 12.5 mg 0900,1300,1700,2100 PO 01/25/21 21:00 01/28/21 18:16 DC 01/28/21 17:11 Sertraline HCl (Zoloft) 125 mg DAILY PO 01/27/21 09:00 01/30/21 08:02 DC 01/29/21 08:29 Quetiapine Fumarate (SEROquel) 12.5 mg 1300,2100 PO 01/28/21 21:00 02/04/21 17:16 DC 02/04/21 12:31 Quetiapine Fumarate (SEROquel) 25 mg 0900,1700 PO 01/29/21 09:00 02/04/21 17:16 DC 02/04/21 08:11 Quetiapine Fumarate (SEROquel) 12.5 mg 1300,2100 PO 01/28/21 21:00 UNV Sertraline HCl (Zoloft) 100 mg DAILY PO 01/30/21 09:00 02/09/21 08:31 Sertraline HCl (Zoloft) 25 mg DAILY PO 01/30/21 09:00 02/02/21 17:10 DC 02/02/21 08:09 Sertraline HCl (Zoloft) 50 mg DAILY PO 02/03/21 09:00 02/09/21 08:32 Quetiapine Fumarate (SEROquel) 25 mg 0900,1300,1700,2100 PO 02/04/21 17:15 02/08/21 18:36 DC 02/08/21 16:10 Quetiapine Fumarate (SEROquel) 25 mg 0900,1700 PO 02/09/21 09:00 02/08/21 18:39 DC Quetiapine Fumarate (SEROquel) 37.5 mg 0900,1700 PO 02/09/21 09:00 02/09/21 17:28 Quetiapine Fumarate (SEROquel) 25 mg 1300,2100 PO 02/08/21 21:00 02/09/21 20:05 Current Medications Medications (Trade) Dose Ordered Sig/Hector Route PRN Reason Start Time Stop Time Status Last Admin Dose Admin Quetiapine Fumarate (SEROquel) 37.5 mg 0900,1700 PO 02/09/21 09:00 02/09/21 17:28 I have reviewed the current psychotropics carefully including drug interactions. Risk benefit ratio favors no change other than as noted in my dictated progress note. Diagnosis: Problems: (1) Impulse control disorder, unspecified (2) Anxiety disorder, unspecified (3) Dementia, vascular, with depression (4) Dementia, vascular, with delusions (5) Dementia in Alzheimer's disease with depression (6) Dementia in Alzheimer's disease with delusions (7) Major neurocognitive disorder (8) Dementia in Alzheimer's disease with early onset with behavioral disturbance LUACS CODY MD Feb 10, 2021 06:59
--- NOTE | 2021-02-10 07:09 | PDOC ---
Exam Note: Deon Note: This note is a late entry for 02/09/2021overs elements not covered in my initial note. Subjective: The patient was seen face to face in the evening of 02/09/2021 with Karlene MERCER, discussed and reviewed the chart. The patient slept 7-1/4 hours previous night. She has complained of some lower belly pain and believes everyone is talking about her. She was quite upset at staff, irritable. I met with her in her room. Review of Systems: Impaired ambulation in wheelchair. No CV, pulmonary, eye, ENT system symptoms on review. She does complain of lower abdominal pain. Mental Status Exam: The patient is oriented to herself and situation. Speech coherent, repetitive. Abstraction fair. Computation impaired. Language function intact. Mood and affect remains anxious, labile but improved. Laboratory Data: Reviewed. Impression: Major neurocognitive disorder Alzheimer, vascular with delusion, depression, behavioral disturbance. Anxiety disorder unspecified. Impulse control disorder unspecified. Plan: No change from initial note. Assessment: Vital Signs/I&O: Vital Signs Date Time Temp Pulse Resp B/P (MAP) Pulse Ox O2 Delivery O2 Flow Rate FiO2 02/10/21 06:02 97.1 84 18 155/89 (111) 96 02/08/21 15:26 Room Air I & O 02/09/21 02/09/21 02/10/21 15:00 23:00 07:00 Intake Total 600 ml 360 ml Output Total 300 ml 1400 ml Balance 300 ml -1040 ml Current Medications: Meds: Current Medications Medications (Trade) Dose Ordered Sig/Hector Route PRN Reason Start Time Stop Time Status Last Admin Dose Admin Sodium Chloride 1,000 ml @ 1,000 mls/hr 1X ONCE IV 01/14/21 19:00 01/14/21 19:59 DC 01/14/21 20:37 Acetaminophen (Tylenol) 650 mg PRN Q6HRS PRN PO MILD PAIN / TEMP > 100.3'F 01/14/21 23:15 02/08/21 06:28 Multi-Ingredient Ointment (Analgesic [place]) 1 wes PRN QID PRN TP MUSCLE PAIN 01/14/21 23:15 01/23/21 14:58 DC Al Hydroxide/Mg Hydroxide (Mylanta Plus Xs) 15 ml PRN AFTMEALHC PRN PO DYSPEPSIA 01/14/21 23:15 01/16/21 05:33 Magnesium Hydroxide (Milk Of Magnesia) 2,400 mg PRN QHS PRN PO CONSTIPATION 01/14/21 23:15 Donepezil HCl (Aricept) 10 mg HS PO 01/15/21 21:00 02/09/21 20:05 Lorazepam (Ativan) 0.5 mg PRN Q24HRS PRN PO ANXIETY, 1ST CHOICE 01/14/21 23:30 02/09/21 14:06 Lorazepam (Ativan) 0.5 mg TID PO 01/15/21 09:00 01/17/21 17:30 DC 01/17/21 10:25 Melatonin (Melatonin) 3 mg HS PO 01/15/21 21:00 02/09/21 20:06 Paroxetine HCl (Paxil) 40 mg DAILY PO 01/15/21 09:00 01/19/21 17:15 DC 01/19/21 08:40 Hydroxyzine HCl (Atarax) 25 mg PRN Q6HRS PRN PO ANXIETY, 2ND CHOICE 01/15/21 16:45 02/08/21 06:28 Acetaminophen (Tylenol) 650 mg PRN Q6HRS PRN PO PAIN 01/15/21 19:00 UNV Acetaminophen (Tylenol) 500 mg TID PO 01/15/21 21:00 02/09/21 17:27 Atorvastatin Calcium (Lipitor) 10 mg QHS PO 01/15/21 21:00 02/09/21 20:05 Budesonide (Entocort) 6 mg DAILY PO 01/16/21 09:00 02/09/21 08:34 Calcium Polycarbophil (Fibercon) 1,250 mg BID PO 01/15/21 21:00 02/09/21 20:05 Lidocaine (Lidoderm) 1 patch DAILY TD 01/16/21 09:00 02/09/21 08:30 Mirabegron (Myrbetriq) 25 mg DAILY PO 01/16/21 09:00 01/23/21 17:53 DC 01/23/21 07:49 Pantoprazole Sodium (Protonix) 40 mg DAILY PO 01/16/21 09:00 02/09/21 08:31 Phenazopyridine HCl (Pyridium) 100 mg PRN Q24HRS PRN PO URINARY PAIN 01/15/21 19:00 02/09/21 09:25 Lactobacillus Rhamnosus (Culturelle) 1 cap BID PO 01/15/21 09:00 02/09/21 20:05 Losartan Potassium (Cozaar) 100 mg HS PO 01/15/21 21:00 02/09/21 20:05 Miscellaneous (Lidoderm Patch Removal) 1 ea QHS MC 01/15/21 21:00 02/09/21 20:04 Memantine (Namenda) 5 mg BID PO 01/16/21 21:00 01/22/21 22:50 DC 01/22/21 19:49 Memantine (Namenda) 10 mg BID PO 01/23/21 09:00 02/09/21 20:05 Vitamin D (Vitamin D3) 50,000 unit WEEKLY PO 01/16/21 17:30 02/06/21 09:21 Lorazepam (Ativan) 0.5 mg BID PO 01/17/21 21:00 01/19/21 23:50 DC 01/19/21 19:56 Lorazepam (Ativan) 0.5 mg DAILY PO 01/20/21 09:00 01/22/21 12:00 DC 01/22/21 07:50 Quetiapine Fumarate (SEROquel) 12.5 mg 0900,1700 PO 01/18/21 17:00 01/21/21 17:55 DC 01/21/21 17:33 Sertraline HCl (Zoloft) 50 mg DAILY PO 01/20/21 09:00 01/22/21 13:00 DC 01/22/21 07:51 Sertraline HCl (Zoloft) 75 mg DAILY PO 01/23/21 09:00 01/24/21 17:53 DC 01/24/21 08:48 Mirtazapine (Remeron) 7.5 mg QHS PO 01/20/21 21:00 02/09/21 20:05 Quetiapine Fumarate (SEROquel) 12.5 mg 0900,1300,1700 PO 01/22/21 09:00 01/25/21 16:00 DC 01/25/21 12:54 Sertraline HCl (Zoloft) 100 mg DAILY PO 01/25/21 09:00 01/26/21 17:53 DC 01/26/21 05:25 Quetiapine Fumarate (SEROquel) 12.5 mg 0900,1300,1700,2100 PO 01/25/21 21:00 01/28/21 18:16 DC 01/28/21 17:11 Sertraline HCl (Zoloft) 125 mg DAILY PO 01/27/21 09:00 01/30/21 08:02 DC 01/29/21 08:29 Quetiapine Fumarate (SEROquel) 12.5 mg 1300,2100 PO 01/28/21 21:00 02/04/21 17:16 DC 02/04/21 12:31 Quetiapine Fumarate (SEROquel) 25 mg 0900,1700 PO 01/29/21 09:00 02/04/21 17:16 DC 02/04/21 08:11 Quetiapine Fumarate (SEROquel) 12.5 mg 1300,2100 PO 01/28/21 21:00 UNV Sertraline HCl (Zoloft) 100 mg DAILY PO 01/30/21 09:00 02/09/21 08:31 Sertraline HCl (Zoloft) 25 mg DAILY PO 01/30/21 09:00 02/02/21 17:10 DC 02/02/21 08:09 Sertraline HCl (Zoloft) 50 mg DAILY PO 02/03/21 09:00 02/09/21 08:32 Quetiapine Fumarate (SEROquel) 25 mg 0900,1300,1700,2100 PO 02/04/21 17:15 02/08/21 18:36 DC 02/08/21 16:10 Quetiapine Fumarate (SEROquel) 25 mg 0900,1700 PO 02/09/21 09:00 02/08/21 18:39 DC Quetiapine Fumarate (SEROquel) 37.5 mg 0900,1700 PO 02/09/21 09:00 02/09/21 17:28 Quetiapine Fumarate (SEROquel) 25 mg 1300,2100 PO 02/08/21 21:00 02/09/21 20:05 Current Medications Medications (Trade) Dose Ordered Sig/Hector Route PRN Reason Start Time Stop Time Status Last Admin Dose Admin Quetiapine Fumarate (SEROquel) 37.5 mg 0900,1700 PO 02/09/21 09:00 02/09/21 17:28 I have reviewed the current psychotropics carefully including drug interactions. Risk benefit ratio favors no change other than as noted in my dictated progress note. Diagnosis: Problems: (1) Impulse control disorder, unspecified (2) Anxiety disorder, unspecified (3) Dementia, vascular, with depression (4) Dementia, vascular, with delusions (5) Dementia in Alzheimer's disease with depression (6) Dementia in Alzheimer's disease with delusions (7) Major neurocognitive disorder (8) Dementia in Alzheimer's disease with early onset with behavioral disturbance LUCAS CODY MD Feb 10, 2021 07:09
[2021-02-10] MEDS: LACTOBACILLUS RHAMNOSUS GG 1 CAPSULE. PO SCH ×2 (08:00→20:42)
[2021-02-10] MEDS: CALCIUM POLYCARBOPHIL 625 MG TABLET PO SCH ×2 (08:01→20:44)
[2021-02-10] MEDS: ACETAMINOPHEN 500 MG TABLET PO SCH ×3 (08:01→20:43)
[2021-02-10] MEDS: BUDESONIDE 3 MG CAP.ER.24H. PO SCH (08:01)
[2021-02-10] MEDS: MEMANTINE 10 MG TABLET. PO SCH ×2 (08:01→20:44)
[2021-02-10] MEDS: SERTRALINE 50 MG TABLET. PO SCH (08:01)
[2021-02-10] MEDS: SERTRALINE 100 MG TABLET. PO SCH (08:01)
[2021-02-10] MEDS: PANTOPRAZOLE 40 MG TABLET. PO SCH (08:01)
[2021-02-10] MEDS: QUEtiapine 25 MG TABLET. PO SCH ×4 (08:04→20:43)
[2021-02-10] MEDS: LIDOCAINE (700MG/PATCH) PATCH. TD SCH (08:06)
[2021-02-10 16:10] VITALS: BP 150/83
[2021-02-10] MEDS: ATORVASTATIN CALCIUM 10 MG TABLET. PO SCH (20:42)
[2021-02-10] MEDS: LOSARTAN 50 MG TABLET. PO SCH (20:43)
[2021-02-10] MEDS: DONEPEZIL HCL 10 MG TABLET PO SCH (20:43)
[2021-02-10] MEDS: MELATONIN 3 MG TABLET PO SCH (20:43)
[2021-02-10] MEDS: MIRTAZAPINE 7.5 MG TABLET. PO SCH (20:44)
[2021-02-10] MEDS: PATCH REMOVAL. MC SCH (20:53)
--- NOTE | 2021-02-10 21:58 | PDOC ---
Exam Note: Deon Note: Please also refer to the separate dictated note~for this date of service dictated separately.~Patient seen individually. Discussed the patient with Nursing staff reviewed the chart.~Reviewed interim history and current functioning. Reviewed vital signs,~Labs/ Radiology~and current medications noted below. Continue current treatment with the changes noted in the dictated addendum note Assessment: Vital Signs/I&O: Vital Signs Date Time Temp Pulse Resp B/P (MAP) Pulse Ox O2 Delivery O2 Flow Rate FiO2 02/10/21 20:43 98 150/83 02/10/21 16:10 97.3 18 96 02/08/21 15:26 Room Air I & O 02/09/21 02/09/21 02/10/21 14:59 22:59 06:59 Intake Total 600 ml 360 ml Output Total 300 ml 1400 ml Balance 300 ml -1040 ml Current Medications: Meds: Current Medications Medications (Trade) Dose Ordered Sig/Hector Route PRN Reason Start Time Stop Time Status Last Admin Dose Admin Sodium Chloride 1,000 ml @ 1,000 mls/hr 1X ONCE IV 01/14/21 19:00 01/14/21 19:59 DC 01/14/21 20:37 Acetaminophen (Tylenol) 650 mg PRN Q6HRS PRN PO MILD PAIN / TEMP > 100.3'F 01/14/21 23:15 02/08/21 06:28 Multi-Ingredient Ointment (Analgesic [place]) 1 wes PRN QID PRN TP MUSCLE PAIN 01/14/21 23:15 01/23/21 14:58 DC Al Hydroxide/Mg Hydroxide (Mylanta Plus Xs) 15 ml PRN AFTMEALHC PRN PO DYSPEPSIA 01/14/21 23:15 01/16/21 05:33 Magnesium Hydroxide (Milk Of Magnesia) 2,400 mg PRN QHS PRN PO CONSTIPATION 01/14/21 23:15 Donepezil HCl (Aricept) 10 mg HS PO 01/15/21 21:00 02/10/21 20:43 Lorazepam (Ativan) 0.5 mg PRN Q24HRS PRN PO ANXIETY, 1ST CHOICE 01/14/21 23:30 02/09/21 14:06 Lorazepam (Ativan) 0.5 mg TID PO 01/15/21 09:00 01/17/21 17:30 DC 01/17/21 10:25 Melatonin (Melatonin) 3 mg HS PO 01/15/21 21:00 02/10/21 20:43 Paroxetine HCl (Paxil) 40 mg DAILY PO 01/15/21 09:00 01/19/21 17:15 DC 01/19/21 08:40 Hydroxyzine HCl (Atarax) 25 mg PRN Q6HRS PRN PO ANXIETY, 2ND CHOICE 01/15/21 16:45 02/08/21 06:28 Acetaminophen (Tylenol) 650 mg PRN Q6HRS PRN PO PAIN 01/15/21 19:00 UNV Acetaminophen (Tylenol) 500 mg TID PO 01/15/21 21:00 02/10/21 20:43 Atorvastatin Calcium (Lipitor) 10 mg QHS PO 01/15/21 21:00 02/10/21 20:42 Budesonide (Entocort) 6 mg DAILY PO 01/16/21 09:00 02/10/21 08:01 Calcium Polycarbophil (Fibercon) 1,250 mg BID PO 01/15/21 21:00 02/10/21 20:44 Lidocaine (Lidoderm) 1 patch DAILY TD 01/16/21 09:00 02/10/21 08:06 Mirabegron (Myrbetriq) 25 mg DAILY PO 01/16/21 09:00 01/23/21 17:53 DC 01/23/21 07:49 Pantoprazole Sodium (Protonix) 40 mg DAILY PO 01/16/21 09:00 02/10/21 08:01 Phenazopyridine HCl (Pyridium) 100 mg PRN Q24HRS PRN PO URINARY PAIN 01/15/21 19:00 02/09/21 09:25 Lactobacillus Rhamnosus (Culturelle) 1 cap BID PO 01/15/21 09:00 02/10/21 20:42 Losartan Potassium (Cozaar) 100 mg HS PO 01/15/21 21:00 02/10/21 20:43 Miscellaneous (Lidoderm Patch Removal) 1 ea QHS MC 01/15/21 21:00 02/10/21 20:53 Memantine (Namenda) 5 mg BID PO 01/16/21 21:00 01/22/21 22:50 DC 01/22/21 19:49 Memantine (Namenda) 10 mg BID PO 01/23/21 09:00 02/10/21 20:44 Vitamin D (Vitamin D3) 50,000 unit WEEKLY PO 01/16/21 17:30 02/06/21 09:21 Lorazepam (Ativan) 0.5 mg BID PO 01/17/21 21:00 01/19/21 23:50 DC 01/19/21 19:56 Lorazepam (Ativan) 0.5 mg DAILY PO 01/20/21 09:00 01/22/21 12:00 VT 01/22/21 07:50 Quetiapine Fumarate (SEROquel) 12.5 mg 0900,1700 PO 01/18/21 17:00 01/21/21 17:55 DC 01/21/21 17:33 Sertraline HCl (Zoloft) 50 mg DAILY PO 01/20/21 09:00 01/22/21 13:00 VT 01/22/21 07:51 Sertraline HCl (Zoloft) 75 mg DAILY PO 01/23/21 09:00 01/24/21 17:53 VT 01/24/21 08:48 Mirtazapine (Remeron) 7.5 mg QHS PO 01/20/21 21:00 02/10/21 20:44 Quetiapine Fumarate (SEROquel) 12.5 mg 0900,1300,1700 PO 01/22/21 09:00 01/25/21 16:00 VT 01/25/21 12:54 Sertraline HCl (Zoloft) 100 mg DAILY PO 01/25/21 09:00 01/26/21 17:53 DC 01/26/21 05:25 Quetiapine Fumarate (SEROquel) 12.5 mg 0900,1300,1700,2100 PO 01/25/21 21:00 01/28/21 18:16 DC 01/28/21 17:11 Sertraline HCl (Zoloft) 125 mg DAILY PO 01/27/21 09:00 01/30/21 08:02 DC 01/29/21 08:29 Quetiapine Fumarate (SEROquel) 12.5 mg 1300,2100 PO 01/28/21 21:00 02/04/21 17:16 DC 02/04/21 12:31 Quetiapine Fumarate (SEROquel) 25 mg 0900,1700 PO 01/29/21 09:00 02/04/21 17:16 DC 02/04/21 08:11 Quetiapine Fumarate (SEROquel) 12.5 mg 1300,2100 PO 01/28/21 21:00 UNV Sertraline HCl (Zoloft) 100 mg DAILY PO 01/30/21 09:00 02/10/21 08:01 Sertraline HCl (Zoloft) 25 mg DAILY PO 01/30/21 09:00 02/02/21 17:10 DC 02/02/21 08:09 Sertraline HCl (Zoloft) 50 mg DAILY PO 02/03/21 09:00 02/10/21 08:01 Quetiapine Fumarate (SEROquel) 25 mg 0900,1300,1700,2100 PO 02/04/21 17:15 02/08/21 18:36 DC 02/08/21 16:10 Quetiapine Fumarate (SEROquel) 25 mg 0900,1700 PO 02/09/21 09:00 02/08/21 18:39 DC Quetiapine Fumarate (SEROquel) 37.5 mg 0900,1700 PO 02/09/21 09:00 02/10/21 17:02 Quetiapine Fumarate (SEROquel) 25 mg 1300,2100 PO 02/08/21 21:00 02/10/21 20:43 I have reviewed the current psychotropics carefully including drug interactions. Risk benefit ratio favors no change other than as noted in my dictated progress note. Diagnosis: Problems: (1) Impulse control disorder, unspecified (2) Anxiety disorder, unspecified (3) Dementia, vascular, with depression (4) Dementia, vascular, with delusions (5) Dementia in Alzheimer's disease with depression (6) Dementia in Alzheimer's disease with delusions (7) Major neurocognitive disorder (8) Dementia in Alzheimer's disease with early onset with behavioral disturbance LUCAS CODY MD Feb 10, 2021 21:58
[2021-02-11 06:07] VITALS: BP 150/88
[2021-02-11] MEDS: CALCIUM POLYCARBOPHIL 625 MG TABLET PO SCH ×2 (08:30→20:14)
[2021-02-11] MEDS: ACETAMINOPHEN 500 MG TABLET PO SCH ×3 (08:30→20:14)
[2021-02-11] MEDS: SERTRALINE 100 MG TABLET. PO SCH (08:30)
[2021-02-11] MEDS: QUEtiapine 25 MG TABLET. PO SCH ×4 (08:30→20:15)
[2021-02-11] MEDS: PANTOPRAZOLE 40 MG TABLET. PO SCH (08:30)
[2021-02-11] MEDS: MEMANTINE 10 MG TABLET. PO SCH ×2 (08:30→20:14)
[2021-02-11] MEDS: SERTRALINE 50 MG TABLET. PO SCH (08:30)
[2021-02-11] MEDS: LACTOBACILLUS RHAMNOSUS GG 1 CAPSULE. PO SCH ×2 (08:30→20:14)
[2021-02-11] MEDS: BUDESONIDE 3 MG CAP.ER.24H. PO SCH (08:31)
[2021-02-11] MEDS: LIDOCAINE (700MG/PATCH) PATCH. TD SCH (08:32)
[2021-02-11 15:45] VITALS: BP 122/75
[2021-02-11] MEDS: ATORVASTATIN CALCIUM 10 MG TABLET. PO SCH (20:14)
[2021-02-11] MEDS: MELATONIN 3 MG TABLET PO SCH (20:14)
[2021-02-11] MEDS: LORazepam 0.5 MG TABLET PO PRN (20:14)
[2021-02-11] MEDS: MIRTAZAPINE 7.5 MG TABLET. PO SCH (20:15)
[2021-02-11] MEDS: DONEPEZIL HCL 10 MG TABLET PO SCH (20:16)
[2021-02-11] MEDS: LOSARTAN 50 MG TABLET. PO SCH (20:16)
[2021-02-11] MEDS: PATCH REMOVAL. MC SCH (20:16)
--- NOTE | 2021-02-11 21:50 | PDOC ---
Exam Note: Deon Note: Please also refer to the separate dictated note~for this date of service dictated separately.~Patient seen individually. Discussed the patient with Nursing staff reviewed the chart.~Reviewed interim history and current functioning. Reviewed vital signs,~Labs/ Radiology~and current medications noted below. Continue current treatment with the changes noted in the dictated addendum note Assessment: Vital Signs/I&O: Vital Signs Date Time Temp Pulse Resp B/P (MAP) Pulse Ox O2 Delivery O2 Flow Rate FiO2 02/11/21 20:16 93 122/75 02/11/21 15:45 97.7 16 95 02/08/21 15:26 Room Air I & O 02/10/21 02/10/21 02/11/21 15:00 23:00 07:00 Intake Total 1005 ml 360 ml Output Total 400 ml 475 ml Balance 1005 ml -40 ml -475 ml Current Medications: Meds: Current Medications Medications (Trade) Dose Ordered Sig/Hector Route PRN Reason Start Time Stop Time Status Last Admin Dose Admin Sodium Chloride 1,000 ml @ 1,000 mls/hr 1X ONCE IV 01/14/21 19:00 01/14/21 19:59 DC 01/14/21 20:37 Acetaminophen (Tylenol) 650 mg PRN Q6HRS PRN PO MILD PAIN / TEMP > 100.3'F 01/14/21 23:15 02/08/21 06:28 Multi-Ingredient Ointment (Analgesic [place]) 1 wes PRN QID PRN TP MUSCLE PAIN 01/14/21 23:15 01/23/21 14:58 DC Al Hydroxide/Mg Hydroxide (Mylanta Plus Xs) 15 ml PRN AFTMEALHC PRN PO DYSPEPSIA 01/14/21 23:15 01/16/21 05:33 Magnesium Hydroxide (Milk Of Magnesia) 2,400 mg PRN QHS PRN PO CONSTIPATION 01/14/21 23:15 Donepezil HCl (Aricept) 10 mg HS PO 01/15/21 21:00 02/11/21 20:16 Lorazepam (Ativan) 0.5 mg PRN Q24HRS PRN PO ANXIETY, 1ST CHOICE 01/14/21 23:30 02/11/21 20:14 Lorazepam (Ativan) 0.5 mg TID PO 01/15/21 09:00 01/17/21 17:30 DC 01/17/21 10:25 Melatonin (Melatonin) 3 mg HS PO 01/15/21 21:00 02/11/21 20:14 Paroxetine HCl (Paxil) 40 mg DAILY PO 01/15/21 09:00 01/19/21 17:15 DC 01/19/21 08:40 Hydroxyzine HCl (Atarax) 25 mg PRN Q6HRS PRN PO ANXIETY, 2ND CHOICE 01/15/21 16:45 02/08/21 06:28 Acetaminophen (Tylenol) 650 mg PRN Q6HRS PRN PO PAIN 01/15/21 19:00 UNV Acetaminophen (Tylenol) 500 mg TID PO 01/15/21 21:00 02/11/21 20:14 Atorvastatin Calcium (Lipitor) 10 mg QHS PO 01/15/21 21:00 02/11/21 20:14 Budesonide (Entocort) 6 mg DAILY PO 01/16/21 09:00 02/11/21 08:31 Calcium Polycarbophil (Fibercon) 1,250 mg BID PO 01/15/21 21:00 02/11/21 20:14 Lidocaine (Lidoderm) 1 patch DAILY TD 01/16/21 09:00 02/11/21 08:32 Mirabegron (Myrbetriq) 25 mg DAILY PO 01/16/21 09:00 01/23/21 17:53 DC 01/23/21 07:49 Pantoprazole Sodium (Protonix) 40 mg DAILY PO 01/16/21 09:00 02/11/21 08:30 Phenazopyridine HCl (Pyridium) 100 mg PRN Q24HRS PRN PO URINARY PAIN 01/15/21 19:00 02/09/21 09:25 Lactobacillus Rhamnosus (Culturelle) 1 cap BID PO 01/15/21 09:00 02/11/21 20:14 Losartan Potassium (Cozaar) 100 mg HS PO 01/15/21 21:00 02/11/21 20:16 Miscellaneous (Lidoderm Patch Removal) 1 ea QHS MC 01/15/21 21:00 02/11/21 20:16 Memantine (Namenda) 5 mg BID PO 01/16/21 21:00 01/22/21 22:50 DC 01/22/21 19:49 Memantine (Namenda) 10 mg BID PO 01/23/21 09:00 02/11/21 20:14 Vitamin D (Vitamin D3) 50,000 unit WEEKLY PO 01/16/21 17:30 02/06/21 09:21 Lorazepam (Ativan) 0.5 mg BID PO 01/17/21 21:00 01/19/21 23:50 DC 01/19/21 19:56 Lorazepam (Ativan) 0.5 mg DAILY PO 01/20/21 09:00 01/22/21 12:00 DC 01/22/21 07:50 Quetiapine Fumarate (SEROquel) 12.5 mg 0900,1700 PO 01/18/21 17:00 01/21/21 17:55 DC 01/21/21 17:33 Sertraline HCl (Zoloft) 50 mg DAILY PO 01/20/21 09:00 01/22/21 13:00 DC 01/22/21 07:51 Sertraline HCl (Zoloft) 75 mg DAILY PO 01/23/21 09:00 01/24/21 17:53 MA 01/24/21 08:48 Mirtazapine (Remeron) 7.5 mg QHS PO 01/20/21 21:00 02/11/21 20:15 Quetiapine Fumarate (SEROquel) 12.5 mg 0900,1300,1700 PO 01/22/21 09:00 01/25/21 16:00 MA 01/25/21 12:54 Sertraline HCl (Zoloft) 100 mg DAILY PO 01/25/21 09:00 01/26/21 17:53 DC 01/26/21 05:25 Quetiapine Fumarate (SEROquel) 12.5 mg 0900,1300,1700,2100 PO 01/25/21 21:00 01/28/21 18:16 DC 01/28/21 17:11 Sertraline HCl (Zoloft) 125 mg DAILY PO 01/27/21 09:00 01/30/21 08:02 DC 01/29/21 08:29 Quetiapine Fumarate (SEROquel) 12.5 mg 1300,2100 PO 01/28/21 21:00 02/04/21 17:16 DC 02/04/21 12:31 Quetiapine Fumarate (SEROquel) 25 mg 0900,1700 PO 01/29/21 09:00 02/04/21 17:16 DC 02/04/21 08:11 Quetiapine Fumarate (SEROquel) 12.5 mg 1300,2100 PO 01/28/21 21:00 UNV Sertraline HCl (Zoloft) 100 mg DAILY PO 01/30/21 09:00 02/11/21 08:30 Sertraline HCl (Zoloft) 25 mg DAILY PO 01/30/21 09:00 02/02/21 17:10 DC 02/02/21 08:09 Sertraline HCl (Zoloft) 50 mg DAILY PO 02/03/21 09:00 02/11/21 08:30 Quetiapine Fumarate (SEROquel) 25 mg 0900,1300,1700,2100 PO 02/04/21 17:15 02/08/21 18:36 DC 02/08/21 16:10 Quetiapine Fumarate (SEROquel) 25 mg 0900,1700 PO 02/09/21 09:00 02/08/21 18:39 DC Quetiapine Fumarate (SEROquel) 37.5 mg 0900,1700 PO 02/09/21 09:00 02/11/21 17:20 Quetiapine Fumarate (SEROquel) 25 mg 1300,2100 PO 02/08/21 21:00 02/11/21 19:59 DC 02/11/21 13:16 Quetiapine Fumarate (SEROquel) 37.5 mg 1300,2100 PO 02/11/21 21:00 02/11/21 20:15 Current Medications Medications (Trade) Dose Ordered Sig/Hector Route PRN Reason Start Time Stop Time Status Last Admin Dose Admin Quetiapine Fumarate (SEROquel) 37.5 mg 1300,2100 PO 02/11/21 21:00 02/11/21 20:15 I have reviewed the current psychotropics carefully including drug interactions. Risk benefit ratio favors no change other than as noted in my dictated progress note. Diagnosis: Problems: (1) Impulse control disorder, unspecified (2) Anxiety disorder, unspecified (3) Dementia, vascular, with depression (4) Dementia, vascular, with delusions (5) Dementia in Alzheimer's disease with depression (6) Dementia in Alzheimer's disease with delusions (7) Major neurocognitive disorder (8) Dementia in Alzheimer's disease with early onset with behavioral disturbance LUCAS CODY MD Feb 11, 2021 21:50
[2021-02-12 06:12] VITALS: BP 162/77
--- NOTE | 2021-02-12 06:17 | PDOC ---
Exam Note: Deon Note: This note is a late entry for 02/10/2021overs elements not covered in my initial note. Subjective: The patient was seen face to face in the evening of 02/10/2021 with Benita MERCER, discussed and reviewed the chart. The patient slept 8-1/2 hours previous night. She has been somewhat paranoid, withdrawn. Review of Systems: Impaired ambulation in wheelchair. No CV, pulmonary, eye, ENT system symptoms on review. Positive for abdominal discomfort. She does have Puentes in place. Mental Status Exam: The patient is oriented to herself and situation. Speech coherent, has some latency. Abstraction fair. Computation impaired. Language function intact. Mood and affect somewhat anxious, repetitive, obsessive. Laboratory Data: Reviewed. Impression: Major neurocognitive disorder Alzheimer, vascular with delusion, depression, behavioral disturbance. Anxiety disorder unspecified. Impulse control disorder unspecified. Plan: No change from initial note. We may need to make further adjustments as clinically indicated. Assessment: Vital Signs/I&O: Vital Signs Date Time Temp Pulse Resp B/P (MAP) Pulse Ox O2 Delivery O2 Flow Rate FiO2 02/12/21 06:12 97.3 79 16 162/77 (105) 96 02/08/21 15:26 Room Air I & O 02/11/21 02/11/21 02/12/21 15:00 23:00 07:00 Intake Total 360 ml 360 ml Output Total 350 ml 700 ml 825 ml Balance 10 ml -340 ml -825 ml Current Medications: Meds: Current Medications Medications (Trade) Dose Ordered Sig/Hector Route PRN Reason Start Time Stop Time Status Last Admin Dose Admin Sodium Chloride 1,000 ml @ 1,000 mls/hr 1X ONCE IV 01/14/21 19:00 01/14/21 19:59 DC 01/14/21 20:37 Acetaminophen (Tylenol) 650 mg PRN Q6HRS PRN PO MILD PAIN / TEMP > 100.3'F 01/14/21 23:15 02/08/21 06:28 Multi-Ingredient Ointment (Analgesic [place]) 1 wes PRN QID PRN TP MUSCLE PAIN 01/14/21 23:15 01/23/21 14:58 DC Al Hydroxide/Mg Hydroxide (Mylanta Plus Xs) 15 ml PRN AFTMEALHC PRN PO DYSPEPSIA 01/14/21 23:15 01/16/21 05:33 Magnesium Hydroxide (Milk Of Magnesia) 2,400 mg PRN QHS PRN PO CONSTIPATION 01/14/21 23:15 Donepezil HCl (Aricept) 10 mg HS PO 01/15/21 21:00 02/11/21 20:16 Lorazepam (Ativan) 0.5 mg PRN Q24HRS PRN PO ANXIETY, 1ST CHOICE 01/14/21 23:30 02/11/21 20:14 Lorazepam (Ativan) 0.5 mg TID PO 01/15/21 09:00 01/17/21 17:30 DC 01/17/21 10:25 Melatonin (Melatonin) 3 mg HS PO 01/15/21 21:00 02/11/21 20:14 Paroxetine HCl (Paxil) 40 mg DAILY PO 01/15/21 09:00 01/19/21 17:15 DC 01/19/21 08:40 Hydroxyzine HCl (Atarax) 25 mg PRN Q6HRS PRN PO ANXIETY, 2ND CHOICE 01/15/21 16:45 02/08/21 06:28 Acetaminophen (Tylenol) 650 mg PRN Q6HRS PRN PO PAIN 01/15/21 19:00 UNV Acetaminophen (Tylenol) 500 mg TID PO 01/15/21 21:00 02/11/21 20:14 Atorvastatin Calcium (Lipitor) 10 mg QHS PO 01/15/21 21:00 02/11/21 20:14 Budesonide (Entocort) 6 mg DAILY PO 01/16/21 09:00 02/11/21 08:31 Calcium Polycarbophil (Fibercon) 1,250 mg BID PO 01/15/21 21:00 02/11/21 20:14 Lidocaine (Lidoderm) 1 patch DAILY TD 01/16/21 09:00 02/11/21 08:32 Mirabegron (Myrbetriq) 25 mg DAILY PO 01/16/21 09:00 01/23/21 17:53 DC 01/23/21 07:49 Pantoprazole Sodium (Protonix) 40 mg DAILY PO 01/16/21 09:00 02/11/21 08:30 Phenazopyridine HCl (Pyridium) 100 mg PRN Q24HRS PRN PO URINARY PAIN 01/15/21 19:00 02/09/21 09:25 Lactobacillus Rhamnosus (Culturelle) 1 cap BID PO 01/15/21 09:00 02/11/21 20:14 Losartan Potassium (Cozaar) 100 mg HS PO 01/15/21 21:00 02/11/21 20:16 Miscellaneous (Lidoderm Patch Removal) 1 ea QHS MC 01/15/21 21:00 02/11/21 20:16 Memantine (Namenda) 5 mg BID PO 01/16/21 21:00 01/22/21 22:50 DC 01/22/21 19:49 Memantine (Namenda) 10 mg BID PO 01/23/21 09:00 02/11/21 20:14 Vitamin D (Vitamin D3) 50,000 unit WEEKLY PO 01/16/21 17:30 02/06/21 09:21 Lorazepam (Ativan) 0.5 mg BID PO 01/17/21 21:00 01/19/21 23:50 DC 01/19/21 19:56 Lorazepam (Ativan) 0.5 mg DAILY PO 01/20/21 09:00 01/22/21 12:00 DC 01/22/21 07:50 Quetiapine Fumarate (SEROquel) 12.5 mg 0900,1700 PO 01/18/21 17:00 01/21/21 17:55 DC 01/21/21 17:33 Sertraline HCl (Zoloft) 50 mg DAILY PO 01/20/21 09:00 01/22/21 13:00 DC 01/22/21 07:51 Sertraline HCl (Zoloft) 75 mg DAILY PO 01/23/21 09:00 01/24/21 17:53 DC 01/24/21 08:48 Mirtazapine (Remeron) 7.5 mg QHS PO 01/20/21 21:00 02/11/21 20:15 Quetiapine Fumarate (SEROquel) 12.5 mg 0900,1300,1700 PO 01/22/21 09:00 01/25/21 16:00 DC 01/25/21 12:54 Sertraline HCl (Zoloft) 100 mg DAILY PO 01/25/21 09:00 01/26/21 17:53 DC 01/26/21 05:25 Quetiapine Fumarate (SEROquel) 12.5 mg 0900,1300,1700,2100 PO 01/25/21 21:00 01/28/21 18:16 DC 01/28/21 17:11 Sertraline HCl (Zoloft) 125 mg DAILY PO 01/27/21 09:00 01/30/21 08:02 DC 01/29/21 08:29 Quetiapine Fumarate (SEROquel) 12.5 mg 1300,2100 PO 01/28/21 21:00 02/04/21 17:16 DC 02/04/21 12:31 Quetiapine Fumarate (SEROquel) 25 mg 0900,1700 PO 01/29/21 09:00 02/04/21 17:16 DC 02/04/21 08:11 Quetiapine Fumarate (SEROquel) 12.5 mg 1300,2100 PO 01/28/21 21:00 UNV Sertraline HCl (Zoloft) 100 mg DAILY PO 01/30/21 09:00 02/11/21 08:30 Sertraline HCl (Zoloft) 25 mg DAILY PO 01/30/21 09:00 02/02/21 17:10 DC 02/02/21 08:09 Sertraline HCl (Zoloft) 50 mg DAILY PO 02/03/21 09:00 02/11/21 08:30 Quetiapine Fumarate (SEROquel) 25 mg 0900,1300,1700,2100 PO 02/04/21 17:15 02/08/21 18:36 DC 02/08/21 16:10 Quetiapine Fumarate (SEROquel) 25 mg 0900,1700 PO 02/09/21 09:00 02/08/21 18:39 DC Quetiapine Fumarate (SEROquel) 37.5 mg 0900,1700 PO 02/09/21 09:00 02/11/21 17:20 Quetiapine Fumarate (SEROquel) 25 mg 1300,2100 PO 02/08/21 21:00 02/11/21 19:59 DC 02/11/21 13:16 Quetiapine Fumarate (SEROquel) 37.5 mg 1300,2100 PO 02/11/21 21:00 02/11/21 20:15 Current Medications Medications (Trade) Dose Ordered Sig/Hector Route PRN Reason Start Time Stop Time Status Last Admin Dose Admin Quetiapine Fumarate (SEROquel) 37.5 mg 1300,2100 PO 02/11/21 21:00 02/11/21 20:15 I have reviewed the current psychotropics carefully including drug interactions. Risk benefit ratio favors no change other than as noted in my dictated progress note. Diagnosis: Problems: (1) Impulse control disorder, unspecified (2) Anxiety disorder, unspecified (3) Dementia, vascular, with depression (4) Dementia, vascular, with delusions (5) Dementia in Alzheimer's disease with depression (6) Dementia in Alzheimer's disease with delusions (7) Major neurocognitive disorder (8) Dementia in Alzheimer's disease with early onset with behavioral disturbance LUCAS CODY MD Feb 12, 2021 06:17
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
[2021-02-12] MEDS: CALCIUM POLYCARBOPHIL 625 MG TABLET PO SCH ×2 (08:17→21:11)
[2021-02-12] MEDS: SERTRALINE 50 MG TABLET. PO SCH (08:17)
[2021-02-12] MEDS: QUEtiapine 25 MG TABLET. PO SCH ×4 (08:18→21:10)
[2021-02-12] MEDS: MEMANTINE 10 MG TABLET. PO SCH ×2 (08:19→21:10)
[2021-02-12] MEDS: SERTRALINE 100 MG TABLET. PO SCH (08:19)
[2021-02-12] MEDS: ACETAMINOPHEN 500 MG TABLET PO SCH ×3 (08:19→21:11)
[2021-02-12] MEDS: LACTOBACILLUS RHAMNOSUS GG 1 CAPSULE. PO SCH ×2 (08:19→21:11)
[2021-02-12] MEDS: PANTOPRAZOLE 40 MG TABLET. PO SCH (08:19)
[2021-02-12] MEDS: BUDESONIDE 3 MG CAP.ER.24H. PO SCH (08:21)
[2021-02-12] MEDS: LIDOCAINE (700MG/PATCH) PATCH. TD SCH (08:22)
[2021-02-12 15:37] VITALS: BP 119/73
[2021-02-12] MEDS: PATCH REMOVAL. MC SCH (21:00)
[2021-02-12] MEDS: DONEPEZIL HCL 10 MG TABLET PO SCH (21:10)
[2021-02-12] MEDS: MELATONIN 3 MG TABLET PO SCH (21:11)
[2021-02-12] MEDS: ATORVASTATIN CALCIUM 10 MG TABLET. PO SCH (21:11)
[2021-02-12] MEDS: MIRTAZAPINE 7.5 MG TABLET. PO SCH (21:11)
[2021-02-12] MEDS: LOSARTAN 50 MG TABLET. PO SCH (21:11)
--- NOTE | 2021-02-12 22:00 | PDOC ---
Exam Note: Deon Note: Please also refer to the separate dictated note~for this date of service dictated separately.~Patient seen individually. Discussed the patient with Nursing staff reviewed the chart.~Reviewed interim history and current functioning. Reviewed vital signs,~Labs/ Radiology~and current medications noted below. Continue current treatment with the changes noted in the dictated addendum note Assessment: Vital Signs/I&O: Vital Signs Date Time Temp Pulse Resp B/P (MAP) Pulse Ox O2 Delivery O2 Flow Rate FiO2 02/12/21 21:11 91 119/73 02/12/21 15:37 97.3 16 97 02/08/21 15:26 Room Air I & O 02/11/21 02/11/21 02/12/21 14:59 22:59 06:59 Intake Total 360 ml 360 ml Output Total 350 ml 700 ml 825 ml Balance 10 ml -340 ml -825 ml Labs: Laboratory Tests Test 02/12/21 04:15 SARS-CoV-2 (PCR) Negative (NEGATIVE) Current Medications: Meds: Laboratory Tests Test 02/12/21 04:15 Coronavirus (COVID-19)(PCR) Negative Current Medications Medications (Trade) Dose Ordered Sig/Hector Route PRN Reason Start Time Stop Time Status Last Admin Dose Admin Sodium Chloride 1,000 ml @ 1,000 mls/hr 1X ONCE IV 01/14/21 19:00 01/14/21 19:59 DC 01/14/21 20:37 Acetaminophen (Tylenol) 650 mg PRN Q6HRS PRN PO MILD PAIN / TEMP > 100.3'F 01/14/21 23:15 02/08/21 06:28 Multi-Ingredient Ointment (Analgesic [place]) 1 wes PRN QID PRN TP MUSCLE PAIN 01/14/21 23:15 01/23/21 14:58 DC Al Hydroxide/Mg Hydroxide (Mylanta Plus Xs) 15 ml PRN AFTMEALHC PRN PO DYSPEPSIA 01/14/21 23:15 01/16/21 05:33 Magnesium Hydroxide (Milk Of Magnesia) 2,400 mg PRN QHS PRN PO CONSTIPATION 01/14/21 23:15 Donepezil HCl (Aricept) 10 mg HS PO 01/15/21 21:00 02/12/21 21:10 Lorazepam (Ativan) 0.5 mg PRN Q24HRS PRN PO ANXIETY, 1ST CHOICE 01/14/21 23:30 02/11/21 20:14 Lorazepam (Ativan) 0.5 mg TID PO 01/15/21 09:00 01/17/21 17:30 DC 01/17/21 10:25 Melatonin (Melatonin) 3 mg HS PO 01/15/21 21:00 02/12/21 21:11 Paroxetine HCl (Paxil) 40 mg DAILY PO 01/15/21 09:00 01/19/21 17:15 DC 01/19/21 08:40 Hydroxyzine HCl (Atarax) 25 mg PRN Q6HRS PRN PO ANXIETY, 2ND CHOICE 01/15/21 16:45 02/08/21 06:28 Acetaminophen (Tylenol) 650 mg PRN Q6HRS PRN PO PAIN 01/15/21 19:00 UNV Acetaminophen (Tylenol) 500 mg TID PO 01/15/21 21:00 02/12/21 21:11 Atorvastatin Calcium (Lipitor) 10 mg QHS PO 01/15/21 21:00 02/12/21 21:11 Budesonide (Entocort) 6 mg DAILY PO 01/16/21 09:00 02/12/21 08:21 Calcium Polycarbophil (Fibercon) 1,250 mg BID PO 01/15/21 21:00 02/12/21 21:11 Lidocaine (Lidoderm) 1 patch DAILY TD 01/16/21 09:00 02/12/21 08:22 Mirabegron (Myrbetriq) 25 mg DAILY PO 01/16/21 09:00 01/23/21 17:53 DC 01/23/21 07:49 Pantoprazole Sodium (Protonix) 40 mg DAILY PO 01/16/21 09:00 02/12/21 08:19 Phenazopyridine HCl (Pyridium) 100 mg PRN Q24HRS PRN PO URINARY PAIN 01/15/21 19:00 02/09/21 09:25 Lactobacillus Rhamnosus (Culturelle) 1 cap BID PO 01/15/21 09:00 02/12/21 21:11 Losartan Potassium (Cozaar) 100 mg HS PO 01/15/21 21:00 02/12/21 21:11 Miscellaneous (Lidoderm Patch Removal) 1 ea QHS 01/15/21 21:00 02/11/21 20:16 Memantine (Namenda) 5 mg BID PO 01/16/21 21:00 01/22/21 22:50 DC 01/22/21 19:49 Memantine (Namenda) 10 mg BID PO 01/23/21 09:00 02/12/21 21:10 Vitamin D (Vitamin D3) 50,000 unit WEEKLY PO 01/16/21 17:30 02/06/21 09:21 Lorazepam (Ativan) 0.5 mg BID PO 01/17/21 21:00 01/19/21 23:50 DC 01/19/21 19:56 Lorazepam (Ativan) 0.5 mg DAILY PO 01/20/21 09:00 01/22/21 12:00 DC 01/22/21 07:50 Quetiapine Fumarate (SEROquel) 12.5 mg 0900,1700 PO 01/18/21 17:00 01/21/21 17:55 DC 01/21/21 17:33 Sertraline HCl (Zoloft) 50 mg DAILY PO 01/20/21 09:00 01/22/21 13:00 DC 01/22/21 07:51 Sertraline HCl (Zoloft) 75 mg DAILY PO 01/23/21 09:00 01/24/21 17:53 DC 01/24/21 08:48 Mirtazapine (Remeron) 7.5 mg QHS PO 01/20/21 21:00 02/12/21 21:11 Quetiapine Fumarate (SEROquel) 12.5 mg 0900,1300,1700 PO 01/22/21 09:00 01/25/21 16:00 DC 01/25/21 12:54 Sertraline HCl (Zoloft) 100 mg DAILY PO 01/25/21 09:00 01/26/21 17:53 DC 01/26/21 05:25 Quetiapine Fumarate (SEROquel) 12.5 mg 0900,1300,1700,2100 PO 01/25/21 21:00 01/28/21 18:16 DC 01/28/21 17:11 Sertraline HCl (Zoloft) 125 mg DAILY PO 01/27/21 09:00 01/30/21 08:02 DC 01/29/21 08:29 Quetiapine Fumarate (SEROquel) 12.5 mg 1300,2100 PO 01/28/21 21:00 02/04/21 17:16 DC 02/04/21 12:31 Quetiapine Fumarate (SEROquel) 25 mg 0900,1700 PO 01/29/21 09:00 02/04/21 17:16 DC 02/04/21 08:11 Quetiapine Fumarate (SEROquel) 12.5 mg 1300,2100 PO 01/28/21 21:00 UNV Sertraline HCl (Zoloft) 100 mg DAILY PO 01/30/21 09:00 02/12/21 08:19 Sertraline HCl (Zoloft) 25 mg DAILY PO 01/30/21 09:00 02/02/21 17:10 DC 02/02/21 08:09 Sertraline HCl (Zoloft) 50 mg DAILY PO 02/03/21 09:00 02/12/21 08:17 Quetiapine Fumarate (SEROquel) 25 mg 0900,1300,1700,2100 PO 02/04/21 17:15 02/08/21 18:36 DC 02/08/21 16:10 Quetiapine Fumarate (SEROquel) 25 mg 0900,1700 PO 02/09/21 09:00 02/08/21 18:39 DC Quetiapine Fumarate (SEROquel) 37.5 mg 0900,1700 PO 02/09/21 09:00 02/12/21 17:00 Quetiapine Fumarate (SEROquel) 25 mg 1300,2100 PO 02/08/21 21:00 02/11/21 19:59 DC 02/11/21 13:16 Quetiapine Fumarate (SEROquel) 37.5 mg 1300,2100 PO 02/11/21 21:00 02/12/21 21:10 I have reviewed the current psychotropics carefully including drug interactions. Risk benefit ratio favors no change other than as noted in my dictated progress note. Diagnosis: Problems: (1) Anxiety disorder, unspecified (2) Impulse control disorder, unspecified (3) Dementia, vascular, with depression (4) Dementia, vascular, with delusions (5) Dementia in Alzheimer's disease with depression (6) Dementia in Alzheimer's disease with delusions (7) Major neurocognitive disorder (8) Dementia in Alzheimer's disease with early onset with behavioral disturbance LUCAS CODY MD Feb 12, 2021 22:00
[2021-02-13 06:33] VITALS: BP 138/80
[2021-02-13] MEDS: LIDOCAINE (700MG/PATCH) PATCH. TD SCH (09:35)
[2021-02-13] MEDS: BUDESONIDE 3 MG CAP.ER.24H. PO SCH (09:35)
[2021-02-13] MEDS: QUEtiapine 25 MG TABLET. PO SCH ×4 (09:36→21:28)
[2021-02-13] MEDS: MEMANTINE 10 MG TABLET. PO SCH ×2 (09:36→21:00)
[2021-02-13] MEDS: PANTOPRAZOLE 40 MG TABLET. PO SCH (09:36)
[2021-02-13] MEDS: ACETAMINOPHEN 500 MG TABLET PO SCH ×3 (09:36→21:28)
[2021-02-13] MEDS: CALCIUM POLYCARBOPHIL 625 MG TABLET PO SCH ×2 (09:36→21:27)
[2021-02-13] MEDS: SERTRALINE 100 MG TABLET. PO SCH (09:36)
[2021-02-13] MEDS: SERTRALINE 50 MG TABLET. PO SCH (09:36)
[2021-02-13] MEDS: LACTOBACILLUS RHAMNOSUS GG 1 CAPSULE. PO SCH ×2 (09:36→21:27)
[2021-02-13] MEDS: CHOLECALCIFEROL (VITAMIN D3) 50,000 UNIT CAPSULE PO SCH (09:38)
--- NOTE | 2021-02-13 13:20 | TX PLAN ---
Interdisciplinary Tx Plan Admission Information Jan 14, 2021 at 22:35 Legal Status (on Admission): Voluntary DPOA/Guardian Name: Dimitri Lema (Dick) Contact Other Contact Name: ABISAI Lopez Other Contact Verified Code Status: DNR Allergies: Coded Allergies: sulfamethoxazole (Verified Allergy, Unknown, 12/14/19) prochlorperazine maleate (Verified Adverse Reaction, Unknown, Makes her twitch, 12/14/19) Diagnoses Primary Diagnosis: (1) Major neurocognitive disorder due to Alzheimer's disease (2) Dementia in Alzheimer's disease with delusions (3) Dementia in Alzheimer's disease with depression (4) Dementia, vascular, with delusions (5) Dementia, vascular, with depression (6) Anxiety disorder, unspecified (7) Impulse control disorder, unspecified Reasons for Admission: Aggressive, Agitated, Angry, Anxiety/Panic, Combative, Confusion/Disoriented, Poor impulse control Problem in Patient's Words: Per /DPOA, Praneeth, up until about two years ago, pt was fairly healthy and she developed Psoriasis and then had a fall and cracked her leg. This seemed to be the onset of her dementia. She has three main problems: her dementia, stomach pain, and back pain. At her facility, they started her on a lidocaine patch, and this seemed to help her with the pain. She sees Dr. Fierro for neurology, she has seen another doctor for urology, and when she was at home she had home health that set her up with a psychologist, Dr. Beasley. 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 Problems Active Problems: Confused, disoriented, agitated, crying, anxiety Inactive Problems: Aggression, Combative Pt Strengths/Limitations Ability for [place]: Poor Cognitive Functioning/Ability: Poor Communication Skills/Ability: Fair Financial Resources: Good Insight/Judgement: Poor Intellectual Ability: Fair Physical Health: Poor Social Skills: Good Stability in Family: Good Stability in School/Work: Good Verbal Skills: Fair Discharge Criteria Discharge Criteria: Adequate arrangements @DC, Verbal commit med comply, Improved behavior, Improved mood/thought Other Discharge Comments: None noted at this time. Preliminary Discharge Plan Preliminary DC Plan: Current Living Arrange. Special Precautions Special Precautions: Agitation/Assault Fall Risk: High Initial D/C Plan Pt Plan is to return to [facility] once stable. Identified Discharge Needs: None known at this time. Currently Utilized Resources Currently Utilized Resources/P: PCP-Dr. Amato /DPOA-Dimitri Kinsey" [place] [facility], contact-ABISAI Lopez Referrals Community Resources: None at this time. Identified Problems/Hx/Goals Objectives/Short-Term Goals Short Term Goals: Control abnormal behavior, Dec. Aggression, Dec. Outbursts, Medication Stabilization, Monitor Med Effects, Promote Coping Skill Short Term Goals in Patient's: To feel less agitated and anxious. Help to control symptoms of anxiety and depression and for behaviors to improved. Interventions/Frequency Staff Interventions/Frequency&: Psychiatry to assess pt three times per week for medication management. Nursing to assess behaviors, monitor medications, and complete 15 minute checks daily. Social work to see pt at least two times weekly to aid in return to placement. Activities to encourage pt to participate in group activities daily. 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 Education: High School and three years college Community Follow-up PCP Community Provider/Family Inpu: /DPOA, Dimitri Kinsey", aware of pt hospitalization and is available for further information as needed. Treatment Plan Explained Patient/Equalizer Operator had this treatment plan explained to him/her as indicated by the signature below and has been given the opportunity to ask questions and make suggestions: Date: Patient/Equalizer Operator Signature: Status Update Update Pt is eating 70% of her food and averaging 6.8 hours of sleep per night. Pt has been med compliant. Pt still displays anxiety by asking about her and dogs although this is somewhat less often. Pt continues to struggle with memory problems that she sometimes recognizes and becomes tearful about indicating that she is trying hard to be less anxious or irritable. Pt often needs reoriented to place and situation and when shown compassion, she is less anxious or irritable. Pt has attended seven groups over the past week and has shown some irritability, but cooperative and independent with activities and social with peers. Pt recently tested positive for Covid on 02/12/21, but using the same swab the lab retested the sample and it came back negative. Pt has been retested today 02/13/21. Pt will remain from other patients until newest result is returned. If patient's results return negative, pt will proceed with discharge scheduled for 02/18/21 to [facility]. If pt's results return positive, pt will discharge from [facility] to [facility] medical floor and a further discharge plan will have to be made at that time. JAYDEN FORREST Feb 13, 2021 13:20
[2021-02-13 15:53] VITALS: BP 141/64
[2021-02-13] MEDS: PATCH REMOVAL. MC SCH (21:00)
[2021-02-13] MEDS: ATORVASTATIN CALCIUM 10 MG TABLET. PO SCH (21:27)
[2021-02-13] MEDS: DONEPEZIL HCL 10 MG TABLET PO SCH (21:27)
[2021-02-13] MEDS: LOSARTAN 50 MG TABLET. PO SCH (21:27)
[2021-02-13] MEDS: MIRTAZAPINE 7.5 MG TABLET. PO SCH (21:28)
[2021-02-13] MEDS: MELATONIN 3 MG TABLET PO SCH (21:28)
--- NOTE | 2021-02-13 21:59 | PDOC ---
Exam Note: Deon Note: Please also refer to the separate dictated note~for this date of service dictated separately.~Patient seen individually. Discussed the patient with Nursing staff reviewed the chart.~Reviewed interim history and current functioning. Reviewed vital signs,~Labs/ Radiology~and current medications noted below. Continue current treatment with the changes noted in the dictated addendum note Assessment: Vital Signs/I&O: Vital Signs Date Time Temp Pulse Resp B/P (MAP) Pulse Ox O2 Delivery O2 Flow Rate FiO2 02/13/21 21:27 96 141/64 02/13/21 15:53 98.2 18 97 02/08/21 15:26 Room Air I & O 02/12/21 02/12/21 02/13/21 15:00 23:00 07:00 Intake Total 720 ml 480 ml Balance 720 ml 480 ml Labs: Laboratory Tests Test 02/13/21 10:00 SARS-CoV-2 (PCR) Negative (NEGATIVE) Current Medications: Meds: Laboratory Tests Test 02/13/21 10:00 Coronavirus (COVID-19)(PCR) Negative Current Medications Medications (Trade) Dose Ordered Sig/Hector Route PRN Reason Start Time Stop Time Status Last Admin Dose Admin Sodium Chloride 1,000 ml @ 1,000 mls/hr 1X ONCE IV 01/14/21 19:00 01/14/21 19:59 DC 01/14/21 20:37 Acetaminophen (Tylenol) 650 mg PRN Q6HRS PRN PO MILD PAIN / TEMP > 100.3'F 01/14/21 23:15 02/08/21 06:28 Multi-Ingredient Ointment (Analgesic [place]) 1 wes PRN QID PRN TP MUSCLE PAIN 01/14/21 23:15 01/23/21 14:58 DC Al Hydroxide/Mg Hydroxide (Mylanta Plus Xs) 15 ml PRN AFTMEALHC PRN PO DYSPEPSIA 01/14/21 23:15 01/16/21 05:33 Magnesium Hydroxide (Milk Of Magnesia) 2,400 mg PRN QHS PRN PO CONSTIPATION 01/14/21 23:15 Donepezil HCl (Aricept) 10 mg HS PO 01/15/21 21:00 02/13/21 21:27 Lorazepam (Ativan) 0.5 mg PRN Q24HRS PRN PO ANXIETY, 1ST CHOICE 01/14/21 23:30 02/11/21 20:14 Lorazepam (Ativan) 0.5 mg TID PO 01/15/21 09:00 01/17/21 17:30 DC 01/17/21 10:25 Melatonin (Melatonin) 3 mg HS PO 01/15/21 21:00 02/13/21 21:28 Paroxetine HCl (Paxil) 40 mg DAILY PO 01/15/21 09:00 01/19/21 17:15 DC 01/19/21 08:40 Hydroxyzine HCl (Atarax) 25 mg PRN Q6HRS PRN PO ANXIETY, 2ND CHOICE 01/15/21 16:45 02/08/21 06:28 Acetaminophen (Tylenol) 650 mg PRN Q6HRS PRN PO PAIN 01/15/21 19:00 UNV Acetaminophen (Tylenol) 500 mg TID PO 01/15/21 21:00 02/13/21 21:28 Atorvastatin Calcium (Lipitor) 10 mg QHS PO 01/15/21 21:00 02/13/21 21:27 Budesonide (Entocort) 6 mg DAILY PO 01/16/21 09:00 02/13/21 09:35 Calcium Polycarbophil (Fibercon) 1,250 mg BID PO 01/15/21 21:00 02/13/21 21:27 Lidocaine (Lidoderm) 1 patch DAILY TD 01/16/21 09:00 02/13/21 09:35 Mirabegron (Myrbetriq) 25 mg DAILY PO 01/16/21 09:00 01/23/21 17:53 DC 01/23/21 07:49 Pantoprazole Sodium (Protonix) 40 mg DAILY PO 01/16/21 09:00 02/13/21 09:36 Phenazopyridine HCl (Pyridium) 100 mg PRN Q24HRS PRN PO URINARY PAIN 01/15/21 19:00 02/09/21 09:25 Lactobacillus Rhamnosus (Culturelle) 1 cap BID PO 01/15/21 09:00 02/13/21 21:27 Losartan Potassium (Cozaar) 100 mg HS PO 01/15/21 21:00 02/13/21 21:27 Miscellaneous (Lidoderm Patch Removal) 1 ea QHS MC 01/15/21 21:00 02/13/21 21:00 Memantine (Namenda) 5 mg BID PO 01/16/21 21:00 01/22/21 22:50 DC 01/22/21 19:49 Memantine (Namenda) 10 mg BID PO 01/23/21 09:00 02/13/21 21:00 Vitamin D (Vitamin D3) 50,000 unit WEEKLY PO 01/16/21 17:30 02/13/21 09:38 Lorazepam (Ativan) 0.5 mg BID PO 01/17/21 21:00 01/19/21 23:50 DC 01/19/21 19:56 Lorazepam (Ativan) 0.5 mg DAILY PO 01/20/21 09:00 01/22/21 12:00 DC 01/22/21 07:50 Quetiapine Fumarate (SEROquel) 12.5 mg 0900,1700 PO 01/18/21 17:00 01/21/21 17:55 DC 01/21/21 17:33 Sertraline HCl (Zoloft) 50 mg DAILY PO 01/20/21 09:00 01/22/21 13:00 DC 01/22/21 07:51 Sertraline HCl (Zoloft) 75 mg DAILY PO 01/23/21 09:00 01/24/21 17:53 DC 01/24/21 08:48 Mirtazapine (Remeron) 7.5 mg QHS PO 01/20/21 21:00 02/13/21 21:28 Quetiapine Fumarate (SEROquel) 12.5 mg 0900,1300,1700 PO 01/22/21 09:00 01/25/21 16:00 DC 01/25/21 12:54 Sertraline HCl (Zoloft) 100 mg DAILY PO 01/25/21 09:00 01/26/21 17:53 DC 01/26/21 05:25 Quetiapine Fumarate (SEROquel) 12.5 mg 0900,1300,1700,2100 PO 01/25/21 21:00 01/28/21 18:16 DC 01/28/21 17:11 Sertraline HCl (Zoloft) 125 mg DAILY PO 01/27/21 09:00 01/30/21 08:02 DC 01/29/21 08:29 Quetiapine Fumarate (SEROquel) 12.5 mg 1300,2100 PO 01/28/21 21:00 02/04/21 17:16 DC 02/04/21 12:31 Quetiapine Fumarate (SEROquel) 25 mg 0900,1700 PO 01/29/21 09:00 02/04/21 17:16 DC 02/04/21 08:11 Quetiapine Fumarate (SEROquel) 12.5 mg 1300,2100 PO 01/28/21 21:00 UNV Sertraline HCl (Zoloft) 100 mg DAILY PO 01/30/21 09:00 02/13/21 09:36 Sertraline HCl (Zoloft) 25 mg DAILY PO 01/30/21 09:00 02/02/21 17:10 DC 02/02/21 08:09 Sertraline HCl (Zoloft) 50 mg DAILY PO 02/03/21 09:00 02/13/21 09:36 Quetiapine Fumarate (SEROquel) 25 mg 0900,1300,1700,2100 PO 02/04/21 17:15 02/08/21 18:36 DC 02/08/21 16:10 Quetiapine Fumarate (SEROquel) 25 mg 0900,1700 PO 02/09/21 09:00 02/08/21 18:39 DC Quetiapine Fumarate (SEROquel) 37.5 mg 0900,1700 PO 02/09/21 09:00 02/13/21 17:56 Quetiapine Fumarate (SEROquel) 25 mg 1300,2100 PO 02/08/21 21:00 02/11/21 19:59 DC 02/11/21 13:16 Quetiapine Fumarate (SEROquel) 37.5 mg 1300,2100 PO 02/11/21 21:00 02/13/21 21:28 I have reviewed the current psychotropics carefully including drug interactions. Risk benefit ratio favors no change other than as noted in my dictated progress note. Diagnosis: Problems: (1) Anxiety disorder, unspecified (2) Impulse control disorder, unspecified (3) Dementia, vascular, with depression (4) Dementia, vascular, with delusions (5) Dementia in Alzheimer's disease with depression (6) Dementia in Alzheimer's disease with delusions (7) Major neurocognitive disorder (8) Dementia in Alzheimer's disease with early onset with behavioral disturbance LUCAS CODY MD Feb 13, 2021 21:59
--- NOTE | 2021-02-14 06:18 | PDOC ---
Exam Note: Deon Note: This note is a late entry for 02/12/2021overs elements not covered in my initial note. Subjective: The patient was seen face to face in the evening of 02/12/2021 with Liu MERCER, discussed and reviewed the chart. The patient slept 7-1/4 hours previous night. Overall the patients COVID-19 screen returned positive. It was repeated on the same specimen and was negative. She was in the isolation hallway, somewhat repetitive questionable when her is and about her dogs at home. Review of Systems: Impaired ambulation in wheelchair. No CV, pulmonary, eye, ENT system symptoms on review. Positive for some lower abdominal discomfort, possibly consequent to her urinary catheter. Mental Status Exam: The patient is oriented to herself and situation. Speech coherent, repetitive. Abstraction fair. Computation impaired. Language function intact. Mood and affect withdrawn, anxious, somewhat labile. No suicidal or homicidal ideation. Laboratory Data: Reviewed. Impression: Major neurocognitive disorder Alzheimer, vascular with delusion, depression, behavioral disturbance. Anxiety disorder unspecified. Impulse control disorder unspecified. Plan: No change from initial note. Assessment: Vital Signs/I&O: Vital Signs Date Time Temp Pulse Resp B/P (MAP) Pulse Ox O2 Delivery O2 Flow Rate FiO2 02/13/21 21:27 96 141/64 02/13/21 15:53 98.2 18 97 02/08/21 15:26 Room Air I & O 02/13/21 02/13/21 02/14/21 15:00 23:00 07:00 Intake Total 600 ml 120 ml Balance 600 ml 120 ml Labs: Laboratory Tests Test 02/13/21 10:00 SARS-CoV-2 (PCR) Negative (NEGATIVE) Current Medications: Meds: Laboratory Tests Test 02/13/21 10:00 Coronavirus (COVID-19)(PCR) Negative Current Medications Medications (Trade) Dose Ordered Sig/Hector Route PRN Reason Start Time Stop Time Status Last Admin Dose Admin Sodium Chloride 1,000 ml @ 1,000 mls/hr 1X ONCE IV 01/14/21 19:00 01/14/21 19:59 DC 01/14/21 20:37 Acetaminophen (Tylenol) 650 mg PRN Q6HRS PRN PO MILD PAIN / TEMP > 100.3'F 01/14/21 23:15 02/08/21 06:28 Multi-Ingredient Ointment (Analgesic [place]) 1 wes PRN QID PRN TP MUSCLE PAIN 01/14/21 23:15 01/23/21 14:58 DC Al Hydroxide/Mg Hydroxide (Mylanta Plus Xs) 15 ml PRN AFTMEALHC PRN PO DYSPEPSIA 01/14/21 23:15 01/16/21 05:33 Magnesium Hydroxide (Milk Of Magnesia) 2,400 mg PRN QHS PRN PO CONSTIPATION 01/14/21 23:15 Donepezil HCl (Aricept) 10 mg HS PO 01/15/21 21:00 02/13/21 21:27 Lorazepam (Ativan) 0.5 mg PRN Q24HRS PRN PO ANXIETY, 1ST CHOICE 01/14/21 23:30 02/11/21 20:14 Lorazepam (Ativan) 0.5 mg TID PO 01/15/21 09:00 01/17/21 17:30 DC 01/17/21 10:25 Melatonin (Melatonin) 3 mg HS PO 01/15/21 21:00 02/13/21 21:28 Paroxetine HCl (Paxil) 40 mg DAILY PO 01/15/21 09:00 01/19/21 17:15 DC 01/19/21 08:40 Hydroxyzine HCl (Atarax) 25 mg PRN Q6HRS PRN PO ANXIETY, 2ND CHOICE 01/15/21 16:45 02/08/21 06:28 Acetaminophen (Tylenol) 650 mg PRN Q6HRS PRN PO PAIN 01/15/21 19:00 UNV Acetaminophen (Tylenol) 500 mg TID PO 01/15/21 21:00 02/13/21 21:28 Atorvastatin Calcium (Lipitor) 10 mg QHS PO 01/15/21 21:00 02/13/21 21:27 Budesonide (Entocort) 6 mg DAILY PO 01/16/21 09:00 02/13/21 09:35 Calcium Polycarbophil (Fibercon) 1,250 mg BID PO 01/15/21 21:00 02/13/21 21:27 Lidocaine (Lidoderm) 1 patch DAILY TD 01/16/21 09:00 02/13/21 09:35 Mirabegron (Myrbetriq) 25 mg DAILY PO 01/16/21 09:00 01/23/21 17:53 DC 01/23/21 07:49 Pantoprazole Sodium (Protonix) 40 mg DAILY PO 01/16/21 09:00 02/13/21 09:36 Phenazopyridine HCl (Pyridium) 100 mg PRN Q24HRS PRN PO URINARY PAIN 01/15/21 19:00 02/09/21 09:25 Lactobacillus Rhamnosus (Culturelle) 1 cap BID PO 01/15/21 09:00 02/13/21 21:27 Losartan Potassium (Cozaar) 100 mg HS PO 01/15/21 21:00 02/13/21 21:27 Miscellaneous (Lidoderm Patch Removal) 1 ea QHS MC 01/15/21 21:00 02/13/21 21:00 Memantine (Namenda) 5 mg BID PO 01/16/21 21:00 01/22/21 22:50 DC 01/22/21 19:49 Memantine (Namenda) 10 mg BID PO 01/23/21 09:00 02/13/21 21:00 Vitamin D (Vitamin D3) 50,000 unit WEEKLY PO 01/16/21 17:30 02/13/21 09:38 Lorazepam (Ativan) 0.5 mg BID PO 01/17/21 21:00 01/19/21 23:50 DC 01/19/21 19:56 Lorazepam (Ativan) 0.5 mg DAILY PO 01/20/21 09:00 01/22/21 12:00 DC 01/22/21 07:50 Quetiapine Fumarate (SEROquel) 12.5 mg 0900,1700 PO 01/18/21 17:00 01/21/21 17:55 DC 01/21/21 17:33 Sertraline HCl (Zoloft) 50 mg DAILY PO 01/20/21 09:00 01/22/21 13:00 DC 01/22/21 07:51 Sertraline HCl (Zoloft) 75 mg DAILY PO 01/23/21 09:00 01/24/21 17:53 DC 01/24/21 08:48 Mirtazapine (Remeron) 7.5 mg QHS PO 01/20/21 21:00 02/13/21 21:28 Quetiapine Fumarate (SEROquel) 12.5 mg 0900,1300,1700 PO 01/22/21 09:00 01/25/21 16:00 DC 01/25/21 12:54 Sertraline HCl (Zoloft) 100 mg DAILY PO 01/25/21 09:00 01/26/21 17:53 DC 01/26/21 05:25 Quetiapine Fumarate (SEROquel) 12.5 mg 0900,1300,1700,2100 PO 01/25/21 21:00 01/28/21 18:16 DC 01/28/21 17:11 Sertraline HCl (Zoloft) 125 mg DAILY PO 01/27/21 09:00 01/30/21 08:02 DC 01/29/21 08:29 Quetiapine Fumarate (SEROquel) 12.5 mg 1300,2100 PO 01/28/21 21:00 02/04/21 17:16 DC 02/04/21 12:31 Quetiapine Fumarate (SEROquel) 25 mg 0900,1700 PO 01/29/21 09:00 02/04/21 17:16 DC 02/04/21 08:11 Quetiapine Fumarate (SEROquel) 12.5 mg 1300,2100 PO 01/28/21 21:00 UNV Sertraline HCl (Zoloft) 100 mg DAILY PO 01/30/21 09:00 02/13/21 09:36 Sertraline HCl (Zoloft) 25 mg DAILY PO 01/30/21 09:00 02/02/21 17:10 DC 02/02/21 08:09 Sertraline HCl (Zoloft) 50 mg DAILY PO 02/03/21 09:00 02/13/21 09:36 Quetiapine Fumarate (SEROquel) 25 mg 0900,1300,1700,2100 PO 02/04/21 17:15 02/08/21 18:36 DC 02/08/21 16:10 Quetiapine Fumarate (SEROquel) 25 mg 0900,1700 PO 02/09/21 09:00 02/08/21 18:39 DC Quetiapine Fumarate (SEROquel) 37.5 mg 0900,1700 PO 02/09/21 09:00 02/13/21 17:56 Quetiapine Fumarate (SEROquel) 25 mg 1300,2100 PO 02/08/21 21:00 02/11/21 19:59 DC 02/11/21 13:16 Quetiapine Fumarate (SEROquel) 37.5 mg 1300,2100 PO 02/11/21 21:00 02/13/21 21:28 I have reviewed the current psychotropics carefully including drug interactions. Risk benefit ratio favors no change other than as noted in my dictated progress note. Diagnosis: Problems: (1) Impulse control disorder, unspecified (2) Anxiety disorder, unspecified (3) Dementia, vascular, with depression (4) Dementia, vascular, with delusions (5) Dementia in Alzheimer's disease with depression (6) Dementia in Alzheimer's disease with delusions (7) Major neurocognitive disorder (8) Dementia in Alzheimer's disease with early onset with behavioral disturbance LUCAS CODY MD Feb 14, 2021 06:18
[2021-02-14 06:23] VITALS: BP 160/88
--- NOTE | 2021-02-14 06:30 | PDOC ---
Exam Note: Deon Note: This note is a late entry for 02/13/2021overs elements not covered in my initial note. Subjective: The patient was reviewed at treatment team meeting individually in the morning on 02/13/2021 with Luz Tracy, Pat Bocanegra (criminal justice social worker), Silva, activity therapy and Senia MERCER, discussed and reviewed the chart. The patient slept 5 hours previous night. Appetite is 70%. She has been yelling, banging on the windows at the nursing station. Repeat COVID-19 swab was negative. She appears increasingly obsessive, anxious, depressed at times, wanting to be out of the isolation area and nursing staff will coordinate this. She has attended 7 groups in the past one week. I met with her in the isolation room. She does complain of lower abdominal pain consequent to the catheter. Review of Systems: Impaired ambulation in wheelchair. No CV, pulmonary, eye, ENT system symptoms on review. She does complain of lower abdominal pain. Mental Status Exam: The patient is oriented to herself and situation. Speech coherent, rapid at times. Abstraction fair. Computation impaired. Language function intact. Mood and affect somewhat obsessive, anxious, labile. Short- term memory is impaired. Laboratory Data: Reviewed. Impression: Major neurocognitive disorder Alzheimer, vascular with delusion, depression, behavioral disturbance. Anxiety disorder unspecified. Impulse control disorder unspecified. Plan: No change from initial note and she will return back to her regular room when staff can arrange this. Assessment: Vital Signs/I&O: Vital Signs Date Time Temp Pulse Resp B/P (MAP) Pulse Ox O2 Delivery O2 Flow Rate FiO2 02/14/21 06:23 97.1 92 18 160/88 (112) 96 02/08/21 15:26 Room Air I & O 02/13/21 02/13/21 02/14/21 15:00 23:00 07:00 Intake Total 600 ml 120 ml Balance 600 ml 120 ml Labs: Laboratory Tests Test 02/13/21 10:00 SARS-CoV-2 (PCR) Negative (NEGATIVE) Current Medications: Meds: Laboratory Tests Test 02/13/21 10:00 Coronavirus (COVID-19)(PCR) Negative Current Medications Medications (Trade) Dose Ordered Sig/Hector Route PRN Reason Start Time Stop Time Status Last Admin Dose Admin Sodium Chloride 1,000 ml @ 1,000 mls/hr 1X ONCE IV 01/14/21 19:00 01/14/21 19:59 DC 01/14/21 20:37 Acetaminophen (Tylenol) 650 mg PRN Q6HRS PRN PO MILD PAIN / TEMP > 100.3'F 01/14/21 23:15 02/08/21 06:28 Multi-Ingredient Ointment (Analgesic [place]) 1 wes PRN QID PRN TP MUSCLE PAIN 01/14/21 23:15 01/23/21 14:58 DC Al Hydroxide/Mg Hydroxide (Mylanta Plus Xs) 15 ml PRN AFTMEALHC PRN PO DYSPEPSIA 01/14/21 23:15 01/16/21 05:33 Magnesium Hydroxide (Milk Of Magnesia) 2,400 mg PRN QHS PRN PO CONSTIPATION 01/14/21 23:15 Donepezil HCl (Aricept) 10 mg HS PO 01/15/21 21:00 02/13/21 21:27 Lorazepam (Ativan) 0.5 mg PRN Q24HRS PRN PO ANXIETY, 1ST CHOICE 01/14/21 23:30 02/11/21 20:14 Lorazepam (Ativan) 0.5 mg TID PO 01/15/21 09:00 01/17/21 17:30 DC 01/17/21 10:25 Melatonin (Melatonin) 3 mg HS PO 01/15/21 21:00 02/13/21 21:28 Paroxetine HCl (Paxil) 40 mg DAILY PO 01/15/21 09:00 01/19/21 17:15 DC 01/19/21 08:40 Hydroxyzine HCl (Atarax) 25 mg PRN Q6HRS PRN PO ANXIETY, 2ND CHOICE 01/15/21 16:45 02/08/21 06:28 Acetaminophen (Tylenol) 650 mg PRN Q6HRS PRN PO PAIN 01/15/21 19:00 UNV Acetaminophen (Tylenol) 500 mg TID PO 01/15/21 21:00 02/13/21 21:28 Atorvastatin Calcium (Lipitor) 10 mg QHS PO 01/15/21 21:00 02/13/21 21:27 Budesonide (Entocort) 6 mg DAILY PO 01/16/21 09:00 02/13/21 09:35 Calcium Polycarbophil (Fibercon) 1,250 mg BID PO 01/15/21 21:00 02/13/21 21:27 Lidocaine (Lidoderm) 1 patch DAILY TD 01/16/21 09:00 02/13/21 09:35 Mirabegron (Myrbetriq) 25 mg DAILY PO 01/16/21 09:00 01/23/21 17:53 DC 01/23/21 07:49 Pantoprazole Sodium (Protonix) 40 mg DAILY PO 01/16/21 09:00 02/13/21 09:36 Phenazopyridine HCl (Pyridium) 100 mg PRN Q24HRS PRN PO URINARY PAIN 01/15/21 19:00 02/09/21 09:25 Lactobacillus Rhamnosus (Culturelle) 1 cap BID PO 01/15/21 09:00 02/13/21 21:27 Losartan Potassium (Cozaar) 100 mg HS PO 01/15/21 21:00 02/13/21 21:27 Miscellaneous (Lidoderm Patch Removal) 1 ea QHS 01/15/21 21:00 02/13/21 21:00 Memantine (Namenda) 5 mg BID PO 01/16/21 21:00 01/22/21 22:50 DC 01/22/21 19:49 Memantine (Namenda) 10 mg BID PO 01/23/21 09:00 02/13/21 21:00 Vitamin D (Vitamin D3) 50,000 unit WEEKLY PO 01/16/21 17:30 02/13/21 09:38 Lorazepam (Ativan) 0.5 mg BID PO 01/17/21 21:00 01/19/21 23:50 DC 01/19/21 19:56 Lorazepam (Ativan) 0.5 mg DAILY PO 01/20/21 09:00 01/22/21 12:00 DC 01/22/21 07:50 Quetiapine Fumarate (SEROquel) 12.5 mg 0900,1700 PO 01/18/21 17:00 01/21/21 17:55 DC 01/21/21 17:33 Sertraline HCl (Zoloft) 50 mg DAILY PO 01/20/21 09:00 01/22/21 13:00 DC 01/22/21 07:51 Sertraline HCl (Zoloft) 75 mg DAILY PO 01/23/21 09:00 01/24/21 17:53 DC 01/24/21 08:48 Mirtazapine (Remeron) 7.5 mg QHS PO 01/20/21 21:00 02/13/21 21:28 Quetiapine Fumarate (SEROquel) 12.5 mg 0900,1300,1700 PO 01/22/21 09:00 01/25/21 16:00 DC 01/25/21 12:54 Sertraline HCl (Zoloft) 100 mg DAILY PO 01/25/21 09:00 01/26/21 17:53 DC 01/26/21 05:25 Quetiapine Fumarate (SEROquel) 12.5 mg 0900,1300,1700,2100 PO 01/25/21 21:00 01/28/21 18:16 DC 01/28/21 17:11 Sertraline HCl (Zoloft) 125 mg DAILY PO 01/27/21 09:00 01/30/21 08:02 DC 01/29/21 08:29 Quetiapine Fumarate (SEROquel) 12.5 mg 1300,2100 PO 01/28/21 21:00 02/04/21 17:16 DC 02/04/21 12:31 Quetiapine Fumarate (SEROquel) 25 mg 0900,1700 PO 01/29/21 09:00 02/04/21 17:16 DC 02/04/21 08:11 Quetiapine Fumarate (SEROquel) 12.5 mg 1300,2100 PO 01/28/21 21:00 UNV Sertraline HCl (Zoloft) 100 mg DAILY PO 01/30/21 09:00 02/13/21 09:36 Sertraline HCl (Zoloft) 25 mg DAILY PO 01/30/21 09:00 02/02/21 17:10 DC 02/02/21 08:09 Sertraline HCl (Zoloft) 50 mg DAILY PO 02/03/21 09:00 02/13/21 09:36 Quetiapine Fumarate (SEROquel) 25 mg 0900,1300,1700,2100 PO 02/04/21 17:15 02/08/21 18:36 DC 02/08/21 16:10 Quetiapine Fumarate (SEROquel) 25 mg 0900,1700 PO 02/09/21 09:00 02/08/21 18:39 DC Quetiapine Fumarate (SEROquel) 37.5 mg 0900,1700 PO 02/09/21 09:00 02/13/21 17:56 Quetiapine Fumarate (SEROquel) 25 mg 1300,2100 PO 02/08/21 21:00 02/11/21 19:59 DC 02/11/21 13:16 Quetiapine Fumarate (SEROquel) 37.5 mg 1300,2100 PO 02/11/21 21:00 02/13/21 21:28 I have reviewed the current psychotropics carefully including drug interactions. Risk benefit ratio favors no change other than as noted in my dictated progress note. Diagnosis: Problems: (1) Impulse control disorder, unspecified (2) Anxiety disorder, unspecified (3) Dementia, vascular, with depression (4) Dementia, vascular, with delusions (5) Dementia in Alzheimer's disease with depression (6) Dementia in Alzheimer's disease with delusions (7) Major neurocognitive disorder (8) Dementia in Alzheimer's disease with early onset with behavioral disturbance LUCAS CODY MD Feb 14, 2021 06:30
[2021-02-14 07:29] LABS: BASO # 0.1 x10^3/uL (0.0-0.2); BASO % 1 % (0-3); EOS # 0.4 x10^3/uL (0.0-0.7); EOS % 3 % (0-3); HEMATOCRIT 35.3 % (36.0-47.0); HEMOGLOBIN 11.2 g/dL (12.0-15.5); LYMPH # 2.3 x10^3/uL (1.0-4.8); LYMPH % 17 % (24-48); MEAN CORPUSCULAR HEMOGLOBIN 27 pg (25-35); MEAN CORPUSCULAR HGB CONC 32 g/dL (31-37); MEAN CORPUSCULAR VOLUME 85 fL (79-100); MONO # 1.4 x10^3/uL (0.0-1.1); MONO % 10 % (0-9); NEUT # 9.8 x10^3uL (1.8-7.7); NEUT % 70 % (31-73); PLATELET COUNT 530 x10^3/uL (140-400); RED BLOOD COUNT 4.15 x10^6/uL (3.50-5.40); RED CELL DISTRIBUTION WIDTH 14.8 % (11.5-14.5)
[2021-02-14 07:45] LABS: ALBUMIN 3.6 g/dL (3.4-5.0); CALCIUM 9.1 mg/dL (8.5-10.1); CREATININE 1.2 mg/dL (0.6-1.0); GFR 43.1; POTASSIUM 4.5 mmol/L (3.5-5.1); TOTAL BILIRUBIN 0.3 mg/dL (0.2-1.0); TOTAL PROTEIN 7.1 g/dL (6.4-8.2)
[2021-02-14] MEDS: LIDOCAINE (700MG/PATCH) PATCH. TD SCH (08:31)
[2021-02-14] MEDS: CALCIUM POLYCARBOPHIL 625 MG TABLET PO SCH ×2 (08:32→20:13)
[2021-02-14] MEDS: SERTRALINE 100 MG TABLET. PO SCH (08:32)
[2021-02-14] MEDS: QUEtiapine 25 MG TABLET. PO SCH ×4 (08:32→20:14)
[2021-02-14] MEDS: PANTOPRAZOLE 40 MG TABLET. PO SCH (08:32)
[2021-02-14] MEDS: LACTOBACILLUS RHAMNOSUS GG 1 CAPSULE. PO SCH ×2 (08:32→20:13)
[2021-02-14] MEDS: SERTRALINE 50 MG TABLET. PO SCH (08:32)
[2021-02-14] MEDS: BUDESONIDE 3 MG CAP.ER.24H. PO SCH (08:33)
[2021-02-14] MEDS: ACETAMINOPHEN 500 MG TABLET PO SCH ×3 (08:33→20:14)
[2021-02-14] MEDS: MEMANTINE 10 MG TABLET. PO SCH ×2 (08:33→20:14)
[2021-02-14 16:02] VITALS: BP 123/79
[2021-02-14] MEDS: PHENAZOPYRIDINE 100 MG TABLET. PO PRN (20:13)
[2021-02-14] MEDS: LOSARTAN 50 MG TABLET. PO SCH (20:13)
[2021-02-14] MEDS: ATORVASTATIN CALCIUM 10 MG TABLET. PO SCH (20:13)
[2021-02-14] MEDS: MIRTAZAPINE 7.5 MG TABLET. PO SCH (20:13)
[2021-02-14] MEDS: MELATONIN 3 MG TABLET PO SCH (20:13)
[2021-02-14] MEDS: DONEPEZIL HCL 10 MG TABLET PO SCH (20:13)
[2021-02-14] MEDS: PATCH REMOVAL. MC SCH (20:16)
--- NOTE | 2021-02-14 22:10 | PDOC ---
Exam Note: Deon Note: Please also refer to the separate dictated note~for this date of service dictated separately.~Patient seen individually. Discussed the patient with Nursing staff reviewed the chart.~Reviewed interim history and current functioning. Reviewed vital signs,~Labs/ Radiology~and current medications noted below. Continue current treatment with the changes noted in the dictated addendum note Assessment: Vital Signs/I&O: Vital Signs Date Time Temp Pulse Resp B/P (MAP) Pulse Ox O2 Delivery O2 Flow Rate FiO2 02/14/21 20:13 108 123/79 02/14/21 16:02 98.2 20 100 Room Air I & O 02/13/21 02/13/21 02/14/21 15:00 23:00 07:00 Intake Total 600 ml 120 ml Balance 600 ml 120 ml Labs: Laboratory Tests Test 02/14/21 07:05 White Blood Count 14.0 x10^3/uL (4.0-11.0) H Red Blood Count 4.15 x10^6/uL (3.50-5.40) Hemoglobin 11.2 g/dL (12.0-15.5) L Hematocrit 35.3 % (36.0-47.0) L Mean Corpuscular Volume 85 fL (79-100) Mean Corpuscular Hemoglobin 27 pg (25-35) Mean Corpuscular Hemoglobin Concent 32 g/dL (31-37) Red Cell Distribution Width 14.8 % (11.5-14.5) H Platelet Count 530 x10^3/uL (140-400) H Neutrophils (%) (Auto) 70 % (31-73) Lymphocytes (%) (Auto) 17 % (24-48) L Monocytes (%) (Auto) 10 % (0-9) H Eosinophils (%) (Auto) 3 % (0-3) Basophils (%) (Auto) 1 % (0-3) Neutrophils # (Auto) 9.8 x10^3uL (1.8-7.7) H Lymphocytes # (Auto) 2.3 x10^3/uL (1.0-4.8) Monocytes # (Auto) 1.4 x10^3/uL (0.0-1.1) H Eosinophils # (Auto) 0.4 x10^3/uL (0.0-0.7) Basophils # (Auto) 0.1 x10^3/uL (0.0-0.2) Sodium Level 144 mmol/L (136-145) Potassium Level 4.5 mmol/L (3.5-5.1) Chloride Level 106 mmol/L (98-107) Carbon Dioxide Level 29 mmol/L (21-32) Anion Gap 9 (6-14) Blood Urea Nitrogen 32 mg/dL (7-20) H Creatinine 1.2 mg/dL (0.6-1.0) H Estimated GFR (Cockcroft-Gault) 43.1 BUN/Creatinine Ratio 27 (6-20) H Glucose Level 103 mg/dL (70-99) H Calcium Level 9.1 mg/dL (8.5-10.1) Total Bilirubin 0.3 mg/dL (0.2-1.0) Aspartate Amino Transferase (AST) 19 U/L (15-37) Alanine Aminotransferase (ALT) 21 U/L (14-59) Alkaline Phosphatase 91 U/L (46-116) Total Protein 7.1 g/dL (6.4-8.2) Albumin 3.6 g/dL (3.4-5.0) Albumin/Globulin Ratio 1.0 (1.0-1.7) Current Medications: Meds: Laboratory Tests Test 02/14/21 07:05 White Blood Count 14.0 x10^3/uL Red Blood Count 4.15 x10^6/uL Hemoglobin 11.2 g/dL Hematocrit 35.3 % Mean Corpuscular Volume 85 fL Mean Corpuscular Hemoglobin 27 pg Mean Corpuscular Hemoglobin Concent 32 g/dL Red Cell Distribution Width 14.8 % Platelet Count 530 x10^3/uL Neutrophils (%) (Auto) 70 % Lymphocytes (%) (Auto) 17 % Monocytes (%) (Auto) 10 % Eosinophils (%) (Auto) 3 % Basophils (%) (Auto) 1 % Neutrophils # (Auto) 9.8 x10^3uL Lymphocytes # (Auto) 2.3 x10^3/uL Monocytes # (Auto) 1.4 x10^3/uL Eosinophils # (Auto) 0.4 x10^3/uL Basophils # (Auto) 0.1 x10^3/uL Sodium Level 144 mmol/L Potassium Level 4.5 mmol/L Chloride Level 106 mmol/L Carbon Dioxide Level 29 mmol/L Anion Gap 9 Blood Urea Nitrogen 32 mg/dL Creatinine 1.2 mg/dL Estimated GFR (Cockcroft-Gault) 43.1 BUN/Creatinine Ratio 27 Glucose Level 103 mg/dL Calcium Level 9.1 mg/dL Total Bilirubin 0.3 mg/dL Aspartate Amino Transf (AST/SGOT) 19 U/L Alanine Aminotransferase (ALT/SGPT) 21 U/L Alkaline Phosphatase 91 U/L Total Protein 7.1 g/dL Albumin 3.6 g/dL Albumin/Globulin Ratio 1.0 Current Medications Medications (Trade) Dose Ordered Sig/Hector Route PRN Reason Start Time Stop Time Status Last Admin Dose Admin Sodium Chloride 1,000 ml @ 1,000 mls/hr 1X ONCE IV 01/14/21 19:00 01/14/21 19:59 DC 01/14/21 20:37 Acetaminophen (Tylenol) 650 mg PRN Q6HRS PRN PO MILD PAIN / TEMP > 100.3'F 01/14/21 23:15 02/08/21 06:28 Multi-Ingredient Ointment (Analgesic [place]) 1 wes PRN QID PRN TP MUSCLE PAIN 01/14/21 23:15 01/23/21 14:58 DC Al Hydroxide/Mg Hydroxide (Mylanta Plus Xs) 15 ml PRN AFTMEALHC PRN PO DYSPEPSIA 01/14/21 23:15 01/16/21 05:33 Magnesium Hydroxide (Milk Of Magnesia) 2,400 mg PRN QHS PRN PO CONSTIPATION 01/14/21 23:15 Donepezil HCl (Aricept) 10 mg HS PO 01/15/21 21:00 02/14/21 20:13 Lorazepam (Ativan) 0.5 mg PRN Q24HRS PRN PO ANXIETY, 1ST CHOICE 01/14/21 23:30 02/11/21 20:14 Lorazepam (Ativan) 0.5 mg TID PO 01/15/21 09:00 01/17/21 17:30 DC 01/17/21 10:25 Melatonin (Melatonin) 3 mg HS PO 01/15/21 21:00 02/14/21 20:13 Paroxetine HCl (Paxil) 40 mg DAILY PO 01/15/21 09:00 01/19/21 17:15 DC 01/19/21 08:40 Hydroxyzine HCl (Atarax) 25 mg PRN Q6HRS PRN PO ANXIETY, 2ND CHOICE 01/15/21 16:45 02/08/21 06:28 Acetaminophen (Tylenol) 650 mg PRN Q6HRS PRN PO PAIN 01/15/21 19:00 UNV Acetaminophen (Tylenol) 500 mg TID PO 01/15/21 21:00 02/14/21 20:14 Atorvastatin Calcium (Lipitor) 10 mg QHS PO 01/15/21 21:00 02/14/21 20:13 Budesonide (Entocort) 6 mg DAILY PO 01/16/21 09:00 02/14/21 08:33 Calcium Polycarbophil (Fibercon) 1,250 mg BID PO 01/15/21 21:00 02/14/21 20:13 Lidocaine (Lidoderm) 1 patch DAILY TD 01/16/21 09:00 02/14/21 08:31 Mirabegron (Myrbetriq) 25 mg DAILY PO 01/16/21 09:00 01/23/21 17:53 DC 01/23/21 07:49 Pantoprazole Sodium (Protonix) 40 mg DAILY PO 01/16/21 09:00 02/14/21 08:32 Phenazopyridine HCl (Pyridium) 100 mg PRN Q24HRS PRN PO URINARY PAIN 01/15/21 19:00 02/14/21 20:13 Lactobacillus Rhamnosus (Culturelle) 1 cap BID PO 01/15/21 09:00 02/14/21 20:13 Losartan Potassium (Cozaar) 100 mg HS PO 01/15/21 21:00 02/14/21 20:13 Miscellaneous (Lidoderm Patch Removal) 1 ea QHS MC 01/15/21 21:00 02/14/21 20:16 Memantine (Namenda) 5 mg BID PO 01/16/21 21:00 01/22/21 22:50 DC 01/22/21 19:49 Memantine (Namenda) 10 mg BID PO 01/23/21 09:00 02/14/21 20:14 Vitamin D (Vitamin D3) 50,000 unit WEEKLY PO 01/16/21 17:30 02/13/21 09:38 Lorazepam (Ativan) 0.5 mg BID PO 01/17/21 21:00 01/19/21 23:50 DC 01/19/21 19:56 Lorazepam (Ativan) 0.5 mg DAILY PO 01/20/21 09:00 01/22/21 12:00 DC 01/22/21 07:50 Quetiapine Fumarate (SEROquel) 12.5 mg 0900,1700 PO 01/18/21 17:00 01/21/21 17:55 DC 01/21/21 17:33 Sertraline HCl (Zoloft) 50 mg DAILY PO 01/20/21 09:00 01/22/21 13:00 DC 01/22/21 07:51 Sertraline HCl (Zoloft) 75 mg DAILY PO 01/23/21 09:00 01/24/21 17:53 DC 01/24/21 08:48 Mirtazapine (Remeron) 7.5 mg QHS PO 01/20/21 21:00 02/14/21 20:13 Quetiapine Fumarate (SEROquel) 12.5 mg 0900,1300,1700 PO 01/22/21 09:00 01/25/21 16:00 DC 01/25/21 12:54 Sertraline HCl (Zoloft) 100 mg DAILY PO 01/25/21 09:00 01/26/21 17:53 DC 01/26/21 05:25 Quetiapine Fumarate (SEROquel) 12.5 mg 0900,1300,1700,2100 PO 01/25/21 21:00 01/28/21 18:16 DC 01/28/21 17:11 Sertraline HCl (Zoloft) 125 mg DAILY PO 01/27/21 09:00 01/30/21 08:02 DC 01/29/21 08:29 Quetiapine Fumarate (SEROquel) 12.5 mg 1300,2100 PO 01/28/21 21:00 02/04/21 17:16 DC 02/04/21 12:31 Quetiapine Fumarate (SEROquel) 25 mg 0900,1700 PO 01/29/21 09:00 02/04/21 17:16 DC 02/04/21 08:11 Quetiapine Fumarate (SEROquel) 12.5 mg 1300,2100 PO 01/28/21 21:00 UNV Sertraline HCl (Zoloft) 100 mg DAILY PO 01/30/21 09:00 02/14/21 08:32 Sertraline HCl (Zoloft) 25 mg DAILY PO 01/30/21 09:00 02/02/21 17:10 DC 02/02/21 08:09 Sertraline HCl (Zoloft) 50 mg DAILY PO 02/03/21 09:00 02/14/21 08:32 Quetiapine Fumarate (SEROquel) 25 mg 0900,1300,1700,2100 PO 02/04/21 17:15 02/08/21 18:36 DC 02/08/21 16:10 Quetiapine Fumarate (SEROquel) 25 mg 0900,1700 PO 02/09/21 09:00 02/08/21 18:39 DC Quetiapine Fumarate (SEROquel) 37.5 mg 0900,1700 PO 02/09/21 09:00 02/14/21 17:19 Quetiapine Fumarate (SEROquel) 25 mg 1300,2100 PO 02/08/21 21:00 02/11/21 19:59 DC 02/11/21 13:16 Quetiapine Fumarate (SEROquel) 37.5 mg 1300,2100 PO 02/11/21 21:00 02/14/21 20:14 I have reviewed the current psychotropics carefully including drug interactions. Risk benefit ratio favors no change other than as noted in my dictated progress note. Diagnosis: Problems: (1) Impulse control disorder, unspecified (2) Anxiety disorder, unspecified (3) Dementia, vascular, with depression (4) Dementia, vascular, with delusions (5) Dementia in Alzheimer's disease with depression (6) Dementia in Alzheimer's disease with delusions (7) Major neurocognitive disorder (8) Dementia in Alzheimer's disease with early onset with behavioral disturbance LUCAS CODY MD Feb 14, 2021 22:10
[2021-02-14] MEDS: LORazepam 0.5 MG TABLET PO PRN (23:15)
[2021-02-15 06:22] VITALS: BP 111/69
[2021-02-15] MEDS: LIDOCAINE (700MG/PATCH) PATCH. TD SCH (08:05)
[2021-02-15] MEDS: LACTOBACILLUS RHAMNOSUS GG 1 CAPSULE. PO SCH ×2 (08:06→20:41)
[2021-02-15] MEDS: SERTRALINE 100 MG TABLET. PO SCH (08:06)
[2021-02-15] MEDS: CALCIUM POLYCARBOPHIL 625 MG TABLET PO SCH ×2 (08:06→20:43)
[2021-02-15] MEDS: SERTRALINE 50 MG TABLET. PO SCH (08:06)
[2021-02-15] MEDS: QUEtiapine 25 MG TABLET. PO SCH ×4 (08:07→20:42)
[2021-02-15] MEDS: MEMANTINE 10 MG TABLET. PO SCH ×2 (08:07→20:43)
[2021-02-15] MEDS: PANTOPRAZOLE 40 MG TABLET. PO SCH (08:07)
[2021-02-15] MEDS: BUDESONIDE 3 MG CAP.ER.24H. PO SCH (08:07)
[2021-02-15] MEDS: ACETAMINOPHEN 500 MG TABLET PO SCH ×3 (08:07→20:42)
[2021-02-15 15:20] VITALS: BP 102/66
[2021-02-15] MEDS: AMOXICILLIN 250 MG CAPSULE PO SCH (18:30)
[2021-02-15] MEDS: MELATONIN 3 MG TABLET PO SCH (20:42)
[2021-02-15] MEDS: MIRTAZAPINE 7.5 MG TABLET. PO SCH (20:43)
[2021-02-15] MEDS: ATORVASTATIN CALCIUM 10 MG TABLET. PO SCH (20:43)
[2021-02-15] MEDS: DONEPEZIL HCL 10 MG TABLET PO SCH (20:43)
[2021-02-15] MEDS: LOSARTAN 50 MG TABLET. PO SCH (20:47)
[2021-02-15] MEDS: PATCH REMOVAL. MC SCH (20:48)
--- NOTE | 2021-02-15 22:21 | PDOC ---
Exam Note: Deon Note: Please also refer to the separate dictated note~for this date of service dictated separately.~Patient seen individually. Discussed the patient with Nursing staff reviewed the chart.~Reviewed interim history and current functioning. Reviewed vital signs,~Labs/ Radiology~and current medications noted below. Continue current treatment with the changes noted in the dictated addendum note Assessment: Vital Signs/I&O: Vital Signs Date Time Temp Pulse Resp B/P (MAP) Pulse Ox O2 Delivery O2 Flow Rate FiO2 02/15/21 20:47 106 107/66 02/15/21 15:20 97.2 17 96 Room Air I & O 02/14/21 02/14/21 02/15/21 15:00 23:00 07:00 Intake Total 360 ml 360 ml Output Total 600 ml 300 ml Balance 360 ml -240 ml -300 ml Current Medications: Meds: Current Medications Medications (Trade) Dose Ordered Sig/Hector Route PRN Reason Start Time Stop Time Status Last Admin Dose Admin Sodium Chloride 1,000 ml @ 1,000 mls/hr 1X ONCE IV 01/14/21 19:00 01/14/21 19:59 DC 01/14/21 20:37 Acetaminophen (Tylenol) 650 mg PRN Q6HRS PRN PO MILD PAIN / TEMP > 100.3'F 01/14/21 23:15 02/08/21 06:28 Multi-Ingredient Ointment (Analgesic [place]) 1 wes PRN QID PRN TP MUSCLE PAIN 01/14/21 23:15 01/23/21 14:58 DC Al Hydroxide/Mg Hydroxide (Mylanta Plus Xs) 15 ml PRN AFTMEALHC PRN PO DYSPEPSIA 01/14/21 23:15 01/16/21 05:33 Magnesium Hydroxide (Milk Of Magnesia) 2,400 mg PRN QHS PRN PO CONSTIPATION 01/14/21 23:15 Donepezil HCl (Aricept) 10 mg HS PO 01/15/21 21:00 02/15/21 20:43 Lorazepam (Ativan) 0.5 mg PRN Q24HRS PRN PO ANXIETY, 1ST CHOICE 01/14/21 23:30 02/14/21 23:15 Lorazepam (Ativan) 0.5 mg TID PO 01/15/21 09:00 01/17/21 17:30 DC 01/17/21 10:25 Melatonin (Melatonin) 3 mg HS PO 01/15/21 21:00 02/15/21 20:42 Paroxetine HCl (Paxil) 40 mg DAILY PO 01/15/21 09:00 01/19/21 17:15 DC 01/19/21 08:40 Hydroxyzine HCl (Atarax) 25 mg PRN Q6HRS PRN PO ANXIETY, 2ND CHOICE 01/15/21 16:45 02/08/21 06:28 Acetaminophen (Tylenol) 650 mg PRN Q6HRS PRN PO PAIN 01/15/21 19:00 UNV Acetaminophen (Tylenol) 500 mg TID PO 01/15/21 21:00 02/15/21 20:42 Atorvastatin Calcium (Lipitor) 10 mg QHS PO 01/15/21 21:00 02/15/21 20:43 Budesonide (Entocort) 6 mg DAILY PO 01/16/21 09:00 02/15/21 08:07 Calcium Polycarbophil (Fibercon) 1,250 mg BID PO 01/15/21 21:00 02/15/21 20:43 Lidocaine (Lidoderm) 1 patch DAILY TD 01/16/21 09:00 02/15/21 08:05 Mirabegron (Myrbetriq) 25 mg DAILY PO 01/16/21 09:00 01/23/21 17:53 DC 01/23/21 07:49 Pantoprazole Sodium (Protonix) 40 mg DAILY PO 01/16/21 09:00 02/15/21 08:07 Phenazopyridine HCl (Pyridium) 100 mg PRN Q24HRS PRN PO URINARY PAIN 01/15/21 19:00 02/14/21 20:13 Lactobacillus Rhamnosus (Culturelle) 1 cap BID PO 01/15/21 09:00 02/15/21 20:41 Losartan Potassium (Cozaar) 100 mg HS PO 01/15/21 21:00 02/15/21 20:47 Miscellaneous (Lidoderm Patch Removal) 1 ea QHS 01/15/21 21:00 02/15/21 20:48 Memantine (Namenda) 5 mg BID PO 01/16/21 21:00 01/22/21 22:50 DC 01/22/21 19:49 Memantine (Namenda) 10 mg BID PO 01/23/21 09:00 02/15/21 20:43 Vitamin D (Vitamin D3) 50,000 unit WEEKLY PO 01/16/21 17:30 02/13/21 09:38 Lorazepam (Ativan) 0.5 mg BID PO 01/17/21 21:00 01/19/21 23:50 DC 01/19/21 19:56 Lorazepam (Ativan) 0.5 mg DAILY PO 01/20/21 09:00 01/22/21 12:00 DC 01/22/21 07:50 Quetiapine Fumarate (SEROquel) 12.5 mg 0900,1700 PO 01/18/21 17:00 01/21/21 17:55 DC 01/21/21 17:33 Sertraline HCl (Zoloft) 50 mg DAILY PO 01/20/21 09:00 01/22/21 13:00 DC 01/22/21 07:51 Sertraline HCl (Zoloft) 75 mg DAILY PO 01/23/21 09:00 01/24/21 17:53 DC 01/24/21 08:48 Mirtazapine (Remeron) 7.5 mg QHS PO 01/20/21 21:00 02/15/21 20:43 Quetiapine Fumarate (SEROquel) 12.5 mg 0900,1300,1700 PO 01/22/21 09:00 01/25/21 16:00 DC 01/25/21 12:54 Sertraline HCl (Zoloft) 100 mg DAILY PO 01/25/21 09:00 01/26/21 17:53 DC 01/26/21 05:25 Quetiapine Fumarate (SEROquel) 12.5 mg 0900,1300,1700,2100 PO 01/25/21 21:00 01/28/21 18:16 DC 01/28/21 17:11 Sertraline HCl (Zoloft) 125 mg DAILY PO 01/27/21 09:00 01/30/21 08:02 DC 01/29/21 08:29 Quetiapine Fumarate (SEROquel) 12.5 mg 1300,2100 PO 01/28/21 21:00 02/04/21 17:16 DC 02/04/21 12:31 Quetiapine Fumarate (SEROquel) 25 mg 0900,1700 PO 01/29/21 09:00 02/04/21 17:16 DC 02/04/21 08:11 Quetiapine Fumarate (SEROquel) 12.5 mg 1300,2100 PO 01/28/21 21:00 UNV Sertraline HCl (Zoloft) 100 mg DAILY PO 01/30/21 09:00 02/15/21 08:06 Sertraline HCl (Zoloft) 25 mg DAILY PO 01/30/21 09:00 02/02/21 17:10 DC 02/02/21 08:09 Sertraline HCl (Zoloft) 50 mg DAILY PO 02/03/21 09:00 02/15/21 08:06 Quetiapine Fumarate (SEROquel) 25 mg 0900,1300,1700,2100 PO 02/04/21 17:15 02/08/21 18:36 DC 02/08/21 16:10 Quetiapine Fumarate (SEROquel) 25 mg 0900,1700 PO 02/09/21 09:00 02/08/21 18:39 DC Quetiapine Fumarate (SEROquel) 37.5 mg 0900,1700 PO 02/09/21 09:00 02/15/21 17:00 Quetiapine Fumarate (SEROquel) 25 mg 1300,2100 PO 02/08/21 21:00 02/11/21 19:59 DC 02/11/21 13:16 Quetiapine Fumarate (SEROquel) 37.5 mg 1300,2100 PO 02/11/21 21:00 02/15/21 20:42 Amoxicillin (Amoxil) 250 mg [id number] PO 02/15/21 18:30 02/22/21 18:29 02/15/21 18:30 Current Medications Medications (Trade) Dose Ordered Sig/Hector Route PRN Reason Start Time Stop Time Status Last Admin Dose Admin Amoxicillin (Amoxil) 250 mg [id number] PO 02/15/21 18:30 02/22/21 18:29 02/15/21 18:30 I have reviewed the current psychotropics carefully including drug interactions. Risk benefit ratio favors no change other than as noted in my dictated progress note. Diagnosis: Problems: (1) Impulse control disorder, unspecified (2) Anxiety disorder, unspecified (3) Dementia, vascular, with depression (4) Dementia, vascular, with delusions (5) Dementia in Alzheimer's disease with depression (6) Dementia in Alzheimer's disease with delusions (7) Major neurocognitive disorder (8) Dementia in Alzheimer's disease with early onset with behavioral disturbance LUCAS CODY MD Feb 15, 2021 22:21
[2021-02-16] MEDS: PHENAZOPYRIDINE 100 MG TABLET. PO PRN (02:13)
[2021-02-16] MEDS: ACETAMINOPHEN 325 MG TABLET PO PRN (02:13)
[2021-02-16] MEDS: hydrOXYzine HCL 25 MG TABLET PO PRN (02:13)
[2021-02-16 06:04] VITALS: BP 99/60
--- NOTE | 2021-02-16 06:28 | PDOC ---
Exam Note: Deon Note: This note is a late entry for 02/14/2021overs elements not covered in my initial note. Subjective: The patient was seen individually in the evening of 02/14/2021 with Radha MERCER, discussed and reviewed the chart. The patient slept 5 hours previous night. She has been confused, but pleasant. She is compliant with medications. She is asking if she is going to because of COVID. She was reassured and accepted. Review of Systems: Impaired ambulation, in wheelchair. No CV, pulmonary, eye, ENT system symptoms on review. She complains of bladder spasms. Received Pyridium. She does have a catheter in place. Mental Status Exam: The patient is oriented to herself and situation. She is less obsessive and repetitive. Abstraction fair. Computation impaired. Language function intact. Mood and affect somewhat anxious, labile. Short-term memory is impaired. Laboratory Data: Reviewed. Impression: Major neurocognitive disorder Alzheimer, vascular with delusion, depression, behavioral disturbance. Anxiety disorder unspecified. Impulse control disorder unspecified. Plan: No change from initial note. Assessment: Vital Signs/I&O: Vital Signs Date Time Temp Pulse Resp B/P (MAP) Pulse Ox O2 Delivery O2 Flow Rate FiO2 02/16/21 06:04 97.3 82 16 99/60 (73) 93 02/15/21 15:20 Room Air I & O 02/15/21 02/15/21 02/16/21 15:00 23:00 07:00 Intake Total 840 ml 470 ml Output Total 525 ml 400 ml Balance 840 ml -55 ml -400 ml Current Medications: Meds: Current Medications Medications (Trade) Dose Ordered Sig/Hector Route PRN Reason Start Time Stop Time Status Last Admin Dose Admin Sodium Chloride 1,000 ml @ 1,000 mls/hr 1X ONCE IV 01/14/21 19:00 01/14/21 19:59 DC 01/14/21 20:37 Acetaminophen (Tylenol) 650 mg PRN Q6HRS PRN PO MILD PAIN / TEMP > 100.3'F 01/14/21 23:15 02/16/21 02:13 Multi-Ingredient Ointment (Analgesic [place]) 1 wes PRN QID PRN TP MUSCLE PAIN 01/14/21 23:15 01/23/21 14:58 DC Al Hydroxide/Mg Hydroxide (Mylanta Plus Xs) 15 ml PRN AFTMEALHC PRN PO DYSPEPSIA 01/14/21 23:15 01/16/21 05:33 Magnesium Hydroxide (Milk Of Magnesia) 2,400 mg PRN QHS PRN PO CONSTIPATION 01/14/21 23:15 Donepezil HCl (Aricept) 10 mg HS PO 01/15/21 21:00 02/15/21 20:43 Lorazepam (Ativan) 0.5 mg PRN Q24HRS PRN PO ANXIETY, 1ST CHOICE 01/14/21 23:30 02/14/21 23:15 Lorazepam (Ativan) 0.5 mg TID PO 01/15/21 09:00 01/17/21 17:30 DC 01/17/21 10:25 Melatonin (Melatonin) 3 mg HS PO 01/15/21 21:00 02/15/21 20:42 Paroxetine HCl (Paxil) 40 mg DAILY PO 01/15/21 09:00 01/19/21 17:15 DC 01/19/21 08:40 Hydroxyzine HCl (Atarax) 25 mg PRN Q6HRS PRN PO ANXIETY, 2ND CHOICE 01/15/21 16:45 02/16/21 02:13 Acetaminophen (Tylenol) 650 mg PRN Q6HRS PRN PO PAIN 01/15/21 19:00 UNV Acetaminophen (Tylenol) 500 mg TID PO 01/15/21 21:00 02/15/21 20:42 Atorvastatin Calcium (Lipitor) 10 mg QHS PO 01/15/21 21:00 02/15/21 20:43 Budesonide (Entocort) 6 mg DAILY PO 01/16/21 09:00 02/15/21 08:07 Calcium Polycarbophil (Fibercon) 1,250 mg BID PO 01/15/21 21:00 02/15/21 20:43 Lidocaine (Lidoderm) 1 patch DAILY TD 01/16/21 09:00 02/15/21 08:05 Mirabegron (Myrbetriq) 25 mg DAILY PO 01/16/21 09:00 01/23/21 17:53 DC 01/23/21 07:49 Pantoprazole Sodium (Protonix) 40 mg DAILY PO 01/16/21 09:00 02/15/21 08:07 Phenazopyridine HCl (Pyridium) 100 mg PRN Q24HRS PRN PO URINARY PAIN 01/15/21 19:00 02/16/21 02:13 Lactobacillus Rhamnosus (Culturelle) 1 cap BID PO 01/15/21 09:00 02/15/21 20:41 Losartan Potassium (Cozaar) 100 mg HS PO 01/15/21 21:00 02/15/21 20:47 Miscellaneous (Lidoderm Patch Removal) 1 ea QHS MC 01/15/21 21:00 02/15/21 20:48 Memantine (Namenda) 5 mg BID PO 01/16/21 21:00 01/22/21 22:50 DC 01/22/21 19:49 Memantine (Namenda) 10 mg BID PO 01/23/21 09:00 02/15/21 20:43 Vitamin D (Vitamin D3) 50,000 unit WEEKLY PO 01/16/21 17:30 02/13/21 09:38 Lorazepam (Ativan) 0.5 mg BID PO 01/17/21 21:00 01/19/21 23:50 DC 01/19/21 19:56 Lorazepam (Ativan) 0.5 mg DAILY PO 01/20/21 09:00 01/22/21 12:00 DC 01/22/21 07:50 Quetiapine Fumarate (SEROquel) 12.5 mg 0900,1700 PO 01/18/21 17:00 01/21/21 17:55 DC 01/21/21 17:33 Sertraline HCl (Zoloft) 50 mg DAILY PO 01/20/21 09:00 01/22/21 13:00 DC 01/22/21 07:51 Sertraline HCl (Zoloft) 75 mg DAILY PO 01/23/21 09:00 01/24/21 17:53 DC 01/24/21 08:48 Mirtazapine (Remeron) 7.5 mg QHS PO 01/20/21 21:00 02/15/21 20:43 Quetiapine Fumarate (SEROquel) 12.5 mg 0900,1300,1700 PO 01/22/21 09:00 01/25/21 16:00 DC 01/25/21 12:54 Sertraline HCl (Zoloft) 100 mg DAILY PO 01/25/21 09:00 01/26/21 17:53 DC 01/26/21 05:25 Quetiapine Fumarate (SEROquel) 12.5 mg 0900,1300,1700,2100 PO 01/25/21 21:00 01/28/21 18:16 DC 01/28/21 17:11 Sertraline HCl (Zoloft) 125 mg DAILY PO 01/27/21 09:00 01/30/21 08:02 DC 01/29/21 08:29 Quetiapine Fumarate (SEROquel) 12.5 mg 1300,2100 PO 01/28/21 21:00 02/04/21 17:16 DC 02/04/21 12:31 Quetiapine Fumarate (SEROquel) 25 mg 0900,1700 PO 01/29/21 09:00 02/04/21 17:16 DC 02/04/21 08:11 Quetiapine Fumarate (SEROquel) 12.5 mg 1300,2100 PO 01/28/21 21:00 UNV Sertraline HCl (Zoloft) 100 mg DAILY PO 01/30/21 09:00 02/15/21 08:06 Sertraline HCl (Zoloft) 25 mg DAILY PO 01/30/21 09:00 02/02/21 17:10 DC 02/02/21 08:09 Sertraline HCl (Zoloft) 50 mg DAILY PO 02/03/21 09:00 02/15/21 08:06 Quetiapine Fumarate (SEROquel) 25 mg 0900,1300,1700,2100 PO 02/04/21 17:15 02/08/21 18:36 DC 02/08/21 16:10 Quetiapine Fumarate (SEROquel) 25 mg 0900,1700 PO 02/09/21 09:00 02/08/21 18:39 DC Quetiapine Fumarate (SEROquel) 37.5 mg 0900,1700 PO 02/09/21 09:00 02/15/21 17:00 Quetiapine Fumarate (SEROquel) 25 mg 1300,2100 PO 02/08/21 21:00 02/11/21 19:59 DC 02/11/21 13:16 Quetiapine Fumarate (SEROquel) 37.5 mg 1300,2100 PO 02/11/21 21:00 02/15/21 20:42 Amoxicillin (Amoxil) 250 mg [id number] PO 02/15/21 18:30 02/22/21 18:29 02/15/21 18:30 Current Medications Medications (Trade) Dose Ordered Sig/Hector Route PRN Reason Start Time Stop Time Status Last Admin Dose Admin Amoxicillin (Amoxil) 250 mg [id number] PO 02/15/21 18:30 02/22/21 18:29 02/15/21 18:30 I have reviewed the current psychotropics carefully including drug interactions. Risk benefit ratio favors no change other than as noted in my dictated progress note. Diagnosis: Problems: (1) Impulse control disorder, unspecified (2) Anxiety disorder, unspecified (3) Dementia, vascular, with depression (4) Dementia, vascular, with delusions (5) Dementia in Alzheimer's disease with depression (6) Dementia in Alzheimer's disease with delusions (7) Major neurocognitive disorder (8) Dementia in Alzheimer's disease with early onset with behavioral disturbance LUCAS CODY MD Feb 16, 2021 06:28
[2021-02-16] MEDS: AMOXICILLIN 250 MG CAPSULE PO SCH ×3 (08:23→20:05)
[2021-02-16] MEDS: LIDOCAINE (700MG/PATCH) PATCH. TD SCH (08:23)
[2021-02-16] MEDS: LACTOBACILLUS RHAMNOSUS GG 1 CAPSULE. PO SCH ×2 (08:23→20:03)
[2021-02-16] MEDS: BUDESONIDE 3 MG CAP.ER.24H. PO SCH (08:24)
[2021-02-16] MEDS: PANTOPRAZOLE 40 MG TABLET. PO SCH (08:24)
[2021-02-16] MEDS: QUEtiapine 25 MG TABLET. PO SCH ×4 (08:24→20:05)
[2021-02-16] MEDS: CALCIUM POLYCARBOPHIL 625 MG TABLET PO SCH ×2 (08:24→20:06)
[2021-02-16] MEDS: ACETAMINOPHEN 500 MG TABLET PO SCH ×3 (08:24→20:05)
[2021-02-16] MEDS: MEMANTINE 10 MG TABLET. PO SCH ×2 (08:24→20:06)
[2021-02-16] MEDS: SERTRALINE 100 MG TABLET. PO SCH (08:24)
[2021-02-16] MEDS: SERTRALINE 50 MG TABLET. PO SCH (08:25)
[2021-02-16 16:08] VITALS: BP 132/73
[2021-02-16] MEDS: PATCH REMOVAL. MC SCH (20:03)
[2021-02-16] MEDS: LORazepam 0.5 MG TABLET PO PRN (20:03)
[2021-02-16] MEDS: LOSARTAN 50 MG TABLET. PO SCH (20:04)
[2021-02-16] MEDS: MELATONIN 3 MG TABLET PO SCH (20:05)
[2021-02-16] MEDS: ATORVASTATIN CALCIUM 10 MG TABLET. PO SCH (20:05)
[2021-02-16] MEDS: MIRTAZAPINE 7.5 MG TABLET. PO SCH (20:05)
[2021-02-16] MEDS: DONEPEZIL HCL 10 MG TABLET PO SCH (20:05)
[2021-02-17 05:43] VITALS: BP 154/76
[2021-02-17] MEDS: MEMANTINE 10 MG TABLET. PO SCH ×2 (08:31→20:40)
[2021-02-17] MEDS: LACTOBACILLUS RHAMNOSUS GG 1 CAPSULE. PO SCH ×2 (08:31→20:40)
[2021-02-17] MEDS: SERTRALINE 100 MG TABLET. PO SCH (08:31)
[2021-02-17] MEDS: ACETAMINOPHEN 500 MG TABLET PO SCH ×3 (08:31→20:40)
[2021-02-17] MEDS: AMOXICILLIN 250 MG CAPSULE PO SCH ×3 (08:31→20:40)
[2021-02-17] MEDS: SERTRALINE 50 MG TABLET. PO SCH (08:31)
[2021-02-17] MEDS: QUEtiapine 25 MG TABLET. PO SCH ×4 (08:32→20:41)
[2021-02-17] MEDS: PANTOPRAZOLE 40 MG TABLET. PO SCH (08:32)
[2021-02-17] MEDS: CALCIUM POLYCARBOPHIL 625 MG TABLET PO SCH ×2 (08:32→20:40)
[2021-02-17] MEDS: LIDOCAINE (700MG/PATCH) PATCH. TD SCH (08:32)
[2021-02-17] MEDS: BUDESONIDE 3 MG CAP.ER.24H. PO SCH (08:32)
--- NOTE | 2021-02-17 09:43 | PDOC ---
Exam Note: Deon Note: Late entry for 02/16/2021. Please also refer to the separate dictated note~for this date of service dictated separately.~Patient seen individually. Discussed the patient with Nursing staff reviewed the chart.~Reviewed interim history and current functioning. Reviewed vital signs,~Labs/ Radiology~and current medic ations noted below. Continue current treatment with the changes noted in the dictated addendum note Assessment: Vital Signs/I&O: Vital Signs Date Time Temp Pulse Resp B/P (MAP) Pulse Ox O2 Delivery O2 Flow Rate FiO2 02/17/21 05:43 96.6 89 14 154/76 (102) 97 02/15/21 15:20 Room Air I & O 02/16/21 02/16/21 02/17/21 15:00 23:00 07:00 Intake Total 600 ml 360 ml Output Total 1500 ml 700 ml Balance 600 ml -1140 ml -700 ml Current Medications: Meds: Current Medications Medications (Trade) Dose Ordered Sig/Hector Route PRN Reason Start Time Stop Time Status Last Admin Dose Admin Sodium Chloride 1,000 ml @ 1,000 mls/hr 1X ONCE IV 01/14/21 19:00 01/14/21 19:59 DC 01/14/21 20:37 Acetaminophen (Tylenol) 650 mg PRN Q6HRS PRN PO MILD PAIN / TEMP > 100.3'F 01/14/21 23:15 02/16/21 02:13 Multi-Ingredient Ointment (Analgesic [place]) 1 wes PRN QID PRN TP MUSCLE PAIN 01/14/21 23:15 01/23/21 14:58 DC Al Hydroxide/Mg Hydroxide (Mylanta Plus Xs) 15 ml PRN AFTMEALHC PRN PO DYSPEPSIA 01/14/21 23:15 01/16/21 05:33 Magnesium Hydroxide (Milk Of Magnesia) 2,400 mg PRN QHS PRN PO CONSTIPATION 01/14/21 23:15 Donepezil HCl (Aricept) 10 mg HS PO 01/15/21 21:00 02/16/21 20:05 Lorazepam (Ativan) 0.5 mg PRN Q24HRS PRN PO ANXIETY, 1ST CHOICE 01/14/21 23:30 02/16/21 20:03 Lorazepam (Ativan) 0.5 mg TID PO 01/15/21 09:00 01/17/21 17:30 DC 01/17/21 10:25 Melatonin (Melatonin) 3 mg HS PO 01/15/21 21:00 02/16/21 20:05 Paroxetine HCl (Paxil) 40 mg DAILY PO 01/15/21 09:00 01/19/21 17:15 DC 01/19/21 08:40 Hydroxyzine HCl (Atarax) 25 mg PRN Q6HRS PRN PO ANXIETY, 2ND CHOICE 01/15/21 16:45 02/16/21 02:13 Acetaminophen (Tylenol) 650 mg PRN Q6HRS PRN PO PAIN 01/15/21 19:00 UNV Acetaminophen (Tylenol) 500 mg TID PO 01/15/21 21:00 02/17/21 08:31 Atorvastatin Calcium (Lipitor) 10 mg QHS PO 01/15/21 21:00 02/16/21 20:05 Budesonide (Entocort) 6 mg DAILY PO 01/16/21 09:00 02/17/21 08:32 Calcium Polycarbophil (Fibercon) 1,250 mg BID PO 01/15/21 21:00 02/17/21 08:32 Lidocaine (Lidoderm) 1 patch DAILY TD 01/16/21 09:00 02/17/21 08:32 Mirabegron (Myrbetriq) 25 mg DAILY PO 01/16/21 09:00 01/23/21 17:53 DC 01/23/21 07:49 Pantoprazole Sodium (Protonix) 40 mg DAILY PO 01/16/21 09:00 02/17/21 08:32 Phenazopyridine HCl (Pyridium) 100 mg PRN Q24HRS PRN PO URINARY PAIN 01/15/21 19:00 02/16/21 02:13 Lactobacillus Rhamnosus (Culturelle) 1 cap BID PO 01/15/21 09:00 02/17/21 08:31 Losartan Potassium (Cozaar) 100 mg HS PO 01/15/21 21:00 02/16/21 20:04 Miscellaneous (Lidoderm Patch Removal) 1 ea QHS MC 01/15/21 21:00 02/16/21 20:03 Memantine (Namenda) 5 mg BID PO 01/16/21 21:00 01/22/21 22:50 DC 01/22/21 19:49 Memantine (Namenda) 10 mg BID PO 01/23/21 09:00 02/17/21 08:31 Vitamin D (Vitamin D3) 50,000 unit WEEKLY PO 01/16/21 17:30 02/13/21 09:38 Lorazepam (Ativan) 0.5 mg BID PO 01/17/21 21:00 01/19/21 23:50 DC 01/19/21 19:56 Lorazepam (Ativan) 0.5 mg DAILY PO 01/20/21 09:00 01/22/21 12:00 UT 01/22/21 07:50 Quetiapine Fumarate (SEROquel) 12.5 mg 0900,1700 PO 01/18/21 17:00 01/21/21 17:55 DC 01/21/21 17:33 Sertraline HCl (Zoloft) 50 mg DAILY PO 01/20/21 09:00 01/22/21 13:00 UT 01/22/21 07:51 Sertraline HCl (Zoloft) 75 mg DAILY PO 01/23/21 09:00 01/24/21 17:53 UT 01/24/21 08:48 Mirtazapine (Remeron) 7.5 mg QHS PO 01/20/21 21:00 02/16/21 20:05 Quetiapine Fumarate (SEROquel) 12.5 mg 0900,1300,1700 PO 01/22/21 09:00 01/25/21 16:00 UT 01/25/21 12:54 Sertraline HCl (Zoloft) 100 mg DAILY PO 01/25/21 09:00 01/26/21 17:53 DC 01/26/21 05:25 Quetiapine Fumarate (SEROquel) 12.5 mg 0900,1300,1700,2100 PO 01/25/21 21:00 01/28/21 18:16 DC 01/28/21 17:11 Sertraline HCl (Zoloft) 125 mg DAILY PO 01/27/21 09:00 01/30/21 08:02 DC 01/29/21 08:29 Quetiapine Fumarate (SEROquel) 12.5 mg 1300,2100 PO 01/28/21 21:00 02/04/21 17:16 DC 02/04/21 12:31 Quetiapine Fumarate (SEROquel) 25 mg 0900,1700 PO 01/29/21 09:00 02/04/21 17:16 DC 02/04/21 08:11 Quetiapine Fumarate (SEROquel) 12.5 mg 1300,2100 PO 01/28/21 21:00 UNV Sertraline HCl (Zoloft) 100 mg DAILY PO 01/30/21 09:00 02/17/21 08:31 Sertraline HCl (Zoloft) 25 mg DAILY PO 01/30/21 09:00 02/02/21 17:10 DC 02/02/21 08:09 Sertraline HCl (Zoloft) 50 mg DAILY PO 02/03/21 09:00 02/17/21 08:31 Quetiapine Fumarate (SEROquel) 25 mg 0900,1300,1700,2100 PO 02/04/21 17:15 02/08/21 18:36 DC 02/08/21 16:10 Quetiapine Fumarate (SEROquel) 25 mg 0900,1700 PO 02/09/21 09:00 02/08/21 18:39 DC Quetiapine Fumarate (SEROquel) 37.5 mg 0900,1700 PO 02/09/21 09:00 02/17/21 08:32 Quetiapine Fumarate (SEROquel) 25 mg 1300,2100 PO 02/08/21 21:00 02/11/21 19:59 DC 02/11/21 13:16 Quetiapine Fumarate (SEROquel) 37.5 mg 1300,2100 PO 02/11/21 21:00 02/16/21 20:05 Amoxicillin (Amoxil) 250 mg [id number] PO 02/15/21 18:30 02/22/21 18:29 02/17/21 08:31 I have reviewed the current psychotropics carefully including drug interactions. Risk benefit ratio favors no change other than as noted in my dictated progress note. Diagnosis: Problems: (1) Impulse control disorder, unspecified (2) Anxiety disorder, unspecified (3) Dementia, vascular, with depression (4) Dementia, vascular, with delusions (5) Dementia in Alzheimer's disease with depression (6) Dementia in Alzheimer's disease with delusions (7) Major neurocognitive disorder (8) Dementia in Alzheimer's disease with early onset with behavioral disturbance LUCAS CODY MD Feb 17, 2021 09:43
[2021-02-17 15:45] VITALS: BP 130/77
[2021-02-17] MEDS: MIRTAZAPINE 7.5 MG TABLET. PO SCH (20:40)
[2021-02-17] MEDS: DONEPEZIL HCL 10 MG TABLET PO SCH (20:40)
[2021-02-17] MEDS: ATORVASTATIN CALCIUM 10 MG TABLET. PO SCH (20:41)
[2021-02-17] MEDS: LOSARTAN 50 MG TABLET. PO SCH (20:41)
[2021-02-17] MEDS: MELATONIN 3 MG TABLET PO SCH (20:41)
[2021-02-17] MEDS: PHENAZOPYRIDINE 100 MG TABLET. PO PRN (20:45)
[2021-02-17] MEDS: PATCH REMOVAL. MC SCH (21:00)
--- NOTE | 2021-02-17 22:06 | PDOC ---
Exam Note: Deon Note: Please also refer to the separate dictated note~for this date of service dictated separately.~Patient seen individually. Discussed the patient with Nursing staff reviewed the chart.~Reviewed interim history and current functioning. Reviewed vital signs,~Labs/ Radiology~and current medications noted below. Continue current treatment with the changes noted in the dictated addendum note Assessment: Vital Signs/I&O: Vital Signs Date Time Temp Pulse Resp B/P (MAP) Pulse Ox O2 Delivery O2 Flow Rate FiO2 02/17/21 20:41 98 130/77 02/17/21 15:45 97.6 19 96 Room Air I & O 02/16/21 02/16/21 02/17/21 14:59 22:59 06:59 Intake Total 600 ml 360 ml Output Total 1500 ml 700 ml Balance 600 ml -1140 ml -700 ml Current Medications: Meds: Current Medications Medications (Trade) Dose Ordered Sig/Hector Route PRN Reason Start Time Stop Time Status Last Admin Dose Admin Sodium Chloride 1,000 ml @ 1,000 mls/hr 1X ONCE IV 01/14/21 19:00 01/14/21 19:59 DC 01/14/21 20:37 Acetaminophen (Tylenol) 650 mg PRN Q6HRS PRN PO MILD PAIN / TEMP > 100.3'F 01/14/21 23:15 02/16/21 02:13 Multi-Ingredient Ointment (Analgesic [place]) 1 wes PRN QID PRN TP MUSCLE PAIN 01/14/21 23:15 01/23/21 14:58 DC Al Hydroxide/Mg Hydroxide (Mylanta Plus Xs) 15 ml PRN AFTMEALHC PRN PO DYSPEPSIA 01/14/21 23:15 01/16/21 05:33 Magnesium Hydroxide (Milk Of Magnesia) 2,400 mg PRN QHS PRN PO CONSTIPATION 01/14/21 23:15 Donepezil HCl (Aricept) 10 mg HS PO 01/15/21 21:00 02/17/21 20:40 Lorazepam (Ativan) 0.5 mg PRN Q24HRS PRN PO ANXIETY, 1ST CHOICE 01/14/21 23:30 02/16/21 20:03 Lorazepam (Ativan) 0.5 mg TID PO 01/15/21 09:00 01/17/21 17:30 DC 01/17/21 10:25 Melatonin (Melatonin) 3 mg HS PO 01/15/21 21:00 02/17/21 20:41 Paroxetine HCl (Paxil) 40 mg DAILY PO 01/15/21 09:00 01/19/21 17:15 DC 01/19/21 08:40 Hydroxyzine HCl (Atarax) 25 mg PRN Q6HRS PRN PO ANXIETY, 2ND CHOICE 01/15/21 16:45 02/16/21 02:13 Acetaminophen (Tylenol) 650 mg PRN Q6HRS PRN PO PAIN 01/15/21 19:00 UNV Acetaminophen (Tylenol) 500 mg TID PO 01/15/21 21:00 02/17/21 20:40 Atorvastatin Calcium (Lipitor) 10 mg QHS PO 01/15/21 21:00 02/17/21 20:41 Budesonide (Entocort) 6 mg DAILY PO 01/16/21 09:00 02/17/21 08:32 Calcium Polycarbophil (Fibercon) 1,250 mg BID PO 01/15/21 21:00 02/17/21 20:40 Lidocaine (Lidoderm) 1 patch DAILY TD 01/16/21 09:00 02/17/21 08:32 Mirabegron (Myrbetriq) 25 mg DAILY PO 01/16/21 09:00 01/23/21 17:53 DC 01/23/21 07:49 Pantoprazole Sodium (Protonix) 40 mg DAILY PO 01/16/21 09:00 02/17/21 08:32 Phenazopyridine HCl (Pyridium) 100 mg PRN Q24HRS PRN PO URINARY PAIN 01/15/21 19:00 02/17/21 20:45 Lactobacillus Rhamnosus (Culturelle) 1 cap BID PO 01/15/21 09:00 02/17/21 20:40 Losartan Potassium (Cozaar) 100 mg HS PO 01/15/21 21:00 02/17/21 20:41 Miscellaneous (Lidoderm Patch Removal) 1 ea QHS MC 01/15/21 21:00 02/16/21 20:03 Memantine (Namenda) 5 mg BID PO 01/16/21 21:00 01/22/21 22:50 DC 01/22/21 19:49 Memantine (Namenda) 10 mg BID PO 01/23/21 09:00 02/17/21 20:40 Vitamin D (Vitamin D3) 50,000 unit WEEKLY PO 01/16/21 17:30 02/13/21 09:38 Lorazepam (Ativan) 0.5 mg BID PO 01/17/21 21:00 01/19/21 23:50 DC 01/19/21 19:56 Lorazepam (Ativan) 0.5 mg DAILY PO 01/20/21 09:00 01/22/21 12:00 DC 01/22/21 07:50 Quetiapine Fumarate (SEROquel) 12.5 mg 0900,1700 PO 01/18/21 17:00 01/21/21 17:55 DC 01/21/21 17:33 Sertraline HCl (Zoloft) 50 mg DAILY PO 01/20/21 09:00 01/22/21 13:00 DC 01/22/21 07:51 Sertraline HCl (Zoloft) 75 mg DAILY PO 01/23/21 09:00 01/24/21 17:53 DC 01/24/21 08:48 Mirtazapine (Remeron) 7.5 mg QHS PO 01/20/21 21:00 02/17/21 20:40 Quetiapine Fumarate (SEROquel) 12.5 mg 0900,1300,1700 PO 01/22/21 09:00 01/25/21 16:00 DC 01/25/21 12:54 Sertraline HCl (Zoloft) 100 mg DAILY PO 01/25/21 09:00 01/26/21 17:53 DC 01/26/21 05:25 Quetiapine Fumarate (SEROquel) 12.5 mg 0900,1300,1700,2100 PO 01/25/21 21:00 01/28/21 18:16 DC 01/28/21 17:11 Sertraline HCl (Zoloft) 125 mg DAILY PO 01/27/21 09:00 01/30/21 08:02 DC 01/29/21 08:29 Quetiapine Fumarate (SEROquel) 12.5 mg 1300,2100 PO 01/28/21 21:00 02/04/21 17:16 DC 02/04/21 12:31 Quetiapine Fumarate (SEROquel) 25 mg 0900,1700 PO 01/29/21 09:00 02/04/21 17:16 DC 02/04/21 08:11 Quetiapine Fumarate (SEROquel) 12.5 mg 1300,2100 PO 01/28/21 21:00 UNV Sertraline HCl (Zoloft) 100 mg DAILY PO 01/30/21 09:00 02/17/21 08:31 Sertraline HCl (Zoloft) 25 mg DAILY PO 01/30/21 09:00 02/02/21 17:10 DC 02/02/21 08:09 Sertraline HCl (Zoloft) 50 mg DAILY PO 02/03/21 09:00 02/17/21 08:31 Quetiapine Fumarate (SEROquel) 25 mg 0900,1300,1700,2100 PO 02/04/21 17:15 02/08/21 18:36 DC 02/08/21 16:10 Quetiapine Fumarate (SEROquel) 25 mg 0900,1700 PO 02/09/21 09:00 02/08/21 18:39 DC Quetiapine Fumarate (SEROquel) 37.5 mg 0900,1700 PO 02/09/21 09:00 02/17/21 17:25 Quetiapine Fumarate (SEROquel) 25 mg 1300,2100 PO 02/08/21 21:00 02/11/21 19:59 DC 02/11/21 13:16 Quetiapine Fumarate (SEROquel) 37.5 mg 1300,2100 PO 02/11/21 21:00 02/17/21 20:41 Amoxicillin (Amoxil) 250 mg [id number] PO 02/15/21 18:30 02/22/21 18:29 02/17/21 20:40 I have reviewed the current psychotropics carefully including drug interactions. Risk benefit ratio favors no change other than as noted in my dictated progress note. Diagnosis: Problems: (1) Impulse control disorder, unspecified (2) Anxiety disorder, unspecified (3) Dementia, vascular, with depression (4) Dementia, vascular, with delusions (5) Dementia in Alzheimer's disease with depression (6) Dementia in Alzheimer's disease with delusions (7) Major neurocognitive disorder (8) Dementia in Alzheimer's disease with early onset with behavioral disturbance LUCAS CODY MD Feb 17, 2021 22:06
[2021-02-18] MEDS ORDERED: CHOL10004 PO (01:40)
[2021-02-18] MEDS ORDERED: MAG-124 PO (01:41)
[2021-02-18] MEDS ORDERED: MAGN24003 PO (01:41)
[2021-02-18] MEDS ORDERED: MEMA10TA PO (01:42)
[2021-02-18] MEDS ORDERED: MIRT-37 PO (01:42)
[2021-02-18] MEDS ORDERED: QUET50TA5 PO (01:44)
[2021-02-18] MEDS ORDERED: SERT100T PO (01:44)
[2021-02-18 05:38] VITALS: BP 130/75
[2021-02-18] MEDS: BUDESONIDE 3 MG CAP.ER.24H. PO SCH (07:56)
[2021-02-18] MEDS: SERTRALINE 50 MG TABLET. PO SCH (07:56)
[2021-02-18] MEDS: SERTRALINE 100 MG TABLET. PO SCH (07:56)
[2021-02-18] MEDS: ACETAMINOPHEN 500 MG TABLET PO SCH (07:56)
[2021-02-18] MEDS: PANTOPRAZOLE 40 MG TABLET. PO SCH (07:56)
[2021-02-18] MEDS: LACTOBACILLUS RHAMNOSUS GG 1 CAPSULE. PO SCH (07:56)
[2021-02-18] MEDS: MEMANTINE 10 MG TABLET. PO SCH (07:56)
[2021-02-18] MEDS: QUEtiapine 25 MG TABLET. PO SCH (07:57)
[2021-02-18] MEDS: LIDOCAINE (700MG/PATCH) PATCH. TD SCH (07:58)
[2021-02-18] MEDS: CALCIUM POLYCARBOPHIL 625 MG TABLET PO SCH (07:58)
[2021-02-18] MEDS: AMOXICILLIN 250 MG CAPSULE PO SCH (07:58)
--- NOTE | 2021-02-18 22:13 | PDOC ---
Exam Note: Deon Note: This note is a late entry for 02/15/2021overs elements not covered in my initial note. Subjective: The patient was reviewed on telehealth rounds in the evening of 02/15/2021 with Radha MERCER due to COVID-19 pandemic, discussed and reviewed the chart. The patient slept 6-1/4 hours previous night. She appears more lucid at times, was able to name her children and grandchildren. Review of Systems: Impaired ambulation, in wheelchair. No CV, pulmonary, eye, ENT system symptoms on review. She complains of bladder spasms. She remains on Amoxil per Dr. Ambriz. Mental Status Exam: The patient is oriented to herself and situation. Speech coherent. Abstraction fair. Computation impaired. Language function intact. Mood and affect somewhat anxious, labile. Short-term memory is impaired. No suicidal or homicidal ideation. Laboratory Data: Reviewed. Impression: Major neurocognitive disorder Alzheimer, vascular with delusion, depression, behavioral disturbance. Anxiety disorder unspecified. Impulse control disorder unspecified. Plan: No change from initial note. Assessment: Vital Signs/I&O: Vital Signs Date Time Temp Pulse Resp B/P (MAP) Pulse Ox O2 Delivery O2 Flow Rate FiO2 02/18/21 05:38 97.4 88 18 130/75 (93) 95 02/17/21 15:45 Room Air I & O 02/17/21 02/17/21 02/18/21 15:00 23:00 07:00 Intake Total 720 ml 600 ml Output Total 1002 ml 600 ml Balance 720 ml -402 ml -600 ml Current Medications: Meds: Current Medications Medications (Trade) Dose Ordered Sig/Hector Route PRN Reason Start Time Stop Time Status Last Admin Dose Admin Sodium Chloride 1,000 ml @ 1,000 mls/hr 1X ONCE IV 01/14/21 19:00 01/14/21 19:59 DC 01/14/21 20:37 Acetaminophen (Tylenol) 650 mg PRN Q6HRS PRN PO MILD PAIN / TEMP > 100.3'F 01/14/21 23:15 02/18/21 10:28 DC 02/16/21 02:13 Multi-Ingredient Ointment (Analgesic [place]) 1 wes PRN QID PRN TP MUSCLE PAIN 01/14/21 23:15 01/23/21 14:58 DC Al Hydroxide/Mg Hydroxide (Mylanta Plus Xs) 15 ml PRN AFTMEALHC PRN PO DYSPEPSIA 01/14/21 23:15 02/18/21 10:28 DC 01/16/21 05:33 Magnesium Hydroxide (Milk Of Magnesia) 2,400 mg PRN QHS PRN PO CONSTIPATION 01/14/21 23:15 02/18/21 10:28 DC Donepezil HCl (Aricept) 10 mg HS PO 01/15/21 21:00 02/18/21 10:28 DC 02/17/21 20:40 Lorazepam (Ativan) 0.5 mg PRN Q24HRS PRN PO ANXIETY, 1ST CHOICE 01/14/21 23:30 02/18/21 10:28 DC 02/16/21 20:03 Lorazepam (Ativan) 0.5 mg TID PO 01/15/21 09:00 01/17/21 17:30 DC 01/17/21 10:25 Melatonin (Melatonin) 3 mg HS PO 01/15/21 21:00 02/18/21 10:28 DC 02/17/21 20:41 Paroxetine HCl (Paxil) 40 mg DAILY PO 01/15/21 09:00 01/19/21 17:15 DC 01/19/21 08:40 Hydroxyzine HCl (Atarax) 25 mg PRN Q6HRS PRN PO ANXIETY, 2ND CHOICE 01/15/21 16:45 02/18/21 10:28 DC 02/16/21 02:13 Acetaminophen (Tylenol) 650 mg PRN Q6HRS PRN PO PAIN 01/15/21 19:00 UNV Acetaminophen (Tylenol) 500 mg TID PO 01/15/21 21:00 02/18/21 10:28 DC 02/18/21 07:56 Atorvastatin Calcium (Lipitor) 10 mg QHS PO 01/15/21 21:00 02/18/21 10:28 DC 02/17/21 20:41 Budesonide (Entocort) 6 mg DAILY PO 01/16/21 09:00 02/18/21 10:28 DC 02/18/21 07:56 Calcium Polycarbophil (Fibercon) 1,250 mg BID PO 01/15/21 21:00 02/18/21 10:28 DC 02/18/21 07:58 Lidocaine (Lidoderm) 1 patch DAILY TD 01/16/21 09:00 02/18/21 10:28 DC 02/17/21 08:32 Mirabegron (Myrbetriq) 25 mg DAILY PO 01/16/21 09:00 01/23/21 17:53 DC 01/23/21 07:49 Pantoprazole Sodium (Protonix) 40 mg DAILY PO 01/16/21 09:00 02/18/21 10:28 DC 02/18/21 07:56 Phenazopyridine HCl (Pyridium) 100 mg PRN Q24HRS PRN PO URINARY PAIN 01/15/21 19:00 02/18/21 10:28 DC 02/17/21 20:45 Lactobacillus Rhamnosus (Culturelle) 1 cap BID PO 01/15/21 09:00 02/18/21 10:28 DC 02/18/21 07:56 Losartan Potassium (Cozaar) 100 mg HS PO 01/15/21 21:00 02/18/21 10:28 DC 02/17/21 20:41 Miscellaneous (Lidoderm Patch Removal) 1 ea QHS 01/15/21 21:00 02/18/21 10:28 DC 02/16/21 20:03 Memantine (Namenda) 5 mg BID PO 01/16/21 21:00 01/22/21 22:50 DC 01/22/21 19:49 Memantine (Namenda) 10 mg BID PO 01/23/21 09:00 02/18/21 10:28 DC 02/18/21 07:56 Vitamin D (Vitamin D3) 50,000 unit WEEKLY PO 01/16/21 17:30 02/18/21 10:28 DC 02/13/21 09:38 Lorazepam (Ativan) 0.5 mg BID PO 01/17/21 21:00 01/19/21 23:50 DC 01/19/21 19:56 Lorazepam (Ativan) 0.5 mg DAILY PO 01/20/21 09:00 01/22/21 12:00 DC 01/22/21 07:50 Quetiapine Fumarate (SEROquel) 12.5 mg 0900,1700 PO 01/18/21 17:00 01/21/21 17:55 DC 01/21/21 17:33 Sertraline HCl (Zoloft) 50 mg DAILY PO 01/20/21 09:00 01/22/21 13:00 DC 01/22/21 07:51 Sertraline HCl (Zoloft) 75 mg DAILY PO 01/23/21 09:00 01/24/21 17:53 DC 01/24/21 08:48 Mirtazapine (Remeron) 7.5 mg QHS PO 01/20/21 21:00 02/18/21 10:28 DC 02/17/21 20:40 Quetiapine Fumarate (SEROquel) 12.5 mg 0900,1300,1700 PO 01/22/21 09:00 01/25/21 16:00 DC 01/25/21 12:54 Sertraline HCl (Zoloft) 100 mg DAILY PO 01/25/21 09:00 01/26/21 17:53 DC 01/26/21 05:25 Quetiapine Fumarate (SEROquel) 12.5 mg 0900,1300,1700,2100 PO 01/25/21 21:00 01/28/21 18:16 DC 01/28/21 17:11 Sertraline HCl (Zoloft) 125 mg DAILY PO 01/27/21 09:00 01/30/21 08:02 DC 01/29/21 08:29 Quetiapine Fumarate (SEROquel) 12.5 mg 1300,2100 PO 01/28/21 21:00 02/04/21 17:16 DC 02/04/21 12:31 Quetiapine Fumarate (SEROquel) 25 mg 0900,1700 PO 01/29/21 09:00 02/04/21 17:16 DC 02/04/21 08:11 Quetiapine Fumarate (SEROquel) 12.5 mg 1300,2100 PO 01/28/21 21:00 UNV Sertraline HCl (Zoloft) 100 mg DAILY PO 01/30/21 09:00 02/18/21 10:28 DC 02/18/21 07:56 Sertraline HCl (Zoloft) 25 mg DAILY PO 01/30/21 09:00 02/02/21 17:10 DC 02/02/21 08:09 Sertraline HCl (Zoloft) 50 mg DAILY PO 02/03/21 09:00 02/18/21 10:28 DC 02/18/21 07:56 Quetiapine Fumarate (SEROquel) 25 mg 0900,1300,1700,2100 PO 02/04/21 17:15 02/08/21 18:36 DC 02/08/21 16:10 Quetiapine Fumarate (SEROquel) 25 mg 0900,1700 PO 02/09/21 09:00 02/08/21 18:39 DC Quetiapine Fumarate (SEROquel) 37.5 mg 0900,1700 PO 02/09/21 09:00 02/18/21 10:28 DC 02/18/21 07:57 Quetiapine Fumarate (SEROquel) 25 mg 1300,2100 PO 02/08/21 21:00 02/11/21 19:59 DC 02/11/21 13:16 Quetiapine Fumarate (SEROquel) 37.5 mg 1300,2100 PO 02/11/21 21:00 02/18/21 10:28 DC 02/17/21 20:41 Amoxicillin (Amoxil) 250 mg [id number] PO 02/15/21 18:30 02/18/21 10:28 DC 02/18/21 07:58 I have reviewed the current psychotropics carefully including drug interactions. Risk benefit ratio favors no change other than as noted in my dictated progress note. Diagnosis: Problems: (1) Impulse control disorder, unspecified (2) Anxiety disorder, unspecified (3) Dementia, vascular, with depression (4) Dementia, vascular, with delusions (5) Dementia in Alzheimer's disease with depression (6) Dementia in Alzheimer's disease with delusions (7) Major neurocognitive disorder due to Alzheimer's disease (8) Major neurocognitive disorder (9) Dementia in Alzheimer's disease with early onset with behavioral disturbance LUCAS CODY MD Feb 18, 2021 22:12
--- NOTE | 2021-02-18 22:23 | PDOC ---
Exam Note: Deon Note: This note is a late entry for 02/16/2021 covers elements not covered in my initial note. Subjective: The patient was seen on video telehealth services in the evening of 02/16/2021 with Senia MERCER due to COVID-19 pandemic, discussed and reviewed the chart. The patient slept 6-1/2 hours previous night. Again she appears more lucid at times, tearful previous evening. She complains of bladder spasms as before. Review of Systems: Impaired ambulation, in wheelchair. No CV, pulmonary, eye, ENT system symptoms on review. Mental Status Exam: The patient is oriented to herself and situation. Speech coherent. Abstraction fair. Computation impaired. Language function intact. Mood and affect somewhat anxious, labile. Short-term memory is impaired. Laboratory Data: Reviewed. Impression: Major neurocognitive disorder Alzheimer, vascular with delusion, depression, behavioral disturbance. Anxiety disorder unspecified. Impulse control disorder unspecified. Plan: No change from initial note. Assessment: Vital Signs/I&O: Vital Signs Date Time Temp Pulse Resp B/P (MAP) Pulse Ox O2 Delivery O2 Flow Rate FiO2 02/18/21 05:38 97.4 88 18 130/75 (93) 95 02/17/21 15:45 Room Air I & O 02/17/21 02/17/21 02/18/21 15:00 23:00 07:00 Intake Total 720 ml 600 ml Output Total 1002 ml 600 ml Balance 720 ml -402 ml -600 ml Current Medications: Meds: Current Medications Medications (Trade) Dose Ordered Sig/Hector Route PRN Reason Start Time Stop Time Status Last Admin Dose Admin Sodium Chloride 1,000 ml @ 1,000 mls/hr 1X ONCE IV 01/14/21 19:00 01/14/21 19:59 DC 01/14/21 20:37 Acetaminophen (Tylenol) 650 mg PRN Q6HRS PRN PO MILD PAIN / TEMP > 100.3'F 01/14/21 23:15 02/18/21 10:28 DC 02/16/21 02:13 Multi-Ingredient Ointment (Analgesic [place]) 1 wes PRN QID PRN TP MUSCLE PAIN 01/14/21 23:15 01/23/21 14:58 DC Al Hydroxide/Mg Hydroxide (Mylanta Plus Xs) 15 ml PRN AFTMEALHC PRN PO DYSPEPSIA 01/14/21 23:15 02/18/21 10:28 DC 01/16/21 05:33 Magnesium Hydroxide (Milk Of Magnesia) 2,400 mg PRN QHS PRN PO CONSTIPATION 01/14/21 23:15 02/18/21 10:28 DC Donepezil HCl (Aricept) 10 mg HS PO 01/15/21 21:00 02/18/21 10:28 DC 02/17/21 20:40 Lorazepam (Ativan) 0.5 mg PRN Q24HRS PRN PO ANXIETY, 1ST CHOICE 01/14/21 23:30 02/18/21 10:28 DC 02/16/21 20:03 Lorazepam (Ativan) 0.5 mg TID PO 01/15/21 09:00 01/17/21 17:30 DC 01/17/21 10:25 Melatonin (Melatonin) 3 mg HS PO 01/15/21 21:00 02/18/21 10:28 DC 02/17/21 20:41 Paroxetine HCl (Paxil) 40 mg DAILY PO 01/15/21 09:00 01/19/21 17:15 DC 01/19/21 08:40 Hydroxyzine HCl (Atarax) 25 mg PRN Q6HRS PRN PO ANXIETY, 2ND CHOICE 01/15/21 16:45 02/18/21 10:28 DC 02/16/21 02:13 Acetaminophen (Tylenol) 650 mg PRN Q6HRS PRN PO PAIN 01/15/21 19:00 UNV Acetaminophen (Tylenol) 500 mg TID PO 01/15/21 21:00 02/18/21 10:28 DC 02/18/21 07:56 Atorvastatin Calcium (Lipitor) 10 mg QHS PO 01/15/21 21:00 02/18/21 10:28 DC 02/17/21 20:41 Budesonide (Entocort) 6 mg DAILY PO 01/16/21 09:00 02/18/21 10:28 DC 02/18/21 07:56 Calcium Polycarbophil (Fibercon) 1,250 mg BID PO 01/15/21 21:00 02/18/21 10:28 DC 02/18/21 07:58 Lidocaine (Lidoderm) 1 patch DAILY TD 01/16/21 09:00 02/18/21 10:28 DC 02/17/21 08:32 Mirabegron (Myrbetriq) 25 mg DAILY PO 01/16/21 09:00 01/23/21 17:53 DC 01/23/21 07:49 Pantoprazole Sodium (Protonix) 40 mg DAILY PO 01/16/21 09:00 02/18/21 10:28 DC 02/18/21 07:56 Phenazopyridine HCl (Pyridium) 100 mg PRN Q24HRS PRN PO URINARY PAIN 01/15/21 19:00 02/18/21 10:28 DC 02/17/21 20:45 Lactobacillus Rhamnosus (Culturelle) 1 cap BID PO 01/15/21 09:00 02/18/21 10:28 DC 02/18/21 07:56 Losartan Potassium (Cozaar) 100 mg HS PO 01/15/21 21:00 02/18/21 10:28 DC 02/17/21 20:41 Miscellaneous ([facility]) [facility] 01/15/21 21:00 02/18/21 10:28 DC 02/16/21 20:03 Memantine (Namenda) 5 mg BID PO 01/16/21 21:00 01/22/21 22:50 DC 01/22/21 19:49 Memantine (Namenda) 10 mg BID PO 01/23/21 09:00 02/18/21 10:28 DC 02/18/21 07:56 Vitamin D (Vitamin D3) 50,000 unit WEEKLY PO 01/16/21 17:30 02/18/21 10:28 DC 02/13/21 09:38 Lorazepam (Ativan) 0.5 mg BID PO 01/17/21 21:00 01/19/21 23:50 DC 01/19/21 19:56 Lorazepam (Ativan) 0.5 mg DAILY PO 01/20/21 09:00 01/22/21 12:00 DC 01/22/21 07:50 Quetiapine Fumarate (SEROquel) 12.5 mg 0900,1700 PO 01/18/21 17:00 01/21/21 17:55 DC 01/21/21 17:33 Sertraline HCl (Zoloft) 50 mg DAILY PO 01/20/21 09:00 01/22/21 13:00 DC 01/22/21 07:51 Sertraline HCl (Zoloft) 75 mg DAILY PO 01/23/21 09:00 01/24/21 17:53 DC 01/24/21 08:48 Mirtazapine (Remeron) 7.5 mg QHS PO 01/20/21 21:00 02/18/21 10:28 DC 02/17/21 20:40 Quetiapine Fumarate (SEROquel) 12.5 mg 0900,1300,1700 PO 01/22/21 09:00 01/25/21 16:00 DC 01/25/21 12:54 Sertraline HCl (Zoloft) 100 mg DAILY PO 01/25/21 09:00 01/26/21 17:53 DC 01/26/21 05:25 Quetiapine Fumarate (SEROquel) 12.5 mg 0900,1300,1700,2100 PO 01/25/21 21:00 01/28/21 18:16 DC 01/28/21 17:11 Sertraline HCl (Zoloft) 125 mg DAILY PO 01/27/21 09:00 01/30/21 08:02 DC 01/29/21 08:29 Quetiapine Fumarate (SEROquel) 12.5 mg 1300,2100 PO 01/28/21 21:00 02/04/21 17:16 DC 02/04/21 12:31 Quetiapine Fumarate (SEROquel) 25 mg 0900,1700 PO 01/29/21 09:00 02/04/21 17:16 DC 02/04/21 08:11 Quetiapine Fumarate (SEROquel) 12.5 mg 1300,2100 PO 01/28/21 21:00 UNV Sertraline HCl (Zoloft) 100 mg DAILY PO 01/30/21 09:00 02/18/21 10:28 DC 02/18/21 07:56 Sertraline HCl (Zoloft) 25 mg DAILY PO 01/30/21 09:00 02/02/21 17:10 DC 02/02/21 08:09 Sertraline HCl (Zoloft) 50 mg DAILY PO 02/03/21 09:00 02/18/21 10:28 DC 02/18/21 07:56 Quetiapine Fumarate (SEROquel) 25 mg 0900,1300,1700,2100 PO 02/04/21 17:15 02/08/21 18:36 DC 02/08/21 16:10 Quetiapine Fumarate (SEROquel) 25 mg 0900,1700 PO 02/09/21 09:00 02/08/21 18:39 DC Quetiapine Fumarate (SEROquel) 37.5 mg 0900,1700 PO 02/09/21 09:00 02/18/21 10:28 DC 02/18/21 07:57 Quetiapine Fumarate (SEROquel) 25 mg 1300,2100 PO 02/08/21 21:00 02/11/21 19:59 DC 02/11/21 13:16 Quetiapine Fumarate (SEROquel) 37.5 mg 1300,2100 PO 02/11/21 21:00 02/18/21 10:28 DC 02/17/21 20:41 Amoxicillin (Amoxil) 250 mg [id number] PO 02/15/21 18:30 02/18/21 10:28 DC 02/18/21 07:58 I have reviewed the current psychotropics carefully including drug interactions. Risk benefit ratio favors no change other than as noted in my dictated progress note. Diagnosis: Problems: (1) Impulse control disorder, unspecified (2) Anxiety disorder, unspecified (3) Dementia, vascular, with depression (4) Dementia, vascular, with delusions (5) Dementia in Alzheimer's disease with depression (6) Dementia in Alzheimer's disease with delusions (7) Major neurocognitive disorder due to Alzheimer's disease (8) Major neurocognitive disorder (9) Dementia in Alzheimer's disease with early onset with behavioral disturbance LUCAS CODY MD Feb 18, 2021 22:23
--- NOTE | 2021-02-18 22:39 | PDOC ---
Exam Note: Deon Note: This note is a late entry for 02/17/2021 covers elements not covered in my initial note. Subjective: The patient was seen face to face in the evening of 02/17/2021 with Stacia MERCER, discussed and reviewed the chart. The patient slept 7-1/4 hours previous night. Overall he has had a good day though she had a difficult weekend. She does complain of ongoing bladder spasms. Review of Systems: Impaired ambulation, in wheelchair. No CV, pulmonary, eye, ENT system symptoms on review. Mental Status Exam: The patient is oriented to herself and situation. Speech coherent. Abstraction fair. Computation impaired. Language function intact. Mood and affect somewhat anxious, labile. Laboratory Data: Reviewed. Impression: Major neurocognitive disorder Alzheimer, vascular with delusion, depression, behavioral disturbance. Anxiety disorder unspecified. Impulse control disorder unspecified. Plan: No change from initial note. Assessment: Vital Signs/I&O: Vital Signs Date Time Temp Pulse Resp B/P (MAP) Pulse Ox O2 Delivery O2 Flow Rate FiO2 02/18/21 05:38 97.4 88 18 130/75 (93) 95 02/17/21 15:45 Room Air I & O 02/17/21 02/17/21 02/18/21 15:00 23:00 07:00 Intake Total 720 ml 600 ml Output Total 1002 ml 600 ml Balance 720 ml -402 ml -600 ml Current Medications: Meds: Current Medications Medications (Trade) Dose Ordered Sig/Hector Route PRN Reason Start Time Stop Time Status Last Admin Dose Admin Sodium Chloride 1,000 ml @ 1,000 mls/hr 1X ONCE IV 01/14/21 19:00 01/14/21 19:59 DC 01/14/21 20:37 Acetaminophen (Tylenol) 650 mg PRN Q6HRS PRN PO MILD PAIN / TEMP > 100.3'F 01/14/21 23:15 02/18/21 10:28 DC 02/16/21 02:13 Multi-Ingredient Ointment (Analgesic [place]) 1 wes PRN QID PRN TP MUSCLE PAIN 01/14/21 23:15 01/23/21 14:58 DC Al Hydroxide/Mg Hydroxide (Mylanta Plus Xs) 15 ml PRN AFTMEALHC PRN PO DYSPEPSIA 01/14/21 23:15 02/18/21 10:28 DC 01/16/21 05:33 Magnesium Hydroxide (Milk Of Magnesia) 2,400 mg PRN QHS PRN PO CONSTIPATION 01/14/21 23:15 02/18/21 10:28 DC Donepezil HCl (Aricept) 10 mg HS PO 01/15/21 21:00 02/18/21 10:28 DC 02/17/21 20:40 Lorazepam (Ativan) 0.5 mg PRN Q24HRS PRN PO ANXIETY, 1ST CHOICE 01/14/21 23:30 02/18/21 10:28 DC 02/16/21 20:03 Lorazepam (Ativan) 0.5 mg TID PO 01/15/21 09:00 01/17/21 17:30 DC 01/17/21 10:25 Melatonin (Melatonin) 3 mg HS PO 01/15/21 21:00 02/18/21 10:28 DC 02/17/21 20:41 Paroxetine HCl (Paxil) 40 mg DAILY PO 01/15/21 09:00 01/19/21 17:15 DC 01/19/21 08:40 Hydroxyzine HCl (Atarax) 25 mg PRN Q6HRS PRN PO ANXIETY, 2ND CHOICE 01/15/21 16:45 02/18/21 10:28 DC 02/16/21 02:13 Acetaminophen (Tylenol) 650 mg PRN Q6HRS PRN PO PAIN 01/15/21 19:00 UNV Acetaminophen (Tylenol) 500 mg TID PO 01/15/21 21:00 02/18/21 10:28 DC 02/18/21 07:56 Atorvastatin Calcium (Lipitor) 10 mg QHS PO 01/15/21 21:00 02/18/21 10:28 DC 02/17/21 20:41 Budesonide (Entocort) 6 mg DAILY PO 01/16/21 09:00 02/18/21 10:28 DC 02/18/21 07:56 Calcium Polycarbophil (Fibercon) 1,250 mg BID PO 01/15/21 21:00 02/18/21 10:28 DC 02/18/21 07:58 Lidocaine (Lidoderm) 1 patch DAILY TD 01/16/21 09:00 02/18/21 10:28 DC 02/17/21 08:32 Mirabegron (Myrbetriq) 25 mg DAILY PO 01/16/21 09:00 01/23/21 17:53 DC 01/23/21 07:49 Pantoprazole Sodium (Protonix) 40 mg DAILY PO 01/16/21 09:00 02/18/21 10:28 DC 02/18/21 07:56 Phenazopyridine HCl (Pyridium) 100 mg PRN Q24HRS PRN PO URINARY PAIN 01/15/21 19:00 02/18/21 10:28 DC 02/17/21 20:45 Lactobacillus Rhamnosus (Culturelle) 1 cap BID PO 01/15/21 09:00 02/18/21 10:28 DC 02/18/21 07:56 Losartan Potassium (Cozaar) 100 mg HS PO 01/15/21 21:00 02/18/21 10:28 DC 02/17/21 20:41 Miscellaneous (Lidoderm Patch Removal) 1 ea QHS 01/15/21 21:00 02/18/21 10:28 DC 02/16/21 20:03 Memantine (Namenda) 5 mg BID PO 01/16/21 21:00 01/22/21 22:50 DC 01/22/21 19:49 Memantine (Namenda) 10 mg BID PO 01/23/21 09:00 02/18/21 10:28 DC 02/18/21 07:56 Vitamin D (Vitamin D3) 50,000 unit WEEKLY PO 01/16/21 17:30 02/18/21 10:28 DC 02/13/21 09:38 Lorazepam (Ativan) 0.5 mg BID PO 01/17/21 21:00 01/19/21 23:50 DC 01/19/21 19:56 Lorazepam (Ativan) 0.5 mg DAILY PO 01/20/21 09:00 01/22/21 12:00 DC 01/22/21 07:50 Quetiapine Fumarate (SEROquel) 12.5 mg 0900,1700 PO 01/18/21 17:00 01/21/21 17:55 DC 01/21/21 17:33 Sertraline HCl (Zoloft) 50 mg DAILY PO 01/20/21 09:00 01/22/21 13:00 DC 01/22/21 07:51 Sertraline HCl (Zoloft) 75 mg DAILY PO 01/23/21 09:00 01/24/21 17:53 DC 01/24/21 08:48 Mirtazapine (Remeron) 7.5 mg QHS PO 01/20/21 21:00 02/18/21 10:28 DC 02/17/21 20:40 Quetiapine Fumarate (SEROquel) 12.5 mg 0900,1300,1700 PO 01/22/21 09:00 01/25/21 16:00 DC 01/25/21 12:54 Sertraline HCl (Zoloft) 100 mg DAILY PO 01/25/21 09:00 01/26/21 17:53 DC 01/26/21 05:25 Quetiapine Fumarate (SEROquel) 12.5 mg 0900,1300,1700,2100 PO 01/25/21 21:00 01/28/21 18:16 DC 01/28/21 17:11 Sertraline HCl (Zoloft) 125 mg DAILY PO 01/27/21 09:00 01/30/21 08:02 DC 01/29/21 08:29 Quetiapine Fumarate (SEROquel) 12.5 mg 1300,2100 PO 01/28/21 21:00 02/04/21 17:16 DC 02/04/21 12:31 Quetiapine Fumarate (SEROquel) 25 mg 0900,1700 PO 01/29/21 09:00 02/04/21 17:16 DC 02/04/21 08:11 Quetiapine Fumarate (SEROquel) 12.5 mg 1300,2100 PO 01/28/21 21:00 UNV Sertraline HCl (Zoloft) 100 mg DAILY PO 01/30/21 09:00 02/18/21 10:28 DC 02/18/21 07:56 Sertraline HCl (Zoloft) 25 mg DAILY PO 01/30/21 09:00 02/02/21 17:10 DC 02/02/21 08:09 Sertraline HCl (Zoloft) 50 mg DAILY PO 02/03/21 09:00 02/18/21 10:28 DC 02/18/21 07:56 Quetiapine Fumarate (SEROquel) 25 mg 0900,1300,1700,2100 PO 02/04/21 17:15 02/08/21 18:36 DC 02/08/21 16:10 Quetiapine Fumarate (SEROquel) 25 mg 0900,1700 PO 02/09/21 09:00 02/08/21 18:39 DC Quetiapine Fumarate (SEROquel) 37.5 mg 0900,1700 PO 02/09/21 09:00 02/18/21 10:28 DC 02/18/21 07:57 Quetiapine Fumarate (SEROquel) 25 mg 1300,2100 PO 02/08/21 21:00 02/11/21 19:59 DC 02/11/21 13:16 Quetiapine Fumarate (SEROquel) 37.5 mg 1300,2100 PO 02/11/21 21:00 02/18/21 10:28 DC 02/17/21 20:41 Amoxicillin (Amoxil) 250 mg [id number] PO 02/15/21 18:30 02/18/21 10:28 DC 02/18/21 07:58 I have reviewed the current psychotropics carefully including drug interactions. Risk benefit ratio favors no change other than as noted in my dictated progress note. Diagnosis: Problems: (1) Impulse control disorder, unspecified (2) Anxiety disorder, unspecified (3) Dementia, vascular, with depression (4) Dementia, vascular, with delusions (5) Dementia in Alzheimer's disease with depression (6) Dementia in Alzheimer's disease with delusions (7) Major neurocognitive disorder due to Alzheimer's disease (8) Major neurocognitive disorder (9) Dementia in Alzheimer's disease with early onset with behavioral disturbance LUCAS CODY MD Feb 18, 2021 22:39
--- NOTE | 2021-02-18 22:40 | PDOC ---
Exam Note: Deon Note: Please also refer to the separate dictated note~for this date of service dictated separately.~Patient seen individually. Discussed the patient with Nursing staff reviewed the chart.~Reviewed interim history and current functioning. Reviewed vital signs,~Labs/ Radiology~and current medications noted below. Continue current treatment with the changes noted in the dictated addendum note Assessment: Vital Signs/I&O: Vital Signs Date Time Temp Pulse Resp B/P (MAP) Pulse Ox O2 Delivery O2 Flow Rate FiO2 02/18/21 05:38 97.4 88 18 130/75 (93) 95 02/17/21 15:45 Room Air I & O 02/17/21 02/17/21 02/18/21 15:00 23:00 07:00 Intake Total 720 ml 600 ml Output Total 1002 ml 600 ml Balance 720 ml -402 ml -600 ml Current Medications: Meds: Current Medications Medications (Trade) Dose Ordered Sig/Hector Route PRN Reason Start Time Stop Time Status Last Admin Dose Admin Sodium Chloride 1,000 ml @ 1,000 mls/hr 1X ONCE IV 01/14/21 19:00 01/14/21 19:59 DC 01/14/21 20:37 Acetaminophen (Tylenol) 650 mg PRN Q6HRS PRN PO MILD PAIN / TEMP > 100.3'F 01/14/21 23:15 02/18/21 10:28 DC 02/16/21 02:13 Multi-Ingredient Ointment (Analgesic [place]) 1 wes PRN QID PRN TP MUSCLE PAIN 01/14/21 23:15 01/23/21 14:58 DC Al Hydroxide/Mg Hydroxide (Mylanta Plus Xs) 15 ml PRN AFTMEALHC PRN PO DYSPEPSIA 01/14/21 23:15 02/18/21 10:28 DC 01/16/21 05:33 Magnesium Hydroxide (Milk Of Magnesia) 2,400 mg PRN QHS PRN PO CONSTIPATION 01/14/21 23:15 02/18/21 10:28 DC Donepezil HCl (Aricept) 10 mg HS PO 01/15/21 21:00 02/18/21 10:28 DC 02/17/21 20:40 Lorazepam (Ativan) 0.5 mg PRN Q24HRS PRN PO ANXIETY, 1ST CHOICE 01/14/21 23:30 02/18/21 10:28 DC 02/16/21 20:03 Lorazepam (Ativan) 0.5 mg TID PO 01/15/21 09:00 01/17/21 17:30 DC 01/17/21 10:25 Melatonin (Melatonin) 3 mg HS PO 01/15/21 21:00 02/18/21 10:28 DC 02/17/21 20:41 Paroxetine HCl (Paxil) 40 mg DAILY PO 01/15/21 09:00 01/19/21 17:15 DC 01/19/21 08:40 Hydroxyzine HCl (Atarax) 25 mg PRN Q6HRS PRN PO ANXIETY, 2ND CHOICE 01/15/21 16:45 02/18/21 10:28 DC 02/16/21 02:13 Acetaminophen (Tylenol) 650 mg PRN Q6HRS PRN PO PAIN 01/15/21 19:00 UNV Acetaminophen (Tylenol) 500 mg TID PO 01/15/21 21:00 02/18/21 10:28 DC 02/18/21 07:56 Atorvastatin Calcium (Lipitor) 10 mg QHS PO 01/15/21 21:00 02/18/21 10:28 DC 02/17/21 20:41 Budesonide (Entocort) 6 mg DAILY PO 01/16/21 09:00 02/18/21 10:28 DC 02/18/21 07:56 Calcium Polycarbophil (Fibercon) 1,250 mg BID PO 01/15/21 21:00 02/18/21 10:28 DC 02/18/21 07:58 Lidocaine (Lidoderm) 1 patch DAILY TD 01/16/21 09:00 02/18/21 10:28 DC 02/17/21 08:32 Mirabegron (Myrbetriq) 25 mg DAILY PO 01/16/21 09:00 01/23/21 17:53 DC 01/23/21 07:49 Pantoprazole Sodium (Protonix) 40 mg DAILY PO 01/16/21 09:00 02/18/21 10:28 DC 02/18/21 07:56 Phenazopyridine HCl (Pyridium) 100 mg PRN Q24HRS PRN PO URINARY PAIN 01/15/21 19:00 02/18/21 10:28 DC 02/17/21 20:45 Lactobacillus Rhamnosus (Culturelle) 1 cap BID PO 01/15/21 09:00 02/18/21 10:28 DC 02/18/21 07:56 Losartan Potassium (Cozaar) 100 mg HS PO 01/15/21 21:00 02/18/21 10:28 DC 02/17/21 20:41 Miscellaneous (Lidoderm Patch Removal) 1 ea QHS MC 01/15/21 21:00 02/18/21 10:28 DC 02/16/21 20:03 Memantine (Namenda) 5 mg BID PO 01/16/21 21:00 01/22/21 22:50 DC 01/22/21 19:49 Memantine (Namenda) 10 mg BID PO 01/23/21 09:00 02/18/21 10:28 DC 02/18/21 07:56 Vitamin D (Vitamin D3) 50,000 unit WEEKLY PO 01/16/21 17:30 02/18/21 10:28 DC 02/13/21 09:38 Lorazepam (Ativan) 0.5 mg BID PO 01/17/21 21:00 01/19/21 23:50 DC 01/19/21 19:56 Lorazepam (Ativan) 0.5 mg DAILY PO 01/20/21 09:00 01/22/21 12:00 DC 01/22/21 07:50 Quetiapine Fumarate (SEROquel) 12.5 mg 0900,1700 PO 01/18/21 17:00 01/21/21 17:55 DC 01/21/21 17:33 Sertraline HCl (Zoloft) 50 mg DAILY PO 01/20/21 09:00 01/22/21 13:00 DC 01/22/21 07:51 Sertraline HCl (Zoloft) 75 mg DAILY PO 01/23/21 09:00 01/24/21 17:53 DC 01/24/21 08:48 Mirtazapine (Remeron) 7.5 mg QHS PO 01/20/21 21:00 02/18/21 10:28 DC 02/17/21 20:40 Quetiapine Fumarate (SEROquel) 12.5 mg 0900,1300,1700 PO 01/22/21 09:00 01/25/21 16:00 DC 01/25/21 12:54 Sertraline HCl (Zoloft) 100 mg DAILY PO 01/25/21 09:00 01/26/21 17:53 DC 01/26/21 05:25 Quetiapine Fumarate (SEROquel) 12.5 mg 0900,1300,1700,2100 PO 01/25/21 21:00 01/28/21 18:16 DC 01/28/21 17:11 Sertraline HCl (Zoloft) 125 mg DAILY PO 01/27/21 09:00 01/30/21 08:02 DC 01/29/21 08:29 Quetiapine Fumarate (SEROquel) 12.5 mg 1300,2100 PO 01/28/21 21:00 02/04/21 17:16 DC 02/04/21 12:31 Quetiapine Fumarate (SEROquel) 25 mg 0900,1700 PO 01/29/21 09:00 02/04/21 17:16 DC 02/04/21 08:11 Quetiapine Fumarate (SEROquel) 12.5 mg 1300,2100 PO 01/28/21 21:00 UNV Sertraline HCl (Zoloft) 100 mg DAILY PO 01/30/21 09:00 02/18/21 10:28 DC 02/18/21 07:56 Sertraline HCl (Zoloft) 25 mg DAILY PO 01/30/21 09:00 02/02/21 17:10 DC 02/02/21 08:09 Sertraline HCl (Zoloft) 50 mg DAILY PO 02/03/21 09:00 02/18/21 10:28 DC 02/18/21 07:56 Quetiapine Fumarate (SEROquel) 25 mg 0900,1300,1700,2100 PO 02/04/21 17:15 02/08/21 18:36 DC 02/08/21 16:10 Quetiapine Fumarate (SEROquel) 25 mg 0900,1700 PO 02/09/21 09:00 02/08/21 18:39 DC Quetiapine Fumarate (SEROquel) 37.5 mg 0900,1700 PO 02/09/21 09:00 02/18/21 10:28 DC 02/18/21 07:57 Quetiapine Fumarate (SEROquel) 25 mg 1300,2100 PO 02/08/21 21:00 02/11/21 19:59 DC 02/11/21 13:16 Quetiapine Fumarate (SEROquel) 37.5 mg 1300,2100 PO 02/11/21 21:00 02/18/21 10:28 DC 02/17/21 20:41 Amoxicillin (Amoxil) 250 mg [id number] PO 02/15/21 18:30 02/18/21 10:28 DC 02/18/21 07:58 I have reviewed the current psychotropics carefully including drug interactions. Risk benefit ratio favors no change other than as noted in my dictated progress note. Diagnosis: Problems: (1) Impulse control disorder, unspecified (2) Anxiety disorder, unspecified (3) Dementia, vascular, with depression (4) Dementia, vascular, with delusions (5) Dementia in Alzheimer's disease with depression (6) Dementia in Alzheimer's disease with delusions (7) Major neurocognitive disorder due to Alzheimer's disease (8) Major neurocognitive disorder (9) Dementia in Alzheimer's disease with early onset with behavioral disturbance LUCAS CODY MD Feb 18, 2021 22:39
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
== END 2021-02-18 10:00 | DRG 57 ==
LOC: ER 18:04 → GEROPSY 22:35
PROVIDERS: ADMIT Psychiatry & Neurology Psychiatry; ATTEND Psychiatry & Neurology Psychiatry
DX: G30.9 Alzheimer's disease, unspecified (principal); F02.81 Dementia in other diseases classified elsewhere, unspecified severity, with behavioral disturbance; F01.51 Vascular dementia, unspecified severity, with behavioral disturbance; F41.9 Anxiety disorder, unspecified; M19.90 Unspecified osteoarthritis, unspecified site; G89.29 Other chronic pain; K21.9 Gastro-esophageal reflux disease without esophagitis; I10 Essential (primary) hypertension; M81.0 Age-related osteoporosis without current pathological fracture; E78.5 Hyperlipidemia, unspecified; F25.0 Schizoaffective disorder, bipolar type; F63.9 Impulse disorder, unspecified; Z66 Do not resuscitate; Z79.899 Other long term (current) drug therapy; Z20.822 Contact with and (suspected) exposure to COVID-19
CPT/HCPCS: 36415; 70450; 71045; 72125; 80053; 80061; 81001; 82306; 82553; 82607; 82947; 83036; 83540; 83550; 83735; 84436; 84443; 84480; 84484; 85007; 85025; 85379; 86592; 87077; 87086; 87186; 93005; 96360; 96361; U0003; U0005; 99285-25; J7030